=== PATIENT | female | born 1960 | race Caucasian/White ===

== ENCOUNTER → 2017-07-21 12:50 | Outpatient (CLI) | payer MEDICARE, BC, SELFPAY ==
[2017-07-21 13:30] VITALS: PULSE 60; PULSE 68
== END ==
PROVIDERS: Family Provider Internal Medicine; PCP Internal Medicine; Visit Provider Internal Medicine
DX: R06.02 Shortness of breath (principal)
CPT/HCPCS: 94060; 94640

== ENCOUNTER → 2017-10-27 13:53 | Outpatient (POV) | payer MEDICARE, BC, SELFPAY | PROVIDERS: Family Provider Internal Medicine; PCP Internal Medicine; Visit Provider Internal Medicine | DX: Z00.00 Encounter for general adult medical examination without abnormal findings (principal) ==

== ENCOUNTER → 2017-11-03 14:21 | Outpatient (CLI) | payer MEDICARE, BC, SELFPAY ==
--- NOTE | 2017-11-03 14:25 | CT_ITS ---
CT lung screening EXAM: CT LUNG LOW DOSE WO CONTRAST COMPARISON: None HISTORY: 57-year-old female asymptomatic with 32 pack-year smoking history ITS.REASON: CURRENT TOBACCO USE ORDERING PHYSICIAN: Sherman Green MD PATIENT AGE: 57 years TECHNIQUE: The exam was performed on a GE Light Speed [address] scanner using 2.90 mGy CTDI. A low dose helical CT CHEST was performed on a multi-detector scanner. All CT scans at the facility use one or more dose reduction, viz: automated exposure control; ma/kV adjustment per patient size (including targeted exams where dose is matched to indication; i.e. head); or iterative reconstruction technique. The LDCT was performed in a facility that meets the criteria for the screening program. Data regarding this exam was submitted to ACR which is an approved registry. The order for this exam indicates that it came as a result of a lung cancer screening counseling shard decision-making visit that included all the elements required of such a visit including smoking cessation. The radiologist interpreting this exam meets the CMS criteria for the LDCT lung cancer screening program. The exam is reported using the Lung-RADS classification scale and reported to the ACR registry. NOTE: This study was performed for the specific purposes of lung cancer screening and is not an alternative to diagnostic chest CT. RADIATION DOSE: CTDI vol(CT dose Index-volume) = 2.90mG DLP (Dose Length Product) = 105.39 mGcm FINDINGS: Paraseptal emphysematous change. Hyperinflation with attenuation of the peripheral pulmonary vessels and mild bronchial thickening consistent with COPD. Scattered areas of scarring in the lung bases. No suspicious pulmonary nodules evident. Scattered small nodes are present in the mediastinum and axilla.. There is minimal dilatation of the proximal descending thoracic aorta at 3.6 cm IMPRESSION: 1. Lung RADS Category: 1, negative 2. Other findings: COPD Mild dilatation proximal descending thoracic aorta RECOMMENDATIONS: 12 month LDCT screening exam
== END ==
PROVIDERS: Family Provider Internal Medicine; PCP Internal Medicine; Visit Provider Internal Medicine
DX: Z87.891 Personal history of nicotine dependence (principal); Z12.2 Encounter for screening for malignant neoplasm of respiratory organs; F17.200 Nicotine dependence, unspecified, uncomplicated

== ENCOUNTER → 2018-05-25 10:18 | Outpatient (CLI) | payer MEDICARE, BC, SELFPAY ==
[2018-05-25 10:28] LABS: Basophils # 0.2 K/mm3 (0-0.2); Basophils % 1.5 % (0.1-2.0); Eosinophils # 0.9 K/mm3 (0.0-0.4); Eosinophils % 8.4 % (0.1-12.0); Hematocrit 41.6 % (37.0-47.0); Hemoglobin 13.9 g/dL (12.2-16.2); Lymphocytes # 3.2 K/mm3 (0.7-4.5); Lymphocytes % 30.8 % (10-50); Mean Corpuscular HGB Conc 33.5 g/dL (31.8-35.4); Mean Corpuscular Hemoglobin 30.9 pg (27.0-31.2); Mean Corpuscular Volume 92.3 fl (81-99); Mean Platelet Volume 7.3 fl (7.4-10.4); Monocytes # 0.6 K/mm3 (0.1-1.0); Monocytes % 5.4 % (1.7-9.3); Neutrophils # 5.5 K/mm3 (1.8-7.8); Neutrophils % 53.8 % (37.0-80.0); Platelet Count 294 K/mm3 (142-424); Red Blood Count 4.51 M/mm3 (4.20-5.40); Red Cell Distribution Width 14.3 % (11.5-17.5); White Blood Count 10.2 K/mm3 (4.8-10.8)
[2018-05-25 11:03] LABS: Anion Gap 13.1 mEq/L (5-15); Blood Urea Nitrogen 9 mg/dL (7-18); Calcium 8.8 mg/dL (8.5-10.1); Carbon Dioxide 27 mmol/L (21.0-32.0); Chloride 104 mmol/L (98-107); Creatinine,Serum 1.11 mg/dL (0.55-1.02); Estimated Glomerular Filt Rate 50 ml/min (>60); GFR (African American) 61 ML/MIN (>60); Glucose 105 mg/dL (74-106); Potassium 4.1 mmoL/L (3.5-5.1); Sodium 140 mmol/L (136-145)
--- NOTE | 2018-05-25 13:52 | CT_ITS ---
CT abdomen pelvis wo con CLINICAL INDICATION: Right lower quadrant pain radiating into the flank ITS.REASON: RLQ PAIN ORDERING PHYSICIAN: Deondre Lui PATIENT AGE: 57 years COMPARISON: 05/14/2016 TECHNIQUE: Axial images obtained with sagittal and coronal reformats. All CT scans at the facility use one or more dose reduction, viz: automated exposure control, ma/kV adjustment per patient size (including targeted exams where dose is matched to indication, i.e. head), or iterative reconstruction technique. PROCEDURE: Oral Contrast: Gastroview IV Contrast: None . FINDINGS: Atelectatic or fibrotic changes are present in the lung bases. There is mild diffuse fatty liver the spleen, adrenal glands, pancreas have an unremarkable unenhanced appearance. A 2 mm stone is present in the mid polar region of the right kidney. No hydronephrosis. No ureteral calculi. No evidence of appendicitis, intestinal obstruction, or diverticulitis. There is a femorofemoral graft present. There are stents present in both common iliac arteries. There is minimal ectasia of the abdominal aorta to 0.1 cm. Prior hysterectomy. No pelvic mass abnormal fluid collection or focal inflammatory changes pelvis. No acute bony anomalies. IMPRESSION: 1. No acute abdominal or pelvic findings. 2. Nonobstructing 2 mm stone right kidney.
== END ==
PROVIDERS: PCP Internal Medicine; Visit Provider Internal Medicine
DX: R10.31 Right lower quadrant pain (principal); M54.5 Low back pain
CPT/HCPCS: 74176; 80048; 85025

== ENCOUNTER → 2018-12-27 13:33 | Outpatient (CLI) | payer MEDICARE, BC, SELFPAY ==
--- NOTE | 2018-12-27 13:36 | MM_ITS ---
MM Dig mamm BI DX w/CAD, US breast LT complete INDICATION: Left breast nodule as seen on recent CT scan ORDERING PHYSICIAN: Deondre Lui PATIENT AGE: 58 years COMPARISON: 07/14/2016, 01/21/2011, 12/16/2018 TECHNIQUE: Standard images performed along with spot views of the left breast and left breast ultrasound FINDINGS: Mammogram: There is average to dense fibroglandular tissue bilaterally. There is an area of asymmetry noted in the medial aspect of the right breast slightly more prominent but may be related to an area of asymmetric tissue. Benign-appearing nodules are present in the right axilla consistent with lymph nodes There is a new well-circumscribed 2 cm nodule within the 3:00 region of the left breast. There are bilateral benign-appearing calcifications. Left breast ultrasound: There is a 2 x 1.8 cm cyst at 3:00 which corresponds to the mammographic abnormality. This contains a small septation anteriorly with some questionable mural thickening anteriorly. This corresponds to the mammographic abnormality. No other significant anomalies are evident. IMPRESSION: No convincing evidence of malignancy. The nodule in the lateral aspect of the left breast represents a complicated cyst. There is some asymmetry in the medial aspect of the right breast probably related to fibroglandular tissue. Suggest bilateral 6 month mammographic and left sonographic follow-up BI-RADS Category: 3 Probably Benign Finding Short Term Follow-up RECOMMENDED FOLLOW-UP: 6M - 6 MONTH FOLLOW-UP (A letter has been sent to the patient regarding results of the study.)
== END ==
PROVIDERS: PCP Internal Medicine; Visit Provider Internal Medicine
DX: R93.7 Abnormal findings on diagnostic imaging of other parts of musculoskeletal system (principal); N63.22 Unspecified lump in the left breast, upper inner quadrant
CPT/HCPCS: 76641; 77066

== ENCOUNTER → 2019-07-05 09:48 | Outpatient (CLI) | payer MEDICARE, BC, SELFPAY ==
--- NOTE | 2019-07-05 10:03 | XR_ITS ---
PROCEDURE: XR ACUTE ABDOMEN SERIES CLINICAL INDICATION: LOWER ABD PAIN, COMPARISON: CT ABDOMEN PELVIS W CON from 03/01/2019 FINDINGS: There is no acute cardiopulmonary pathology. Increased density at the right cardiophrenic angle is consistent with cardiophrenic angle fat pad as seen on previous CT. Postsurgical changes are seen at the cervicothoracic junction and at the right humeral head. Bilateral common iliac artery stents are noted. Postsurgical clips are seen in the bilateral inguinal regions. There is no free air. There is a nonspecific gas pattern. No organomegaly or abnormal soft tissue densities are apparent. Pelvic calcifications likely phleboliths are noted. Vascular calcifications are noted. IMPRESSION: No acute findings. Dictated by: Chris Sandra 07/05/2019 10:33 Electronically signed by Chris Sandra in [place] 07/05/2019 10:33
[2019-07-05 10:10] LABS: Basophils # 0.1 K/mm3 (0-0.2); Eosinophils # 0.5 K/mm3 (0.0-0.4); Eosinophils % 4.2 % (0.1-12.0); Hematocrit 46.3 % (37.0-47.0); Hemoglobin 14.8 g/dL (12.2-16.2); Lymphocytes # 2.1 K/mm3 (0.7-4.5); Lymphocytes % 18.2 % (10-50); Mean Corpuscular HGB Conc 31.9 g/dL (31.8-35.4); Mean Corpuscular Hemoglobin 30.6 pg (27.0-31.2); Mean Platelet Volume 7.8 fl (7.4-10.4); Monocytes # 0.5 K/mm3 (0.1-1.0); Monocytes % 4.5 % (1.7-9.3); Neutrophils # 8.2 K/mm3 (1.8-7.8); Neutrophils % 72.1 % (37.0-80.0); Platelet Count 316 K/mm3 (142-424); Red Blood Count 4.82 M/mm3 (4.20-5.40); Red Cell Distribution Width 15.2 % (11.5-17.5); White Blood Count 11.4 K/mm3 (4.8-10.8)
[2019-07-05 10:17] LABS: Anion Gap 14.7 mEq/L (5-15); Blood Urea Nitrogen 17 mg/dL (7-18); Calcium 9.2 mg/dL (8.5-10.1); Carbon Dioxide 28 mmol/L (21.0-32.0); Chloride 104 mmol/L (98-107); Creatinine,Serum 1.16 mg/dL (0.55-1.02); Estimated Glomerular Filt Rate 48 ml/min (>60); GFR (African American) 58 ML/MIN (>60); Glucose 112 mg/dL (74-106); Potassium 3.7 mmoL/L (3.5-5.1); Sodium 143 mmol/L (136-145)
== END ==
PROVIDERS: Visit Provider Internal Medicine
DX: R10.30 Lower abdominal pain, unspecified (principal); R11.0 Nausea; R19.7 Diarrhea, unspecified
CPT/HCPCS: 36415; 74021; 80048; 85025

== ENCOUNTER → 2019-07-29 14:14 | Outpatient (CLI) | payer MEDICARE, BC, SELFPAY ==
--- NOTE | 2019-07-29 14:17 | US_ITS ---
PROCEDURE: MM DIG MAMM DX UNILAT LT CAD CLINICAL INDICATION: LT BREAST NODULE The the the in the COMPARISON: DMDBAV DIG MAMM-DX STANLEY W ADD VIEWS from 05/24/2015 DMSB DIG MAMM-SCREEN STANLEY W/CAD from 07/14/2016 DIG MAMM-DX UNI-LT from 12/27/2018 BREASTLT US breast LT complete from 12/27/2018 US BREAST LT COMPLETE from 07/29/2019 TECHNIQUE: Standard CC and MLO images and 3D Tomosynthesis was obtained. R2 CAD reviewed. Left breast FINDINGS: There is average fibroglandular tissue. There is a 2.7 x 2.3 cm well-circumscribed nodule within the lower outer aspect of the left breast. This has increased in size previously measuring 2.1 x 1.7 cm. No other significant anomalies are evident. Left breast ultrasound: There is a 2.4 by 2.2 x 1.3 cm cyst at 3 o'clock region of the left breast corresponding to the mammographic abnormality. This previously measured 1.8 x 1 point 2 cm. There is a small adjacent cyst anterior to this cyst versus a small septation within the cyst not significantly changed. No suspicious nodules are evident. IMPRESSION: Complicated left breast cyst which is slightly increased in size. This is probably benign. Fine-needle aspiration could be performed with sonographic guidance for patient comfort and peace of mind the if clinically warranted. On the prior exam, follow-up also is recommended of the right breast which was not performed. Would recommend performing that exam. BI-RAD Category: 3 Probably Benign Finding Short Term Follow-up FOLLOW-UP: IMM Immediate Follow-up Recommended. Follow-up of the right breast is also recommended which was not performed on the date of this exam (A letter has been sent to the patient regarding results of the study.) Dictated by: Enrique Steele MD 07/30/2019 11:52 Electronically signed by Enrique Steele MD in [place] 07/30/2019 11:52
== END ==
PROVIDERS: PCP Internal Medicine; Visit Provider Internal Medicine
DX: R92.8 Other abnormal and inconclusive findings on diagnostic imaging of breast (principal); N63.23 Unspecified lump in the left breast, lower outer quadrant
CPT/HCPCS: 76641; 77061; 77065; G0279

== ENCOUNTER → 2019-08-16 09:29 | Outpatient (CLI) | payer MEDICARE, BC, SELFPAY ==
--- NOTE | 2019-08-16 09:35 | MM_ITS ---
PROCEDURE: MM DIG SC MAMM UNILAT RT CAD Digital Breast Tomosynthesis Included CLINICAL INDICATION: RT BREAST SCREENING Follow-up suspected asymmetric glandular elements COMPARISON: DMSB DIG MAMM-SCREEN STANLEY W/CAD from 07/14/2016 DIG MAMM-DX UNI-LT from 12/27/2018 MM DIG MAMM DX UNILAT LT CAD from 07/29/2019 TECHNIQUE: Standard CC and MLO images and 3D Tomosynthesis was obtained. R2 CAD reviewed. FINDINGS: Moderate diffuse heterogenic fibroglandular densities are seen in the central portion. Cb images are most helpful revealing no suspicious lesion and no suspicious microcalcifications. Again noted are couple of benign-appearing microcalcifications. IMPRESSION: Stable dense and heterogenic parenchymal pattern BI-RAD Category: 2 Benign Finding(s) FOLLOW-UP: Six-month follow-up mammogram to return to normal yearly screening schedule (A letter has been sent to the patient regarding results of the study.) Dictated by: Dr. Damian Schwarz MD 08/19/2019 08:[address] Damian Schwarz MD in [place] 08/19/2019 08:15
--- NOTE | 2019-08-16 09:50 | US_ITS ---
PROCEDURE: US FNA BREAST CLINICAL INDICATION: LT BREAST NODULE Dominant left breast nodule, complicated cyst COMPARISON: US BREAST LT COMPLETE from 07/29/2019 FINDINGS: Technique: Following obtaining informed consent and time-out procedure under aseptic conditions and local anesthesia with 1 percent buffered lidocaine, a 21 gauge needle was inserted into the left breast nodule and 8 cc of dark fluid was aspirated. A 2nd small cyst was aspirated in this region as well. The patient tolerated the procedure well without evidence of immediate complications. Cytology: Negative for malignancy. IMPRESSION: Successful ultrasound-guided cyst aspiration without complication Dictated by: Enrique Steele MD 08/19/2019 11:23 Electronically signed by Enrique Steele MD in [place] 08/19/2019 11:23
--- NOTE | 2019-08-16 10:38 | MM_ITS ---
PROCEDURE: MM DIG MAMM DX UNILAT LT CAD Digital Breast Tomosynthesis Included CLINICAL INDICATION: F/U CYST ASPIRATION COMPARISON: DIG MAMM-DX UNI-LT from 12/27/2018 MM DIG MAMM DX UNILAT LT CAD from 07/29/2019 MM DIG SC MAMM UNILAT RT CAD from 08/16/2019 TECHNIQUE: Standard CC and MLO images and 3D Tomosynthesis was obtained. R2 CAD reviewed. FINDINGS: Diffuse heterogenic fibroglandular densities are again noted. The dominant cystic-appearing lesion which was drained previously is not seen. Cb images are most helpful revealing no suspicious lesion. Again noted are a few scattered benign-appearing microcalcifications. IMPRESSION: Stable heterogenic breast density with no suspicious lesions seen BI-RAD Category: 2 Benign Finding(s) FOLLOW-UP: 6M 6Month Follow-up to return to normal yearly screening schedule (A letter has been sent to the patient regarding results of the study.) Dictated by: Dr. Damian Schwarz MD 08/19/2019 08:[address] Damian Schwarz MD in [place] 08/19/2019 08:20
== END ==
PROVIDERS: PCP Internal Medicine; Visit Provider Internal Medicine
DX: Z12.31 Encounter for screening mammogram for malignant neoplasm of breast (principal); N63.20 Unspecified lump in the left breast, unspecified quadrant; R92.8 Other abnormal and inconclusive findings on diagnostic imaging of breast
CPT/HCPCS: 10005; 76942; 77061; 77063; 77065; 77067; 88173; G0279

== ENCOUNTER → 2019-08-23 11:05 | Outpatient (CLI) | payer MEDICARE, BC, SELFPAY ==
--- NOTE | 2019-08-23 11:09 | XR_ITS ---
PROCEDURE: XR SHOULDER LT MIN 2V CLINICAL INDICATION: LT SHOULDER PAIN COMPARISON: [id number] [id number] VIEWS from 05/09/2017 FINDINGS: No fracture, dislocation, lytic change, or blastic change evident. No significant degenerative change IMPRESSION: Negative left shoulder Dictated by: Enrique Steele MD 08/23/2019 11:31 Electronically signed by Enrique Steele MD in [place] 08/23/2019 11:31
== END ==
PROVIDERS: PCP Internal Medicine; Visit Provider Internal Medicine
DX: M25.512 Pain in left shoulder (principal)
CPT/HCPCS: 73030

== ENCOUNTER 2019-09-23 06:19 | Emergency (ER) | payer MEDICARE, BC, SELFPAY ==
[2019-09-23 06:20] VITALS: BP 171/80; PULSE 70; RESP 16; RESP 18; TEMP 36.7; O2SAT 95; BMI 32.4
--- NOTE | 2019-09-23 06:41 | CT_ITS ---
PROCEDURE: CT HEAD/BRAIN WO CON CLINICAL INDICATION: left sided weakness Left-sided weakness COMPARISON: [facility] CT HEAD W/O CONTRAST from 01/02/2017 TECHNIQUE: Axial images obtained. All CT scans at the facility use one or more dose reduction, viz: automated exposure control, ma/kV adjustment per patient size (including targeted exams where dose is matched to indication, i.e. head), or iterative reconstruction technique. FINDINGS: No midline shift, mass effect, intracranial hemorrhage, hydrocephalus, or extra-axial fluid collection is evident. The calvarium has an unremarkable appearance. No mastoid effusion. No sinus air-fluid level. IMPRESSION: No acute intracranial finding Dictated by: Enrique Steele MD 09/23/2019 08:13 Electronically signed by Enrique Steele MD in [place] 09/23/2019 08:13
--- NOTE | 2019-09-23 06:41 | XR_ITS ---
PROCEDURE: XR CHEST 2V CLINICAL HISTORY: weakness COMPARISON: CXR CHEST(2 VIEWS-NOT PORTABLE) from 05/19/2017 Chest from 12/16/[address] angio chest from 12/16/2018 XR RIBS RT MIN 3V W CXR1V from 03/01/2019 FINDINGS: The cardiomediastinal silhouette and pulmonary vascularity are within normal limits. The lungs are clear without infiltrates, suspicious nodules, or pleural effusions. Pericardial fat pad noted on the right. Bone plate is present along the lower cervical spine IMPRESSION: No acute findings. Dictated by: Enrique Steele MD 09/23/2019 09:10 Electronically signed by Enrique Steele MD in [place] 09/23/2019 09:10
--- NOTE | 2019-09-23 06:42 | ECG_ITS ---
APPROVED REPORT Exam: Resting ECG HR:58 bpm ECG Measurements Heart Rate 58 AXES WA 174 P 78 QRSd 84 QRS 61 QT 422 T 66 QTc 414 <Conclusion> Sinus bradycardia Otherwise normal ECG Electronically signed by : Duglas Talbert, 09/24/2019 06:47:56
--- NOTE | 2019-09-23 06:45 | PC.NURSE ---
pt placed in gown. bra left on due to being a sports bra with no metal.
[2019-09-23 06:50] LABS: Basophils # 0.1 K/mm3 (0-0.2); Basophils % 0.6 % (0.1-2.0); Eosinophils # 0.4 K/mm3 (0.0-0.4); Eosinophils % 2.6 % (0.1-12.0); Hematocrit 44.4 % (37.0-47.0); Hemoglobin 14.4 g/dL (12.2-16.2); Lymphocytes # 2.6 K/mm3 (0.7-4.5); Lymphocytes % 19.5 % (10-50); Mean Corpuscular HGB Conc 32.5 g/dL (31.8-35.4); Mean Corpuscular Hemoglobin 31.5 pg (27.0-31.2); Mean Corpuscular Volume 96.9 fl (81-99); Mean Platelet Volume 7.8 fl (7.4-10.4); Monocytes # 0.7 K/mm3 (0.1-1.0); Monocytes % 5.3 % (1.7-9.3); Neutrophils # 9.7 K/mm3 (1.8-7.8); Platelet Count 288 K/mm3 (142-424); Red Blood Count 4.58 M/mm3 (4.20-5.40); Red Cell Distribution Width 14.8 % (11.5-17.5); White Blood Count 13.5 K/mm3 (4.8-10.8)
[2019-09-23 06:52] LABS: Chloride 106 mmol/L (98-107); Sodium 139 mmol/L (136-145)
[2019-09-23 06:53] LABS: Potassium 4.1 mmoL/L (3.5-5.1)
[2019-09-23 06:55] LABS: Blood Urea Nitrogen 21 mg/dl (7-17); Creatinine Clearance Estimated 104 mL/min (50-200); Estimated Glomerular Filt Rate 73 ml/min (>60); GFR (African American) 89 ML/MIN (>60)
[2019-09-23 06:56] LABS: Anion Gap 11.1 mEq/L (5-15); Calcium 9.4 mg/dl (8.4-10.2); Carbon Dioxide 26 mmol/L (22.0-30.0); Glucose 121 mg/dl (74-100)
[2019-09-23 07:10] LABS: Troponin I < 0.01 ng/ml (0.00-0.034)
[2019-09-23 07:44] LABS: Microscopic, Urine URINE MICROSCOPIC (MICROSCOPIC)
[2019-09-23 07:51] LABS: Appearance,Urine CLEAR (Clear); Blood, Urine Negative (Negative); Color,Urine YELLOW (Yellow); Glucose,Urine (UA) Negative (Negative); Ketones,Urine Negative (Negative); Leukocyte Esterase,Urine Negative (Negative); Nitrate,Urine Negative (Negative); PH,Urine 5.5 (5.0-8.5); Protein,Urine Negative (Negative); Specific Gravity, Urine >= 1.030 (1.005-1.030); Urobilinogen,Urine 0.2 EU/dl (0.2)
[2019-09-23 07:57] LABS: Bilirubin,Urine Negative (Negative)
[2019-09-23 07:59] LABS: Bacteria,Urine 1+ /lpf; Mucus,Urine Trace /lpf
--- NOTE | 2019-09-23 08:04 | HMH.EDGENADL ---
ED Disposition Clinical Impression: Weakness Disposition: Home, Self-Care Condition on Discharge: Good Additional Instructions: After reviewing your labs and radiology we are discharging you home at this time. Given your symptoms there is concern that she may have had a subacute stroke, but there are other pathologies which could explain your symptoms. We recommend that you follow-up with your primary care physician Dr. Lui on Thursday or Thursday of next week for further evaluation. Recommend that she start taking 81 mg oral aspirin every day. If her symptoms acutely worsen please return to the emergency department for further evaluation. Referrals: Deondre Lui [Primary Care Provider] - - Critical Care Critical Care Time: No Attestation: On 09/23/19, the high probability of a clinically significant, sudden or life threatening deterioration of the following system(s) required my full and direct attention, intervention and personal management. The time I documented below is in addition to time spent performing reported procedures but includes the following listed in this critical care notation. Medical Decision Making - Darin Inquiry Pt receiving controlled substance: No Darin was queried for this patient: No Vital Signs: 09/23/19 06:20 09/23/19 10:18 Temperature 98.1 F 98.1 F Temperature Source Oral Tympanic Pulse Rate 69 Pulse Rate [Left Radial] 70 Respiratory Rate 18 14 Blood Pressure 154/74 H Blood Pressure [Right Arm] 171/80 H Blood Pressure Mean [Right Arm] 110 Blood Pressure Source [Right Arm] Automatic Cuff Blood Pressure Position [Right Arm] Supine 02 Sat by Pulse Oximetry 95 Oxygen Delivery Method Room Air Room Air - Lab Data Lab Results 09/23/19 06:30: WBC 13.5 H, RBC 4.58, Hgb 14.4, Hct 44.4, MCV 96.9, MCH 31.5 H, MCHC 32.5, RDW 14.8, Plt Count 288, MPV 7.8, Neut % (Auto) 72.0, Lymph % (Auto) 19.5, [place] % (Auto) 5.3, Eos % (Auto) 2.6, Baso % (Auto) 0.6, Neut # (Auto) 9.7 H, Lymph # (Auto) 2.6, [place] # (Auto) 0.7, Eos # (Auto) 0.4, Baso # (Auto) 0.1 09/23/19 06:30: Sodium 139, Potassium 4.1, Chloride 106, Carbon Dioxide 26, Anion Gap 11.1, BUN 21 H, Creatinine 0.80, Estimated Creat Clear 104, Estimated GFR 73, Est GFR ( Amer) 89, Glucose 121 H, Calcium 9.4, Troponin I < 0.01 09/23/19 07:33: Urine Color Yellow, Urine Appearance Clear, Urine pH 5.5, Ur Specific [place] >= 1.030, Urine Protein Negative, Urine Glucose (UA) Negative, Urine Ketones Negative, Urine Blood Negative, Urine Nitrate Negative, Urine Bilirubin Negative, Urine Urobilinogen 0.2, Ur Leukocyte Esterase Negative, Urine RBC 5-10, Urine WBC 5-10, Ur Squamous Epith Cells 3-5, Urine Bacteria 1+, Urine Mucus Trace 09/23/19 09:35: Troponin I < 0.01 Result diagrams: 09/23/19 06:30 09/23/19 06:30 Orders (Tests/Meds): ED MEDICATIONS Discontinued Medications Generic Name Dose Route Start Last Admin Trade Name Natalee PRN Reason Stop Dose Admin Amlodipine Besylate 10 mg 09/23/19 09:45 09/23/19 10:18 Norvasc 10mg Tablet PO 10/23/19 09:44 10 mg DAILY JEANCARLOS Administration Sodium Chloride 1,000 mls @ 999 mls/hr 09/23/19 06:45 09/23/19 07:10 Sod Chlor 0.9% 1000ml Bag IV 09/23/19 07:45 999 mls/hr .Q1H1M JEANCARLOS Administration Medical Decision Narrative: In summary patient is a well-appearing 58-year-old female presenting to the emergency department for evaluation of left-sided weakness. Symptoms started 1 week prior. Given patient's presentation differential diagnosis includes but is not limited to stroke, hemorrhagic stroke, ACS, diabetic neuropathy. This appropriate work-up initiated including CBC, CMP, troponin panel, and CT head as well as EKG. On physical exam patient has 4 out of 5 strength noted to her left upper and left lower extremities with 5 out of 5 strength to right upper and right lower extremity. Patient is able to ambulate under her own power. Patient CT returned shows no acute int
--- NOTE | 2019-09-23 09:41 | PC.NURSE ---
2nd troponin drawn and to lab for resulting.
[2019-09-23 10:13] LABS: Troponin I < 0.01 ng/ml (0.00-0.034)
[2019-09-23 10:18] VITALS: BP 154/74; PULSE 69; RESP 14; TEMP 36.7; O2SAT 98
--- NOTE | 2019-09-23 10:22 | PC.NURSE ---
upon discharge, patient angry and storms out of the room, jerking flores stating that you all dont care there is something wrong with me. pt storms out of the ed before staff able to attempt to console or discuss concerns with patient. pt states that my doctor told me not to leave until you all find out what is wrong with me. pt ran out of ed.
[2019-10-27 10:31] LABS: POC Glucose,Bedside 113 (70-110)
== END 2019-09-23 10:24 | disposition home or self-care (01) ==
PROVIDERS: Emergency Provider Emergency Medicine; PCP Internal Medicine
DX: R53.1 Weakness (principal); R20.2 Paresthesia of skin; I10 Essential (primary) hypertension; E78.5 Hyperlipidemia, unspecified; F17.210 Nicotine dependence, cigarettes, uncomplicated
CPT/HCPCS: 70450; 71046; 80048; 81001; 82962; 84484; 85025; 93005; 99284

== ENCOUNTER → 2020-07-09 08:20 | Outpatient (CLI) | payer MEDICARE, BC, SELFPAY ==
--- NOTE | 2020-07-09 08:24 | MM_ITS ---
PROCEDURE: MM DIG SCREENING MAMM BI W/CAD Digital Breast Tomosynthesis Included CLINICAL INDICATION: SCREENING There is a history of breast cancer patient's mother diagnosed after menopause. There has been a previous biopsy left breast for benign disease. COMPARISON: MG DIG MAMM-DX UNI-LT from 12/27/2018 MG MM DIG MAMM DX UNILAT LT CAD from 07/29/2019 MG MM DIG MAMM DX UNILAT LT CAD from 08/16/2019 MG MM DIG SC MAMM UNILAT RT CAD from 08/16/2019 TECHNIQUE: Standard CC and MLO images and 3D Tomosynthesis was obtained. R2 CAD reviewed. FINDINGS: Prominent somewhat heterogenic fibroglandular densities are seen in in the central portions of both breast. There is a biopsy clip left breast. There are scattered benign-appearing microcalcifications in each breast. There is no suspicious lesion and no suspicious microcalcifications. There are several small nodes in both axilla. IMPRESSION: Stable exam with no suspicious lesions seen BI-RAD Category: 2 Benign Finding(s) FOLLOW-UP: 1YR 1 Year Follow-up (A letter has been sent to the patient regarding results of the study.) Dictated by: Dr. Damian Schwarz MD 07/11/2020 10:11 Dr. Damian Schwarz MD in [place] 07/11/2020 10:11
== END ==
PROVIDERS: PCP Internal Medicine; Visit Provider Internal Medicine
DX: Z12.31 Encounter for screening mammogram for malignant neoplasm of breast (principal)
CPT/HCPCS: 77063; 77067

== ENCOUNTER → 2021-04-03 11:15 | Outpatient (CLI) | payer MEDICARE, BC, SELFPAY ==
--- NOTE | 2021-04-03 11:29 | XR_ITS ---
PROCEDURE: XR PELVIS MIN 3V CLINICAL INDICATION: LT HIP PAIN COMPARISON: No exams were available for comparison TECHNIQUE: XR Pelvis AP View FINDINGS: Minimal osteoarthritic changes of the hips. Surgical clips are present in the inguinal regions on both sides. There are bilateral iliac artery stents diffuse vascular calcification. Calcification noted over the right ileum and may be due to a injection granuloma or bone island of the ileum.. Small calcification superior to ilium also possibly due to injection granuloma. No acute fracture or dislocation. No lytic changes. IMPRESSION: Mild osteoarthritis of the hips Dictated by: Enrique Steele MD 04/16/2021 19:39 Enrique Steele MD in [place] 04/16/2021 19:39
--- NOTE | 2021-04-03 11:29 | XR_ITS ---
PROCEDURE: XR HIP LT 2-3V W/PELVIS CLINICAL INDICATION: LT HIP PAIN COMPARISON: CT CT ABDOMEN PELVIS W CON from 03/01/2019 CR XR PELVIS MIN 3V from 04/03/2021 FINDINGS: No fracture or dislocation. No lytic or blastic change. Surgical clips are present in the inguinal area. No significant degenerative change. IMPRESSION: No acute findings. Dictated by: Enrique Steele MD 04/03/2021 17:35 Enrique Steele MD in [place] 04/03/2021 17:35
[2021-04-03 18:49] LABS: Chloride 104 mmol/L (98-107); Potassium 4.3 mmoL/L (3.5-5.1); Sodium 141 mmol/L (136-145)
[2021-04-03 18:52] LABS: Anion Gap 16.3 mEq/L (5-15); Blood Urea Nitrogen 10 mg/dl (7-17); Calcium 9.6 mg/dl (8.4-10.2); Carbon Dioxide 25 mmol/L (22.0-30.0); Estimated Glomerular Filt Rate 73 ml/min (>60); GFR (African American) 88 ML/MIN (>60); Glucose 95 mg/dl (74-100)
== END ==
PROVIDERS: PCP Internal Medicine; Visit Provider Internal Medicine
DX: M25.552 Pain in left hip (principal)
CPT/HCPCS: 72190; 73502; 80048

== ENCOUNTER → 2021-07-08 12:42 | Outpatient (CLI) | payer MEDICARE, BC, SELFPAY ==
[2021-07-08 13:13] LABS: Basophils # 0.1 K/mm3 (0-0.2); Basophils % 1.1 % (0.1-2.0); Eosinophils # 0.2 K/mm3 (0.0-0.4); Eosinophils % 1.4 % (0.1-12.0); Hematocrit 44.2 % (37.0-47.0); Hemoglobin 14.3 g/dL (12.2-16.2); Lymphocytes # 2.1 K/mm3 (0.7-4.5); Lymphocytes % 16.8 % (10-50); Mean Corpuscular HGB Conc 32.5 g/dL (31.8-35.4); Mean Corpuscular Hemoglobin 32.3 pg (27.0-31.2); Mean Corpuscular Volume 99.4 fl (81-99); Mean Platelet Volume 9.1 fl (7.4-10.4); Monocytes # 0.6 K/mm3 (0.1-1.0); Monocytes % 5.1 % (1.7-9.3); Neutrophils # 9.4 K/mm3 (1.8-7.8); Neutrophils % 75.6 % (37.0-80.0); Platelet Count 285 K/mm3 (142-424); Red Blood Count 4.44 M/mm3 (4.20-5.40); Red Cell Distribution Width 15.3 % (11.5-17.5); White Blood Count 12.4 K/mm3 (4.8-10.8)
[2021-07-08 14:06] LABS: Alanine Aminotransferase 20 U/L (12-78); Albumin Level 4.2 g/dl (3.5-5.0); Albumin/Globulin Ratio 1.8 (1.1-1.8); Alkaline Phosphatase 85 U/L (38-126); Anion Gap 14.1 mEq/L (5-15); Aspartate Amino Transferase 22 U/L (14-36); Bilirubin,Total 0.6 mg/dl (0.2-1.3); Blood Urea Nitrogen 9 mg/dl (7-17); Calcium 9.7 mg/dl (8.4-10.2); Carbon Dioxide 27 mmol/L (22.0-30.0); Chloride 102 mmol/L (98-107); Chol/HDL Ratio 3.2 (1-3.5); Cholesterol 124 mg/dl (140-200); Estimated Glomerular Filt Rate 50 ml/min (>60); GFR (African American) 61 ML/MIN (>60); Globulin 2.3 g/dL (1.3-3.2); Glucose 139 mg/dl (74-100); HDL Cholesterol 39 mg/dl (40-60); Potassium 4.1 mmoL/L (3.5-5.1); Sodium 139 mmol/L (136-145); Total Protein,Serum 6.5 g/dl (6.3-8.2); Triglycerides 125 mg/dl (30-150); VLDL Cholesterol 25 mg/dL (0-40)
[2021-07-08 14:15] LABS: NT Pro Brain Natriuretic Pep. 47.5 pg/mL (0-125)
[2021-07-08 14:23] LABS: Direct LDL Cholesterol 79.13 mg/dL (100-129)
== END ==
PROVIDERS: Visit Provider Internal Medicine
DX: R06.09 Other forms of dyspnea (principal); I25.10 Atherosclerotic heart disease of native coronary artery without angina pectoris; I10 Essential (primary) hypertension; I73.9 Peripheral vascular disease, unspecified; E78.5 Hyperlipidemia, unspecified
CPT/HCPCS: 80053; 80061; 83880; 85025

== ENCOUNTER → 2021-07-11 12:46 | Outpatient (CLI) | payer MEDICARE, BC, SELFPAY ==
--- NOTE | 2021-07-11 12:50 | MM_ITS ---
PROCEDURE INFORMATION: Exam: MG Bilateral Screening 3D Mammography Exam date and time: 07/11/2021 12:50 PM Age: 60 years old Clinical indication: Encounter for screening mammogram for malignant neoplasm of breast TECHNIQUE: Imaging protocol: Bilateral Screening tomosynthesis and 2D mammography including computer-aided detection (CAD) when performed. COMPARISON: 1. MG MM DIG SCREENING MAMM BI W/CAD 07/09/2020 8:25 AM 2. MG MM DIG MAMM DX UNILAT LT CAD 08/16/2019 10:40 AM FINDINGS: MAMMOGRAPHY: Breast composition: The breast tissue is heterogeneously dense, which may obscure small masses. Mass: None. Architectural distortion: None. Calcifications: No suspicious calcifications. Asymmetric density: None. Skin thickening: None. Axillary adenopathy: None. IMPRESSION: No mammographic evidence of malignancy. Annual screening is recommended unless otherwise clinically indicated. ASSESSMENT: BI-RADS Category 1: Negative
== END ==
PROVIDERS: PCP Internal Medicine; Visit Provider Internal Medicine
DX: Z12.31 Encounter for screening mammogram for malignant neoplasm of breast (principal)
CPT/HCPCS: 77063; 77067

== ENCOUNTER → 2021-10-08 15:16 | Outpatient (CLI) | payer MEDICARE, BC, SELFPAY ==
[2021-10-08 16:28] LABS: Chloride 108 mmol/L (98-107); Potassium 4.9 mmoL/L (3.5-5.1); Sodium 141 mmol/L (136-145)
[2021-10-08 16:30] LABS: Alanine Aminotransferase 19 U/L (12-78); Aspartate Amino Transferase 25 U/L (14-36); Blood Urea Nitrogen 16 mg/dl (7-17); Estimated Glomerular Filt Rate 56 ml/min (>60); GFR (African American) 68 ML/MIN (>60)
[2021-10-08 16:31] LABS: Albumin Level 3.9 g/dl (3.5-5.0); Albumin/Globulin Ratio 1.6 (1.1-1.8); Alkaline Phosphatase 96 U/L (38-126); Anion Gap 11.9 mEq/L (5-15); Bilirubin,Total 0.8 mg/dl (0.2-1.3); Calcium 9.8 mg/dl (8.4-10.2); Carbon Dioxide 26 mmol/L (22.0-30.0); Cholesterol 110 mg/dl (140-200); Globulin 2.4 g/dL (1.3-3.2); Glucose 97 mg/dl (74-100); Total Protein,Serum 6.3 g/dl (6.3-8.2); Triglycerides 145 mg/dl (30-150); VLDL Cholesterol 29 mg/dL (0-40)
[2021-10-08 16:32] LABS: Chol/HDL Ratio 3.4 (1-3.5); HDL Cholesterol 32 mg/dl (40-60)
[2021-10-08 16:42] LABS: Direct LDL Cholesterol 61.56 mg/dL (100-129)
== END ==
PROVIDERS: Visit Provider Internal Medicine
DX: I25.10 Atherosclerotic heart disease of native coronary artery without angina pectoris (principal); I10 Essential (primary) hypertension; E78.5 Hyperlipidemia, unspecified; I73.9 Peripheral vascular disease, unspecified; Z86.73 Personal history of transient ischemic attack (TIA), and cerebral infarction without residual deficits
CPT/HCPCS: 80053; 80061

== ENCOUNTER → 2021-11-15 13:30 | Outpatient (CLI) | payer MEDICARE, BC, SELFPAY ==
--- NOTE | 2021-11-15 13:35 | CA_ITS ---
APPROVED REPORT EXAM: Comprehensive 2D, Doppler, and color-flow Echocardiogram Weigh Boss: Melanie Schneider RVT Ht: 5 ft 5 in Wt: 195lbs BSA: 1.96 BP: 135/67 mmHg Indications: SOA,HTN,HLD,SMOKER 2D Dimensions LVOT 2.00 cm (M/F) 1.5-2.5 LA Volume 21.50 mL LA Volume Index 11.02 mL/m2 (M/F) 16-34 M-Mode Dimensions RVDd 2.42 cm (0.9-2.6) LA Diam 3.43 cm (1.9-4.0) LVDd 4.54 cm (3.5-5.7) Ao Diam 2.85 cm (2.0-3.7) LVDs 2.38 cm (3.5-5.7) IVSd 1.49 cm (0.6-1.1) PWd 0.98 cm (0.6-1.1) EF (Teich) 79.10% FS 47.60% EDV (Teich) 94.40 mL TAPSE 2.67 (<1.7) ESV (Teich) 19.70 mL LV Diastology E Decel Time 233.00 (160-240 msec) E/A Ratio 1.4 MED E' 5.40 (< 7 cm/sec) E'/MED E' Ratio 21.67 (>14) LAT E' 7.90 (<10 cm/sec) E/LAT E' Ratio 14.81 (>14) Aortic Valve AO Peak GR. 14.00 mmHg Mitral Valve MV E Max Jayson. 117.00 (40-130 cm/s) MV A Velocity 85.00 (40-130 cm/s) E/A Ratio 1.38 MV Decel. Time 233.00 (160-240 ms) MV PHT 68.00 ms Pulmonary Valve PV Peak Velocity 88.00 (50-150 cm/s) Tricuspid Valve TR P. Velocity 325.00 cm/s RAP Estimate 10.00 mmHg RVSP 52.30 mmHg Left Ventricle Left atrium is mildly enlarged, left ventricle is normal size, mild concentric left ventricular hypertrophy, estimated ejection fraction 55%, septum is sigmoid configuration, there is no regional wall motion abnormality, grade 2 diastolic dysfunction seen with tissue Doppler evidence of raise left atrial pressure. Right Ventricle Right atrium and right ventricle are normal size and contractility. Aortic Valve Aortic valve is thickened and calcified without Doppler evidence of aortic stenosis or aortic insufficiency. Mitral Valve Mitral valve grossly normal, there is mild mitral regurgitation. Tricuspid Valve Tricuspid valve is grossly normal, there is mild tricuspid regurgitation, tricuspid regurgitation jet velocity is inadequate for calculation of the right ventricular systolic pressure. Pulmonic Valve Pulmonic valve is poorly visualized. Great Vessels Aortic root is normal size. Inferior vena cava is normal size with normal inspiratory collapse. Pericardium No significant pericardial effusion noted. Conclusion 1. Mildly enlarged left atrium, normal left ventricular size, mild concentric left ventricular hypertrophy, estimated ejection fraction 55% with no regional wall motion abnormality, grade 2 diastolic dysfunction seen without tissue Doppler evidence of raise left atrial pressure. 2. Mild mitral and tricuspid regurgitation. 3. No significant pericardial effusion. 4. Inferior vena cava normal size with normal inspiratory collapse. Electronically signed by : Alfa Méndez MD 11/17/2021 06:32:10
== END ==
PROVIDERS: PCP Internal Medicine; Visit Provider Internal Medicine
DX: R06.02 Shortness of breath (principal); R06.09 Other forms of dyspnea; J44.9 Chronic obstructive pulmonary disease, unspecified
CPT/HCPCS: 93306

== ENCOUNTER → 2022-01-07 11:33 | Outpatient (CLI) | payer MEDICARE, BC, SELFPAY ==
--- NOTE | 2022-01-07 11:38 | CT_ITS ---
FINAL REPORT TECHNIQUE: Thin section axial images were obtained from the lung bases to the pubic symphysis without IV contrast. This study was performed with techniques to keep radiation doses as low as reasonably achievable (ALARA). Individualized dose reduction techniques using automated exposure control or adjustment of mA and/or kV according to the patient's size were employed. CLINICAL HISTORY: RLQ, right sided abd pain. no hematuria COMPARISON: 03/02/2019 FINDINGS: There is a nonobstructing right renal stone. There are no obstructing renal or ureteral stones. There is no hydronephrosis or perinephric stranding. There is diffuse fatty infiltration of the liver without focal hepatic lesion. The gallbladder is present. The remaining unenhanced solid abdominal organs are unremarkable. There is mild wall thickening of proximal small bowel loops, may represent an enteritis. There is no evidence of small-bowel obstruction. The patient is status post hysterectomy. The appendix is normal. GI tract is without acute abnormality. There is no lymphadenopathy or ascites. There are bilateral common iliac artery stents. There is a femoral to femoral bypass graft. No acute osseous abnormality is identified. IMPRESSION: Wall thickening of proximal small bowel loops, may represent enteritis. Normal appendix. Nonobstructing right renal stone. Reviewed, Interpreted and Dictated by Livia Daniels MD Transcribed by Ana Do Authenticated and [facility]
== END ==
PROVIDERS: PCP Internal Medicine; Visit Provider Internal Medicine
DX: R10.31 Right lower quadrant pain (principal); R11.0 Nausea
CPT/HCPCS: 74176

== ENCOUNTER → 2022-04-08 12:28 | Outpatient (CLI) | payer MEDICARE, BC, SELFPAY ==
[2022-04-08 15:46] LABS: Alanine Aminotransferase 16 U/L (12-78); Albumin Level 3.8 g/dl (3.5-5.0); Albumin/Globulin Ratio 1.5 (1.1-1.8); Alkaline Phosphatase 124 U/L (38-126); Anion Gap 16.9 mEq/L (5-15); Aspartate Amino Transferase 22 U/L (14-36); Bilirubin,Total 0.3 mg/dl (0.2-1.3); Blood Urea Nitrogen 21 mg/dl (7-17); Calcium 8.8 mg/dl (8.4-10.2); Carbon Dioxide 24 mmol/L (22.0-30.0); Chloride 107 mmol/L (98-107); Chol/HDL Ratio 3.7 (1-3.5); Cholesterol 126 mg/dl (140-200); Estimated Glomerular Filt Rate 41 ml/min (>60); GFR (African American) 50 ML/MIN (>60); Globulin 2.6 g/dL (1.3-3.2); Glucose 83 mg/dl (74-100); HDL Cholesterol 34 mg/dl (40-60); Potassium 4.9 mmoL/L (3.5-5.1); Sodium 143 mmol/L (136-145); Total Protein,Serum 6.4 g/dl (6.3-8.2); Triglycerides 105 mg/dl (30-150); VLDL Cholesterol 21 mg/dL (0-40)
[2022-04-08 18:39] LABS: Direct LDL Cholesterol 71.69 mg/dL (100-129)
== END ==
PROVIDERS: PCP Internal Medicine; Visit Provider Internal Medicine
DX: I10 Essential (primary) hypertension (principal); Z79.899 Other long term (current) drug therapy
CPT/HCPCS: 80053; 80061

== ENCOUNTER → 2022-05-26 10:35 | Outpatient (CLI) | payer MEDICARE, BC, SELFPAY ==
--- NOTE | 2022-05-26 10:38 | CT_ITS ---
FINAL REPORT TECHNIQUE: Axial imaging of the chest was obtained without contrast. Reformatted images were also obtained and reviewed.This study was performed with techniques to keep radiation doses as low as reasonably achievable, (ALARA). Individualized dose reduction technique using automated exposure control or adjustment of mA and/or kV according to the patient's size were employed. CLINICAL HISTORY: LT LATERAL BREAST EDEMA,LT PROXIMAL AREA/UNDERARM EDEMA FINDINGS: There is no axillary adenopathy. There is no hilar or mediastinal mass or adenopathy. Heart size is normal. There is no pericardial or pleural effusion. Limited images of the upper abdomen are unremarkable. There is mild scarring and mild emphysematous change. No suspicious infiltrate or nodule is identified on lung window images. Soft tissues of the lateral left breast and axilla are unremarkable. IMPRESSION: No acute process. Reviewed, Interpreted and Dictated by Wong Schofield III, MD Transcribed by Stephanie Sung Authenticated and [facility]
== END ==
PROVIDERS: PCP Internal Medicine; Visit Provider Internal Medicine
DX: N64.59 Other signs and symptoms in breast (principal); R60.0 Localized edema
CPT/HCPCS: 71250

== ENCOUNTER → 2022-08-19 12:24 | Outpatient (CLI) | payer MEDICARE, BC, SELFPAY ==
--- NOTE | 2022-08-19 12:30 | XR_ITS ---
FINAL REPORT CLINICAL HISTORY: foot pain FINDINGS: RIGHT FOOT Three views of the right foot demonstrate no acute fracture or dislocation. There are mild degenerative changes in the midfoot. There are calcaneal spurs. The soft tissues are unremarkable. IMPRESSION: Mild degenerative changes as above with no acute bony abnormality. Reviewed, Interpreted and Dictated by Wong Schofield III, MD Transcribed by Janette Patrick Authenticated and [facility]
--- NOTE | 2022-08-19 12:30 | XR_ITS ---
FINAL REPORT CLINICAL HISTORY: foot pain COMPARISON: 02/17/2019 FINDINGS: LEFT FOOT Three views of the left foot demonstrate no acute fracture or dislocation. The joint spaces are preserved. There are calcaneal spurs. The soft tissues are unremarkable. IMPRESSION: No acute bony abnormality. Reviewed, Interpreted and Dictated by Wong Schofield III, MD Transcribed by Janette Patrick Authenticated and [facility]
== END ==
PROVIDERS: PCP Internal Medicine; Visit Provider Podiatrist
DX: M79.672 Pain in left foot (principal); M79.671 Pain in right foot
CPT/HCPCS: 73630

== ENCOUNTER → 2022-08-22 10:40 | Outpatient (CLI) | payer MEDICARE, BC, SELFPAY ==
--- NOTE | 2022-08-22 10:44 | MM_ITS ---
PROCEDURE INFORMATION: Exam: MG Bilateral Screening 3D Mammography Exam date and time: 08/22/2022 10:41 AM Age: 61 years old Clinical indication: Screening examination. Her mother had breast cancer at age 60. TECHNIQUE: Imaging protocol: Bilateral Screening tomosynthesis and 2D mammography including computer-aided detection (CAD) when performed. COMPARISON: 1. MG MM DIG SCREENING MAMM BI W/CAD 07/11/2021 12:58 PM 2. MG MM DIG SCREENING MAMM BI W/CAD 07/09/2020 8:25 AM 3. MG MM DIG MAMM DX UNILAT LT CAD 08/16/2019 10:40 AM 4. MG MM DIG SC MAMM UNILAT RT CAD 08/16/2019 9:50 AM MG DMDBAV DIG MAMM-DX STANLEY W ADD VIEWS 05/24/2015 9:49 AM FINDINGS: MAMMOGRAPHY: Breast composition: The breasts are heterogeneously dense, which may obscure small masses. Mass: None. Architectural distortion: None. Calcifications: No suspicious calcifications. Asymmetric density: None. Skin thickening: None. Axillary adenopathy: Stable borderline dense right axillary node since 05/24/2015. IMPRESSION: No mammographic evidence of malignancy. Annual screening is recommended unless otherwise clinically indicated. ASSESSMENT: BI-RADS Category 2: Benign
== END ==
PROVIDERS: PCP Internal Medicine; Visit Provider Internal Medicine
DX: Z12.31 Encounter for screening mammogram for malignant neoplasm of breast (principal)
CPT/HCPCS: 77063; 77067

== ENCOUNTER → 2022-09-26 12:45 | Outpatient (CLI) | payer MEDICARE, BC, SELFPAY ==
[2022-09-26 14:32] LABS: Basophils # 0.1 K/mm3 (0-0.2); Basophils % 0.8 % (0.1-2.0); Eosinophils # 0.3 K/mm3 (0.0-0.4); Eosinophils % 2.9 % (0.1-12.0); Hematocrit 39.8 % (37.0-47.0); Lymphocytes # 2.4 K/mm3 (0.7-4.5); Lymphocytes % 21.2 % (10-50); Mean Corpuscular HGB Conc 32.8 g/dL (31.8-35.4); Mean Corpuscular Hemoglobin 30.4 pg (27.0-31.2); Mean Corpuscular Volume 92.8 fl (81-99); Mean Platelet Volume 8.4 fl (7.4-10.4); Monocytes # 0.7 K/mm3 (0.1-1.0); Monocytes % 5.9 % (1.7-9.3); Neutrophils # 7.9 K/mm3 (1.8-7.8); Neutrophils % 69.1 % (37.0-80.0); Platelet Count 318 K/mm3 (142-424); Red Blood Count 4.29 M/mm3 (4.20-5.40); Red Cell Distribution Width 15.6 % (11.5-17.5); White Blood Count 11.4 K/mm3 (4.8-10.8)
[2022-09-26 14:56] LABS: Alanine Aminotransferase 20 U/L (12-78); Albumin Level 4.2 g/dl (3.5-5.0); Albumin/Globulin Ratio 1.6 (1.1-1.8); Alkaline Phosphatase 107 U/L (38-126); Aspartate Amino Transferase 23 U/L (14-36); Bilirubin,Total 0.5 mg/dl (0.2-1.3); Blood Urea Nitrogen 20 mg/dl (7-17); Calcium 9.5 mg/dl (8.4-10.2); Carbon Dioxide 26 mmol/L (22.0-30.0); Chloride 104 mmol/L (98-107); Chol/HDL Ratio 3.5 (1-3.5); Cholesterol 138 mg/dl (140-200); Estimated Glomerular Filt Rate 33 ml/min (>60); GFR (African American) 39 ML/MIN (>60); Globulin 2.7 g/dL (1.3-3.2); Glucose 86 mg/dl (74-100); HDL Cholesterol 39 mg/dl (40-60); Sodium 136 mmol/L (136-145); Total Protein,Serum 6.9 g/dl (6.3-8.2); Triglycerides 119 mg/dl (30-150); VLDL Cholesterol 24 mg/dL (0-40)
[2022-09-26 15:07] LABS: Direct LDL Cholesterol 77.24 mg/dL (100-129)
== END ==
PROVIDERS: PCP Internal Medicine; Visit Provider Internal Medicine
DX: I25.10 Atherosclerotic heart disease of native coronary artery without angina pectoris (principal); I10 Essential (primary) hypertension; E78.5 Hyperlipidemia, unspecified; I73.9 Peripheral vascular disease, unspecified; M70.72 Other bursitis of hip, left hip; Z86.73 Personal history of transient ischemic attack (TIA), and cerebral infarction without residual deficits
CPT/HCPCS: 80053; 80061; 85025

== ENCOUNTER → 2023-03-10 13:54 | Outpatient (CLI) | payer MEDICARE, BC, SELFPAY ==
--- NOTE | 2023-03-10 13:58 | MR_ITS ---
FINAL REPORT TECHNIQUE: Multiplanar and multisequence imaging of the lumbar spine was obtained without contrast. CLINICAL HISTORY: LOW BACK PAIN with left hip pain FINDINGS: There is normal alignment of the lumbar vertebral bodies. Vertebral body height is preserved. The spinal cord ends at the level of L1. There is normal signal intensity within the substance of the distal spinal cord. No acute bone marrow edema or pathologic marrow replacement. No acute paraspinal abnormality is identified. L1-2: There is no focal disc herniation, central canal stenosis or neuroforaminal narrowing. L2-3: There is an annular bulge with degenerative endplate change and facet osteoarthropathy. There is no central canal stenosis or right foraminal narrowing. There is moderate left neural foraminal narrowing. L3-4: There is an annular bulge with degenerative endplate change and facet osteoarthropathy. There is no central canal stenosis. There is mild left greater than right neural foraminal narrowing. L4-5: There is an annular bulge with degenerative endplate change and facet osteoarthropathy. This there is mild central canal stenosis. There is mild right and moderate to severe left neural foraminal narrowing. L5-S1: There is an annular bulge with degenerative endplate change and facet osteoarthropathy. There is no central canal stenosis or significant neural foraminal narrowing. IMPRESSION: Multilevel degenerative disc disease greatest at L4-L5. Reviewed, Interpreted and Dictated by Livia Daniels MD Transcribed by Fransico Solorzano Authenticated and [facility]
--- NOTE | 2023-03-10 14:01 | MR_ITS ---
FINAL REPORT CLINICAL HISTORY: LEFT HIP PAIN COMPARISON: None FINDINGS: Multiplanar and multisequence imaging of the left hip were obtained without contrast. Bone marrow signal intensity is preserved. There is no acute fracture, contusion or pathologic marrow replacement. There is mild degenerative change of the hips bilaterally. There is no evidence of AVN. The labrum is intact. No convincing labral tear is identified. Signal intensity within the muscular structure is within normal limits. There is mild edema adjacent to the greater trochanter. The gluteus medius tendon appears intact. A small left hip joint effusion is present. IMPRESSION: Mild edema adjacent to the greater trochanter, the gluteus medius tendon appears intact. Small left hip joint effusion. Reviewed, Interpreted and Dictated by Livia Daniels MD Transcribed by Lucila Nuñez Authenticated and [facility]
== END ==
PROVIDERS: PCP Internal Medicine; Visit Provider Internal Medicine
DX: M54.50 Low back pain, unspecified (principal); M25.552 Pain in left hip
CPT/HCPCS: 72148; 73721; 76376

== ENCOUNTER → 2023-03-30 13:23 | Outpatient (CLI) | payer MEDICARE, BC, SELFPAY ==
[2023-03-30 16:02] LABS: Alanine Aminotransferase 27 U/L (12-78); Albumin Level 4.1 g/dl (3.5-5.0); Albumin/Globulin Ratio 1.4 (1.1-1.8); Alkaline Phosphatase 89 U/L (38-126); Aspartate Amino Transferase 30 U/L (14-36); Bilirubin,Total 0.3 mg/dl (0.2-1.3); Blood Urea Nitrogen 19 mg/dl (7-17); Calcium 9.6 mg/dl (8.4-10.2); Carbon Dioxide 26 mmol/L (22.0-30.0); Chloride 107 mmol/L (98-107); Chol/HDL Ratio 5.2 (1-3.5); Cholesterol 157 mg/dl (140-200); Estimated Glomerular Filt Rate 38 ml/min (>60); GFR (African American) 46 ML/MIN (>60); Globulin 2.9 g/dL (1.3-3.2); Glucose 95 mg/dl (74-100); HDL Cholesterol 30 mg/dl (40-60); Sodium 142 mmol/L (136-145); Triglycerides 191 mg/dl (30-150); VLDL Cholesterol 38 mg/dL (0-40)
[2023-03-30 16:13] LABS: Direct LDL Cholesterol 93.45 mg/dL (100-129)
== END ==
PROVIDERS: PCP Internal Medicine; Visit Provider Internal Medicine
DX: I10 Essential (primary) hypertension (principal); E78.5 Hyperlipidemia, unspecified; Z86.73 Personal history of transient ischemic attack (TIA), and cerebral infarction without residual deficits; Z72.0 Tobacco use
CPT/HCPCS: 80053; 80061

== ENCOUNTER 2023-09-29 14:12 | Outpatient (CLI) | payer MEDICARE, BC, SELFPAY ==
[2023-09-29 15:03] LABS: Basophils # 0.2 K/mm3 (0-0.2); Basophils % 1.2 % (0.1-2.0); Eosinophils # 0.8 K/mm3 (0.0-0.4); Eosinophils % 6.3 % (0.1-12.0); Hemoglobin 11.8 g/dL (12.2-16.2); Lymphocytes # 2.2 K/mm3 (0.7-4.5); Lymphocytes % 18.2 % (10-50); Mean Corpuscular Hemoglobin 30.4 pg (27.0-31.2); Mean Platelet Volume 8.5 fl (7.4-10.4); Monocytes # 0.7 K/mm3 (0.1-1.0); Monocytes % 5.8 % (1.7-9.3); Neutrophils # 8.4 K/mm3 (1.8-7.8); Neutrophils % 68.4 % (37.0-80.0); Platelet Count 288 K/mm3 (142-424); Red Blood Count 3.88 M/mm3 (4.20-5.40); Red Cell Distribution Width 16.3 % (11.5-17.5); White Blood Count 12.3 K/mm3 (4.8-10.8)
[2023-09-29 15:22] LABS: Chloride 108 mmol/L (98-107); Potassium 4.6 mmoL/L (3.5-5.1); Sodium 141 mmol/L (136-145)
[2023-09-29 15:24] LABS: Blood Urea Nitrogen 27 mg/dl (7-17); Estimated Glomerular Filt Rate 28 ml/min (>60); GFR (African American) 34 ML/MIN (>60)
[2023-09-29 15:25] LABS: Alanine Aminotransferase 21 U/L (12-78); Albumin/Globulin Ratio 1.5 (1.1-1.8); Alkaline Phosphatase 109 U/L (38-126); Anion Gap 11.6 mEq/L (5-15); Aspartate Amino Transferase 25 U/L (14-36); Bilirubin,Total 0.6 mg/dl (0.2-1.3); Calcium 10.4 mg/dl (8.4-10.2); Carbon Dioxide 26 mmol/L (22.0-30.0); Cholesterol 184 mg/dl (140-200); Globulin 2.7 g/dL (1.3-3.2); Glucose 92 mg/dl (74-100); Total Protein,Serum 6.7 g/dl (6.3-8.2); Triglycerides 134 mg/dl (30-150); VLDL Cholesterol 27 mg/dL (0-40)
[2023-09-29 15:26] LABS: Chol/HDL Ratio 3.3 (1-3.5); HDL Cholesterol 56 mg/dl (40-60)
[2023-09-29 15:36] LABS: Direct LDL Cholesterol 96.28 mg/dL (100-129)
== END 2023-09-29 23:59 | disposition home or self-care (01) ==
LOC: LAB.DROPOF 14:13
PROVIDERS: PCP Internal Medicine; Visit Provider Internal Medicine
DX: I50.32 Chronic diastolic (congestive) heart failure (principal); I25.10 Atherosclerotic heart disease of native coronary artery without angina pectoris; I10 Essential (primary) hypertension; I73.9 Peripheral vascular disease, unspecified; E78.5 Hyperlipidemia, unspecified; F33.0 Major depressive disorder, recurrent, mild; I69.30 Unspecified sequelae of cerebral infarction; J44.9 Chronic obstructive pulmonary disease, unspecified
CPT/HCPCS: 80053; 80061; 85025

== ENCOUNTER 2023-10-07 10:16 | Outpatient (CLI) | payer MEDICARE, BC, SELFPAY ==
--- NOTE | 2023-10-07 10:21 | MM_ITS ---
PROCEDURE INFORMATION: Exam: MG Bilateral Screening 3D Mammography Exam date and time: 10/07/2023 10:17 AM Age: 62 years old Clinical indication: Screening examination TECHNIQUE: Imaging protocol: Bilateral Screening tomosynthesis and 2D mammography including computer-aided detection (CAD) when performed. COMPARISON: 1. MG MM DIG SCREENING MAMM BI W/CAD 08/22/2022 10:41 AM 2. MG MM DIG SCREENING MAMM BI W/CAD 07/11/2021 12:58 PM FINDINGS: MAMMOGRAPHY: Breast composition: The breasts are heterogeneously dense, which may obscure small masses. Mass: None. Architectural distortion: None. Calcifications: No suspicious calcifications. Asymmetric density: None. Skin thickening: None. Axillary adenopathy: None. IMPRESSION: No mammographic evidence of malignancy. Annual screening is recommended unless otherwise clinically indicated. ASSESSMENT: BI-RADS Category 1: Negative
== END 2023-10-07 23:59 | disposition home or self-care (01) ==
LOC: RAD 10:17
PROVIDERS: PCP Internal Medicine; Visit Provider Internal Medicine
DX: Z12.31 Encounter for screening mammogram for malignant neoplasm of breast (principal)
CPT/HCPCS: 77063; 77067

== ENCOUNTER 2023-11-05 09:52 | Outpatient (RCR) | payer MEDICARE, BC, SELFPAY | END 2024-01-22 14:00 | disposition home or self-care (01) | LOC: PT 09:52 | PROVIDERS: Visit Provider Internal Medicine | DX: I25.10 Atherosclerotic heart disease of native coronary artery without angina pectoris (principal); I50.32 Chronic diastolic (congestive) heart failure; I11.0 Hypertensive heart disease with heart failure; I69.30 Unspecified sequelae of cerebral infarction; J44.9 Chronic obstructive pulmonary disease, unspecified ==

== ENCOUNTER 2024-01-04 14:23 | Outpatient (CLI) | payer MEDICARE, BC, SELFPAY ==
[2024-01-04 12:38] LABS: Basophils # 0.1 K/mm3 (0-0.2); Basophils % 1.3 % (0.1-2.0); Eosinophils # 0.4 K/mm3 (0.0-0.4); Eosinophils % 4.7 % (0.1-12.0); Hematocrit 38.5 % (37.0-47.0); Hemoglobin 12.5 g/dL (12.2-16.2); Lymphocytes # 2.2 K/mm3 (0.7-4.5); Lymphocytes % 27.1 % (10-50); Mean Corpuscular HGB Conc 32.4 g/dL (31.8-35.4); Mean Corpuscular Hemoglobin 30.8 pg (27.0-31.2); Mean Corpuscular Volume 95.1 fl (81-99); Mean Platelet Volume 8.2 fl (7.4-10.4); Monocytes # 0.4 K/mm3 (0.1-1.0); Monocytes % 5.1 % (1.7-9.3); Neutrophils # 4.9 K/mm3 (1.8-7.8); Neutrophils % 61.7 % (37.0-80.0); Platelet Count 280 K/mm3 (142-424); Red Blood Count 4.05 M/mm3 (4.20-5.40); Red Cell Distribution Width 15.9 % (11.5-17.5); Reticulocyte % (Auto) 1.6 % (0.9-3.2); White Blood Count 7.9 K/mm3 (4.8-10.8)
[2024-01-04 13:10] LABS: Chloride 110 mmol/L (98-107); Potassium 4.2 mmoL/L (3.5-5.1); Sodium 141 mmol/L (136-145)
[2024-01-04 13:13] LABS: Anion Gap 9.2 mEq/L (5-15); Blood Urea Nitrogen 23 mg/dl (7-17); Calcium 10.1 mg/dl (8.4-10.2); Carbon Dioxide 26 mmol/L (22.0-30.0); Estimated Glomerular Filt Rate 30 ml/min (>60); GFR (African American) 36 ML/MIN (>60); Glucose 154 mg/dl (74-100); Iron 63 ug/dL (37-170)
[2024-01-04 13:23] LABS: Total Iron Binding Capacity 304 ug/dL (265-497)
== END 2024-01-04 23:59 | disposition home or self-care (01) ==
LOC: LAB.DROPOF 14:24
PROVIDERS: PCP Internal Medicine; Visit Provider Internal Medicine
DX: D64.9 Anemia, unspecified (principal); R79.89 Other specified abnormal findings of blood chemistry
CPT/HCPCS: 80048; 83540; 83550; 85025; 85044

== ENCOUNTER 2024-01-27 09:24 | Outpatient (CLI) | payer MEDICARE, BC, SELFPAY ==
--- NOTE | 2024-01-27 09:25 | US_ITS ---
FINAL REPORT CLINICAL HISTORY: abn labs COMPARISON: None FINDINGS: RENAL ULTRASOUND Ultrasound images of the kidneys were obtained. Note is made of fatty infiltration of the liver. The visualized spleen is unremarkable. The right kidney measures 10.2 cm in length. It is normal echogenicity. There is no hydronephrosis. The left kidney measures 9.9 cm in length. It is normal echogenicity. There is no hydronephrosis. IMPRESSION: Normal renal ultrasound. Incidental note of fatty liver. Reviewed, Interpreted and Dictated by Wong Schofield III, MD Transcribed by Yuridia Titus Authenticated and [facility]
--- NOTE | 2024-01-27 09:25 | US_ITS ---
FINAL REPORT CLINICAL HISTORY: abnormal lab result COMPARISON: None FINDINGS: ULTRASOUND BLADDER WITH POST VOID RESIDUAL Bladder volumes were estimated based on 3 dimensional measurements, pre- and postvoid. Prevoid bladder volume: 118 mls Postvoid bladder volume: No significant fluid Bilateral ureteral jets are identified. IMPRESSION: No significant postvoid residual.. Reviewed, Interpreted and Dictated by Wong Schofield III, MD Transcribed by Yuridia Titus Authenticated and [facility]
== END 2024-01-27 23:59 | disposition home or self-care (01) ==
LOC: RAD 09:25
PROVIDERS: PCP Internal Medicine; Visit Provider Internal Medicine
DX: R79.89 Other specified abnormal findings of blood chemistry (principal)
CPT/HCPCS: 76770; 76857

== ENCOUNTER 2024-04-04 13:49 | Outpatient (CLI) | payer MEDICARE, BC, SELFPAY ==
[2024-04-04 13:19] LABS: Basophils # 0.1 K/mm3 (0-0.2); Basophils % 1.1 % (0.1-2.0); Eosinophils # 0.4 K/mm3 (0.0-0.4); Eosinophils % 3.9 % (0.1-12.0); Hematocrit 38.5 % (37.0-47.0); Hemoglobin 12.5 g/dL (12.2-16.2); Lymphocytes % 20.1 % (10-50); Mean Corpuscular HGB Conc 32.5 g/dL (31.8-35.4); Mean Corpuscular Hemoglobin 31.3 pg (27.0-31.2); Mean Corpuscular Volume 96.5 fl (81-99); Mean Platelet Volume 8.3 fl (7.4-10.4); Monocytes # 0.6 K/mm3 (0.1-1.0); Monocytes % 6.1 % (1.7-9.3); Neutrophils # 6.7 K/mm3 (1.8-7.8); Neutrophils % 68.7 % (37.0-80.0); Platelet Count 270 K/mm3 (142-424); Red Blood Count 3.99 M/mm3 (4.20-5.40); Red Cell Distribution Width 16.6 % (11.5-17.5); White Blood Count 9.8 K/mm3 (4.8-10.8)
[2024-04-04 13:34] LABS: Alanine Aminotransferase 31 U/L (12-78); Albumin Level 4.1 g/dl (3.5-5.0); Albumin/Globulin Ratio 1.6 (1.1-1.8); Alkaline Phosphatase 105 U/L (38-126); Anion Gap 10.7 mEq/L (5-15); Aspartate Amino Transferase 32 U/L (14-36); Bilirubin,Total 0.6 mg/dl (0.2-1.3); Blood Urea Nitrogen 22 mg/dl (7-17); Calcium 9.2 mg/dl (8.4-10.2); Carbon Dioxide 27 mmol/L (22.0-30.0); Chloride 109 mmol/L (98-107); Chol/HDL Ratio 3.9 (1-3.5); Cholesterol 130 mg/dl (140-200); Estimated Glomerular Filt Rate 30 ml/min (>60); GFR (African American) 36 ML/MIN (>60); Globulin 2.5 g/dL (1.3-3.2); Glucose 148 mg/dl (74-100); HDL Cholesterol 33 mg/dl (40-60); Potassium 4.7 mmoL/L (3.5-5.1); Sodium 142 mmol/L (136-145); Total Protein,Serum 6.6 g/dl (6.3-8.2); Triglycerides 175 mg/dl (30-150); VLDL Cholesterol 35 mg/dL (0-40)
[2024-04-04 13:45] LABS: Direct LDL Cholesterol 65.34 mg/dL (100-129)
[2024-04-04 16:52] LABS: Hemoglobin A1C 6.5 % (4.0-6.0)
== END 2024-04-04 23:59 | disposition home or self-care (01) ==
LOC: LAB.DROPOF 13:49
PROVIDERS: PCP Internal Medicine; Visit Provider Internal Medicine
DX: E78.5 Hyperlipidemia, unspecified (principal); I10 Essential (primary) hypertension; D64.9 Anemia, unspecified; R73.9 Hyperglycemia, unspecified; F17.210 Nicotine dependence, cigarettes, uncomplicated
CPT/HCPCS: 80053; 80061; 83036; 85025

== ENCOUNTER 2024-07-07 09:50 | Outpatient (CLI) | payer MEDICARE, BC, SELFPAY ==
[2024-07-07 17:24] LABS: Chloride 104 mmol/L (98-107); Potassium 4.3 mmoL/L (3.5-5.1)
[2024-07-07 17:26] LABS: Blood Urea Nitrogen 29 mg/dl (7-17); Estimated Glomerular Filt Rate 28 ml/min (>60); GFR (African American) 34 ML/MIN (>60)
[2024-07-07 17:39] LABS: Sodium 141 mmol/L (136-145)
[2024-07-07 17:42] LABS: Anion Gap 17.3 mEq/L (5-15); Carbon Dioxide 24 mmol/L (22.0-30.0); Glucose 85 mg/dl (74-100)
[2024-07-07 18:02] LABS: Hemoglobin A1C 5.9 % (4.0-6.0)
== END 2024-07-07 23:59 | disposition home or self-care (01) ==
LOC: LAB.DROPOF 07-08 08:24
PROVIDERS: PCP Internal Medicine; Visit Provider Internal Medicine
DX: I10 Essential (primary) hypertension (principal); E11.59 Type 2 diabetes mellitus with other circulatory complications
CPT/HCPCS: 80048; 83036

== ENCOUNTER 2024-10-05 09:15 | Outpatient (CLI) | payer MEDICARE, BC, SELFPAY ==
[2024-10-05 13:39] LABS: Basophils # 0.1 K/mm3 (0-0.2); Basophils % 1.4 % (0.1-2.0); Eosinophils # 0.4 Kmm3 (0.0-0.4); Eosinophils % 3.9 % (0.1-12.0); Hematocrit 37.8 % (37.0-47.0); Hemoglobin 12.2 g/dL (12.2-16.2); Lymphocytes # 2.6 K/mm3 (0.7-4.5); Lymphocytes % 25.2 % (10-50); Mean Corpuscular HGB Conc 32.3 g/dL (31.8-35.4); Mean Corpuscular Hemoglobin 31.4 pg (27.0-31.2); Mean Corpuscular Volume 97.2 fl (81-99); Mean Platelet Volume 10.6 fl (7.4-10.4); Monocytes # 0.8 K/mm3 (0.1-1.0); Monocytes % 7.7 % (1.7-9.3); Neutrophils # 6.4 K/mm3 (1.8-7.8); Neutrophils % 61.4 % (37.0-80.0); Nucleated Red Blood Cells # 0 10^3/uL; Nucleated Red Blood Cells % 0 %; Platelet Count 265 K/mm3 (142-424); Red Blood Count 3.89 M/mm3 (4.20-5.40); Red Cell Distribution Width 15.9 % (11.5-17.5); Red Cell Distribution Width-SD 56.7 fL; White Blood Count 10.4 K/mm3 (4.8-10.8)
[2024-10-05 14:24] LABS: Hemoglobin A1C 6.5 % (4.0-6.0)
[2024-10-05 14:33] LABS: Alanine Aminotransferase 26 U/L (12-78); Albumin/Globulin Ratio 1.5 (1.1-1.8); Alkaline Phosphatase 98 U/L (38-126); Anion Gap 15.3 mEq/L (5-15); Aspartate Amino Transferase 27 U/L (14-36); Bilirubin,Total 0.5 mg/dl (0.2-1.3); Blood Urea Nitrogen 20 mg/dl (7-17); Calcium 9.6 mg/dl (8.4-10.2); Carbon Dioxide 25 mmol/L (22.0-30.0); Chloride 108 mmol/L (98-107); Chol/HDL Ratio 3.9 (1-3.5); Cholesterol 122 mg/dl (140-200); Estimated Glomerular Filt Rate 30 ml/min (>60); GFR (African American) 36 ML/MIN (>60); Globulin 2.7 g/dL (1.3-3.2); Glucose 117 mg/dl (74-100); HDL Cholesterol 31 mg/dl (40-60); Potassium 5.3 mmoL/L (3.5-5.1); Sodium 143 mmol/L (136-145); Total Protein,Serum 6.7 g/dl (6.3-8.2); Triglycerides 192 mg/dl (30-150); VLDL Cholesterol 38 mg/dL (0-40)
[2024-10-05 14:44] LABS: Direct LDL Cholesterol 56.96 mg/dL (100-129)
--- OUTSIDE RECORDS SUMMARY | 2024-10-06 11:15 | XMS_ITS | Data Portability ---
Author Organization [place] - [facility] - [facility] [place] ADMIN Address [address] [place] [id number] Assessment No assessment recorded. Plan of Treatment Reminders Order Date Submit Date Provider Last Modified By Organization Details Last Modified Time Details Appointments None record ed. Lab None record ed. Referral None record ed. Procedures None record ed. Surgeries None record ed. Imaging XR, foot, 3 or more view 024 10/12/19 [facility] ([facility]), [address] [place] [address] [place], [address], 16:13:59 Medication Orders None record ed. Patient TargetsNo targets recorded. Patient Instructions Encounter Date Encounter Id Patient Instructions Last Modified By Organization Details Last Modified Time 10/12/2023 [id number] I have reviewed the past medical, medications, family and social histories along with ROS and all orders in today's record and have noted any changes. [email or web address] Not available 10/13/2023 21:33:33 Reason for Referral None Reported. Results Created Date Observation Date Name Description Value Unit Range Abnormal Flag Note LastModifiedBy Organization Detail LastModifiedTime 10/12/19 24 10/12/2023 XR, foot, 3 or more view [facility] [address] [place] [address] [phone] (Phone ) KILO Chung REPORT Name: LIZ MULLINS : 1960 Accoun t #: [id number] Age: 62 Years Patien t Type: Outpat ient Sex: F Access ion#: [id number] Exam Descri ption: FOOT LEFT 3V - ROUTIN E Exam Reason : m79.67 2 pain in left foot Order Date/T jefferson: 2023 02:03: 00 PM Dictat ed By: Shayne myles MD Orderi ng Physic dane: LIZ SARKAR Attend ing Physic dane: LIZ SARKAR EXAM: FOOT LEFT 3V - ROUTIN E INDICA TION: m79.67 2 pain in left foot COMPAR TITUS: Left foot radiog raphs from November 11, 2020. FINDIN GS: 2 views of the left foot. There may be subtle hallux valgus . Osseou s struct ures are intact . There is a bilobe d chroni c calcif icatio n projec ting at the planta r aspect of the hindfo ot measur ing up to 3 mm, a findin g of doubtf ul clinic al signif icance . The findin g is only seen on the latera l radiog raph and could repres ent cash surrender calculator al artifa ct as well. Small inferi or calcan eal enthes ophyte . No defini te acute abnorm ality is apprec iated. IMPRES TAMIR: 1. No acute radiog raphic abnorm ality. 2. Chroni c findin gs, as above. Electr onical ly signed by: Shayne myles MD 2023 04:10 PM EDT Workst ation: [id number] Princi pal Interp reter PAGE 1 OF 2 Name: LIZ MULLINS : 1960 Accoun t #: [id number] Age: 62 Years Patien t Type: Outpat ient Sex: F Access ion#: [id number] Exam Descri ption: FOOT LEFT 3V - ROUTIN E Exam Reason : m79.67 2 pain in left foot Order Date/T jefferson: 2023 02:03: 00 PM Name: Shayne Lakhani t Provid er ID: [id number] PAGE 2 OF 2 CC'ed Logic: Orderi ng Provid er: CRISS REAL CC Provid er: KATHRIN PRADO Attend ing Provid er: CRISS REAL Referr ing Provid er: KAHN LIZ itt ing Provid er: CRISS murry [facility] ([facility]) [address] [place] [address] [place], [address], 10/12/2023 16:53:10 11/12/19 24 11/12/2023 US, retro perit oneum , limit ed [facility] [address] [facility] [place] [address] [phone] (Phone ) KILO Chung REPORT Name: LIZ MULLINS : 1960 Accoun t #: [id number] Age: 63 Years Patien t Type: Outpat ient Sex: F Access ion#: [id number] Exam Descri ption: US RENALS BILAT Exam Reason : hydron ephros is Order Date/T jefferson: 2023 09:33: 00 AM Dictat ed By: Francisco harris MD Orderi ng Physic dane: FRANK ALVARADO Attend ing Physic dane: DOMENICA L, FRANK E STUDY: RENAL ULTRAS OUND US RENALS BILAT 024 4:07 PM CDT REASON FOR EXAM: Female , 63 years old. hydron stephany is TECHNI QUE: Ultras ound evalua tion of the kidney s was perfor med with real-t jefferson and static keys-s shila imagin g. COMPAR TITUS: 9.19.1 9 FINDIN GS: RIGHT KIDNEY : Normal locati on of the right kidney , which is normal in size. The right kidney measur es 10 cm.. There is a normal cortex of the right kidney . There is no right renal mass or cyst. There are no right renal calcul i. There is no right hydron ephros is. DISTAL RIGHT URETER : There is non-vi sualiz ation of the distal right ureter . There is no demons trated right ureter ovesic al juncti on calcul us. There is no demons trated right ureter al jet. LEFT KIDNEY : Normal locati on of the left kidney , which is normal in size. The left kidney measur es 9.4 cm.. There is a normal cortex of the left kidney . There is no left renal mass or cyst. There are no left PAGE 1 OF 2 Name: LIZ MULLINS : 1960 Accoun t #: [id number] Age: 63 Years Patien t Type: Outpat ient Sex: F Access ion#: [id number] Exam Descri ption: US RENALS BILAT Exam Reason : hydroilan tranros is Order Date/T jefferson: 2023 09:33: 00 AM renal calcul i. There is no left hydron ephros is. DISTAL LEFT URETER : There is non-vi sualiz ation of the distal left ureter . There is no demons trated left ureter ovesic al juncti on calcul us. There is no demons trated left ureter al jet. AORTA: There is obscur ation of the abdomi nal aorta by overly ing bowel gas I.V.C. : It is not visual ized. There is too much overly ing bowel gas. BLADDE R: There is nonvis ualiza tion due to overly ing bowel gas. IMPRES TAMIR: No acute findin gs of the ultras ound of the kidney s Electr onical ly signed by: Francisco hraris MD 2023 05:07 PM EDT RP Workst ation: [id number] Princi pal Interp reter Name: Francisco harris Provid er ID: [id number] PAGE 2 OF 2 CC'ed Logic: Orderi ng Provid er: DOMENICA Juarez CC Provid er: KATHRIN PRADO Attend ing Provid er: DOMENICA Juarez Referr ing Provid er: DOMENICA Juarez Admitt ing Provid er: DOMENICA Juarez [email or web address] [facility] ([facility]) [address] [place] [address] [place], [address], 12/04/2023 07:59:14 Result Notes None recorded. Procedures Surgical History None recorded. Imaging Results Imaging Date Name Status LastModified by Organiz ation Details LastModified Time 10/12/2023 XR, foot, 3 or more view completed [email or web address] [facility] ([facility]) [address] [place] [address] [place], [address], 10/12/2023 16:53:10 11/12/2023 US, retroperiton eum, limited completed [email or web address] [facility] ([facility]) [address] [place] [address] [place], [address], 12/04/2023 07:59:14 Procedure Notes None recorded. Medical Equipment None Reported. Allergies Allergen ID Allergen Name Allergen Category Reaction Reaction Severity Criticality Documentation Date Start Date Code Code System Note Provider Name and Address Organization Details Recorded Time 257088 Buspar medicatio n Not available Not available Not available 10/12/2023 82263 0 RxNorm Leannastanislaw maxwell, [place] - [facility] - [place] & [place] 13:22:07 Medications Name Sig Start Date Stop Date Status Note LastModified by Organization Details LastModified Time atorvastati n 80 mg tablet TAKE 1 TABLET BY MOUTH ONCE DAILY AT BEDTIME active Not Available Not Available No t Available ipratropium 0.5 mg-albutero l 3 mg (2.5 mg base)/3 mL nebulizatio n soln USE 1 VIAL VIA NEBULIZER EVERY 6 HOURS active Not Available Not Available No t Available albuterol sulfate 2.5 mg/3 mL (0.083 %) solution for nebulizatio n USE 1 VIAL VIA NEBULIZER EVERY TWO HOURS NEEDED FOR SHORTNESS OF BREATH. 10/11 completed Not Available Not Available Not Available lisinopril 20 mg-hydrochl orothiazide 12.5 mg tablet TAKE 1 TABLET BY MOUTH ONCE DAILY active Not Available Not Available No t Available hydrocodone 5 mg-acetamin ophen 325 mg tablet TAKE ONE TABLET BY MOUTH EVERY 6 HOURS NEEDED 10/11 completed Not Available Not Available Not Available prednisone 20 mg tablet TAKE TWO TABLETS BY MOUTH ONCE DAILY WITH FOOD 10/11 completed Not Available Not Available Not Available clopidogrel 75 mg tablet TAKE 1 TABLET BY MOUTH ONCE DAILY active Not Available Not Available No t Available aspirin 81 mg tablet,jac yed release Take 1 tablet every day by oral route. 2023 active Not Available Not Available Not Avai lable ketorolac 10 mg tablet TAKE ONE TABLET BY MOUTH EVERY 8 HOURS WITH FOOD 10/11 completed Not Available Not Available Not Available lorazepam 0.5 mg tablet TAKE 1 TABLET BY MOUTH 3 TIMES PER DAY NEEDED FOR ANXIETY. active Not Available Not Available No t Available oseltamivir 75 mg capsule TAKE ONE CAPSULE BY MOUTH TWICE DAILY 10/11 completed Not Available Not Available Not Available nicotine 21 mg/24 hr daily transdermal patch APPLY 1 PATCH ONCE DAILY DIRECTED. REMOVE OLD PATCH BEFORE APPLYING NEW PATCH. ROTATE APPLICATI ON SITES. 10/11 completed Not Available Not Available Not Available azithromyci n 500 mg tablet TAKE ONE TABLET BY MOUTH ONCE DAILY 10/11 completed Not Available Not Available Not Available cyclobenzap rine 5 mg tablet TAKE 1 TABLET BY MOUTH 3 TIMES PER DAY NEEDED FOR SPASMS active Not Available Not Available No t Available lactulose 10 gram/15 mL oral solution TAKE 30ML BY MOUTH ONCE DAILY DIRECTED 10/11 completed Not Available Not Available Not Available Symbicort 160 mcg-4.5 mcg/actuati on HFA aerosol inhaler USE 2 PUFFS BY TWICE DAILY DIRECTED. RINSE MOUTH AFTER EACH USE. 10/11 completed Not Available Not Available Not Available prasugrel HCl 10 mg tablet Take 1 tablet every day by oral route. active Not Available Not Available No t Available Eliquis 2.5 mg tablet Take 1 tablet twice a day by oral route. active Not Available Not Available No t Available Incruse Ellipta 62.5 mcg/actuati on powder for inhalation USE ONE INHALATIO N BY MOUTH ONCE DAILY DIRECTED active Not Available Not Available No t Available Vitals Date Recorded Body weight Body temperature Oxygen saturation Oxygen saturation in Arterial blood by Pulse oximetry Heart rate Systolic blood pressure Diastolic blood pressure Provider Name and Address Organization Details Last Updated DateTime 4 90656.5 5 g 97 [degF] 99 % 99 % 98 /min 112 mm[Hg] 64 mm[Hg] Leannastanislaw Bruno [place] - [facility] & [place] 4 13:21:53 Social History None recorded. Functional Status None recorded. Mental Status None recorded. Family History Nothing Reported. Medical History No medical history recorded. Gynecological HistoryNo gynecological history recorded. Obstetrics History GPAL:G 0 P 0 0 0 0 Past Encounters Encounter ID Performer Location Encounter Start Date Encounter Closed Date Diagnosis/Indication Diagnosis SNOMED-CT Code Diagnosis ICD10 Code Diagnosis Note [id number] TAYLA JONES [facility] Immediate Care- Floor 1, [address] [place] [address],[address] [place] [address] 10/12/2023 13:06:26 10/12/2023 13:39:01 Pain in left foot 6042327766 24414 M79.672 Pain to affected area with a decrease in ROM to affected area. Recommend patient to ice, elevate and rest. we will contact you with results of your x-ray when they return. Health Concerns Section Related Observation LastModified by Organization Detai ls LastModified Time None Recorded Concern Status LastModified by Organization Details LastModified Time None Recorded Advance Directives Directive None Recorded Payers Encounter Date Sequence Insurance Name Policy Number Policy Nguyen Covered Member ID Nguyen Member ID Guarantor Name 10/12/2023 1 [place] Liz Mullins [id number] Liz Mullins 10/12/2023 2 [place] [employer] [id number] Liz Mullins [id number] Liz Mullisn Notes Date Note Type Note Provider Name and Address Organization Details Recorded Time 10/12/2023 text/html 62-year-old fema theresa presents with complaints of left foot pain since yesterday. States she stepped wrong, felt a pop followed by immediate pain in her foot. Patient states the pain is located underneath her big toe, in the midfoot. She has had intermittent mild tingling with walking. States she has no pain at rest, only with weight-bearing. Patient denies discoloration / bruising but has had some swelling. No other complaints today. TAYLA JONES [address] [place] [address] Drive, [address], [place], [address], [facility] - [place] & [place] 10/13/2023 21:34:05 OBGyn Episode No OBEpisode recorded.
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
== END 2024-10-05 23:59 | disposition home or self-care (01) ==
LOC: LAB.DROPOF 10-06 11:10
PROVIDERS: PCP Internal Medicine; Visit Provider Internal Medicine
DX: E78.5 Hyperlipidemia, unspecified (principal); E11.59 Type 2 diabetes mellitus with other circulatory complications; I10 Essential (primary) hypertension; F17.210 Nicotine dependence, cigarettes, uncomplicated; Z79.85 Long-term (current) use of injectable non-insulin antidiabetic drugs
CPT/HCPCS: 80053; 80061; 83036; 85025

== ENCOUNTER 2024-10-13 13:10 | Outpatient (CLI) | payer MEDICARE, BC, SELFPAY ==
--- OUTSIDE RECORDS SUMMARY | 2024-10-13 13:18 | XMS_ITS | Data Portability ---
Author Organization [place] - [facility] - [facility] KELSEA [place] ADMIN Address [address] [place] [id number] Assessment No assessment recorded. Plan of Treatment Reminders Order Date Submit Date Provider Last Modified By Organization Details Last Modified Time Details Appointments None record ed. Lab None record ed. Referral None record ed. Procedures None record ed. Surgeries None record ed. Imaging XR, foot, 3 or more view 024 10/12/19 [facility] ([facility]), [address] [place] [address] [place], [address], 16:13:59 Medication Orders None record ed. Patient TargetsNo targets recorded. Patient Instructions Encounter Date Encounter Id Patient Instructions Last Modified By Organization Details Last Modified Time 10/12/2023 [id number] I have reviewed the past medical, medications, family and social histories along with ROS and all orders in today's record and have noted any changes. [email or web address] Not available 10/13/2023 21:33:33 Reason for Referral None Reported. 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 Small inferi [...] LIZ MULLINS : 1960 Accoun t #: [id number] Age: 62 Years Patien t Type: Outpat ient Sex: F Access ion#: [id number] Exam Descri ption: FOOT LEFT 3V - [...] LIZ itt ing Provid er: CRISS murry [facility] (Central Scheduling) [address] [place] [address] [place], [address], 10/12/2023 16:53:10 11/12/19 24 11/12/2023 US, retro perit oneum , limit ed [facility] [address] [facility] [place] [address] [phone] (Phone ) KILO Chung REPORT Name: LIZ MULLINS : 1960 Accoun t #: [id number] Age: 63 Years Patien t Type: Outpat ient Sex: F Access ion#: [id number] Exam Descri ption: US RENALS BILAT Exam [...] LIZ MULLINS : 1960 Accoun t #: [id number] Age: 63 Years Patien t Type: Outpat ient Sex: F Access ion#: [id number] Exam Descri ption: US RENALS BILAT [...] s Electr onical ly signed by: Francisco harris MD 2023 05:07 PM EDT RP Workst ation: SEALWR [id number] Princi pal Interp reter Name: Francisco harris Provid er ID: [id number] PAGE 2 OF 2 CC'ed Logic: Orderi ng Provid er: DOMENICA Juarez CC Provid er: KATHRIN PRADO Attend ing Provid er: DOMENICA Juarez Referr ing Provid er: DOMENICA Juarez Admitt ing Provid er: DOMENICA Juarez [email or web address] [facility] (Central Scheduling) [address] [place] [address] [place], [address], 12/04/2023 07:59:14 Result Notes None recorded. Procedures Surgical History None recorded. Imaging Results Imaging Date Name Status LastModified by Organiz ation Details LastModified Time 10/12/2023 XR, foot, 3 or more view completed [email or web address] [facility] (Central Scheduling) [address] [place] [address] [place], [address], 10/12/2023 16:53:10 11/12/2023 US, retroperiton eum, limited completed [email or web address] [facility] (Central Scheduling) [address] [place] [address] [place], [address], 12/04/2023 07:59:14 Procedure Notes None recorded. Medical Equipment None Reported. Allergies Allergen ID Allergen Name Allergen Category Reaction Reaction Severity Criticality Documentation Date Start Date Code Code System Note Provider Name and Address Organization Details Recorded Time 914021 Buspar medicatio n Not available Not available Not available 10/12/2023 81049 0 RxNorm Leannastanislaw maxwell, ABAD - [facility] - [place] & [place] 13:22:07 Medications Name Sig Start Date Stop [...] Address Organization Details Last Updated DateTime 4 74146.5 5 g 97 [degF] 99 % 99 % 98 /min 112 mm[Hg] 64 mm[Hg] Leannastanislaw Bruno [place] - LPNT [facility] & [place] 4 13:21:53 Social History None recorded. Functional Status None recorded. Mental Status None recorded. Family History Nothing Reported. Medical History No medical history recorded. Gynecological HistoryNo gynecological history recorded. Obstetrics History GPAL:G 0 P 0 0 0 0 Past Encounters Encounter ID Performer Location Encounter Start Date Encounter Closed Date Diagnosis/Indication Diagnosis SNOMED-CT Code Diagnosis ICD10 Code Diagnosis Note [id number] TAYLA JONES [facility]- Floor 1, [address] [place] [address],[address] ABAD [place]ENO [phone] 10/12/2023 13:06:26 10/12/2023 13:39:01 Pain in left foot [id number] 79778 M79.672 Pain to affected area with a [...] Nguyen Member ID Guarantor Name 10/12/2023 1 [place] Liz Mullins [id number] Liz Mullins 10/12/2023 2 [place] [employer] [place] [employer] 104 Liz Mullins [id number] Liz Mullins Notes Date Note Type Note Provider [...] swelling. No other complaints today. TAYLA JONES [address] [place] [address] Drive, [address], [place], [address], [facility] - [place] & [place] 10/13/2023 21:34:05 OBGyn Episode No OBEpisode recorded.
--- NOTE | 2024-10-13 13:30 | MM_ITS ---
PROCEDURE INFORMATION: Exam: MG Bilateral Screening 3D Mammography Exam date and time: 10/13/2024 1:24 PM Age: 63 years old Clinical indication: Screening examination TECHNIQUE: Imaging protocol: Bilateral Screening tomosynthesis and 2D mammography including computer-aided detection (CAD) when performed. COMPARISON: 1. MG MM DIG SCREENING MAMM BI W/CAD 10/07/2023 10:17 AM 2. MG MM DIG SCREENING MAMM BI W/CAD 08/22/2022 10:41 AM FINDINGS: MAMMOGRAPHY: Breast composition: The breasts are heterogeneously dense, which may obscure small masses. Mass: None. Architectural distortion: None. Calcifications: No suspicious calcifications. Asymmetric density: None. Skin thickening: None. Axillary adenopathy: None. IMPRESSION: No mammographic evidence of malignancy. Annual screening is recommended unless otherwise clinically indicated. ASSESSMENT: BI-RADS Category 1: Negative.
== END 2024-10-13 23:59 | disposition home or self-care (01) ==
LOC: RAD 13:11
PROVIDERS: PCP Internal Medicine; Visit Provider Internal Medicine
DX: Z12.31 Encounter for screening mammogram for malignant neoplasm of breast (principal)
CPT/HCPCS: 77063; 77067

== ENCOUNTER 2025-01-04 10:25 | Outpatient (CLI) | payer MEDICARE, BC, SELFPAY ==
--- OUTSIDE RECORDS SUMMARY | 2024-11-21 07:50 | XMS_ITS | Encounter Summary ---
Author Organization Healthcare Address [address] [id number] Care Team Providers Care Perioperative Assistant Name Role Phone Deondre Lui MD Primary Care Provider [phone] Reason for Referral * Consultation (Routine) - Authorized Specialty Diagnoses / Procedures Referred By Contac t Referred To Contact Gastroenterology Diagnoses Lower abdominal pain Lower GI bleed Rae Adames MD [address] [place] [address] Phone: tel: fax: Referral ID Status Reason Start Date Expiration Date Visits Requested Visits Authorized [id number] Authorized Specialty Services Required 11/24/2024 05/26/2026 1 1 * Consultation (Routine) - Closed Specialty Diagnoses / Procedures Referred By Contact Referred To Contact Vascular Surgery / [facility] Diagnoses Claudication of both lower extremities PAD (peripheral artery disease) (CMS/HCC) Rae Adames MD [address] [place] [address] Phone: tel:[phone] fax:[phone] [facility] [address] [facility] 5th Floor [address] [place] [address] Phone: tel: fax: Referral ID Status Reason Start Date Expiration Date V isits Requested Visits Authorized [id number] Closed Specialty Services Required 11/24/2024 05/26/2026 1 1 * Consultation (Routine) - Authorized Specialty Diagnoses / Procedures Referred By Alvaro myles Referred To Contact Family Medicine Diagnoses Primary obstructive sleep apnea of Lower GI bleed Tobacco use disorder Rae Adames MD [address] [place] [address] Phone: tel: fax: Referral ID Status Reason Start Date Expiration Date V isits Requested Visits Authorized [id number] Authorized 11/24/2024 05/26/2026 1 1 Reason for Visit * Reason Comments GI Problem * Auth/Cert (Routine) Specialty Diagnoses / Procedures Referred By Alvaro myles Referred To Contact Diagnoses Lower GI bleed sepsis, acute mesenteric ischemia Rae Adames MD [address] [place] [address] Phone: tel: fax: [facility] A Emergency Department [address] [place] [address] Phone: tel: Referral ID Status Reason Start Date Expiration Date Visits Re quested Visits Authorized [id number] 1 1 Encounter Details Date Type Department Care Team (Latest Contact Info) Description 11/21/2024 7:50 AM EDT - 11/24/2024 1:31 PM EDT Hospital Encounter [facility] H Inpatient [address] [place] [phone] Derek Deshpande MD [address] [place] [address] Rae Adames MD [address] [place] [phone] Lower abdominal pain (Primary Dx); Primary obstructive sleep apnea of ; Lower GI bleed; Tobacco use disorder; Claudication of both lower extremities; PAD (peripheral artery disease) (CMS/HCC); Acute mesenteric ischemia ([facility]); Chronic kidney disease, unspecified CKD stage Discharge [...] and Family Not on file 11/25/2024 Attends [employer] Not on file 11/25 Active Member [...] any time in the past 12 m [facility], were you homeless or living in a [place] health care facility (including now)? No 11/25/2024 Utilities Answer Date Recorded In the past 12 months has th e [employer], gas, oil, or water company threatened to [...] name and Address: Deondre Lui MD [address] / [place] [address] Referring provider name and address: Alexy Christie MD [address] [place] [address] [place] [address] Chief Concern, Brief History of Present Illness, and Hospital Course Liz Mullins is a 64 y.o. 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 for bright red blood per [...] blood per rectum and was transferred to [facility]. - CTA of abdomen shows [...] These medications were sent to [facility] - [place], [place] - [address] [facility] [address] [facility] [address] atorvastatin 80 MG tablet lisinopril-hydroCHLOROthiazide 20-12.5 MG [...] Time Provider Department Center 03/29/2025 10:30 AM [facility] PAC LAB RECYCLING OPERATIONS MANAGER [facility] 04/05/2025 1:00 PM Jude Arora PA [facility] 08/09/2025 10:00 AM VASCULAR 1 [facility] 08/09/2025 11:45 AM Cristofer Yu MD [facility] 10/11/2025 9:15 AM James Tomas MD [facility] Heart I Test Results Pending At Discharge [...] discharge. 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 from OSH for bright red [...] in Hgb please contact the GI fellow inventory control specialist to reassess for rapid bowel preparation and [...] Note Liz Mullins 64 y.o. female CSN: [id number] Admission: 11/21/2024 7:50 AM Primary Problem: Lower GI bleed Black Studies Professor reviewed chart and spoke with patient to complete this Initial Case Management Assessment. PCP: Deondre Lui MD Emergency Contact: Extended Emergency Contact Information Primary Emergency Contact: Lorie Lyle Mobile Relation: Daughter Preferred language: Cymraes Water And Gas Helper needed? No Secondary Emergency Contact: zayda parker Address: [address] [place] [address] Mobile Relation: Sister Water And Gas Helper needed? No Insurance: Primary Visit Coverage Payer Plan Sponsor Code Group Number Group Name MEDICARE MEDICARE A & B Primary Visit Coverage Subscriber Subscriber ID Subscriber Name Subscriber SSN Subscriber Address [id number] LIZ MULLINS [id number] [place], [place] [address] [address] Secondary Visit Coverage Payer Plan Sponsor Code Group Number Group Name CARLI COFFE[employer] [employer] BCBS [id number] STANDARD SECONDARY Secondary Visit Coverage Subscriber Subscriber ID Subscriber Name Subscriber N Subscriber Address [id number] LIZ MULLINS [id number] [address] [place] [address] Patient information: Primary Caregiver: Self Accompanied by/Relationship: Pt's daughter Lorie and sister Zayda Support System: Immediate family Daily Living Activities: Functional Status: Independent Living Arrangements: Children (Pt's disabled son lives with her.) Type of Residence: Private residence [facility] [address] [id number] Current DME: Equipment Currently Used at Home: [...] DME Provider: N/A Living Will/Advance Directive/Power of Rn Geriatric /Guardian: Pt states she does not have a living will, advance directive, power of workers compensation defense attorney or guardian at this time. Additional Comments: Pt confirms that her PCP is Deondre Lui Md, and her pharmacy of choice is [facility] in [place]. 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 from OSH for bright red blood per rectum. Patient reporting approximately 5 days of constipation and lower abdominal discomfort. She had acute worsening of abdominal pain last night with development of loose stools which were initially brownbut later turned bloody. Presented to [facility] for evaluation where imaging demonstrated concern for BRIAN occlusion. Vascular surgery following without plans for intervention. Since arrival to 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 from OSH for bright red blood per rectum. #Hematochezia DDx: ischemic colitis vs diverticular bleed vs ischemic colitis vs AVM -Since arrival to [facility] she continues with loose bloody [...] in Hgb please contact the GI fellow inventory control specialist to reassess for rapid bowel preparation and colonoscopy. Would consider repeat abdominal imaging at this time as welll Staffed w/ attending: Dr. Suarez Thank you for allowing us to participate in this patient's care. Please do not hesitate to call or page with questions or concerns. Omar Luther MD PGY-4 Gastroenterology Fellow [facility] Pager: [phone] [1] Past Medical History: Diagnosis Date CHF (congestive heart failure) (CMS/HCC) August 2023 History of shoulder surgery Hypertension 10 years Myocardial infarction ([facility]) Pain in right shoulder Right shoulder pain Personal history of other diseases of the circulatory system History of hypertension Personal history of other diseases of the circulatory system History of peripheral vascular disease Personal history of other endocrine, nutritional and metabolic disease History of high cholesterol PVD (peripheral vascular disease) ([facility]) [2] Past Surgical History: Procedure Laterality Date ARTERIAL STENT PLACEMENT N/A Arterial stent placement from [facility] CAROTID ARTERY ANGIOPLASTY N/A Carotid artery angioplasty and stenting from [facility] CARPAL TUNNEL RELEASE N/A carpal tunnel surgery from [facility] CATARACT EXTRACTION CERVICAL FUSION CERVIX SURGERY N/A cervical surgery from [facility] COLONOSCOPY HYSTERECTOMY N/A Hysterectomy from [facility] SHOULDER ARTHROSCOPY Bilateral TUBAL LIGATION N/A tubal ligation from [facility] [3] Family History Problem Relation Name Age [...] 11/21/2024 1:02 PM EDTAssociated Order(s): Consult to [facility] Images from the original note were not included. Hospital Medicine History & Physical Consult to [facility] Consult performed by: Henrique Mercedes MD Consult ordered by: Derek Deshpande MD Subjective 11/21/2024 Chief Complaint: Chief Complaint Patient presents with GI Problem History Of Present Illness Liz Mullins is a 64 y.o. 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 from OSH for bright red blood per rectum. Ms. Mullins has been having abdominal pain for about 5 days. She initially thought this was due to constipation, but had watery bowel movement associated with worsening abdominal pain around 11pm last night. This prompted presentation to outside hospital, [facility]. Since arrival to [facility], marita had multiple episodes of bright red blood per rectum. She was transferred to [facility] for concern for mesenteric ischemia. [...] note and most recent Cardiology, Nephrology, Vascular senior marketing specialist note which supplemented above history, noting [...] y.o. 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 for lower GI bleed. #Lower [...] to Henrique Mercedes MD Internal Medicine PGY-1 [facility] [1] Past Medical History: Diagnosis Date CHF (congestive heart failure) ([facility]) August 2023 History of shoulder surgery Hypertension 10 years Myocardial infarction ([facility]) Pain in right shoulder Right shoulder pain Personal history of other diseases of the circulatory system History of hypertension Personal history of other diseases of the circulatory system History of peripheral vascular disease Personal history of other endocrine, nutritional and metabolic disease History of high cholesterol PVD (peripheral vascular disease) ([facility]) [2] Past Surgical History: Procedure Laterality Date ARTERIAL STENT PLACEMENT N/A Arterial stent placement from [facility] CAROTID ARTERY ANGIOPLASTY N/A Carotid artery angioplasty and stenting from [facility] CARPAL TUNNEL RELEASE N/A carpal tunnel surgery from [facility] CATARACT EXTRACTION CERVICAL FUSION CERVIX SURGERY N/A cervical surgery from [facility] COLONOSCOPY HYSTERECTOMY N/A Hysterectomy from [facility] SHOULDER ARTHROSCOPY Bilateral TUBAL LIGATION N/A tubal ligation from [facility] [3] Family History Problem Relation Name Age [...] y.o. 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 for bright red blood per [...] blood per rectum and was transferred to [facility]. - CTA of abdomen shows [...] from the original note were not included. [facility] Department of Surgery Division of Vascular [...] Effient and ASA who presented to the [facility] on 11/21/2024 with abdominal pain and hematochezia. [...] fem bypass, moderate stenosis of her right INTENSIVE CARE UNIT NURSE along with a bilateral change in ABIs. [...] file Social Connections: Unknown (03/23/2023) Received from [facility] Family and Community Support Help with Day-to-Day Activities: Not on file Lonely or Isolated: Not on file Intimate Partner Violence: Unknown (03/23/2023) Received from [facility] Abuse Screen Unsafe at Home or Work/School: Not on file Feels Threatened by Someone?: Not on file Does Anyone Keep You from Contacting Others or Doint Things Outside the Home?: Not on file Physical Sign of Abuse Present: Not on file Housing Stability: Unknown (03/23/2023) Received from [facility] Housing Stability Current Living Arrangements: Not on [...] on Effient and ASA who presented to [facility] with abdominal pain and reports [...] History: Diagnosis Date CHF (congestive heart failure) ([facility]) August 2023 History of shoulder surgery Hypertension 10 years Myocardial infarction ([facility]) Pain in right shoulder Right shoulder pain Personal history of other diseases of the circulatory system History of hypertension Personal history of other diseases of the circulatory system History of peripheral vascular disease Personal history of other endocrine, nutritional and metabolic disease History of high cholesterol PVD (peripheral vascular disease) ([facility]) [2] Allergies Allergen Reactions Buspirone Itching Methylprednisolone Itching [3] Past Surgical History: Procedure Laterality Date ARTERIAL STENT PLACEMENT N/A Arterial stent placement from [facility] CAROTID ARTERY ANGIOPLASTY N/A Carotid artery angioplasty and stenting from [facility] CARPAL TUNNEL RELEASE N/A carpal tunnel surgery from [facility] CATARACT EXTRACTION CERVICAL FUSION CERVIX SURGERY N/A cervical surgery from [facility] COLONOSCOPY HYSTERECTOMY N/A Hysterectomy from [facility] SHOULDER ARTHROSCOPY Bilateral TUBAL LIGATION N/A tubal ligation from [facility] [4] Family History Problem Relation Name Age [...] result CRIS RIVERA 11/21/24 1026 Consult to [facility] Once Specialty: Internal Medicine Provider: [...] History: Diagnosis Date CHF (congestive heart failure) ([facility]) August 2023 History of shoulder surgery Hypertension 10 years Myocardial infarction ([facility]) Pain in right shoulder Right shoulder pain Personal history of other diseases of the circulatory system History of hypertension Personal history of other diseases of the circulatory system History of peripheral vascular disease Personal history of other endocrine, nutritional and metabolic disease History of high cholesterol PVD (peripheral vascular disease) ([facility]) [2] Past Surgical History: Procedure Laterality Date ARTERIAL STENT PLACEMENT N/A Arterial stent placement from [facility] CAROTID ARTERY ANGIOPLASTY N/A Carotid artery angioplasty and stenting from [facility] CARPAL TUNNEL RELEASE N/A carpal tunnel surgery from [facility] CATARACT EXTRACTION CERVICAL FUSION CERVIX SURGERY N/A cervical surgery from [facility] COLONOSCOPY HYSTERECTOMY N/A Hysterectomy from [facility] SHOULDER ARTHROSCOPY Bilateral TUBAL LIGATION N/A tubal ligation from [facility] [3] Family History Problem Relation Name Age [...] Description 02/20/2025 10:45 AM EDT Office Visit [facility] [address]nd [place] [address] Elle Landaverde APRN, DNP [address] [place] [address] 03/29/2025 10:30 AM EDT Clinical Support Professional [facility] [address] [facility] 1st [place] [address] 04/05/2025 1:00 PM EDT Office Visit [facility] Nephrology, Bone & Mineral Metabolism [address], [address] [place] [phone] Jude Arora PA [address] [place] [address] 08/09/2025 10:00 AM EST Appointment [facility] Vascular Lab [address] [facility] [address] [place] [address] 08/09/2025 11:45 AM EST Office Visit [facility] [address] [place] [address] Cristofer Yu MD [address] [place] [address] 10/11/2025 9:15 AM EDT Office Visit [facility] [place] [address] [place] [address] James Tomas MD [address] [place] [address] Scheduled Referrals Name Type Priority Associated Diagnoses [...] CBC W/O Differential (11/24/2024 4:01 AM EDT) [facility] WBC Count 9.98 3.70 - 10.30 10*3/uL LAB HEMATOLOGY METHOD 11/24/2024 4:43 AM EDT [facility] RBC Count 3.59(L) 3.90 - 5.20 10*6/uL LAB HEMATOLOGY METHOD 11/24/2024 4:43 AM EDT [facility] HGB 11.3 11.2 - 15.7 g/dL LAB HEMATOLOGY METHOD 11/24/2024 4:43 AM EDT [facility] HCT 34.5 34.0 - 45.0 % LAB HEMATOLOGY METHOD 11/24/2024 4:43 AM EDT [facility] Platelet Count 186 155 - 369 10*3/uL LAB HEMATOLOGY METHOD 11/24/2024 4:43 AM EDT [facility] MCV 96 79 - 98 fL LAB HEMATOLOGY METHOD 11/24/2024 4:43 AM EDT [facility] MCH 31.5 26.0 - 32.0 pg LAB HEMATOLOGY METHOD 11/24/2024 4:43 AM EDT [facility] MCHC 32.8 30.7 - 35.5 g/dL LAB HEMATOLOGY METHOD 11/24/2024 4:43 AM EDT [facility] RDW 15.2(H) 11.5 - 14.5 % LAB HEMATOLOGY METHOD 11/24/2024 4:43 AM EDT [facility] MPV 10.3 8.8 - 12.5 fL LAB HEMATOLOGY METHOD 11/24/2024 4:43 AM EDT [facility] nRBC 0.0 <=0.0 per 100 WBCs LAB HEMATOLOGY METHOD 11/24/2024 4:43 AM EDT [facility] Blood Venous blood specimen / Unknown Venipuncture / Unknown 11/24/2024 4:01 AM EDT 11/24/2024 4:26 AM EDT Rae Adames MD LAB BLOOD ORDERABLES Final Resu lt [facility] [address] [place] [address] * Clostridiodes (Clostridium) difficile PCR (11/23/2024 12:40 PM EDT) C difficile PCR toxin B gene DNA Result Not Detected Not Detected 11/23/2024 4:28 PM EDT [facility] Stool Rectum structure / Unknown Non-blood Collection / Unknown 11/23/2024 12:40 PM EDT 11/23/2024 1:38 PM EDT Narrative [facility] - 11/23/2024 4:28 PM EDT This [...] MICROBIOLOGY - GENERAL ORDE RABLES Final Result [facility] [address] [place] [address] * Comprehensive GI Panel by PCR (11/23/2024 12:40 PM EDT) Campylobacter PCR Result Not Detected Not Detected 11/23/2024 5:29 PM EDT [facility] Plesiomonas shigelloides PCR Result Not Detected Not Detected 11/23/2024 5:29 PM EDT [facility] Salmonella PCR Result Not Detected Not Detected 11/23/2024 5:29 PM EDT [facility] Vibrio species PCR Result Not Detected Not Detected 11/23/2024 5:29 PM EDT [facility] Vibrio cholerae PCR Result Not Detected Not Detected 11/23/2024 5:29 PM EDT [facility] Yersinia enterocolitica PCR Result Not Detected Not Detected 11/23/2024 5:29 PM EDT [facility] Enteroaggregative E. coli (EAEC) PCR Result Not Detected Not Detected 11/23/2024 5:29 PM EDT [facility] Enteropathogenic E. coli (EPEC) PCR Result Not Detected Not Detected 11/23/2024 5:29 PM EDT [facility] Enterotoxigenic E. coli (ETEC) lt/st PCR Result Not Detected Not Detected 11/23/2024 5:29 PM EDT [facility] Shiga-like Toxin-Producing E.coli (STEC) stx1/stx2 PCR Resu Not Detected Not Detected 11/23/2024 5:29 PM EDT [facility] E coli 0157 PCR Result Not Detected Not Detected 11/23/2024 5:29 PM EDT [facility] Shigella/Enteroinvas cecilia E. coli (EIEC) PCR Result Not Detected Not Detected 11/23/2024 5:29 PM EDT [facility] Cryptosporidium PCR Result Not Detected Not Detected 11/23/2024 5:29 PM EDT [facility] Cyclospora cayetanensis PCR Result Not Detected Not Detected 11/23/2024 5:29 PM EDT [facility] Entamoeba histolytica PCR Result Not Detected Not Detected 11/23/2024 5:29 PM EDT [facility] Giardia duodenalis (aka Giardia lamblia) PCR Result Not Detected Not Detected 11/23/2024 5:29 PM EDT [facility] Adenovirus F 40/41 PCR Result Not Detected Not Detected 11/23/2024 5:29 PM EDT [facility] Astrovirus PCR Result Not Detected Not Detected 11/23/2024 5:29 PM EDT [facility] Norovirus GI/GII PCR Result Not Detected Not Detected 11/23/2024 5:29 PM EDT [facility] Rotavirus A PCR Result Not Detected Not Detected 11/23/2024 5:29 PM EDT [facility] Sapovirus PCR Result Not Detected Not Detected 11/23/2024 5:29 PM EDT [facility] Stool Rectum structure / Unknown Non-blood Collection / Unknown 11/23/2024 12:40 PM EDT 11/23/2024 1:38 PM EDT Narrative [facility] - 11/23/2024 5:29 PM EDT This [...] MICROBIOLOGY - GENERAL DYLAN BENITEZ Final Result [facility] [address] [place] [address] * Lavender Top (11/23/2024 5:12 AM EDT) Extra Hold for add-ons 11/23/2024 8:02 AM EDT [facility] Comment:Auto resulted. Blood Venous blood specimen / Unknown 11/23/2024 5:12 AM EDT 11/23/2024 5:25 AM EDT us Rae Adames MD LAB BLOOD ORDERABLES Final Resu lt [facility] [address] [place] [address] * (ABNORMAL) Basic Metabolic Panel, Plasma (11/23/2024 5:12 AM EDT) Glucose, Plasma 93 74 - 99 mg/dL 11/23/2024 6:01 AM EDT [facility] BUN, Plasma 16 8 - 23 mg/dL 11/23/2024 6:01 AM EDT [facility] Creatinine, Plasma 1.91(H) 0.60 - 1.10 mg/dL 11/23/2024 6:01 AM EDT [facility] BUN/Creatinine Ratio 8 11/23/2024 6:01 AM EDT [facility] Sodium, Plasma 141 136 - 145 mmol/L 11/23/2024 6:01 AM EDT [facility] Potassium, Plasma 3.7 3.6 - 4.9 mmol/L 11/23/2024 6:01 AM EDT [facility] Chloride, Plasma 108(H) 97 - 107 mmol/L 11/23/2024 6:01 AM EDT [facility] CO2, Plasma 23 22 - 29 mmol/L 11/23/2024 6:01 AM EDT [facility] Anion Gap 10 6 - 16 mmol/L 11/23/2024 6:01 AM EDT [facility] Total Calcium, Plasma 8.8(L) 8.9 - 10.2 mg/dL 11/23/2024 6:01 AM EDT [facility] eGFRcr 28.6 mL/min/1.7 3m*2 11/23/2024 6:01 AM EDT [facility] Comment:Reported eGFRcr in m L/min/1.73m2 is based the CKD-EPI 2020 equation that does not use a race coefficient. Blood Venous blood specimen / Unknown Venipuncture / Unknown 11/23/2024 5:12 AM EDT 11/23/2024 5:34 AM EDT us Rae Adames MD LAB BLOOD ORDERABLES Final Resu lt Performing Organization Address [facility] Co de Phone Number [facility] [address] [place] [address] * Hemoglobin and Hematocrit, Blood (11/22/2024 9:01 PM EDT) HGB 11.5 11.2 - 15.7 g/dL LAB HEMATOLOGY METHOD 11/22/2024 9:11 PM EDT [facility] HCT 34.5 34.0 - 45.0 % LAB HEMATOLOGY METHOD 11/22/2024 9:11 PM EDT [facility] Blood Venous blood specimen / Unknown Venipuncture / Unknown 11/22/2024 9:01 PM EDT 11/22/2024 9:09 PM EDT us Rae Adames MD LAB BLOOD ORDERABLES Final Resu lt Performing Organization Address [facility] Phone Number [facility] [address] [place] [address] * (ABNORMAL) Basic Metabolic Panel, Plasma (11/22/2024 9:21 AM EDT) Glucose, Plasma 88 74 - 99 mg/dL 11/22/2024 9:49 AM EDT [facility] BUN, Plasma 14 8 - 23 mg/dL 11/22/2024 9:49 AM EDT [facility] Creatinine, Plasma 1.88(H) 0.60 - 1.10 mg/dL 11/22/2024 9:49 AM EDT [facility] BUN/Creatinine Ratio 7 11/22/2024 9:49 AM EDT [facility] Sodium, Plasma 141 136 - 145 mmol/L 11/22/2024 9:49 AM EDT [facility] Potassium, Plasma 4.1 3.6 - 4.9 mmol/L 11/22/2024 9:49 AM EDT [facility] Chloride, Plasma 108(H) 97 - 107 mmol/L 11/22/2024 9:49 AM EDT [facility] CO2, Plasma 22 22 - 29 mmol/L 11/22/2024 9:49 AM EDT [facility] Anion Gap 11 6 - 16 mmol/L 11/22/2024 9:49 AM EDT [facility] Total Calcium, Plasma 8.6(L) 8.9 - 10.2 mg/dL 11/22/2024 9:49 AM EDT [facility] eGFRcr 29.2 mL/min/1.7 3m*2 11/22/2024 9:49 AM EDT [facility] Comment:Reported eGFRcr in m L/min/1.73m2 is based the CKD-EPI 2020 equation that does not use a race coefficient. Blood Venous blood specimen / Unknown Venipuncture / Unknown 11/22/2024 9:21 AM EDT 11/22/2024 9:30 AM EDT Rae Adames MD LAB BLOOD ORDERABLES Final Resu lt [facility] [address] [place] [address] * Hemoglobin and Hematocrit, Blood (11/22/2024 9:21 AM EDT) HGB 11.2 11.2 - 15.7 g/dL LAB HEMATOLOGY METHOD 11/22/2024 9:32 AM EDT [facility] HCT 34.0 34.0 - 45.0 % LAB HEMATOLOGY METHOD 11/22/2024 9:32 AM EDT [facility] Blood Venous blood specimen / Unknown Venipuncture / Unknown 11/22/2024 9:21 AM EDT 11/22/2024 9:30 AM EDT Rae Adames MD LAB BLOOD ORDERABLES Final Resu lt [facility] [address] [place] [address] * ECG Adult (11/22/2024 4:15 AM EDT) EKG DIAGNOSIS CLASS Borderline Abnormal MUSE ECG Ventricular Rate 46 BPM MUSE ECG Atrial Rate 46 BPM MUSE ECG VA Interval 192 ms MUSE ECG QRSD Interval 76 ms MUSE ECG QT Interval 484 ms MUSE ECG QTC Interval 423 ms MUSE ECG P [place] 90 degrees MUSE ECG R [place] -11 degrees MUSE ECG T Wave [place] 39 degrees MUSE ECG Diagnosis Sinus bradycardia MUSE ECG Diagnosis Low voltage QRS MUSE ECG Diagnosis Borderline ECG MUSE ECG Diagnosis MUSE ECG Diagnosis Confirmed by Cristofer Hawkins ([id number]) on 11/22/2024 10:41:39 AM MUSE ECG 11/22/2024 4:15 AM EDT 11/22/2024 10:41 AM EDT Rae Adames MD ECG ORDERABLES Final Result MUSE ECG * (ABNORMAL) Hemoglobin and Hematocrit, Blood (11/22/2024 12:01 AM EDT) [facility] HGB 11.1(L) 11.2 - 15.7 g/dL LAB HEMATOLOGY METHOD 11/22/2024 12:20 AM EDT [facility] HCT 33.5(L) 34.0 - 45.0 % LAB HEMATOLOGY METHOD 11/22/2024 12:20 AM EDT [facility] Blood Venous blood specimen / Unknown Venipuncture / Unknown 11/22/2024 12:01 AM EDT 11/22/2024 12:16 AM EDT Rae Adames MD LAB BLOOD ORDERABLES Final Resu lt [facility] [address] [place] [address] * (ABNORMAL) C-reactive protein (11/21/2024 3:27 PM EDT) Pathologist [facility] CRP, Plasma 38.4(H) <=8.0 mg/L 11/21/2024 4:26 PM EDT [facility] Blood Venous blood specimen / Unknown Venipuncture / Unknown 11/21/2024 3:27 PM EDT 11/21/2024 3:34 PM EDT Narrative [facility] - 11/21/2024 4:26 PM EDT This CRP test is appropriate for assessment of infection, systemic inflammation and/or tissue injury. To assess cardiovascular disease risk order high sensitivity CRP (CRPH). us Rae Adames MD LAB BLOOD ORDERABLES Final Resu lt Performing Organization Address [facility]/ZIP Co de Phone Number [facility] [address] [place] [address] * Sedimentation Rate, Automated (11/21/2024 3:27 PM EDT) Sedimentation Rate 21 <30 mm/hr 2024 3:57 PM EDT [facility] Blood Venous blood specimen / Unknown Venipuncture / Unknown 11/21/2024 3:27 PM EDT 11/21/2024 3:34 PM EDT Rae Adames MD LAB BLOOD ORDERABLES Final Resu lt Performing Organization Address [facility] Co de Phone Number [facility] [address] [place] [address] * (ABNORMAL) CBC W/O Differential (11/21/2024 3:27 PM EDT) WBC Count 13.41(H) 3.70 - 10.30 10*3/uL LAB HEMATOLOGY METHOD 11/21/2024 3:36 PM EDT [facility] RBC Count 3.55(L) 3.90 - 5.20 10*6/uL LAB HEMATOLOGY METHOD 11/21/2024 3:36 PM EDT [facility] HGB 11.1(L) 11.2 - 15.7 g/dL LAB HEMATOLOGY METHOD 11/21/2024 3:36 PM EDT [facility] HCT 33.7(L) 34.0 - 45.0 % LAB HEMATOLOGY METHOD 11/21/2024 3:36 PM EDT [facility] Platelet Count 174 155 - 369 10*3/uL LAB HEMATOLOGY METHOD 11/21/2024 3:36 PM EDT [facility] MCV 95 79 - 98 fL LAB HEMATOLOGY METHOD 11/21/2024 3:36 PM EDT [facility] MCH 31.3 26.0 - 32.0 pg LAB HEMATOLOGY METHOD 11/21/2024 3:36 PM EDT [facility] MCHC 32.9 30.7 - 35.5 g/dL LAB HEMATOLOGY METHOD 11/21/2024 3:36 PM EDT [facility] RDW 15.2(H) 11.5 - 14.5 % LAB HEMATOLOGY METHOD 11/21/2024 3:36 PM EDT [facility] MPV 9.9 8.8 - 12.5 fL LAB HEMATOLOGY METHOD 11/21/2024 3:36 PM EDT [facility] nRBC 0.0 <=0.0 per 100 WBCs LAB HEMATOLOGY METHOD 11/21/2024 3:36 PM EDT [facility] Blood Venous blood specimen / Unknown Venipuncture / Unknown 11/21/2024 3:27 PM EDT 11/21/2024 3:34 PM EDT Derek Deshpande MD LAB BLOOD ORDERABLES Final Result Performing Organization Address [facility] Co de Phone Number [facility] [address] [place] [address] * Urinalysis Microscopic Examination (11/21/2024 10:12 AM EDT) Urine Urine specimen obtained by clean catch procedure / Unknown Non-blood Collection / Unknown 11/21/2024 10:12 AM EDT 11/21/2024 10:19 AM EDT Derek Deshpande MD LAB URINE ORDERABLES Final Result Performing Organization Address [facility]/ZIP Co de Phone Number [facility] [address] [place] [address] * Urine Gee Panel (11/21/2024 10:12 AM EDT) Extra Reflex urine culture not indicated 11/21/2024 12:01 PM EDT [facility] Urine Urine specimen obtained by clean catch procedure / Unknown Non-blood Collection / Unknown 11/21/2024 10:12 AM EDT 11/21/2024 10:30 AM EDT us Derek Deshpande MD LAB URINE ORDERABLES Final Result [facility] [address] [place] [address] * (ABNORMAL) Urinalysis with reflex microscopic (Culture NOT Included) (11/21/2024 10:12 AM EDT) Color, Urine Yellow LAB URINALYSIS - AUTOMATED METHOD 11/21/2024 10:49 AM EDT [facility] Clarity, Urine Clear LAB URINALYSIS - AUTOMATED METHOD 11/21/2024 10:49 AM EDT [facility] Spec [place], Urine >1.030(H) 1.005 - 1.030 LAB URINALYSIS - AUTOMATED METHOD 11/21/2024 10:49 AM EDT [facility] pH, Urine 5.5 5.0 - 8.0 LAB URINALYSIS - AUTOMATED METHOD 11/21/2024 10:49 AM EDT [facility] Protein, Urine 30(A) Negative mg/dL LAB URINALYSIS - AUTOMATED METHOD 11/21/2024 10:49 AM EDT [facility] Glucose, Urine Negative Negative mg/dL LAB URINALYSIS - AUTOMATED METHOD 11/21/2024 10:49 AM EDT [facility] Ketones, Urine Negative Negative mg/dL LAB URINALYSIS - AUTOMATED METHOD 11/21/2024 10:49 AM EDT [facility] Blood, Urine Large(A) Negative LAB URINALYSIS - AUTOMATED METHOD 11/21/2024 10:49 AM EDT [facility] Bilirubin, Urine Negative Negative LAB URINALYSIS - AUTOMATED METHOD 11/21/2024 10:49 AM EDT [facility] Urobilinogen, Urine 1.0 0.2 to 1.0 mg/dL LAB URINALYSIS - AUTOMATED METHOD 11/21/2024 10:49 AM EDT [facility] Leukocytes, Urine Negative Negative LAB URINALYSIS - AUTOMATED METHOD 11/21/2024 10:49 AM EDT [facility] Nitrite, Urine Negative Negative LAB URINALYSIS - AUTOMATED METHOD 11/21/2024 10:49 AM EDT [facility] RBC, Urine >50(A) 0 to 3 /HPF LAB URINALYSIS - AUTOMATED METHOD 11/21/2024 10:49 AM EDT [facility] Comment:This result was prev iously suppressed from the chart. WBC, Urine 0 - 5 0 to 5 /HPF LAB URINALYSIS - AUTOMATED METHOD 11/21/2024 10:49 AM EDT [facility] Comment:This result was prev iously suppressed from the chart. Squamous Epithelial Cells 0 - 2 0 to 5 /HPF LAB URINALYSIS - AUTOMATED METHOD 11/21/2024 10:49 AM EDT [facility] Comment:This result was prev iously suppressed from the chart. Hyaline Casts 0 - 2 0 to 5 /LPF LAB URINALYSIS - AUTOMATED METHOD 11/21/2024 10:49 AM EDT [facility] Comment:This result was prev iously suppressed from the chart. Bacteria, Urine Negative Negative LAB URINALYSIS - AUTOMATED METHOD 11/21/2024 10:49 AM EDT [facility] Comment:This result was prev iously suppressed from the chart. Urine Urine specimen obtained by clean catch procedure / Unknown Non-blood Collection / Unknown 11/21/2024 10:12 AM EDT 11/21/2024 10:19 AM EDT us Derek Deshpande MD LAB URINE ORDERABLES Final Result [facility] [address] [place] [address] * ED HIV 1/2 Antibody/Antigen Screen w/Reflex to HIV 1/2 Differentiation (11/21/2024 8:32 AM EDT) HIV 1 & 2 Antibody/Antigen Screen Non Reactive Non Reactive 11/21/2024 9:34 AM EDT [facility] Comment:Screening for HIV 1 & 2 antibodies, and P24 antigen is NONREACTIVE. No confirmatory testing is required. Blood Venous blood specimen / Unknown Venipuncture / Unknown 11/21/2024 8:32 AM EDT 11/21/2024 8:49 AM EDT Derek Deshpande MD LAB BLOOD ORDERABLES Final Result Performing Organization Address [facility]/ZIP Co de Phone Number [facility] [address] [place] [address] * Hepatitis C Antibody - ED (11/21/2024 8:32 AM EDT) Hepatitis C Antibody Negative Negative 11/21/2024 9:30 AM EDT [facility] Blood Venous blood specimen / Unknown Venipuncture / Unknown 11/21/2024 8:32 AM EDT 11/21/2024 8:50 AM EDT Derek Deshpande MD LAB BLOOD ORDERABLES Final Result Performing Organization Address [facility] Co de Phone Number [facility] [address] [place] [address] * Type and screen (11/21/2024 8:32 AM [...] ORDERA BLES Final Result Performing Organization Address [facility] Co de Phone Number BLOOD BANK [address] [place] [address], * Lactic acid, venous (11/21/2024 8:32 AM EDT) Lactate, Venous, Whole Blood 1.4 0.5 - 2.2 mmol/L LAB HEMATOLOGY METHOD 11/21/2024 8:52 AM EDT [facility] Blood Venous blood specimen / Unknown Venipuncture / Unknown 11/21/2024 8:32 AM EDT 11/21/2024 8:48 AM EDT us Derek Deshpande MD LAB BLOOD ORDERABLES Final Result [facility] [address] [place] [address] * (ABNORMAL) CMP (11/21/2024 8:32 AM EDT) Glucose, Plasma 122(H) 74 - 99 mg/dL 11/21/2024 9:18 AM EDT [facility] BUN, Plasma 17 8 - 23 mg/dL 11/21/2024 9:18 AM EDT [facility] Creatinine, Plasma 1.79(H) 0.60 - 1.10 mg/dL 11/21/2024 9:18 AM EDT [facility] BUN/Creatinine Ratio 9 11/21/2024 9:18 AM EDT [facility] Sodium, Plasma 140 136 - 145 mmol/L 11/21/2024 9:18 AM EDT [facility] Potassium, Plasma 4.3 3.6 - 4.9 mmol/L 11/21/2024 9:18 AM EDT [facility] Chloride, Plasma 110(H) 97 - 107 mmol/L 11/21/2024 9:18 AM EDT [facility] CO2, Plasma 22 22 - 29 mmol/L 11/21/2024 9:18 AM EDT [facility] Anion Gap 8 6 - 16 mmol/L 11/21/2024 9:18 AM EDT [facility] Total Calcium, Plasma 8.4(L) 8.9 - 10.2 mg/dL 11/21/2024 9:18 AM EDT [facility] Total Protein 6.0(L) 6.3 - 7.9 g/dL 11/21/2024 9:18 AM EDT [facility] Albumin, Plasma 3.5 3.5 - 5.2 g/dL 11/21/2024 9:18 AM EDT [facility] AST, Plasma 21 10 - 35 U/L 11/21/2024 9:18 AM EDT [facility] ALT, Plasma 19 10 - 35 U/L 11/21/2024 9:18 AM EDT [facility] Alkaline Phosphatase, Plasma 94 46 - 142 U/L 11/21/2024 9:18 AM EDT [facility] Total Bilirubin, Plasma 0.4 0.2 - 1.1 mg/dL 11/21/2024 9:18 AM EDT [facility] eGFRcr 31.0 mL/min/1.7 3m*2 11/21/2024 9:18 AM EDT [facility] Comment:Reported eGFRcr in m L/min/1.73m2 is based the CKD-EPI 2020 equation that does not use a race coefficient. Blood Venous blood specimen / Unknown Venipuncture / Unknown 11/21/2024 8:32 AM EDT 11/21/2024 8:49 AM EDT us Derek Deshpande MD LAB BLOOD ORDERABLES Final Result [facility] [address] [place] [address] * (ABNORMAL) PT-INR (11/21/2024 8:32 AM EDT) Prothrombin Time 15.3(H) 12.0 - 14.3 sec 11/21/2024 8:58 AM EDT [facility] INR 1.2(H) 0.9 - 1.1 11/21/2024 8:58 AM EDT [facility] Blood Venous blood specimen / Unknown Venipuncture / Unknown 11/21/2024 8:32 AM EDT 11/21/2024 8:44 AM EDT Narrative [facility] - 11/21/2024 8:58 AM EDT OPTIMAL INR RANGES FOR PATIENT ON ORAL ANTICOAGULANT THERAPY Prevention of venous thromboembolism INR 2.0 to 3.0 In patients with heart disease: Atrial fibrillation INR 2.0 to 3.0 Valvular heart disease INR 2.0 to 3.0 Tissue heart valves INR 2.0 to 3.0 Mechanical prosthetic valves INR 2.5 to 3.5 Prevention of recurrent CO INR 2.5 to 3.5 us Derek Deshpande MD LAB BLOOD ORDERABLES Final Result [facility] [address] [place] [address] * (ABNORMAL) CBC w/diff (11/21/2024 8:32 AM EDT) WBC Count 15.92(H) 3.70 - 10.30 10*3/uL LAB HEMATOLOGY METHOD 11/21/2024 8:46 AM EDT [facility] RBC Count 3.71(L) 3.90 - 5.20 10*6/uL LAB HEMATOLOGY METHOD 11/21/2024 8:46 AM EDT [facility] HGB 11.6 11.2 - 15.7 g/dL LAB HEMATOLOGY METHOD 11/21/2024 8:46 AM EDT [facility] HCT 34.9 34.0 - 45.0 % LAB HEMATOLOGY METHOD 11/21/2024 8:46 AM EDT [facility] Platelet Count 187 155 - 369 10*3/uL LAB HEMATOLOGY METHOD 11/21/2024 8:46 AM EDT [facility] MCV 94 79 - 98 fL LAB HEMATOLOGY METHOD 11/21/2024 8:46 AM EDT [facility] MCH 31.3 26.0 - 32.0 pg LAB HEMATOLOGY METHOD 11/21/2024 8:46 AM EDT [facility] MCHC 33.2 30.7 - 35.5 g/dL LAB HEMATOLOGY METHOD 11/21/2024 8:46 AM EDT [facility] RDW 15.2(H) 11.5 - 14.5 % LAB HEMATOLOGY METHOD 11/21/2024 8:46 AM EDT [facility] MPV 9.9 8.8 - 12.5 fL LAB HEMATOLOGY METHOD 11/21/2024 8:46 AM EDT [facility] nRBC 0.0 <=0.0 per 100 WBCs LAB HEMATOLOGY METHOD 11/21/2024 8:46 AM EDT [facility] Differential Type Automated LAB HEMATOLOGY METHOD 11/21/2024 8:46 AM EDT [facility] Neutrophils % 88 % LAB HEMATOLOGY METHOD 11/21/2024 8:46 AM EDT [facility] Lymphocytes % 7 % LAB HEMATOLOGY METHOD 11/21/2024 8:46 AM EDT [facility] Monocytes % 5 % LAB HEMATOLOGY METHOD 11/21/2024 8:46 AM EDT [facility] Eosinophils % 0 % LAB HEMATOLOGY METHOD 11/21/2024 8:46 AM EDT [facility] Basophils % 0 % LAB HEMATOLOGY METHOD 11/21/2024 8:46 AM EDT [facility] Immature Granulocytes % 0 % LAB HEMATOLOGY METHOD 11/21/2024 8:46 AM EDT [facility] Neutrophils Absolute 13.90(H) 1.60 - 6.10 10*3/uL LAB HEMATOLOGY METHOD 11/21/2024 8:46 AM EDT [facility] Lymphocytes Absolute 1.15(L) 1.20 - 3.90 10*3/uL LAB HEMATOLOGY METHOD 11/21/2024 8:46 AM EDT [facility] Monocytes Absolute 0.74 0.30 - 0.90 10*3/uL LAB HEMATOLOGY METHOD 11/21/2024 8:46 AM EDT [facility] Eosinophils Absolute 0.01 0.00 - 0.50 10*3/uL LAB HEMATOLOGY METHOD 11/21/2024 8:46 AM EDT [facility] Basophils Absolute 0.05 0.00 - 0.10 10*3/uL LAB HEMATOLOGY METHOD 11/21/2024 8:46 AM EDT [facility] Immature Granulocytes Absolute 0.07(H) 0.00 - 0.06 10*3/uL LAB HEMATOLOGY METHOD 11/21/2024 8:46 AM EDT [facility] Blood Venous blood specimen / Unknown Venipuncture / Unknown 11/21/2024 8:32 AM EDT 11/21/2024 8:44 AM EDT [facility] - 11/21/2024 8:46 AM EDT Therapeutic decision making should be based on absolute values, rather than percentages. us Derek Deshpande MD LAB BLOOD ORDERABLES Final Result [facility] [address] [place] [address] documented in this encounter Visit Diagnoses Diagnosis [...] Camejo RN) [phone] (Given - Provider: Scarlett aCo, JR) [phone] (Given - Provider: Gabi Galindo) [...] documented as of this encounter Care Teams Perioperative Assistant Relationship Specialty Start Date End Date Deondre Lui MD [facility] [address] [facility]AD Jones [facility] PCP - General 10/26/20 documented as of this encounter
--- OUTSIDE RECORDS SUMMARY | 2024-12-09 12:30 | XMS_ITS | Encounter Summary ---
Author Organization Healthcare Address [address] [place] [address] Care Team Providers Care Alternative Energy Engineer Name Role Phone Deondre Lui MD Primary Care Provider [phone] Christal Murray LPN Unavailable Unavailable Reason for Referral * Imaging (Routine) - Closed Specialty Diagnoses / Procedures Referred By Alvaro myles Referred To Contact Cardiology Diagnoses PAD (peripheral artery disease) (CMS/HCC) Procedures VAS US Arterial Duplex Lower Extremity Bilateral Bypass Graft Donovan Kern MD [address] [address] Phone: tel: fax: Referral ID Status Reason Start Date Expiration Date V isits Requested Visits Authorized [id number] Closed Perform Procedure 10/11/2024 04/12/2026 1 1 Reason for Visit * Imaging (Routine) - Closed Specialty Diagnoses / Procedures Referred By Alvaro myles Referred To Contact Cardiology Diagnoses PAD (peripheral artery disease) ([facility]/HCC) Procedures VAS US Arterial Duplex Lower Extremity Bilateral Bypass Graft Donovan Kern MD [address] [address] Phone: tel: fax: Referral ID Status Reason Start Date Expiration Date V isits Requested Visits Authorized [id number] Closed Perform Procedure 10/11/2024 04/12/2026 1 1 Encounter Details Date Type Department Care Team (Latest Contact Info) Description 12/09/2024 12:30 PM EDT Hospital [facility] [address] 5th Floor [address] [place] [address] PAD (peripheral artery disease) ([facility]) Discharge Disposition: Home or Self Care Social [...] and Family Not on file 11/25/2024 Attends Temple Services Not on file 11/25 Active Member of Clubs or Organizations Not on f ile 11/25/2024 Attends Club or Organization Meetings Not on komal e 11/25/2024 Are you , , di vorced, , never , or living with a partner? 11/25/2024 AUDIT-C Answer Date Recorded Frequency of Alcohol Consumption Not on file 12/09/2024 Q2: How many drinks containi ng alcohol do you have on a typical day when you are drinking? Patient does not drink 06/27/202 5 Frequency of Binge Drinking Not on file 11/14 Hunger Vital Sign Answer Date Recorded Within [...] any time in the past 12 m [facility], were you homeless or living in a long-term (including now)? No 11/25/2024 Utilities Answer Date Recorded In the past 12 months has th e electric, gas, oil, or water company threatened to shut off services in your home? No 11/23/2024 PHQ-2A Answer Date Recorded Patient Health Questionnaire-2 Score 0 11/17/2022 Comments No Sex and Gender Information Value Date Recorded Sex Assigned at Not on file Legal Sex Female 6:34 PM EDT Gender Identity Not on file Sexual Orientation Not on file documented as of this encounter Functional Status documented as of this encounter Medications at [...] or vomiting. documented as of this encounter Plan of Treatment Upcoming Encounters Date Type Department Care Team (Late st Contact Info) Description 02/20/2025 10:45 AM EDT Office Visit [facility] Medicine Specialties [address] [place] [address] Elle Landaverde APRN, ANNE [address] [facility] [address] [place] [address] 03/29/2025 10:30 AM EDT Clinical Support [facility] Laboratory Services [address] [facility] 1st [place] [address] 04/05/2025 1:00 PM EDT Office Visit [facility] Nephrology, Bone & Mineral Metabolism [address] [facility], [address] [place] [address] Jude Arora, TAYLA [address] [facility] [address] [phone] 08/09/2025 10:00 AM EST Appointment [facility] [address] [place] [address] 08/09/2025 11:45 AM EST Office [facility] [address] 1st [place] [address] Cristofer Yu MD [address] [facility] [address] [place] [address] 10/11/2025 9:15 AM EDT Office Visit [facility] [place] [address] [place] [address] James Tomas MD [address] [place] [address] documented as of this encounter Procedures Procedure Name Priority Date/Time Associated Diagnosis Comments VAS US ARTERIAL DUPLEX LOWER EXTREMITY BILATERAL Routine 12/09/2024 1:58 PM EDT PAD (peripheral artery disease) ([facility]) documented in this encounter Results * VAS US Arterial Duplex Lower Extremity Bilateral Bypass Graft (12/09/2024 1:58 PM EDT) Anatomical Region Laterality Modality Lower Extremities Ultrasound Impressions 12/09/2024 9:52 PM EDT The right to left fem-fem bypass graft is patent with no areas of stenosis identified. Right: Lower extremity arteries are patent with no areas of stenosis identified. Left: Lower extremity arteries are patent with no areas of stenosis identified. Monophasic and turbulent waveforms are detected at the bilateral TRAUMA DOCTOR suggestive of inflow disease. Preliminary report signed by Zuleima Guerrero on 12/09/2024 3:46 PM By electronically signing this report, I, the attending physician, attest that I have personally reviewed the images/data for the above examination(s) and I agree with the final edited report. Drafted by Zuleima Guerrero on 12/09/2024 3:09 PM Final report signed by Cristofer Cohen MD on 12/09/2024 9:52 PM Narrative 12/09/2024 9:52 PM EDT CLINICAL INDICATION: Surveillance of Bypass Graft; History of right to left fem-fem bypass graft. TECHNIQUE: Non-invasive, real time duplex exam of the lower extremity arterial circulation with Doppler ultrasonic waveform and spectral analysis was performed. COMPARISON: Previous BLE arterial duplex performed on 10/04/2024 RAMSEY performed same day Rt: 0.64 Lt: 0.71 FINDINGS: RIGHT: Arterial duplex demonstrates monophasic waveforms in the common femoral, superficial femoral, popliteal, posterior tibial and dorsalis pedis arteries. The following flow velocities are recorded: Common femoral artery prox to BYP cm/s Common femoral artery distal to BYP cm/s Profunda femoral artery: 52 cm/s Superficial femoral artery at bifurcation: 99 cm/s Proximal superficial femoral artery: 72 cm/s Mid superficial femoral artery: 54 cm/s Distal superficial femoral artery: 46 cm/s Popliteal artery: 25 cm/s Tibioperoneal trunk: 33 cm/s Posterior tibial artery: 26 cm/s Dorsalis pedis artery:36 cm/s Right to left fem-fem bypass graft: Right TRAUMA DOCTOR anastomosis: 231 cm/s Right of midline: 77 cm/s Midline: 72 cm/s Left of midline: 82 cm/s Left TRAUMA DOCTOR anastomosis: 95 cm/s LEFT: Arterial duplex demonstrates monophasic waveforms in the common femoral, superficial femoral, popliteal, posterior tibial and dorsalis pedis arteries. The following flow velocities are recorded: Common femoral artery: 148 cm/s Profunda femoral artery: 71 cm/s Superficial femoral artery at bifurcation: 117 cm/s Proximal superficial femoral artery: 64 cm/s Mid superficial femoral artery: 54 cm/s Distal superficial femoral artery: 55 cm/s Popliteal artery: 32 cm/s Tibioperoneal trunk: 34 cm/s Posterior tibial artery: 34 cm/s Dorsalis pedis artery:22 cm/s Procedure Note Cristofer Cohen MD - 12/09/2024 CLINICAL INDICATION: Surveillance of Bypass Graft; History of right to left fem-fem bypassgraft. TECHNIQUE: Non-invasive, real time duplex exam of the lower extremity arterialcirculation with Doppler ultrasonic waveform and spectral analysis wasperformed. COMPARISON: Previous BLE arterial duplex performed on 10/04/2024 RAMSEY performed same day Rt: 0.64 Lt: 0.71 FINDINGS: RIGHT: Arterial duplex demonstrates monophasic waveforms in the common femoral,superficial femoral, popliteal, posterior tibial and dorsalis pedisarteries. The following flow velocities are recorded: Common femoral artery prox to BYP cm/s Common femoral artery distal to BYP cm/s Profunda femoral artery: 52 cm/s Superficial femoral artery at bifurcation: 99 cm/s Proximal superficial femoral artery: 72 cm/s Mid superficial femoral artery: 54 cm/s Distal superficial femoral artery: 46 cm/s Popliteal artery: 25 cm/s Tibioperoneal trunk: 33 cm/s Posterior tibial artery: 26 cm/s Dorsalis pedis artery:36 cm/s Right to left fem-fem bypass graft: Right TRAUMA DOCTOR anastomosis: 231 cm/s Right of midline: 77 cm/s Midline: 72 cm/s Left of midline: 82 cm/s Left TRAUMA DOCTOR anastomosis: 95 cm/s LEFT: Arterial duplex demonstrates monophasic waveforms in the common femoral,superficial femoral, popliteal, posterior tibial and dorsalis pedisarteries. The following flow velocities are recorded: Common femoral artery: 148 cm/s Profunda femoral artery: 71 cm/s Superficial femoral artery at bifurcation: 117 cm/s Proximal superficial femoral artery: 64 cm/s Mid superficial femoral artery: 54 cm/s Distal superficial femoral artery: 55 cm/s Popliteal artery: 32 cm/s Tibioperoneal trunk: 34 cm/s Posterior tibial artery: 34 cm/s Dorsalis pedis artery:22 cm/s IMPRESSION: The right to left fem-fem bypass graft is patent with no areas of stenosisidentified. Right: Lower extremity arteries are patent with no areas of stenosisidentified. Left: Lower extremity arteries are patent with no areas of stenosisidentified. Monophasic and turbulent waveforms are detected at the bilateral CFAsuggestive of inflow disease. Preliminary report signed by Zuleima Guerrero on 12/09/2024 3:46 PM By electronically signing this report, I, the attending physician, attestthat I have personally reviewed the images/data for the aboveexamination(s) and I agree with the final edited report. Drafted by Zuleima Guerrero on 12/09/2024 3:09 PM Final report signed by Cristofer Cohen MD on 12/09/2024 9:52 PM Donovan Kern MD CV VASCULAR PROCEDURES Final Res ult documented in this encounter Visit Diagnoses Diagnosis PAD (peripheral artery disease) ([facility]) Unspecified peripheral vascular disease documented in this encounter Additional Health Concerns Assessment Noted Time PHQ-9 Depression Total Score: 0 10/13/19 25 8:52 AM EDT A fall risk assessment has been complete d for the patient 12/09/2024 1:41 PM EDT A Body Mass Index follow-up plan has been documented for the patient 12/09/2024 2:47 PM EDT documented as of this encounter Care Teams Alternative Energy Engineer Relationship Specialty Start Date End Date Deondre Lui MD [address] [facility] [address] [place] [address] PCP - General 10/26/20 Christal Murray LPN VALUE-BASED [place] [address] TCM Nurse 11/25/24 12/25/24 documented as of this encounter
--- OUTSIDE RECORDS SUMMARY | 2024-12-09 12:31 | XMS_ITS | Encounter Summary ---
Author Organization Healthcare Address [address] [place] [address] Care Team Providers Care Supervisor Lathing Name Role Phone Deondre Lui MD Primary Care Provider [phone] Christal Murray LPN Unavailable Unavailable Reason for Referral * Imaging (Routine) - Closed Specialty Diagnoses / Procedures Referred By Jonathanac t Referred To Contact Cardiology Diagnoses PAD (peripheral artery disease) (CMS/HCC) Procedures VAS Ankle Brachial Index - Segmental Donovan Kern MD [address] [address] Phone: tel: fax: Referral ID Status Reason Start Date Expiration Date V isits Requested Visits Authorized [id number] Closed Perform Procedure 10/11/2024 04/12/2026 1 1 Reason for Visit * Imaging (Routine) - Closed Specialty Diagnoses / Procedures Referred By Alvaro myles Referred To Contact Cardiology Diagnoses PAD (peripheral artery disease) ([facility]/HCC) Procedures VAS Ankle Brachial Index - Segmental Donovan Kern MD [address] [facility] [address] [place] [address] Phone: tel: fax: Referral ID Status Reason Start Date Expiration Date V isits Requested Visits Authorized [id number] Closed Perform Procedure 10/11/2024 04/12/2026 1 1 Encounter Details Date Type Department Care Team (Latest Contact Info) Description 12/09/2024 12:31 PM EDT - 12/09/2024 11:59 PM EDT Hospital Encounter [facility] Vascular Lab [address] 5[address] [place] [address] PAD (peripheral artery disease) ([facility]) Discharge Disposition: Home or Self Care [...] and Family Not on file 11/25/2024 Attends [employer] Not on file 11/25 Active Member [...] you are drinking? Patient does not drink Frequency of Binge Drinking Not on file [...] any time in the past 12 m [facility], were you homeless or living in a jail (including now)? No 11/25/2024 Utilities Answer Date [...] Description 02/20/2025 10:45 AM EDT Office Visit [facility] Medicine Specialties [address] 2nd [place] [address] Elle [facility]andaverde APRN, [facility] [address] [facility] [address] [place] [address] 03/29/2025 10:30 AM EDT Clinical Support [facility] Laboratory Services [address] [facility], 1st [place] [address] 04/05/2025 1:00 PM EDT Office Visit [facility] Nephrology, Bone & Mineral Metabolism [address] [facility], [address] [place] [phone] Jude Arora PA [address] [facility] [address] [place] [address] 08/09/2025 10:00 AM EST Appointment [facility] [address] [facility] [address] [place] [address] 08/09/2025 11:45 AM EST Office Visit [facility] [address] 1st [place] [address] Cristofer Yu MD [address] [facility] [address] [place] [address] 10/11/2025 9:15 AM EDT Office Visit [facility] [place] [address] [place] [address] James Tomas MD [address] [place] [address] documented as of this encounter Procedures Procedure Name Priority Date/Time Associated Diagnosis Comments VAS ANKLE BRACHIAL INDEX - SEGMENTAL Routine 12/09/2024 1:20 PM EDT PAD (peripheral artery disease) ([facility]) documented in this encounter Results * VAS Ankle Brachial Index - Segmental (12/09/2024 1:20 PM EDT) Anatomical Region Laterality Modality Vascular Ultrasound Impressions 12/09/2024 9:52 PM EDT Right: Abnormal study consistent with hemodynamically significant arterial inflow disease resulting in a moderate insufficiency at rest. No change as compared to the previous exam. Left: Abnormal study consistent with hemodynamically significant arterial inflow disease resulting in a moderate insufficiency at rest. This is a significant change as compared to the previous exam. COMMUNICATION: Per this written report. Preliminary report signed by Salma Andrade RVT on 12/09/2024 5:45 PM By electronically signing this report, I, the attending physician, attest that I have personally reviewed the images/data for the above examination(s) and I agree with the final edited report. Drafted by Salma Andrade RVT on 12/09/2024 5:36 PM Final report signed by Cristofre Cohen MD on 12/09/2024 9:52 PM Narrative 12/09/2024 9:52 PM EDT CLINICAL INDICATION: Diminished pulse. TECHNIQUE: Non-invasive, continuous wave doppler exam with segmental pressures and spectral analysis of the lower extremity was performed. COMPARISON: Ankle brachial indices obtained on 10/04/2024. Right: 0.64 Left: 0.71 Same day arterial duplex. FINDINGS: Right: Monophasic waveforms are demonstrated at the levels of the INSPECTOR SOLDERING (Obtained on same day arterial duplex), DPA and CHEMICAL LABORATORY SCIENTIST. Segmental pressures are below normal limits with a CHEMICAL LABORATORY SCIENTIST RAMSEY of 0.67 (80 mmHg) DPA RAMSEY of 0.56 (67 mmHg). Digit pressures are 20 mmHg. Left: Monophasic waveforms are demonstrated at the levels of the INSPECTOR SOLDERING (Obtained on same day arterial duplex), DPA and CHEMICAL LABORATORY SCIENTIST. Segmental pressures are below normal limits with a CHEMICAL LABORATORY SCIENTIST RAMSEY of 0.59 (70 mmHg) DPA RAMSEY of 0.55 (65 mmHg). Digit pressures are 17 mmHg. Procedure Note Cristofer Cohen MD - 12/09/2024 CLINICAL INDICATION: Diminished pulse. TECHNIQUE: Non-invasive, continuous wave doppler exam with segmental pressures andspectral analysis of the lower extremity was performed. COMPARISON: Ankle brachial indices obtained on 10/04/2024. Right: 0.64 Left: 0.71 Same day arterial duplex. FINDINGS: Right: Monophasic waveforms are demonstrated at the levels of the INSPECTOR SOLDERING(Obtained on same day arterial duplex), DPA and CHEMICAL LABORATORY SCIENTIST. Segmental pressuresare below normal limits with a CHEMICAL LABORATORY SCIENTIST RAMSEY of 0.67 (80 mmHg) DPA RAMSEY of 0.56(67 mmHg). Digit pressures are 20 mmHg. Left: Monophasic waveforms are demonstrated at the levels of the INSPECTOR SOLDERING(Obtained on same day arterial duplex), DPA and CHEMICAL LABORATORY SCIENTIST. Segmental pressuresare below normal limits with a CHEMICAL LABORATORY SCIENTIST RAMSEY of 0.59 (70 mmHg) DPA RAMSEY of 0.55(65 mmHg). Digit pressures are 17 mmHg. IMPRESSION: Right: Abnormal study consistent with hemodynamically significant arterialinflow disease resulting in a moderate insufficiency at rest. No change ascompared to the previous exam. Left: Abnormal study consistent with hemodynamically significant arterialinflow disease resulting in a moderate insufficiency at rest. This is asignificant change as compared to the previous exam. COMMUNICATION: Per this written report. Preliminary report signed by Salma Andrade RVT on 12/09/2024 5:45 PM By electronically signing this report, I, the attending physician, attestthat I have personally reviewed the images/data for the aboveexamination(s) and I agree with the final edited report. Drafted by Salma Andrade RVT on 12/09/2024 5:36 PM Final report signed by Cristofer Cohen MD on 12/09/2024 9:52 PM us Donovan Kern MD CV VASCULAR PROCEDURES Final Res ult documented in this encounter Visit Diagnoses Diagnosis PAD (peripheral artery disease) (CMS/HCC) Unspecified peripheral vascular disease documented in this encounter Additional Health Concerns Assessment Noted Time PHQ-9 Depression Total Score: 0 10/13/19 8:52 AM EDT A fall risk assessment has been complete d for the patient 12/09/2024 1:41 PM EDT A Body Mass Index follow-up plan has been documented for the patient 12/09/2024 2:47 PM EDT documented as of this encounter Care Teams Supervisor Lathing Relationship Specialty Start Date End Date Denodre Lui MD [address] [place] [address] [address] [place] [address] PCP - General 10/26/20 Christal Murray LPN VALUE-[place] [address] TCM Nurse 11/25/24 12/25/24 documented as of this encounter
--- OUTSIDE RECORDS SUMMARY | 2024-12-09 15:20 | XMS_ITS | Encounter Summary ---
Author Organization Healthcare Address [address] [place] [address] Care Team Providers Care Poultry Barn Manager Name Role Phone Deondre Lui MD Primary Care Provider [phone] Christal Murray LPN Unavailable Unavailable Reason for Referral * Imaging (Routine) - Pending Review Specialty Diagnoses / Procedures Referred By Alvaro myles Referred To Contact Cardiology Diagnoses Claudication of both lower extremities Procedures VAS Ankle Brachial Index - RAMSEY Only Tyron Mosquera MD [address] [address] Phone: tel: fax: Referral ID Status Reason Start Date Expiration Date Visits Requested Visits Authorized [id number] Pending Review Perform Procedure 12/09/2024 06/10/2026 1 1 * Imaging (Routine) - Pending Review Specialty Diagnoses / Procedures Referred By Alvaro myles Referred To Contact Cardiology Diagnoses Claudication of both lower extremities Aortoiliac stenosis (CMS/HCC) Procedures VAS US Aorta IVC Iliac Vessels Duplex RAMSEY/ABF Graft Tyron Mosquera MD [address] [address] Phone: tel: fax: Referral ID Status Reason Start Date Expiration Date Visits Requested Visits Authorized [id number] Pending Review Perform Procedure 12/09/2024 06/10/2026 1 1 Reason for Visit * Reason Comments peripheral artery disease * Consultation (Routine) - Closed Specialty Diagnoses / Procedures Referred By Contact Referred To Contact Vascular Surgery / Comprehensive Vascular Clinic Diagnoses Claudication of both lower extremities PAD (peripheral artery disease) ([facility]/HCC) Rae Adames MD [address] [place] [address] Phone: tel:[phone] fax:[phone] [facility] Comprehensive Vascular Clinic [address], [address] [place] [address] Phone: tel: fax: Referral ID Status Reason Start Date Expiration Date V isits Requested Visits Authorized [id number] Closed Specialty Services Required 11/24/2024 05/26/2026 1 1 Encounter Details Date Type Department Care Team (Latest Contact Info) Description 12/09/2024 3:20 PM EDT Office Visit [facility] Comprehensive [facility]ascular Clinic [address], [address] [place] [address] Tyron Mosquera MD [address] [facility] [address] [place] [address] Claudication of both lower extremities (Primary Dx); Aortoiliac stenosis ([facility]) Social History Tobacco Use Types Packs/Day Years [...] and Family Not on file 11/25/2024 Attends Nondenominational Services Not on file 11/25 Active Member [...] any time in the past 12 m [facility], were you homeless or living in a retirement (including now)? No 11/25/2024 Utilities Answer Date Recorded In the past 12 months has e [employer], gas, oil, or water company threatened to [...] Sign Reading Time Taken Comments Blood Pressure 123/77 12/09/2024 1:40 PM EDT Pulse 66 12/09/2024 1:40 PM EDT Temperature 36.1 C (97 F) 12/09/2024 1:37 PM EDT Respiratory Rate - - Oxygen Saturation - - Inhaled Oxygen Concentration - - Weight 97 kg (213 lb 13.5 oz) 12/09/2024 1:37 PM EDT Height - - Body Mass Index 35.59 11/21/2024 8:00 AM EDT documented in this encounter Functional Status documented as of this encounter Miscellaneous Notes * Progress Notes - Tyron Mosquera MD - 12/09/2024 3:20 PM EDT Dear Deondre Lui MD, HPI Patient is a 64 year old woman with history of hypertension, and peripheral artery disease status post right to left femoral-femoral bypass and right iliac stents, who presents for follow up after recent hospitalization. She was hospitalized for a GI bleeding and ultimately her Effient was stopped.She reports that she has been ambulating with minimal claudication and that her joint pain has limited her mobility more than claudication symptoms. She does not believe that this pain is getting worse. She does not have wounds or rest pain. I personally and independently reviewed the Vascular Lab Images from today's visit which showed: moderate bilateral ischemia with mildly decreased left RAMSEY, and evidence of an iliac stenosis proximally Her chronic comorbid conditions that impact our treatment planning include: Hypertension (HTN) - well controlled, with a last BP of: BP Readings from Last 3 Encounters: 12/09/24 123/77 11/24/24 128/59 10/12/24 119/75 Dyslipidemia - control uncertain, with most recent Lipid Profile of: CHOL: No results found for requested labs within last 365 days.mg/dL, HDL: No results found for requested labs within last 365 days.mg/dL, LDL: No results found for requested labs within last 365 days.mg/dL, TG: No results found for requested labs within last 365 days.mg/dL The following portions of the chart were reviewed this encounter and updated as appropriate: Tobacco Allergies Meds Problems Med Hx Surg Hx Fam Hx Subjective Review of Systems All other systems reviewed and are negative. Objective Physical Exam Constitutional: Appearance: Normal appearance. HENT: Head: Normocephalic and atraumatic. Eyes: General: No scleral icterus. Extraocular Movements: Extraocular movements intact. Pupils: Pupils are equal, round, and reactive to light. Cardiovascular: Rate and Rhythm: Normal rate. Pulmonary: Effort: Pulmonary effort is normal. No respiratory distress. Abdominal: General: Abdomen is flat. There is no distension. Musculoskeletal: General: Normal range of motion. Cervical back: Normal range of motion. Skin: General: Skin is warm and dry. Neurological: General: No focal deficit present. Mental Status: She is alert and oriented to person, place, and time. Psychiatric: Mood and Affect: Mood normal. Behavior: Behavior normal. Thought Content: Thought content normal. Judgment: Judgment normal. Assessment/Plan Patient is a 64 year old woman with history of hypertension, and peripheral artery disease status post right to left femoral-femoral bypass and right iliac stents, who presents for follow up after recent hospitalization. I am concerned about her worsening ABIs and will have a low threshold to offer her angiogram with possible angioplasty of her iliac stents in the event that she develops worsening claudication, leg pain, or further worsening ABIs. I discussed with her the symptoms of worsening arterial insufficiency. I will reach out to her Dip Tube Assembler Machine from her hospitalization to see if her Effient can be restarted. We will continue every 6 months surveillance of her stents and femoral-femoral bypass. Problem List Items Addressed This Visit Nervous Claudication of both lower extremities - Primary Relevant Orders VAS US Aorta IVC Iliac Vessels Duplex RAMSEY/ABF Graft VAS Ankle Brachial Index - RAMSEY Only Other Visit Diagnoses Aortoiliac stenosis (CMS/HCC) Relevant Orders VAS US Aorta IVC Iliac Vessels Duplex RAMSEY/ABF Graft We will see her back for: Follow up in about 6 months (around 06/10/2025). documented in this encounter Plan of Treatment Upcoming Encounters Date Type Department Care Team (Late st Contact Info) Description 02/20/2025 10:45 AM EDT Office Visit [facility] Medicine Specialties [address], [address]nd [place] [address] Elle Landaverde, INSURANCE MANAGER, DNP [address] [facility] [address] [place] [address] 03/29/2025 10:30 AM EDT Clinical Support [facility] Laboratory Services [address] [facility], 1st [place] [address] 04/05/2025 1:00 PM EDT Office Visit [facility] Nephrology, Bone & Mineral Metabolism [address] [facility], [address] [place] [address] Jude Arora PA [address] [facility] [address] [place] [address] 08/09/2025 10:00 AM EST Appointment [facility] V[facility] Lab [address] [facility] [address] [place] [address] 08/09/2025 11:45 AM EST Office Visit [facility] [address], 1st [place] [address] Cristofer Yu MD [address] [facility] [address] [place] [address] 10/11/2025 9:15 AM EDT Office Visit [facility] [place] [address] [facility]. [address] [place] [address] James Tomas MD [address] [place] [address] Scheduled Orders Name Type Priority Associated Diagnoses Orde r Schedule VAS US Aorta IVC Iliac Vessels Duplex RAMSEY/ABF Graft Vascular Ultrasound Routine Claudication of both lower extremities Aortoiliac stenosis (CMS/HCC) Expected: 06/10/2025 (Approximate), Expires: 06/12/2026 VAS Ankle Brachial Index - RAMSEY Only Vascular Ultrasound Routine Claudication of both lower extremities Expected: 06/10/2025 (Approximate), Expires: 06/12/2026 documented as of this encounter Visit Diagnoses Diagnosis Claudication of both lower extremities- Primary Aortoiliac stenosis (CMS/HCC) Atherosclerosis of aorta documented in this encounter Additional Health Concerns Assessment Noted Time PHQ-9 Depression Total Score: 0 10/13/19 25 8:52 AM EDT A fall risk assessment has been complete d for the patient 12/09/2024 1:41 PM EDT A Body Mass Index follow-up plan has been documented for the patient 12/09/2024 2:47 PM EDT documented as of this encounter Care Teams Poultry Barn Manager Relationship Specialty Start Date End Date Deondre Lui MD [address] [place], [place] [address] [address] [place] [address] PCP - General 10/26/20 Christal Murray LPN VALUE-BASED [place] [address] TCM Nurse 11/25/24 12/25/24 documented as of this encounter
[2025-01-04 14:09] LABS: Hematocrit 40.5 % (37.0-47.0); Hemoglobin 12.9 g/dL (12.2-16.2); Immature Granulocytes % 0.7 %; Mean Corpuscular HGB Conc 31.9 g/dL (31.8-35.4); Mean Corpuscular Hemoglobin 31.0 pg (27.0-31.2); Mean Corpuscular Volume 97.4 fl (81-99); Nucleated Red Blood Cells % 0 %; Platelet Count 297 K/mm3 (142-424); Red Blood Count 4.16 M/mm3 (4.20-5.40); Red Cell Distribution Width-SD 55.4 fL; White Blood Count 11.6 K/mm3 (4.8-10.8)
[2025-01-04 14:30] LABS: Albumin Level 4.1 g/dl (3.5-5.0); Chloride 103 mmol/L (98-107); Sodium 135 mmol/L (136-145)
[2025-01-04 14:31] LABS: Potassium 4.9 mmoL/L (3.5-5.1)
[2025-01-04 14:33] LABS: Alanine Aminotransferase 20 U/L (12-78); Anion Gap 9.9 mEq/L (5-15); Aspartate Amino Transferase 24 U/L (14-36); Blood Urea Nitrogen 13 mg/dl (7-17); Carbon Dioxide 27 mmol/L (22.0-30.0); Creatinine,Serum 1.60 mg/dl (0.52-1.04); Estimated Glomerular Filt Rate 32 ml/min (>60); GFR (African American) 39 ML/MIN (>60)
[2025-01-04 14:34] LABS: Albumin/Globulin Ratio 1.5 (1.1-1.8); Alkaline Phosphatase 113 U/L (38-126); Amylase 62 U/L (30-110); Bilirubin,Total 0.9 mg/dl (0.2-1.3); Calcium 10.7 mg/dl (8.4-10.2); Cholesterol 124 mg/dl (140-200); Globulin 2.8 g/dL (1.3-3.2); Glucose 94 mg/dl (74-100); HDL Cholesterol 33 mg/dl (40-60); Total Protein,Serum 6.9 g/dl (6.3-8.2); Triglycerides 168 mg/dl (30-150)
[2025-01-04 19:56] LABS: Hemoglobin A1C 5.6 % (4.0-6.0)
--- OUTSIDE RECORDS SUMMARY | 2025-01-05 15:18 | XMS_ITS | Encounter Summary ---
Author Organization Healthcare Address [address] [place] [address] Care Team Providers Care Last Sorter Name Role Phone Deondre Lui MD Primary Care Provider [phone] Christal Murray LPN Unavailable Unavailable Encounter Details Date Type Department Care Team (Late st Contact Info) Description 12/08/2024 Telephone ID Clinic [facility] [address] [facility] 5th Floor [address] [place] [phone] Ngoc Flores, RN PROGRESSIVE-ACUTE UNIT 9-T1 AND [...] any time in the past 12 m [facility], were you homeless or living in a correction (including now)? No 11/25/2024 Utilities Answer Date [...] Description 02/20/2025 10:45 AM EDT Office Visit [facility] Medicine Specialties [address], [address]nd [place] [address] Elle Landaverde APRN, [facility] [address] [facility] [address] [place] [address] 03/29/2025 10:30 AM EDT Clinical Support [facility] Laboratory Services [address] [facility], 1st [place] [address] 04/05/2025 1:00 PM EDT Office Visit [facility] Nephrology, Bone & Mineral Metabolism [address], [address] [place] [address] Jude Arora PA [address] [facility] [address] [place] [address] 08/09/2025 10:00 AM EST Appointment [facility] [address] [place] [address] 08/09/2025 11:45 AM EST Office Visit [facility] [address], [address] [place] [address] Cristofer Yu MD [address] [place] [address] 10/11/2025 9:15 AM EDT Office Visit [facility] [place] [address] [place] [address] James Tomas MD [address] [place] [address] documented as of this encounter [...] documented as of this encounter Care Teams Last Sorter Relationship Specialty Start Date End Date Deondre Lui MD [address] [facility] [address] [place] [address] PCP - General 10/26/20 Christal Murray LPN VALUE-BASED [place] [address] TCM Nurse 11/25/24 12/25/24 documented as of this encounter
--- OUTSIDE RECORDS SUMMARY | 2025-01-05 15:18 | XMS_ITS | Data Portability ---
Author Organization ABAD - [facility] - [facility] AD[facility] Address [address] [place] [id number] Assessment No assessment recorded. Plan of Treatment Reminders Order Date Submit Date Provider Last Modified By Organization Details Last Modified Time Details Appointments None record ed. Lab None record ed. Referral None record ed. Procedures None record ed. Surgeries None record ed. Imaging XR, foot, 3 or more view 024 10/12/19 [facility] (Central Scheduling), [address] [place] [address] [place], [address], 16:13:59 Medication Orders None record ed. Patient TargetsNo targets recorded. Patient Instructions Encounter Date Encounter Id Patient Instructions Last Modified By Organization Details Last Modified Time 10/12/2023 [id number] I have reviewed the past medical, medications, family and social histories along with ROS and all orders in today's record and have noted any changes. [email or web address] Not available 10/13/2023 21:33:33 Reason for Referral None Reported. 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 Small inferi [...] LIZ MULLINS : 1960 Accoun t #: [id number] Age: 62 Years Patien t Type: Outpat ient Sex: F Access ion#: [id number] Exam Descri ption: FOOT LEFT 3V - ROUTIN E Exam Reason : m79.67 2 pain in left foot Order Date/T jefferson: 2023 02:03: 00 PM Name: Shayne myles Provid er ID: [id number] PAGE 2 OF 2 CC'ed Logic: Orderi ng Provid er: CRISS REAL CC Provid er: KATHRIN PRADO Attend ing Provid er: CRISS REAL Referr ing Provid er: CRISS Milleritt ing Provid er: CRISS murry [facility] (Central Scheduling) [address] [place] [address] [place], [address], 10/12/2023 16:53:10 11/12/19 24 11/12/2023 US, retro perit oneum , limit ed ROBERTS CHAPELA [address] [address] (Phone ) KILO Chung REPORT Name: LIZ MULLINS : 1960 Accoun t #: [id number] Age: 63 Years Patien t Type: Outpat ient Sex: F Access ion#: [id number] Exam Descri ption: US RENALS BILAT Exam Reason : hydron ephros is Order Date/T jefferson: 2023 09:33: 00 AM Dictat ed By: Francisco harris MD Orderi ng Physic dane: FRANK ALVARADO Attend ing Physic dane: FRANK ALVARADO E STUDY: RENAL ULTRAS OUND US RENALS BILAT 024 4:07 PM CDT REASON FOR EXAM: Female , 63 years old. hydron ephros is TECHNI QUE: Ultras ound evalua tion [...] LIZ MULLINS : 1960 Accoun t #: [id number] Age: 63 Years Patien t Type: Outpat ient Sex: F Access ion#: [id number] Exam Descri ption: US RENALS BILAT [...] Admitt ing Provid er: DOMENICA Juarez [email or web address] [facility] (Central Scheduling) [address] [place] [address] [place], [address], 12/04/2023 07:59:14 Result Notes Documentation Provider Name and Address Organization Details Recorded Time Xr, Foot, 3 Or More View : [address] [address] (Phone) IMAGING REPORT ___ Name: LIZ MULLINS : 1960 Age: 62 Years Patient Type: Outpatient Sex: F Exam Description: FOOT LEFT 3V - ROUTINE Exam Reason: m79.672 pain in left foot Order Date/Time: 10/12/2023 02:03:00 PM Dictated By: Shayne Huertas MD Ordering Physician: LIZ LOFTON Attending Physician: LIZ LOFTON ___ EXAM: FOOT LEFT 3V - ROUTINE INDICATION: m79.672 pain in left foot COMPARISON: Left foot radiographs from November 11, 2020. FINDINGS: 2 views of the left foot. There may be subtle hallux valgus. Osseous structures are intact. There is a bilobed chronic calcification projecting at the plantar aspect of the hindfoot measuring up to 3 mm, a finding of doubtful clinical significance. The finding is only seen on the lateral radiograph and could represent external artifact as well. Small inferior calcaneal enthesophyte. No definite acute abnormality is appreciated. IMPRESSION: 1. No acute radiographic abnormality. 2. Chronic findings, as above. Electronically signed by: Shayne Huertas MD 10/12/2023 04:10 PM EDT Principal Water Safety Teacher PAGE 1 OF 2 Name: LIZ MULLINS : 1960 Age: 62 Years Patient Type: Outpatient Sex: F Exam Description: FOOT LEFT 3V - ROUTINE Exam Reason: m79.672 pain in left foot Order Date/Time: 10/12/2023 02:03:00 PM ___ Name: Shayne Huertas Provider ID: [id number] PAGE 2 OF 2 CC'ed Logic: Ordering Provider: CRISS REAL CC Provider: KATHRIN PRADO Attending Provider: CRISS REAL Referring Provider: CRISS REAL Admitting Provider: CRISS maxwell, ABAD - [facility] [place] 10/12/2023 16:53:11 Medical Equipment None Reported. Allergies Allergen ID Allergen Name Allergen Category Reaction Reaction Severity Criticality Documentation Date Start Date Code Code System Note Provider Name and Address Organization Details Recorded Time 116585 Buspar medicatio n Not available Not available Not available 10/12/2023 58153 0 RxNorm LeannaABAD Muñoz - [facility]NT [facility] [place] 13:22:07 Medications Name Sig Start Date Stop [...] Address Organization Details Last Updated DateTime 4 35091.5 5 g 97 [degF] 99 % 99 % 98 /min 112/64 mm[Hg] Leanna Ingrame [facility] [place] 4 13:21:53 Social History None recorded. Functional Status None recorded. Mental Status None recorded. Family History Nothing Reported. Medical History No medical history recorded. Gynecological HistoryNo gynecological history recorded. Obstetrics History GPAL:G 0 P 0 0 0 0 Past Encounters Encounter ID Performer Location Encounter Start Date Encounter Closed Date Diagnosis/Indication Diagnosis SNOMED-CT Code Diagnosis ICD10 Code Diagnosis Note [id number] TAYLA JONES [facility] Immediate Care- Floor 1, [address] [place] [address] 10/12/2023 13:06:26 10/12/2023 13:39:01 Pain in left foot [id number] 18883 M79.672 Pain to affected area with a decrease in ROM to affected area. Recommend patient to ice, elevate and rest. we will contact you with results of your x-ray when they return. Health Concerns Section Related Observation LastModified by Organization Detai ls LastModified Time None Recorded Concern Status LastModified by Organization Details LastModified Time None Recorded Advance Directives Directive None Recorded Payers Insurance Date Sequence Insurance Name Policy Number Policy Nguyen Covered Member ID Nguyen Member ID Guarantor Name 01/02/2024 [place] - [facility] (MEDICARE) Liz Mullins [id number] Liz Mullins 01/02/2024 1 [place] Liz Mullins [id number] Liz Mullins 01/02/2024 2 [place] [employer] [employer] [id number] Liz Mullins [id number] Liz Mullins Notes Date Note Type Note Provider Name and Address Organization Details Recorded Time 10/12/2023 text/html 62-year-old female presents with complaints of left foot pain [...] swelling. No other complaints today. TAYLA JONES [address] [place] [address] Drive, [address], [place], [address], [facility] [place] 10/13/2023 21:34:05 OBGyn Episode No OBEpisode recorded.
--- OUTSIDE RECORDS SUMMARY | 2025-01-05 15:18 | XMS_ITS | Encounter Summary ---
Author Organization Healthcare Address [address] [place] [address] Care Team Providers Care Physical Education Professor Name Role Phone Deondre Lui MD Primary Care Provider [phone] Christal Murray LPN Unavailable Unavailable Encounter Details [...] any time in the past 12 m [facility], were you homeless or living [...] Description 02/20/2025 10:45 AM EDT Office Visit [facility] Medicine Specialties [address], [address] [place] [address] Elle Landaverde, CATERER HELPER, DNP [address] [facility] [address] [place] [address] 03/29/2025 10:30 AM EDT Clinical Support [facility] Laboratory Services [address] [facility], 1st [place] [address] 04/05/2025 1:00 PM EDT Office Visit [facility] Nephrology, Bone & Mineral Metabolism [address] [facility], [address] [place] [address] Jude Arora PA [address] [facility] [address] [place] [address] 08/09/2025 10:00 AM EST Appointment [facility] [address] [facility] [address] [place] [address] 08/09/2025 11:45 AM EST Office Visit [facility] [address], 1st [place] [address] Cristofer Yu MD [address] [facility] [address] [place] [address] 10/11/2025 9:15 AM EDT Office Visit [facility] [place] [address] [facility] [place] [address] James Tomas MD [address] [place] [address] documented as of this encounter Visit Diagnoses [...] documented as of this encounter Care Teams Physical Education Professor Relationship Specialty Start Date End Date Deondre Lui MD [address] [place] [address] [address] [place] [address] PCP - General 10/26/20 Christal Murray LPN [employer] [place] [address] TCM Nurse 11/25/24 12/25/24 documented as of this encounter
--- OUTSIDE RECORDS SUMMARY | 2025-01-05 15:18 | XMS_ITS | Encounter Summary ---
Author Organization Healthcare Address [address] [place] [address] Care Team Providers Care Sales Department Clerk Name Role Phone Deondre Lui MD Primary Care Provider [phone] Christal Murray LPN Unavailable Unavailable Encounter Details Date Type Department Care Team (Late st Contact Info) Description 11/21/2024 Orders Only External Location [address] [place] [id number] Provider, External Social History Tobacco Use Types [...] and Family Not on file 11/25/2024 Attends [employer] Not on file 11/25 Active Member [...] time in the past 12 m [facility], were you homeless or living in a [...] Description 02/20/2025 10:45 AM EDT Office Visit [facility] Medicine Specialties [address] [place] [address] Elle Landaverde APRN, DNP [address] [facility] [address] [place] [address] 03/29/2025 10:30 AM EDT Clinical Support [facility] Laboratory Services [address] [facility], 1st [place] [address] 04/05/2025 1:00 PM EDT Office Visit [facility] Nephrology, Bone & Mineral Metabolism [address] [place] [address] Jude Arora, TAYLA [address] [facility] [address] [place] [address] 08/09/2025 10:00 AM EST Appointment [facility] [address] [place] [address] 08/09/2025 11:45 AM EST Office Visit [facility] [address], 1[address] [place] [address] Cristofer Yu MD [address] [place] [address] 10/11/2025 9:15 AM EDT Office Visit [facility] [place] [address] [place] [address] James Tomas MD [address] [place] [address] documented as of this encounter Procedures Procedure [...] documented as of this encounter Care Teams Sales Department Clerk Relationship Specialty Start Date End Date Deondre Lui MD [address] [facility] [address] [place] [address] PCP - General 10/26/20 Christal Murray LPN VALUE-[employer]ED [place] [address] TCM Nurse 11/25/24 12/25/24 documented as of this encounter
--- OUTSIDE RECORDS SUMMARY | 2025-01-05 15:18 | XMS_ITS | Encounter Summary ---
Author Organization Healthcare Address [address] [place] [address] Care Team Providers Care Vulcan Crewmember Name Role Phone Deondre Lui MD Primary Care Provider [phone] Christal Murray LPN Unavailable Unavailable Encounter Details Date Type Department Care Team (Late Contact Info) Description 08/18/2023 Orders Only External Location [address] [place] [address] Provider, External Social History Tobacco Use Types [...] Description 02/20/2025 10:45 AM EDT Office Visit [facility] Medicine Specialties [address], [address] [place] [address] Elle Landaverde APRN, DNP [address] [place] [address] 03/29/2025 10:30 AM EDT Clinical Support [facility] Laboratory Services [address] [facility], 1st [place] [address] 04/05/2025 1:00 PM EDT Office Visit [facility] Nephrology, Bone & Mineral Metabolism [address], [address] [place] [address] Jude Arora PA [address] [place] [address] 08/09/2025 10:00 AM EST Appointment [facility] [address] [place] [address] 08/09/2025 11:45 AM EST Office Visit [place] [facility] [address], [address] [place] [address] Cristofer Yu MD [address] [place] [address] 10/11/2025 9:15 AM EDT Office Visit [facility] [place] [address] [place] [address] James Tomas MD [address] [place] [address] documented as of this encounter Procedures Procedure [...] documented as of this encounter Care Teams Vulcan Crewmember Relationship Specialty Start Date End Date Deondre Lui MD [address] [place] [address] [address] [place] [address] PCP - General 10/26/20 Christal Murray LPN [employer] [place] [address] TCM Nurse 11/25/24 12/25/24 documented as of this encounter
--- OUTSIDE RECORDS SUMMARY | 2025-01-05 15:18 | XMS_ITS | Encounter Summary ---
Author Organization Healthcare Address [address] [place] [address] Care Team Providers Care Engineering Design Supervisor Name Role Phone Deondre Lui MD [...] and Family Not on file 11/25/2024 Attends [employer] Services Not on file 11/25 Active Member [...] any time in the past 12 m [facility], were you homeless or living in a chcf (including now)? No 11/25/2024 Utilities Answer Date Recorded In the past 12 months has th e [employer], gas, oil, or water company threatened to [...] Description 02/20/2025 10:45 AM EDT Office Visit [facility] Medicine Specialties [address], [address] [place] [address] Elle Landaverde, GALLERY INTERN, DNP [address] [place] [address] 03/29/2025 10:30 AM EDT Clinical Support [facility] Laboratory Services [address] [facility], 1st Floor [place] [phone] 04/05/2025 1:00 PM EDT Office Visit [facility] Nephrology, Bone & Mineral Metabolism [address] [facility], [address] [place] [address] Jude Arora PA [address] [facility] [address] [place] [address] 08/09/2025 10:00 AM EST Appointment [facility] [address] [facility] [address] [place] [address] 08/09/2025 11:45 AM EST Office Visit [place] [facility] [address], [address]st [place] [address] Cristofer Yu MD [address] [facility] [address] [place] [address] 10/11/2025 9:15 AM EDT Office Visit [facility] [place] [address] [place] [address] James Tomas MD [address] [place] [address] documented as of this encounter Visit Diagnoses [...] documented as of this encounter Care Teams Engineering Design Supervisor Relationship Specialty Start Date End Date Deondre Lui MD [facility] [place] [address] [place] [id number] PCP - General 10/26/20 Christal Murray LPN VALUE[employer] [place] [address] TCM Nurse 11/25/24 12/25/24 documented as of this encounter
--- OUTSIDE RECORDS SUMMARY | 2025-01-05 15:20 | XMS_ITS | Encounter Summary ---
Author Organization [employer] ([place], [place], [place], [place]) Address [address] [place] [address] Care Team Providers Care Advisor Advocate Angel [employer] Founder Name Role Phone Unavailable Primary Care Provider Unavailabl e Encounter Details Date Type Department Care Team (Late st Contact Info) Description 05/31/2019 Transcribed Document [facility] [place] [facility] [address] [place] [address] ProviderNelson MD [address] [place] [id number] Social History Tobacco Use Types Packs/Day Years Used Date Smoking Tobacco: Never Assessed Comments Unknown Sex and Gender Information Value Date Recorded Sex Assigned at Not on file Legal Sex Female 1:09 PM CDT Gender Identity Not on file Sexual Orientation Not on file documented as of this encounter Miscellaneous Notes * Cerner Conversion Note - Historical ProviderMD - 05/31/2019 12:59 PM IMPLEMENTATION PROJECT MANAGER [facility] Main OR Preop Summary Primary Physician: DEREK CHEN MD Finalized Date/Time: 05/31/19 14:54:12 Pt. Name: FARHAN MULLINS FERNANDO /Sex: 1960 Female Med Rec #: [id number] Physician: DEREK CHEN MD Financial #: [id number] Pt. Type: O Room/Bed: HIS/2 Admit/Disch: 05/31/19 09:12:00 - Institution: [facility] PreOp Case Times Entry 1 In Preop 05/31/19 09:20:00 Ready for Holding n/a Room Patient Ready for 05/31/19 10:29:00 Surgery Patient Out of Preop 05/31/19 12:34:00 Patient Out of n/a Holding Room Last Modified By: Tamara Camarillo RN 05/31/19 14:54:11 [facility] PreOp Case Times Audit 05/31/19 14:54:11 Trace Clerk: TINAVP Modifier: WRIGHTVP <+> 1 Patient Out of Preop 05/31/19 10:35:50 Trace Clerk: TINAVP Modifier: WRIGHTVP <+> 1 Patient Ready for Surgery Finalized By: Tamara Camarillo RN Document Signatures Signed By: Tamara Camarillo RN 05/31/19 14:54 Electronically signed by Julio [facility] Conversion Group Program Manager Cerner at 09/30/2022 3:09 PM CDT documented in this encounter Plan of Treatment Not on file documented as of this encounter Visit Diagnoses Not on filedocumented in this encounter
--- OUTSIDE RECORDS SUMMARY | 2025-01-05 15:20 | XMS_ITS | Clinical Summary ---
Author Organization [facility] Address [address] [place] [address] Care Team Providers Care Training And Quality Manager Name Role Phone Deondre Lui MD Primary Care Provider [phone] Allergies Active Allergy Reactions Criticality Noted Date [...] Department Care Team Description 12/20/2024 Patient Outreach [facility] [address] [facility] [address], [address] [place] [id number] Christal Murray LPN TCM Call 12/09/2024 3:20 PM EDT Office Visit [facility] [address] [place] [address] Tyron Mosquera MD Claudication of both lower extremities (Primary Dx); Aortoiliac stenosis (CMS/HCC) 12/09/2024 12:31 PM EDT - 12/09/2024 11:59 PM EDT Hospital Encounter [facility] [address] [place] [address] PAD (peripheral artery disease) (CMS/HCC) Discharge Disposition: Home or Self Care 12/09/2024 12:30 PM EDT Hospital Encounter [facility] [address] [place] [address] PAD (peripheral artery disease) (CMS/HCC) Discharge Disposition: Home or Self Care 12/09/2024 Travel 12/08/2024 Travel 12/08/2024 Telephone [facility] [address] [place] [address] Ngoc Flores RN 12/07/2024 Travel 11/25/2024 Telephone [facility] [address] 5th Floor [address] [place] [address] Tyron Mosquera MD 11/25/2024 Patient Outreach [facility] [address], [address] [place] [address] Christal Murray, LACY TCM Call 11/21/2024 7:50 AM EDT - 11/24/2024 1:31 PM EDT Hospital Encounter [facility] Inpatient [address] [place] [id number] Derek Deshpande MD Wolak, Megan M, MD Lower abdominal pain (Primary Dx); Primary obstructive sleep apnea of ; Lower GI bleed; Tobacco use disorder; Claudication of both lower extremities; PAD (peripheral artery disease) (CMS/HCC); Acute mesenteric ischemia (CMS/HCC); Chronic kidney disease, unspecified CKD stage Discharge Disposition: Home or Self Care 11/21/2024 Travel 11/21/2024 Orders Only External Location [address] [place] [address] Provider, External 11/21/2024 Orders Only External Location [address] [place] [address] Provider, External 11/21/2024 Orders Only External Location [address] [place] [address] Provider, External 11/21/2024 Orders Only External Location [address] [place] [address] Provider, External 10/12/2024 9:15 AM EDT Office Visit [facility] [place] [address] 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); Chronic [...] and Family Not on file 11/25/2024 Attends [employer] [facility] Not on file 11/25 Active Member [...] time in the past 12 m [facility], were you homeless or living in a [...] Description 02/20/2025 10:45 AM EDT Office Visit [facility] Special[facility] [address], [address] [place] [address] Elle Landaverde APRN, [facility] [address] [facility] [address] [place] [address] 03/29/2025 10:30 AM EDT Clinical Support [facility] Laboratory Services [address] [facility] 1st [place] [address] 04/05/2025 1:00 PM EDT Office Visit [facility] Nephrology, Bone & Mineral Metabolism [address] [facility], [address] [place] [address] Jude Arora PA [address] [facility] [address] [place] [address] 08/09/2025 10:00 AM EST Appointment [facility] [address] [place] [address] 08/09/2025 11:45 AM EST Office Visit [facility] [address], 1st [place] [address] Cristofer Yu MD [address] [place] [address] 10/11/2025 9:15 AM EDT Office Visit [facility] [address] [place] [address] James Tomas MD [address] [place] [address] Health Maintenance Due Date Last [...] - Risk 60-74 years 1-dose series) 2018 [id number] Vaccine (1 - 2023- season) 2024 UKY-Influenza [...] this topic Medical Devices Implanted Type Area Package Clerk Device Identifier Shelf Expiration Date Model / Serial / Lot Leg Stents Stent Leg Abdomen Stent Stent Abdomen Rx Acculink Carotid Stent Implanted:Qty : 1 on 10/13/2019 by Duglas Winn MD Stent Carotid Stent Vascular Drug-Eluting Vesna [id number] - [id number] Implanted:Qty : 1 on 03/19/2022 by Chad Rogers MD at [facility] Right: Arterial [id number] 04/26/2023 [id number] / / [id number] Vip Vascular Closure Device 6 Fr - [id number] Implanted:Qty : 1 on 03/19/2022 by Chad Rogers MD at [facility] [id number] 01/12/2023 [id number] / / [id number] Procedures Procedure Name Priority Date/Time Associated Diagnosis [...] turbulent waveforms are detected at the bilateral PRESALES ENGINEER suggestive of inflow disease. Preliminary report signed [...] Right to left fem-fem bypass graft: Right PRESALES ENGINEER anastomosis: 231 cm/s Right of midline: 77 cm/s Midline: 72 cm/s Left of midline: 82 cm/s Left PRESALES ENGINEER anastomosis: 95 cm/s LEFT: Arterial duplex demonstrates [...] Right to left fem-fem bypass graft: Right PRESALES ENGINEER anastomosis: 231 cm/s Right of midline: 77 cm/s Midline: 72 cm/s Left of midline: 82 cm/s Left PRESALES ENGINEER anastomosis: 95 cm/s LEFT: Arterial duplex demonstrates [...] are demonstrated at the levels of the PRESALES ENGINEER (Obtained on same day arterial duplex), DPA and BUSINESS SOLUTIONS ANALYST. Segmental pressures are below normal limits with a BUSINESS SOLUTIONS ANALYST RAMSEY of 0.67 (80 mmHg) DPA RAMSEY of 0.56 (67 mmHg). Digit pressures are 20 mmHg. Left: Monophasic waveforms are demonstrated at the levels of the PRESALES ENGINEER (Obtained on same day arterial duplex), DPA and BUSINESS SOLUTIONS ANALYST. Segmental pressures are below normal limits with a BUSINESS SOLUTIONS ANALYST RAMSEY of 0.59 (70 mmHg) DPA RAMSEY [...] are demonstrated at the levels of the PRESALES ENGINEER(Obtained on same day arterial duplex), DPA and BUSINESS SOLUTIONS ANALYST. Segmental pressuresare below normal limits with a BUSINESS SOLUTIONS ANALYST RAMSEY of 0.67 (80 mmHg) DPA RAMSEY of 0.56(67 mmHg). Digit pressures are 20 mmHg. Left: Monophasic waveforms are demonstrated at the levels of the PRESALES ENGINEER(Obtained on same day arterial duplex), DPA and BUSINESS SOLUTIONS ANALYST. Segmental pressuresare below normal limits with a BUSINESS SOLUTIONS ANALYST RAMSEY of 0.59 (70 mmHg) DPA RAMSEY [...] LAB HEMATOLOGY METHOD 11/24/2024 4:43 AM EDT [facility] RBC Count 3.59(L) 3.90 - 5.20 10*6/uL LAB HEMATOLOGY METHOD 11/24/2024 4:43 AM EDT [facility] HGB 11.3 11.2 - 15.7 g/dL LAB HEMATOLOGY METHOD 11/24/2024 4:43 AM EDT [facility] HCT 34.5 34.0 - 45.0 % LAB HEMATOLOGY METHOD 11/24/2024 4:43 AM EDT [facility] Platelet Count 186 155 - 369 10*3/uL LAB HEMATOLOGY METHOD 11/24/2024 4:43 AM EDT [facility] MCV 96 79 - 98 fL LAB HEMATOLOGY METHOD 11/24/2024 4:43 AM EDT [facility] MCH 31.5 26.0 - 32.0 pg LAB HEMATOLOGY METHOD 11/24/2024 4:43 AM EDT [facility] MCHC 32.8 30.7 - 35.5 g/dL LAB HEMATOLOGY METHOD 11/24/2024 4:43 AM EDT [facility] RDW 15.2(H) 11.5 - 14.5 % LAB HEMATOLOGY METHOD 11/24/2024 4:43 AM EDT [facility] MPV 10.3 8.8 - 12.5 fL LAB HEMATOLOGY METHOD 11/24/2024 4:43 AM EDT [facility] nRBC 0.0 <=0.0 per 100 WBCs LAB HEMATOLOGY METHOD 11/24/2024 4:43 AM EDT [facility] Blood Venous blood specimen / Unknown Venipuncture / Unknown 11/24/2024 4:01 AM EDT 11/24/2024 4:26 AM EDT us Rae Adames MD LAB BLOOD ORDERABLES Final Resu lt [facility] [address] [place] [address] * Comprehensive GI Panel by PCR (11/23/2024 12:40 PM EDT) Campylobacter PCR Result Not Detected Not Detected 11/23/2024 5:29 PM EDT [facility] Plesiomonas shigelloides PCR Result Not Detected Not Detected 11/23/2024 5:29 PM EDT [facility] Salmonella PCR Result Not Detected Not Detected 11/23/2024 5:29 PM EDT [facility] Vibrio species PCR Result Not Detected Not Detected 11/23/2024 5:29 PM EDT [facility] Vibrio cholerae PCR Result Not Detected Not Detected 11/23/2024 5:29 PM EDT [facility] Yersinia enterocolitica PCR Result Not Detected Not Detected 11/23/2024 5:29 PM EDT [facility] Enteroaggregative E. coli (EAEC) PCR Result Not Detected Not Detected 11/23/2024 5:29 PM EDT [facility] Enteropathogenic E. coli (EPEC) PCR Result Not Detected Not Detected 11/23/2024 5:29 PM EDT [facility] Enterotoxigenic E. coli (ETEC) lt/st PCR Result Not Detected Not Detected 11/23/2024 5:29 PM EDT [facility] Shiga-like Toxin-Producing E.coli (STEC) stx1/stx2 PCR Resu Not Detected Not Detected 11/23/2024 5:29 PM EDT [facility] E coli 0157 PCR Result Not Detected Not Detected 11/23/2024 5:29 PM EDT [facility] Shigella/Enteroinvas cecilia E. coli (EIEC) PCR Result Not Detected Not Detected 11/23/2024 5:29 PM EDT [facility] Cryptosporidium PCR Result Not Detected Not Detected 11/23/2024 5:29 PM EDT [facility] Cyclospora cayetanensis PCR Result Not Detected Not Detected 11/23/2024 5:29 PM EDT [facility] Entamoeba histolytica PCR Result Not Detected Not Detected 11/23/2024 5:29 PM EDT [facility] Giardia duodenalis (aka Giardia lamblia) PCR Result Not Detected Not Detected 11/23/2024 5:29 PM EDT [facility] Adenovirus F 40/41 PCR Result Not Detected Not Detected 11/23/2024 5:29 PM EDT [facility] Astrovirus PCR Result Not Detected Not Detected 11/23/2024 5:29 PM EDT [facility] Norovirus GI/GII PCR Result Not Detected Not Detected 11/23/2024 5:29 PM EDT [facility] Rotavirus A PCR Result Not Detected Not Detected 11/23/2024 5:29 PM EDT [facility] Sapovirus PCR Result Not Detected Not Detected 11/23/2024 5:29 PM EDT [facility] Stool Rectum structure / Unknown Non-blood Collection / Unknown 11/23/2024 12:40 PM EDT 11/23/2024 1:38 PM EDT Narrative [facility] - 11/23/2024 5:29 PM [...] indicated. Rae Adames MD LAB MICROBIOLOGY - [facility] Final Result [facility] [address] [place] [address] * Clostridiodes (Clostridium) difficile PCR (11/23/2024 12:40 PM EDT) C difficile PCR toxin B gene DNA Result Not Detected Not Detected 11/23/2024 4:28 PM EDT [facility] Stool Rectum structure / Unknown Non-blood Collection / Unknown 11/23/2024 12:40 PM EDT 11/23/2024 1:38 PM EDT Narrative [facility] - 11/23/2024 4:28 PM [...] MICROBIOLOGY - GENERAL ORDE RABLES Final Result [facility] [address] [place] [address] * Lavender Top (11/23/2024 5:12 AM EDT) Extra Hold for add-ons 11/23/2024 8:02 AM EDT [facility] Comment:Auto resulted. Blood Venous blood specimen / Unknown 11/23/2024 5:12 AM EDT 11/23/2024 5:25 AM EDT us Rae Adames MD LAB BLOOD ORDERABLES Final Resu lt Performing Organization Address [facility] Co de Phone Number [facility] [address] [place] [address] * (ABNORMAL) Basic Metabolic Panel, Plasma (11/23/2024 5:12 AM EDT) Only the most recent of2 resultswithin the time period is included. Glucose, Plasma 93 74 - 99 mg/dL 11/23/2024 6:01 AM EDT [facility] BUN, Plasma 16 8 - 23 mg/dL 11/23/2024 6:01 AM EDT [facility] Creatinine, Plasma 1.91(H) 0.60 - 1.10 mg/dL 11/23/2024 6:01 AM EDT [facility] BUN/Creatinine Ratio 8 11/23/2024 6:01 AM EDT [facility] Sodium, Plasma 141 136 - 145 mmol/L 11/23/2024 6:01 AM EDT [facility] Potassium, Plasma 3.7 3.6 - 4.9 mmol/L 11/23/2024 6:01 AM EDT [facility] Chloride, Plasma 108(H) 97 - 107 mmol/L 11/23/2024 6:01 AM EDT [facility] CO2, Plasma 23 22 - 29 mmol/L 11/23/2024 6:01 AM EDT [facility] Anion Gap 10 6 - 16 mmol/L 11/23/2024 6:01 AM EDT [facility] Total Calcium, Plasma 8.8(L) 8.9 - 10.2 mg/dL 11/23/2024 6:01 AM EDT [facility] eGFRcr 28.6 mL/min/1.7 3m*2 11/23/2024 6:01 AM EDT [facility] Comment:Reported eGFRcr in m L/min/1.73m2 is based the CKD-EPI 2020 equation that does not use a race coefficient. Blood Venous blood specimen / Unknown Venipuncture / Unknown 11/23/2024 5:12 AM EDT 11/23/2024 5:34 AM EDT Rae Adames MD LAB BLOOD ORDERABLES Final Resu lt Performing Organization Address City/[facility] Co de Phone Number [facility] [address] [place] [address] * Hemoglobin and Hematocrit, Blood (11/22/2024 9:01 PM EDT) Only the most recent of3 resultswithin the time period is included. HGB 11.5 11.2 - 15.7 g/dL LAB HEMATOLOGY METHOD 11/22/2024 9:11 PM EDT [facility] HCT 34.5 34.0 - 45.0 % LAB HEMATOLOGY METHOD 11/22/2024 9:11 PM EDT [facility] Blood Venous blood specimen / Unknown Venipuncture / Unknown 11/22/2024 9:01 PM EDT 11/22/2024 9:09 PM EDT Rae Adames MD LAB BLOOD ORDERABLES Final Resu lt Performing Organization Address City/[facility]/ZIP Co de Phone Number [facility] [address] [place] [address] * ECG Adult (11/22/2024 4:15 AM EDT) EKG DIAGNOSIS CLASS Borderline Abnormal MUSE ECG Ventricular Rate 46 BPM MUSE ECG Atrial Rate 46 BPM MUSE ECG WY Interval 192 ms MUSE ECG QRSD Interval 76 ms MUSE ECG QT Interval 484 ms MUSE ECG QTC Interval 423 ms MUSE ECG P [place] 90 degrees MUSE ECG R [place] -11 degrees MUSE ECG T Wave [place] 39 degrees MUSE ECG Diagnosis Sinus bradycardia MUSE ECG Diagnosis Low voltage QRS MUSE ECG Diagnosis Borderline ECG MUSE ECG Diagnosis MUSE ECG Diagnosis Confirmed by Cristofer Hawkins ([id number]) on 11/22/2024 10:41:39 AM MUSE ECG 11/22/2024 4:15 AM EDT 11/22/2024 10:41 AM EDT us Rae Adames MD ECG ORDERABLES Final Result MUSE ECG * Sedimentation Rate, Automated (11/21/2024 3:27 PM EDT) Sedimentation Rate 21 <30 mm/hr 2024 3:57 PM EDT [facility] Blood Venous blood specimen / Unknown Venipuncture / Unknown 11/21/2024 3:27 PM EDT 11/21/2024 3:34 PM EDT us Rae Adames MD LAB BLOOD ORDERABLES Final Resu lt [facility] [address] [place] [address] * (ABNORMAL) C-reactive protein (11/21/2024 3:27 PM EDT) CRP, Plasma 38.4(H) <=8.0 mg/L 11/21/2024 4:26 PM EDT [facility] Blood Venous blood specimen / Unknown Venipuncture / Unknown 11/21/2024 3:27 PM EDT 11/21/2024 3:34 PM EDT Narrative [facility] - 11/21/2024 4:26 PM EDT This CRP test is appropriate for assessment of infection, systemic inflammation and/or tissue injury. To assess cardiovascular disease risk order high sensitivity CRP (CRPH). us Rae Adames MD LAB BLOOD ORDERABLES Final Resu lt Performing Organization Address [facility]/ZIP Co de Phone Number [facility] [address] [place] [address] * Urine Gee Panel (11/21/2024 10:12 AM EDT) Extra Reflex urine culture not indicated 11/21/2024 12:01 PM EDT [facility] Urine Urine specimen obtained by clean catch procedure / Unknown Non-blood Collection / Unknown 11/21/2024 10:12 AM EDT 11/21/2024 10:30 AM EDT Derek Deshpande MD LAB URINE ORDERABLES Final Result Performing Organization Address [facility] Co de Phone Number [facility] [address] [place] [address] * Urinalysis Microscopic Examination (11/21/2024 10:12 AM EDT) Urine Urine specimen obtained by clean catch procedure / Unknown Non-blood Collection / Unknown 11/21/2024 10:12 AM EDT 11/21/2024 10:19 AM EDT Derek Deshpande MD LAB URINE ORDERABLES Final Result Performing Organization Address [facility] de Phone Number [facility] [address] [place] [address] * (ABNORMAL) Urinalysis with reflex microscopic (Culture NOT Included) (11/21/2024 10:12 AM EDT) Color, Urine Yellow LAB URINALYSIS - AUTOMATED METHOD 11/21/2024 10:49 AM EDT [facility] Clarity, Urine Clear LAB URINALYSIS - AUTOMATED METHOD 11/21/2024 10:49 AM EDT [facility] Spec [place], Urine >1.030(H) 1.005 - 1.030 LAB URINALYSIS - AUTOMATED METHOD 11/21/2024 10:49 AM EDT [facility] pH, Urine 5.5 5.0 - 8.0 LAB URINALYSIS - AUTOMATED METHOD 11/21/2024 10:49 AM EDT [facility] Protein, Urine 30(A) Negative mg/dL LAB URINALYSIS - AUTOMATED METHOD 11/21/2024 10:49 AM EDT [facility] Glucose, Urine Negative Negative mg/dL LAB URINALYSIS - AUTOMATED METHOD 11/21/2024 10:49 AM EDT [facility] Ketones, Urine Negative Negative mg/dL LAB URINALYSIS - AUTOMATED METHOD 11/21/2024 10:49 AM EDT [facility] Blood, Urine Large(A) Negative LAB URINALYSIS - AUTOMATED METHOD 11/21/2024 10:49 AM EDT [facility] Bilirubin, Urine Negative Negative LAB URINALYSIS - AUTOMATED METHOD 11/21/2024 10:49 AM EDT [facility] Urobilinogen, Urine 1.0 0.2 to 1.0 mg/dL LAB URINALYSIS - AUTOMATED METHOD 11/21/2024 10:49 AM EDT [facility] Leukocytes, Urine Negative Negative LAB URINALYSIS - AUTOMATED METHOD 11/21/2024 10:49 AM T [facility] Nitrite, Urine Negative Negative LAB URINALYSIS - AUTOMATED METHOD 11/21/2024 10:49 AM EDT [facility] RBC, Urine >50(A) 0 to 3 /HPF LAB URINALYSIS - AUTOMATED METHOD 11/21/2024 10:49 AM T [facility] Comment:This result was prev iously suppressed from the chart. WBC, Urine 0 - 5 0 to 5 /HPF LAB URINALYSIS - AUTOMATED METHOD 11/21/2024 10:49 AM T [facility] Comment:This result was prev iously suppressed from the chart. Squamous Epithelial Cells 0 - 2 0 to 5 /HPF LAB URINALYSIS - AUTOMATED METHOD 11/21/2024 10:49 AM EDT [facility] Comment:This result was prev iously suppressed from the chart. Hyaline Casts 0 - 2 0 to 5 /LPF LAB URINALYSIS - AUTOMATED METHOD 11/21/2024 10:49 AM T [facility] Comment:This result was prev iously suppressed from the chart. Bacteria, Urine Negative Negative LAB URINALYSIS - AUTOMATED METHOD 11/21/2024 10:49 AM EDT [facility] Comment:This result was prev iously suppressed from the chart. Urine Urine specimen obtained by clean catch procedure / Unknown Non-blood Collection / Unknown 11/21/2024 10:12 AM EDT 11/21/2024 10:19 AM EDT Derek Deshpande MD LAB URINE ORDERABLES Final Result Performing Organization Address [facility]/ZIP Co de Phone Number [facility] [address] [place] [address] * ED HIV 1/2 Antibody/Antigen Screen w/Reflex to HIV 1/2 Differentiation (11/21/2024 8:32 AM EDT) [facility] HIV 1 & 2 Antibody/Antigen Screen Non Reactive Non Reactive 11/21/2024 9:34 AM EDT [facility] Comment:Screening for HIV 1 & 2 antibodies, and P24 antigen is NONREACTIVE. No confirmatory testing is required. Blood Venous blood specimen / Unknown Venipuncture / Unknown 11/21/2024 8:32 AM EDT 11/21/2024 8:49 AM EDT Derek Deshpande MD LAB BLOOD ORDERABLES Final Result Performing Organization Address [facility]/ZIP Co de Phone Number [facility] [address] [place] [address] * Lactic acid, venous (11/21/2024 8:32 AM EDT) [facility] [address] [facility] Lactate, Venous, Whole Blood 1.4 0.5 - 2.2 mmol/L LAB HEMATOLOGY METHOD 11/21/2024 8:52 AM EDT [facility] Blood Venous blood specimen / Unknown Venipuncture / Unknown 11/21/2024 8:32 AM EDT 11/21/2024 8:48 AM EDT Derek Deshpande MD LAB BLOOD ORDERABLES Final Result Performing Organization Address [facility]/ZIP Co de Phone Number [facility] [address] [place] [address] * Hepatitis C Antibody - ED (11/21/2024 8:32 AM EDT) [facility] [address] [facility] Hepatitis C Antibody Negative Negative 11/21/2024 9:30 AM EDT [facility] Blood Venous blood specimen / Unknown Venipuncture / Unknown 11/21/2024 8:32 AM EDT 11/21/2024 8:50 AM EDT Derek Deshpande MD LAB BLOOD ORDERABLES Final Result Performing Organization Address [facility]/ZIP Co de Phone Number [facility] [address] [place] [address] * (ABNORMAL) PT-INR (11/21/2024 8:32 AM EDT) [facility] [address] Prothrombin Time 15.3(H) 12.0 - 14.3 sec 11/21/2024 8:58 AM EDT [facility] INR 1.2(H) 0.9 - 1.1 11/21/2024 8:58 AM EDT [facility] Blood Venous blood specimen / Unknown Venipuncture / Unknown 11/21/2024 8:32 AM EDT 11/21/2024 8:44 AM EDT Narrative [facility] - 11/21/2024 8:58 AM EDT OPTIMAL INR RANGES FOR PATIENT ON ORAL ANTICOAGULANT THERAPY Prevention of venous thromboembolism INR 2.0 to 3.0 In patients with heart disease: Atrial fibrillation INR 2.0 to 3.0 Valvular heart disease INR 2.0 to 3.0 Tissue heart valves INR 2.0 to 3.0 Mechanical prosthetic valves INR 2.5 to 3.5 Prevention of recurrent NM INR 2.5 to 3.5 Derek Deshpande MD LAB BLOOD ORDERABLES Final Result [facility] [address] [place] [address] * (ABNORMAL) CBC w/diff (11/21/2024 8:32 AM EDT) Pathologist [facility] WBC Count 15.92(H) 3.70 - 10.30 10*3/uL LAB HEMATOLOGY METHOD 11/21/2024 8:46 AM EDT [facility] RBC Count 3.71(L) 3.90 - 5.20 10*6/uL LAB HEMATOLOGY METHOD 11/21/2024 8:46 AM EDT [facility] HGB 11.6 11.2 - 15.7 g/dL LAB HEMATOLOGY METHOD 11/21/2024 8:46 AM EDT [facility] HCT 34.9 34.0 - 45.0 % LAB HEMATOLOGY METHOD 11/21/2024 8:46 AM EDT [facility] Platelet Count 187 155 - 369 10*3/uL LAB HEMATOLOGY METHOD 11/21/2024 8:46 AM EDT [facility] MCV 94 79 - 98 fL LAB HEMATOLOGY METHOD 11/21/2024 8:46 AM EDT [facility] MCH 31.3 26.0 - 32.0 pg LAB HEMATOLOGY METHOD 11/21/2024 8:46 AM EDT [facility] MCHC 33.2 30.7 - 35.5 g/dL LAB HEMATOLOGY METHOD 11/21/2024 8:46 AM EDT [facility] RDW 15.2(H) 11.5 - 14.5 % LAB HEMATOLOGY METHOD 11/21/2024 8:46 AM EDT [facility] MPV 9.9 8.8 - 12.5 fL LAB HEMATOLOGY METHOD 11/21/2024 8:46 AM EDT [facility] nRBC 0.0 <=0.0 per 100 WBCs LAB HEMATOLOGY METHOD 11/21/2024 8:46 AM EDT [facility] Differential Type Automated LAB HEMATOLOGY METHOD 11/21/2024 8:46 AM EDT [facility] Neutrophils % 88 % LAB HEMATOLOGY METHOD 11/21/2024 8:46 AM EDT [facility] Lymphocytes % 7 % LAB HEMATOLOGY METHOD 11/21/2024 8:46 AM EDT [facility] Monocytes % 5 % LAB HEMATOLOGY METHOD 11/21/2024 8:46 AM EDT [facility] Eosinophils % 0 % LAB HEMATOLOGY METHOD 11/21/2024 8:46 AM EDT [facility] Basophils % 0 % LAB HEMATOLOGY METHOD 11/21/2024 8:46 AM EDT [facility] Immature Granulocytes % 0 % LAB HEMATOLOGY METHOD 11/21/2024 8:46 AM EDT [facility] Neutrophils Absolute 13.90(H) 1.60 - 6.10 10*3/uL LAB HEMATOLOGY METHOD 11/21/2024 8:46 AM EDT [facility] Lymphocytes Absolute 1.15(L) 1.20 - 3.90 10*3/uL LAB HEMATOLOGY METHOD 11/21/2024 8:46 AM EDT [facility] Monocytes Absolute 0.74 0.30 - 0.90 10*3/uL LAB HEMATOLOGY METHOD 11/21/2024 8:46 AM EDT [facility] Eosinophils Absolute 0.01 0.00 - 0.50 10*3/uL LAB HEMATOLOGY METHOD 11/21/2024 8:46 AM EDT [facility] Basophils Absolute 0.05 0.00 - 0.10 10*3/uL LAB HEMATOLOGY METHOD 11/21/2024 8:46 AM EDT [facility] Immature Granulocytes Absolute 0.07(H) 0.00 - 0.06 10*3/uL LAB HEMATOLOGY METHOD 11/21/2024 8:46 AM EDT [facility] Blood Venous blood specimen / Unknown Venipuncture / Unknown 11/21/2024 8:32 AM EDT 11/21/2024 8:44 AM EDT Narrative [facility] - 11/21/2024 8:46 AM EDT Therapeutic decision making should be based on absolute values, rather than percentages. us Derek Deshpande MD LAB BLOOD ORDERABLES Final Result [facility] [address] [place] [address] * Type and screen (11/21/2024 8:32 AM [...] ORDERA BLES Final Result BLOOD BANK [address] [place] [address], * (ABNORMAL) CMP (11/21/2024 8:32 AM EDT) Glucose, Plasma 122(H) 74 - 99 mg/dL 11/21/2024 9:18 AM EDT [facility] BUN, Plasma 17 8 - 23 mg/dL 11/21/2024 9:18 AM EDT [facility] Creatinine, Plasma 1.79(H) 0.60 - 1.10 mg/dL 11/21/2024 9:18 AM EDT [facility] BUN/Creatinine Ratio 9 11/21/2024 9:18 AM EDT [facility] Sodium, Plasma 140 136 - 145 mmol/L 11/21/2024 9:18 AM EDT [facility] Potassium, Plasma 4.3 3.6 - 4.9 mmol/L 11/21/2024 9:18 AM EDT [facility] Chloride, Plasma 110(H) 97 - 107 mmol/L 11/21/2024 9:18 AM EDT [facility] CO2, Plasma 22 22 - 29 mmol/L 11/21/2024 9:18 AM EDT [facility] Anion Gap 8 6 - 16 mmol/L 11/21/2024 9:18 AM EDT [facility] Total Calcium, Plasma 8.4(L) 8.9 - 10.2 mg/dL 11/21/2024 9:18 AM EDT [facility] Total Protein 6.0(L) 6.3 - 7.9 g/dL 11/21/2024 9:18 AM EDT [facility] Albumin, Plasma 3.5 3.5 - 5.2 g/dL 11/21/2024 9:18 AM EDT [facility] AST, Plasma 21 10 - 35 U/L 11/21/2024 9:18 AM EDT [facility] ALT, Plasma 19 10 - 35 U/L 11/21/2024 9:18 AM EDT [facility] Alkaline Phosphatase, Plasma 94 46 - 142 U/L 11/21/2024 9:18 AM EDT [facility] Total Bilirubin, Plasma 0.4 0.2 - 1.1 mg/dL 11/21/2024 9:18 AM EDT [facility] eGFRcr 31.0 mL/min/1.7 3m*2 11/21/2024 9:18 AM EDT [facility] Comment:Reported eGFRcr in m L/min/1.73m2 is based the CKD-EPI 2020 equation that does not use a race coefficient. Blood Venous blood specimen / Unknown Venipuncture / Unknown 11/21/2024 8:32 AM EDT 11/21/2024 8:49 AM EDT us Derek Deshpande MD LAB BLOOD ORDERABLES Final Result [facility] [address] [place] [address] * CT ABDOMEN OUTSIDE IMAGES (11/21/2024 4:35 [...] Result from Last 3 [place] [address] ANTHEM Advance Directives * Full Code (Latest [...] Patient has decision-making capacity? Yes Care Teams Training And Quality Manager Relationship Specialty Start Date End Date Denodre Lui MD [address] [facility] [address] [place] [id number] PCP - General 10/26/20
--- OUTSIDE RECORDS SUMMARY | 2025-01-05 15:20 | XMS_ITS | Encounter Summary ---
Author Organization [employer] ([place], [place], [place], [place]) Address [address] [place] [address] Care Team Providers Care Family Reunification Specialist Name Role Phone Unavailable Primary Care Provider Unavailabl e Encounter Details Date Type Department Care Team (Late st Contact Info) Description 05/31/2019 Transcribed Document [facility] Family Medicine [address] [place] [address] ProviderNelson MD [address] [place] [place], [place] [id number] Social History Tobacco Use Types Packs/Day Years Used Date Smoking Tobacco: Never Assessed Comments Unknown Sex and Gender Information Value Date Recorded Sex Assigned at Not on file Legal Sex Female 1:09 PM CDT Gender Identity Not on file Sexual Orientation Not on file documented as of this encounter Miscellaneous Notes * [employer]ner Conversion Note - Historical ProviderMD - 05/31/2019 3:45 PM ARM MAKER Stroke/Warfarin Instructions Entered On: 05/31/2019 15:46 EST [...]
--- OUTSIDE RECORDS SUMMARY | 2025-01-05 15:20 | XMS_ITS | Encounter Summary ---
Author Organization [employer] ([place], [place], [place], [place]) Address [address] [place] [address] Care Team Providers Care Environmental Health And Safety Leader Name Role Phone Unavailable Primary Care Provider Unavailabl e Encounter Details Date Type Department Care Team (Late st Contact Info) Description 05/30/[address] [facility] Family Medicine [address] [place] [address] ProviderNelson MD [address] [place] [id number] Social History Tobacco Use Types Packs/Day Years Used Date Smoking Tobacco: Never Assessed Comments Unknown Sex and Gender Information Value Date Recorded Sex Assigned at Not on file Legal Sex Female 1:09 PM CDT Gender Identity Not on file Sexual Orientation Not on file documented as of this encounter Miscellaneous Notes * Cerner Conversion Note - Historical ProviderMD - 05/30/2019 7:37 PM MEDICAL REPRESENTATIVE PAT Adult Entered On: 05/30/2019 19:42 EST [...] Body Mass Index : 31.8 kg/m2 (HI) [place] Body Weight : 57 kg Tamara Camar[place] [...] TAY CHAVIRA RN - 05/30/2019 19:37 EST [place] Suicide Severity Rating Scale (C-SSRS) CSSRS Past [...] Name : don sotomayor, Primary Language : [place] Communication Barrier : None TAY CHAVIRA RN [...] - 05/30/2019 19:37 EST Electronically signed by [facility] Conversion [employer] at 09/30/2022 3:09 PM CDT documented in this encounter Plan of Treatment Not on file documented as of this encounter Visit Diagnoses Not on filedocumented in this encounter
--- OUTSIDE RECORDS SUMMARY | 2025-01-05 15:20 | XMS_ITS | Encounter Summary ---
Author Organization [employer] ([place], [place], [place], [place]) Address [address] [place] [address] Care Team Providers Care Rose Grading Supervisor Name Role Phone Unavailable Primary Care Provider Unavailabl e Encounter Details Date Type Department Care Team (Late st Contact Info) Description 05/31/[address] [facility] Family Medicine [facility] [place] [address] ProviderNelson MD [address] [place] [id number] Social History Tobacco Use Types Packs/Day Years Used Date Smoking Tobacco: Never Assessed Comments Unknown Sex and Gender Information Value Date Recorded Sex Assigned at Not on file Legal Sex Female 1:09 PM CDT Gender Identity Not on file Sexual Orientation Not on file documented as of this encounter Miscellaneous Notes * Cerner Conversion Note - Historical ProviderMD - 05/31/2019 10:48 AM MACHINE CLOTH MEASURER Patient: FARHAN MULLINS Age: 58 years Sex: [...] All Problems Wears glasses / SNOMED CT 662275555 / Confirmed Numbness and tingling///left hand / SNOMED CT 7443434764 / Confirmed Neck pain///left shoulder / SNOMED CT 458187052 / Confirmed Hyperlipidemia / SNOMED CT 79566759 / Confirmed History of difficult intubation / IMO 9930658 / Confirmed High blood pressure / SNOMED CT 66400913 / Confirmed Depression / SNOMED CT 65253623 / Confirmed Back pain / SNOMED CT 720136437 / Confirmed Anxiety / SNOMED CT 68071158 / Confirmed Anginal pain///anxiety related/2013 / SNOMED CT 979118399 / Confirmed, Active Problems (10) Anginal pain///anxiety [...] EST Height Source Stated Height Entry Format [place] Height/Length, [place] (ft) 0 ft Height/Length B[place]NA[place] 65 Inch CLINICALHEIGHT 165.1 cm Bland Body Weight 57 kg Weight Source Standing scale Weight Entry Format [place] Weight Estonian lb 190.8 lb CLINICALWEIGHT 86.73 kg Body [...] motion, lulú LE weakness. Integumentary: Warm, Dry, [place]. Neurologic: Alert, Oriented. Psychiatric: Cooperative, Appropriate mood [...]
--- OUTSIDE RECORDS SUMMARY | 2025-01-05 15:20 | XMS_ITS | Encounter Summary ---
Author Organization Healthcare Address [address] [place] [address] Care Team Providers Care Table Top Tile Setter Name Role Phone Deondre Lui MD Primary Care Provider [phone] Christal Murray LPN Unavailable Unavailable Encounter Details Date Type Department Care Team (Late st Contact Info) Description 11/25/2024 Telephone [facility] [address] [facility] 5th Floor [address] [place] [address] Tyron Mosquera MD [address] [facility] [address] [place] [address] Social History Tobacco Use Types [...] and Family Not on file 11/25/2024 Attends [employer] Not on file 11/25 Active Member [...] any time in the past 12 m [facility], were you homeless or living [...] Description 02/20/2025 10:45 AM EDT Office Visit [facility] Medicine Specialties [address], [address]nd [place] [address] Elle Landaverde APRN, DNP [address] [facility] [address] [place] [phone] 03/29/2025 10:30 AM EDT Clinical Support [facility] Laboratory Services [address] [facility] 1st [place] [address] 04/05/2025 1:00 PM EDT Office Visit [facility] Nephrology, Bone & Mineral Metabolism [address] [facility], [address] [place] [address] Jude Arora, TAYLA [address] [facility] [address] [place] [address] 08/09/2025 10:00 AM EST Appointment [facility] [address] [place] [address] 08/09/2025 11:45 AM EST Office Visit [facility] [address], [address] [place] [phone] Cristofer Yu MD [address] [facility] [address] [place] [address] 10/11/2025 9:15 AM EDT Office Visit [facility] [place] Raymundo [address] [place] [address] James Tomas MD [address] [place] [address] documented as of this encounter Visit Diagnoses [...] documented as of this encounter Care Teams Table Top Tile Setter Relationship Specialty Start Date End Date Deondre Lui MD [address] [facility] [address] [place] [address] PCP - General 10/26/20 Christal Murray LPN VALUE-[place]ED [place] [address] TCM Nurse 11/25/24 12/25/24 documented as of this encounter
--- OUTSIDE RECORDS SUMMARY | 2025-01-05 15:20 | XMS_ITS | Encounter Summary ---
Author Organization Healthcare Address [address] [place] [address] Care Team Providers Care Child Adolescent Psychiatrist Name Role Phone Deondre Lui MD Primary Care Provider [phone] Christal Murray LPN Unavailable Unavailable Reason for Visit * Reason Comments TCM Call Encounter Details Date Type Department Care Team (Late st Contact Info) Description 11/25/2024 Patient Outreach [facility] [address] [place] [phone] Christal Murray LPN VALUE-BASED [place] [address] TCM Call Social History Tobacco Use Types [...] and Family Not on file 11/25/2024 Attends Denominational Services Not on file 11/25 Active Member [...] any time in the past 12 m [facility], were you homeless or [...] transportation. She is able to drive herself. SDAZ assessment is negative for any needs. Patient [...] Description 02/20/2025 10:45 AM EDT Office Visit [facility] Medicine Specialties [address], [address] [place] [address] Elle Landaverde, REBEKAH, DNP [address] [place] [address] 03/29/2025 10:30 AM EDT Clinical Support [facility] Laboratory Services [address] [facility], 1st [place] [address] 04/05/2025 1:00 PM EDT Office Visit [facility] Nephrology, Bone & Mineral Metabolism [address] [facility], [address] [place] [address] Jude Arora PA [address] [facility] [address] [place] [address] 08/09/2025 10:00 AM EST Appointment [facility] [address] [place] [address] 08/09/2025 11:45 AM EST Office Visit [facility] [address] [place] [address] Cristofer Yu MD [address] [place] [address] 10/11/2025 9:15 AM EDT Office Visit [facility] [place] [address] [place] [address] James Tomas MD [address] [place] [address] documented as of this encounter [...] documented as of this encounter Care Teams Child Adolescent Psychiatrist Relationship Specialty Start Date End Date Deondre Lui MD [address] [facility] [address] [place] [address] PCP - General 10/26/20 Christal Murray LPN VALUE-BASED [place] [address] TCM Nurse 11/25/24 12/25/24 documented as of this encounter
--- OUTSIDE RECORDS SUMMARY | 2025-01-05 15:20 | XMS_ITS | Encounter Summary ---
Author Organization [employer] ([place], [place], [place], [place]) Address [address] [place] [address] Care Team Providers Care Clay Artist Name Role Phone Unavailable Primary Care Provider Unavailabl e Encounter Details Date Type Department Care Team (Late st Contact Info) Description 05/31/2019 Transcribed Document [facility] Family Medicine [facility] [place] [address] ProviderNelson MD [address] [place] [phone] Social History Tobacco Use Types Packs/Day Years Used Date Smoking Tobacco: Never Assessed Comments Unknown Sex and Gender Information Value Date Recorded Sex Assigned at Not on file Legal Sex Female 1:09 PM CDT Gender Identity Not on file Sexual Orientation Not on file documented as of this encounter Miscellaneous Notes * Cerner Conversion Note - Historical ProviderMD - 05/31/2019 1:31 PM EXCEPTIONAL CHILDREN TEACHER ASSISTANT Patient: FARHAN MULLINS Age: 58 Years Sex: Female : 1960 *Operation 1. R DIE CAST ENGINEER access 2. Ao, R GRACE angioplasty 3. [...] 12:59:00 (05/31/19 13:05:22) Electronically signed by Julio [facility] [employer] Conversion Clinical Education Manager [employer] at 09/30/2022 3:06 PM CDT documented in this encounter Plan of Treatment Not on file documented as of this encounter Visit Diagnoses Not on filedocumented in this encounter
--- OUTSIDE RECORDS SUMMARY | 2025-01-05 15:20 | XMS_ITS | Encounter Summary ---
Author Organization Healthcare Address [address] [place] [address] Care Team Providers Care Linotype Machinist Name Role Phone Deondre Lui MD Primary Care Provider [phone] Encounter Details Date Type Department Care Team [...] [facility] Medicine Specialties [address], [address] [place] [address] Elle Landaverde, STERILE PRODUCTS PROCESSOR, DNP [address] [facility] [address] [place] [address] 03/29/2025 10:30 AM EDT Clinical Support [facility] Laboratory Services [address] [facility], 1st Floor [place] [address] 04/05/2025 1:00 PM EDT Office Visit [facility] Nephrology, Bone & Mineral Metabolism [address] [facility] [place] [address] Jude Arora PA [address] [facility] [address] [place] [address] 08/09/2025 10:00 AM EST Appointment [facility] [address] [facility] [address] [place] [address] 08/09/2025 11:45 AM EST Office Visit [facility] [address], [address] [place] [address] Cristofer Yu MD [address] [facility] [address] [place] [address] 10/11/2025 9:15 AM EDT Office Visit [facility] [place] [address] [facility] [place] [address] James Tomas MD [address] [place] [address] documented as of this encounter Visit Diagnoses [...] documented as of this encounter Care Teams Linotype Machinist Relationship Specialty Start Date End Date Deondre Lui MD [address] [place] [address] [address] [place] [address] PCP - General 10/26/20 documented as of this encounter
--- OUTSIDE RECORDS SUMMARY | 2025-01-05 15:20 | XMS_ITS | Encounter Summary ---
Author Organization [employer] ([place], [place], [place], [place]) Address [address] [place] [address] Care Team Providers Care Medical Device Sales Consultant Name Role Phone Unavailable Primary Care Provider Unavailabl e Encounter Details Date Type Department Care Team (Late st Contact Info) Description 05/31/2019 Transcribed Document [facility] [address] [place] [address] ProviderNelson MD [address] [place] [id number] Social History Tobacco Use Types Packs/Day Years Used Date Smoking Tobacco: Never Assessed Comments Unknown Sex and Gender Information Value Date Recorded Sex Assigned at Not on file Legal Sex Female 1:09 PM CDT Gender Identity Not on file Sexual Orientation Not on file documented as of this encounter Miscellaneous Notes * [employer]ner Conversion Note - Historical ProviderMD - 05/31/2019 4:48 PM CLUTCH REBUILDER Event Note Entered On: 05/31/2019 17:09 EST [...]
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
--- OUTSIDE RECORDS SUMMARY | 2025-01-05 15:21 | XMS_ITS | Encounter Summary ---
Author Organization [employer] ([place], [place], [place], [place]) Address [address] [place] [address] Care Team Providers Care Quality Management Nurse Name Role Phone Unavailable Primary Care Provider Unavailabl e Encounter Details Date Type Department Care Team (Late st Contact Info) Description 06/03/2019 Transcribed Document [facility] [place] Medicine [facility] [place] [address] Nelson Escoto MD [address] [place] [id number] Social History Tobacco Use Types Packs/Day Years Used Date Smoking Tobacco: Never Assessed Comments Unknown Sex and Gender Information Value Date Recorded Sex Assigned at Not on file Legal Sex Female 1:09 PM CDT Gender Identity Not on file Sexual Orientation Not on file documented as of this encounter Miscellaneous Notes * Cerner Conversion Note - Nelson Escoto MD - 06/03/2019 8:26 AM TRIM MACHINE OPERATOR DATE OF PROCEDURE: 05/31/2019 SURGEON: Conrado Cotto [...] the femoral-femoral bypass graft anastomosis. Ultimately, a 5-Luxembourgish sheath was placed into the vessel. [place] Advantage wire was advanced into the infrarenal [...] anastomosis of the femoral-femoral bypass graft. A 5-Luxembourgish sheath was placed into the vessel. Heparin was administered. [place] Advantage wire was advanced into the infrarenal [...] hematoma. The patient was awakened, transferred to [facility], and taken to Recovery in stable condition. All counts were correct. /[id number] Conrado Cotto MD IV/AQ / IV / MODL /[id number] Electronically signed by Julio [facility] Conversion [address] Roller Operator Cerner at 09/30/2022 3:16 PM CDT documented in this encounter Plan of Treatment Not on file documented as of this encounter Visit Diagnoses Not on filedocumented in this encounter
--- OUTSIDE RECORDS SUMMARY | 2025-01-05 15:21 | XMS_ITS | Clinical Summary ---
Author Organization [employer] ([place], [place], [place], [place]) Address [address] [place] [address] Care Team Providers Care Concrete Worker Name Role Phone Unavailable Primary Care [...]
--- OUTSIDE RECORDS SUMMARY | 2025-01-05 15:21 | XMS_ITS | Referral Summary ---
Author Organization [employer] ([place], [place], [place], [place]) Address [address] [place] [address] Care Team Providers Care Nutrition Intern Name Role Phone Unavailable Primary Care Provider [...]
--- OUTSIDE RECORDS SUMMARY | 2025-01-05 15:21 | XMS_ITS | Encounter Summary ---
Author Organization Healthcare Address [address] [place] [address] Care Team Providers Care Canal Driver Name Role Phone Deondre Lui MD Primary Care Provider [phone] Christal Murray LPN Unavailable Unavailable Encounter Details Date Type Department Care Team (Late st Contact Info) Description 11/21/2024 Orders Only External Location [address] [place] [id number] Provider, External Social History Tobacco Use Types [...] and Family Not on file 11/25/2024 Attends Taoism Services Not on file 11/25 Active Member [...] time in the past [address] [facility], were you homeless or living in a mcc (including now)? No 11/25/2024 Utilities Answer Date [...] Description 02/20/2025 10:45 AM EDT Office Visit [facility] Medicine Specialties [address], [address]nd [place] [address] Elle Landaverde APRN, DNP [address] [facility] [address] [place] [address] 03/29/2025 10:30 AM EDT Clinical Support [facility] Services [address] [facility], 1st [place] [address] 04/05/2025 1:00 PM EDT Office Visit [facility] Nephrology, Bone & Mineral Metabolism [address] [place] [address] Jude Arora, TAYLA [address] [facility] [address] [place] [address] 08/09/2025 10:00 AM EST Appointment [facility] [address] [place] [address] 08/09/2025 11:45 AM EST Office Visit [facility] [address], 1st [place] [address] Cristofer Yu MD [address] [place] [address] 10/11/2025 9:15 AM EDT Office Visit [facility] Lorane Raymundo [address] [place] [address] James Tomas MD [address] [place] [address] documented as of this encounter Procedures Procedure [...] documented as of this encounter Care Teams Canal Driver Relationship Specialty Start Date End Date Deondre Lui MD [address] [facility] [address] [place] [address] PCP - General 10/26/20 Christal Murray LPN VALUE[employer]ED [place] [address] TCM Nurse 11/25/24 12/25/24 documented as of this encounter
--- OUTSIDE RECORDS SUMMARY | 2025-01-05 15:21 | XMS_ITS | Encounter Summary ---
Author Organization Healthcare Address [address] [place] [address] Care Team Providers Care Director Of Academic Support Name Role Phone Deondre Lui MD Primary Care Provider [phone] Christal Murray LPN Unavailable Unavailable Encounter Details [...] and Family Not on file 11/25/2024 Attends Shinto Services Not on file 11/25 Active Member [...] any time in the past 12 m [facility], were you homeless or living in a [...] [facility] [address], [address] [place] [address] Elle Landaverde, REBEKAH, ANNE [address] [facility] [address] [place] [address] 03/29/2025 10:30 AM EDT Clinical Support [facility] [place] Laboratory Services [address] [facility], 1st [place] [address] 04/05/2025 1:00 PM EDT Office Visit [facility] [place] Nephrology, Bone & Mineral Metabolism [address] [facility], [address] [place] [address] Jude Arora PA [address] [facility] [address] [place] [address] 08/09/2025 10:00 AM EST Appointment [facility] [address] [facility] [address] [place] [address] 08/09/2025 11:45 AM EST Office Visit [facility] [address], [address] [place] [address] Cristofer Yu MD [address] [facility] [address] [place] [address] 10/11/2025 9:15 AM EDT Office Visit [facility] [place]bon [place] [address] [facility] [place] [address] James Tomas MD [address] [place] [address] documented as of this encounter Visit Diagnoses [...] documented as of this encounter Care Teams Director Of Academic Support Relationship Specialty Start Date End Date Deondre Lui MD [address] [place] [address] [address] [place] [address] PCP - General 10/26/20 Christal Murray LPN VALUE-BASED [place] [address] TCM Nurse 11/25/24 12/25/24 documented as of this encounter
--- OUTSIDE RECORDS SUMMARY | 2025-01-05 15:21 | XMS_ITS | Encounter Summary ---
Author Organization Healthcare Address [address] [place] [address] Care Team Providers Care Digital Artist Name Role Phone Deondre Lui MD Primary Care Provider [phone] Christal Murray LPN Unavailable Unavailable Encounter Details Date Type Department Care Team (Late st Contact Info) Description 11/21/2024 Orders Only External Location [address] [place] [id number] Provider, External Social History Tobacco Use Types [...] and Family Not on file 11/25/2024 Attends Protestant Services Not on file 11/25 Active Member [...] any time in the past 12 m [facility], were you homeless or living in a long term (including now)? No 11/25/2024 Utilities Answer Date [...] Description 02/20/2025 10:45 AM EDT Office Visit [facility] Medicine Specialties [address], [address]nd [place] [address] Elle Landaverde APRN, DNP [address] [facility] [address] [place] [address] 03/29/2025 10:30 AM EDT Clinical Support [facility] Laboratory Services [address] [facility], 1st [place] [address] 04/05/2025 1:00 PM EDT Office Visit [facility] Nephrology, Bone & Mineral Metabolism [address] [place] [address] Jude Arora, TAYLA [address] [facility] [address] [place] [address] 08/09/2025 10:00 AM EST Appointment [facility] [address] [place] [address] 08/09/2025 11:45 AM EST Office Visit [facility] [address], 1st [place] [address] Cristofer Yu MD [address] [place] [address] 10/11/2025 9:15 AM EDT Office Visit [facility] [place] Raymundo [address] [place] [address] James Tomas MD [address] [place] [address] documented as of this encounter Procedures Procedure [...] documented as of this encounter Care Teams Digital Artist Relationship Specialty Start Date End Date Deondre Lui MD [facility] [address] [place] [address] PCP - General 10/26/20 Christal Murray LPN VALUE-[employer]ED [place] [address] TCM Nurse 11/25/24 12/25/24 documented as of this encounter
--- OUTSIDE RECORDS SUMMARY | 2025-01-05 15:21 | XMS_ITS | Encounter Summary ---
Author Organization [employer] ([place], [place], [place], [place]) Address [address] [place] [address] Care Team Providers Care C.O.D. Clerk Name Role Phone Unavailable Primary Care Provider Unavailabl e Encounter Details Date Type Department Care Team (Late st Contact Info) Description 05/31/2019 Transcribed Document [facility] Family Medicine [address] [place] [address] ProviderNelson MD [address] [place], [place] [id number] Social History Tobacco Use Types Packs/Day Years Used Date Smoking Tobacco: Never Assessed Comments Unknown Sex and Gender Information Value Date Recorded Sex Assigned at Not on file Legal Sex Female 1:09 PM CDT Gender Identity Not on file Sexual Orientation Not on file documented as of this encounter Miscellaneous Notes * Cerner Conversion Note - Historical ProviderMD - 05/31/2019 12:59 PM LUMBER STICKER [facility] Main OR IntraOp Summary Primary Physician: DEREK CHEN MD Finalized Date/Time: 06/01/19 12:06:30 Pt. Name: LIZ MULLINS FERNANDO /Sex: 1960 Female Med Rec #: [id number] Physician: DEREK CHEN MD Financial #: [id number] Pt. Type: O Room/Bed: HIS/2 Admit/Disch: 05/31/19 09:12:00 - 05/31/19 16:48:00 Institution: [facility] IntraOp Case Attendance Entry 1 Entry 2 Entry 3 Case Attendee VOSKRESENSKY, DEREK, MD Liseth, Shawanda A, RN Blanton, Jackie, [employer] Role Performed Surgeon/Proceduralist, Condemnation Engineer, First Ripshear Operator First Time In 05/31/19 12:37:00 05/31/19 12:37:00 [...] SIMPSON, KRISTEN, REBEKAH, AMARI DAILEY, -ANS Cardiovascular CONVEYOR BELT OPERATOR Ripshear Operator Role Performed Ripshear Operator CONVEYOR BELT OPERATOR/Nurse Housekeeping Director Anesthesiologist of Record Time In 05/31/19 12:37:00 [...] Case Attendee Cinthia Carranza RN Role Performed Condemnation Engineer, Second Time In 05/31/19 12:37:00 Time Out 05/31/19 13:35:00 Procedure Aortogram Abdominal with Runoff(Right), Angioplasty Percutaneous Transluminal(Right) Other Attendee Superficial Wound Closed By: Last Modified By: Shawanda Childers RN 05/31/19 13:35:31 [facility] IntraOp Case Attendance Audit 05/31/19 13:35:31 Fit Model: SONIA Modifier: EANAPIER 1 <*> Procedure Aortogram [...] Stent Endovascular, Angioplasty Percutaneous Transluminal(Right) 05/31/19 13:34:31 Fit Model: ALTAFNAPIEULOGIO Modifier: EANAPIER 1 <+> Time Out [...] Stent Endovascular, Angioplasty Percutaneous Transluminal(Right) 05/31/19 13:05:26 Fit Model: LENINPIEULOGIO Modifier: EANAPIER 1 <*> Procedure Aortogram [...] with Runoff(Right), Arterial Stent Endovascular 05/31/19 13:03:30 Fit Model: EANAPIER Modifier: EANAPIER 1 <*> Procedure Aortogram [...] Role Performed <+> 7 Procedure 05/31/19 13:02:19 Fit Model: EANAPIER Modifier: EANAPIER <+> 6 Case Attendee <+> 6 Role Performed <+> 6 Procedure 05/31/19 12:47:39 Fit Model: EANAPIER Modifier: EANAPIER 1 <*> Procedure Aortogram [...] with Runoff(Right), Arterial Stent Endovascular 05/31/19 12:47:19 Fit Model: EANAPIER Modifier: EANAPIER <+> 3 Case Attendee <+> 3 Role Performed <+> 3 Procedure <+> 4 Case Attendee <+> 4 Role Performed <+> 4 Procedure <+> 5 Case Attendee <+> 5 Role Performed <+> 5 Procedure 05/31/19 12:43:53 Fit Model: EANAPIER Modifier: EANAPIER <+> 1 Procedure <+> 2 Procedure 05/31/19 12:43:43 Fit Model: EANAPIER Modifier: EANAPIER <+> 1 Time In <+> 2 Time In [facility] IntraOp Case Times Entry 1 Patient In Room Time 05/31/19 12:37:00 Out Room Time 05/31/19 13:35:00 Anesthesia Start Time 05/31/19 12:37:00 Stop Time 05/31/19 13:35:00 Surgery / Procedure Times Start Time 05/31/19 12:59:00 Stop Time 05/31/19 13:29:00 Last Modified By: Shawanda Childers RN 05/31/19 13:34:09 [facility] Intra[facility] Case Times Audit 05/31/19 13:34:09 Fit Model: EANAPIER Modifier: EANAPIER <+> 1 Out Room Time <+> 1 Stop Time 05/31/19 13:28:54 Fit Model: EANAPIER Modifier: EANAPIER <+> 1 Stop Time 05/31/19 12:58:07 Fit Model: EANAPIER Modifier: EANAPIER <+> 1 Start Time [facility] IntraOp Communication Entry 1 Entry 2 Communication To Family/Significant other Family/Significant other Comment START CLOSING Communication By Shawanda Childers, Shawanda Ortiz RN Date and Time 05/31/19 12:59:00 05/31/19 13:21:00 Last Modified By: Shawanda Childers RN Napier, Elizabeth A, RN 05/31/19 12:59:12 05/31/19 13:20:31 [facility] Intra[facility] Communication Audit 05/31/19 13:20:31 Fit Model: EANAPIER Modifier: EANAPIER <+> 2 Communication By <+> 2 Date and Time <+> 2 Communication To <+> 2 Comment 05/31/19 12:59:12 Fit Model: EANAPIER Modifier: EANAPIER <+> 1 Date and Time [facility] IntraOp Departure from OR Entry 1 Integumentary Assessment Integumentary WDL Assessment WDL Transfer/Handoff Transfer to Other Handoff Method Phone call Post-op Transport Stretcher/Gurney Via Patient Transport SHEFALI KAYE APRN, Accompanied by Liseth MUIR Elizabeth A, RN Transfer/Handoff PT TRANSPORTED TO RODRIGO Butcher Last Modified By: Shawanda Childers RN 05/31/19 12:48:02 [facility] IntraOp Dressing and Packing Entry 1 Type Dressing Location OPSITE Wound Dressing Item 4x4's Applied By DEREK CHEN MD Other Comments TEGADERM Last Modified By: Shawanda Childers RN 05/31/19 12:43:48 [facility] IntraOp Fire Risk Assessment Entry 1 Fire [...] Modified By: Shawanda Childers RN 05/31/19 12:44:02 [facility] Intra[facility] General Case Drum Printer 1 Case Information OR OR 20 [facility] Case Level 1 Room Verified Yes Wound Class I - Clean Specialty SN Endovascular Anesthesia Type MAC ASA Class 3 Diagnosis Preop Diagnosis PVD Postop Same As Preop No Postop Diagnosis SEE MD NOTE Last Modified By: Shawanda Childers RN 05/31/19 13:20:04 [facility] Intra[facility] General Case Data Audit 05/31/19 13:20:04 Fit Model: SONIA Modifier: EANAPIER <+> 1 Preop Diagnosis [facility] IntraOp Implant Log Entry 1 Type Implant (Synthetic) Implant Log Implant DEVICE MYNX NARROW GAUGE BRAKEMAN 6F/ 7F Identification [id number] Description Implant Quantity 1 Implant Site RIGHT Implant Access Closure Identification Pool Installer Name: Implant [id number] Identification Catalog Number Implant Size 5F Implant Has an Yes Expiration Date Implant Expiration 10/12/20 Date Tissue Implant Last Modified By: Shawanda Childers RN 05/31/19 13:19:33 [facility] IntraOp Intraoperative Assessment Entry 1 Handoff Method [...] Modified By: Shawanda Childers RN 05/31/19 12:44:44 [facility] IntraOp Intraoperative Equipment Entry 1 Type Monitoring Equipment Intraop Monitoring Electrocardiogram Three lead placement (ECG) Electrode Placement Blood Pressure Non-Invasive BP Device Source Blood Pressure Arm, right upper Location Pulse Oximeter Hand, left Probe Site Antiembolic Devices Scopes Photo/Video Documentation Last Modified By: Shawanda Childers RN 05/31/19 12:45:01 [facility] Intra[facility] Medication Admin Entry 1 Entry 2 Entry 3 Medication/Irrigant PAULA VISIPAQUE 320MG 150 lidocaine 1% 50ml vial PAULA NACL 0.9PCT HPRN 200ML --[id number] - [id number] 1000U .5L --[id number] Combo Med List 1 - Combo Med [...] Modified By: Shawanda Childers RN 05/31/19 13:20:52 [facility] Intra[facility] Medication Admin Audit 05/31/19 13:20:52 Fit Model: SONIA Modifier: EANAPIER <+> 4 Medication/Irrigant <+> 4 Route of Administration <+> 4 Administered By <+> 4 Dose <+> 4 Unit of Measure [facility] IntraOp Patient Positioning Entry 1 Procedure Aortogram [...] Modified By: Shawanda Childers RN 05/31/19 13:35:31 [facility] Intra[facility] Patient Positioning Audit 05/31/19 13:35:31 Fit Model: EANAPIER Modifier: EANAPIER 1 <*> Procedure Aortogram Abdominal with Runoff(Right), Angioplasty Percutaneous Transluminal(Right) 05/31/19 13:05:28 Fit Model: EANAPIER Modifier: EANAPIER 1 <*> Procedure Aortogram Abdominal with Runoff(Right) [facility] Intra[facility] Sign In Entry 1 Patient, Site, [...] Modified By: Shawanda Childers RN 05/31/19 12:47:38 [facility] Intra[facility] Sign Out Entry 1 RN Confirmation [...] Modified By: Shawanda Childers RN 05/31/19 13:34:18 [facility] Intra[facility] Sign Out Audit 05/31/19 13:34:18 Fit Model: SONIA Modifier: EANAPIER <+> 1 RN Sign Out Signature Date/Time [facility] Intra[facility] Skin Prep Entry 1 Procedure Aortogram Abdominal with Runoff(Right), Angioplasty Percutaneous Transluminal(Right) Prescribed N/A Pre-Surgical Prep Completed Prep Area BILATERAL GROINS Intraop Prep Integumentary WDL Assessment WDL Prep Agents Chloraprep Prep by Shawanda Childers RN Hair Removal Methods No hair removal performed Last Modified By: Shawanda Childers RN 05/31/19 13:35:32 [facility] Intra[facility] Skin Prep Audit 05/31/19 13:35:32 Fit Model: ALTAFNAPIER Modifier: EANAPIER 1 <*> Procedure Aortogram Abdominal with Runoff(Right), Angioplasty Percutaneous Transluminal(Right) 05/31/19 13:05:28 Fit Model: ALTAFNAPIER Modifier: EANAPIER 1 <*> Procedure Aortogram Abdominal with Runoff(Right) [facility] Intra Surgical Procedures Entry 1 Entry 2 [...] Elizabeth A, RN 05/31/19 13:35:45 05/31/19 13:35:45 [facility] IntraOp Surgical Procedures Audit 05/31/19 13:35:45 Fit Model: EANAPIER Modifier: EANAPIER 1 <*> Procedure Aortogram [...] <-> 2 Anesthesia Type MAC 05/31/19 13:35:10 Fit Model: EANAPIER Modifier: EANAPIER 3 <*> Procedure Angioplasty Percutaneous Transluminal 05/31/19 13:34:03 Fit Model: EANAPIER Modifier: EANAPIER <+> 1 Stop <+> 2 Stop <+> 3 Stop 05/31/19 13:21:44 Fit Model: EANAPIER Modifier: EANAPIER 1 <*> Procedure Aortogram Abdominal with Runoff 05/31/19 13:17:03 Fit Model: EANAPIER Modifier: EANAPIER 1 <*> Procedure Aortogram Abdominal with Runoff 1 <*> Additional Procedure Description (AORTOGRAM WITH IVUS, RT ILIAC ARTERY/POSS AORTIC STENT POSS RT COMMON ILIAC STENT) 05/31/19 13:05:22 Fit Model: EANAPIER Modifier: EANAPIER <+> 3 Procedure <+> 3 Primary Procedure <+> 3 Modifiers <+> 3 Primary Surgeon <+> 3 Specialty <+> 3 Start <+> 3 Wound Class <+> 3 Anesthesia Type 05/31/19 13:02:32 Fit Model: EANAPIER Modifier: EANAPIER <+> 1 Start <+> 2 Start 05/31/19 12:48:22 Fit Model: EANAPIER Modifier: EANAPIER 1 <*> Procedure Aortogram Abdominal with Runoff 1 <+> Specialty [facility] IntraOP Time Out Entry 1 Procedure to [...] Modified By: Shawanda Childers RN 05/31/19 13:35:32 [facility] Intra[facility] Time Out Audit 05/31/19 13:35:32 Fit Model: SONIA Modifier: EANAPIER 1 <*> Procedure to be Performed Aortogram Abdominal with Runoff(Right), Arterial Stent Endovascular, Angioplasty Percutaneous Transluminal(Right) 05/31/19 13:05:29 Fit Model: LENINPIER Modifier: EANAPIER 1 <*> Procedure to be Performed Aortogram Abdominal with Runoff(Right), Arterial Stent Endovascular [facility] Intra[facility] X-Ray and Images Entry 1 X-Ray/Imaging Type Fluoroscopy Fluoroscopy Type Fixed Shoemaking Finisher Name Jackie Blanton [employer] Protective Devices Yes Used Exposure Time 3.6 MINUTES Last Modified By: Shawanda Childers RN 05/31/19 13:19:56 Case Comments <None> Finalized By: CALEB AN Document Signatures Signed By: Shawanda Childers RN 05/31/19 13:35 CALEB AN 06/01/19 12:06 Unfinalized History Date/Time Username Reason for Unfinalizing Freetext Reason for Unfinalizing 06/01/19 12:04 WATLAYDR Correct Billing Electronically signed by Julio [facility] Conversion Automatic Folder Seamer Cerner at 09/30/2022 3:28 PM CDT documented in this encounter Plan of Treatment Not on file documented as of this encounter Visit Diagnoses Not on filedocumented in this encounter
--- OUTSIDE RECORDS SUMMARY | 2025-01-05 15:21 | XMS_ITS | Encounter Summary ---
Author Organization Healthcare Address [address] [place] [address] Care Team Providers Care Rocket Scientist Name Role Phone Deondre Lui MD Primary Care Provider [phone] Christal Murray LPN Unavailable Unavailable Encounter Details Date Type Department Care Team (Late st Contact Info) Description 11/21/2024 Orders Only External Location [address] [place] [id number] Provider, External Social History Tobacco Use Types [...] any time in the past 12 m [facility], were you homeless or living [...] [facility] [address], [address] [place] [address] Elle Landaverde APRN, DNP [address] [place] [address] 03/29/2025 10:30 AM EDT Clinical Support [facility] Laboratory Services [address] [place] [address] 04/05/2025 1:00 PM EDT Office Visit [facility] Nephrology, Bone & Mineral Metabolism [address] [place] [address] Jude Arora, TAYLA [address] [place] [address] 08/09/2025 10:00 AM EST Appointment [facility] [address] [place] [address] 08/09/2025 11:45 AM EST Office Visit [facility] [address] [place] [address] Cristofer Yu MD [address] [place] [address] 10/11/2025 9:15 AM EDT Office Visit [facility] [place] [address] [place] [address] James Tomas MD [address] [place] [address] documented as of this encounter Procedures Procedure [...] documented as of this encounter Care Teams Rocket Scientist Relationship Specialty Start Date End Date Deondre Lui MD [address] [facility] [address] [place] [address] PCP - General 10/26/20 Christal Murray LPN VALUE-BASED [place] [address] TCM Nurse 11/25/24 12/25/24 documented as of this encounter
--- OUTSIDE RECORDS SUMMARY | 2025-01-05 15:21 | XMS_ITS | Encounter Summary ---
Author Organization [employer] ([place], [place], [place], [place]) Address [address] [place] [address] Care Team Providers Care Dermatologist Managing Partner Name Role Phone Unavailable Primary Care Provider Unavailabl e Encounter Details Date Type Department Care Team (Late st Contact Info) Description 05/31/2019 Transcribed Document [facility] [place] [address] [place] [address] ProviderNelson MD [address] [place], [place] [id number] Social History Tobacco Use Types Packs/Day Years Used Date Smoking Tobacco: Never Assessed Comments Unknown Sex and Gender Information Value Date Recorded Sex Assigned at Not on file Legal Sex Female 1:09 PM CDT Gender Identity Not on file Sexual Orientation Not on file documented as of this encounter Miscellaneous Notes * Cerner Conversion Note - Historical ProviderMD - 05/31/2019 3:56 PM SCABBLER Event Note Entered On: 05/31/2019 15:57 EST Performed On: 05/31/2019 15:56 EST by Bonny Ayala RN Event Note Description of Event : Reported hypertension to physician, rec'd order for hydralazine 10 mg IVP with repeat of second dose if needed. Bonny Ayala RN - 05/31/2019 15:56 EST Electronically signed by Julio [facility] Conversion Electrical Systems Designer Cerner at 09/30/2022 3:23 PM CDT documented in this encounter Plan of Treatment Not on file documented as of this encounter Visit Diagnoses Not on filedocumented in this encounter
--- OUTSIDE RECORDS SUMMARY | 2025-01-05 15:21 | XMS_ITS | Encounter Summary ---
Author Organization [employer] ([place], [place], [place], [place]) Address [address] [place] [address] Care Team Providers Care Traveling Buyer Name Role Phone Unavailable Primary Care Provider Unavailabl e Encounter Details Date Type Department Care Team (Late st Contact Info) Description 05/31/2019 Transcribed Document [facility] Family Medicine [address] [place] [address] ProviderNelson MD [address] [place] [address] Social History Tobacco Use Types [...] - Nelson ProviderMD - 05/31/2019 4:19 PM TRACTOR TRAILER TRUCK DRIVER [facility] [place] [address] FARHAN MULLINS :1960 Visit [...] also Where: [address] [place] [address]- Medications What How Much When Instructions Next [...] cannot use soap and water, use hand cheese specialist. ? Change your bandage as told by [...] (urine) clear or pale yellow. ??? Take cmzl-esk-flwwgjq and prescription medicines only as told by [...] 08/28/2009 Document Revised: 05/26/2017 Document Reviewed: 05/26/2017 [employer] Interactive Patient Education ?? 2019 [employer] Endovascular Therapy for Peripheral Arterial Disease, [...] and water are not available, use hand cheese specialist. ? Change your dressing as told by [...] or a bad smell. Medicines ??? Take fejt-bpi-yfwwlqx and prescription medicines only as told by [...] 09/23/2017 Document Revised: 09/23/2017 Document Reviewed: 09/23/2017 [employer] Interactive Patient Education ?? 2019 [employer] Groin Site Care Refer to this [...] Reviewed: 07/04/2011 ExitCare?? Patient Information ??2013 ExitCare, [employer]. Moderate Conscious Sedation, Adult, Care After These [...] you are awake and alert. ??? Take taem-bcb-qrnhlzt and prescription medicines only as told by [...] 03/22/2014 Document Revised: 11/03/2016 Document Reviewed: 09/20/2016 [employer] Interactive Patient Education ?? 2019 [employer] Emergency Awareness and Preventative Care STROKE [...] Assistance with quitting is available by contacting 7-067-VPEPNOW. This is a free resource providing counseling, [...] was given the opportunity to ask questions. Patient/Wood Boatbuilder Name: Patient/Wood Boatbuilder Signature: Relationship to Patient: Clinician/Hospital Wood Boatbuilder Signature: Date: documented in this encounter Plan of Treatment Not on file documented as of this encounter Visit Diagnoses Not on filedocumented in this encounter
--- OUTSIDE RECORDS SUMMARY | 2025-01-05 15:21 | XMS_ITS | Clinical Summary ---
Author Organization [facility] Address [address] [place] [address] Care Team Providers Care Willower Name Role Phone Deondre Lui MD Primary Care Provider [phone] Social History Tobacco Use Types Packs/Day Years [...] Payer (Ef fective 2015-Present) Name:Liz Mullins Member ID:[id number] Relation to Subscriber:Self Name:Liz Mullins Subscriber ID:[id number] Payer ID:[id number] Group ID:Not on file Type:Not on file Address: [facility] [id number] Care Teams Willower Relationship Specialty Start Date End Date Deondre Lui MD [address] [facility] [address] [place] [address] PCP - General Internal Medicine 02/18/23
--- OUTSIDE RECORDS SUMMARY | 2025-01-05 15:21 | XMS_ITS | Encounter Summary ---
Author Organization Healthcare Address [address] [place] [address] Care Team Providers Care Educational Technology Specialist Name Role Phone Deondre Lui MD Primary Care Provider [phone] Christal Murray LPN Unavailable Unavailable Reason for Visit * Reason Comments TCM Call Encounter Details Date Type Department Care Team (Late st Contact Info) Description 12/20/2024 Patient Outreach [facility] [address], [address] [place] [id number] Christal Murray LPN VALUE-BASED [place] [address] TCM Call Social History Tobacco Use Types [...] and Family Not on file 11/25/2024 Attends [employer] Not on file 11/25 Active Member [...] any time in the past 12 m [facility], were you homeless or living in a prison (including now)? No 11/25/2024 Utilities Answer Date [...] Visit [facility] Specialties [address], [address] [place] [address] Elle Landaverde, REBEKAH, [facility] [address] [facility] [address] [place] [address] 03/29/2025 10:30 AM EDT Clinical Support [facility] Laboratory Services [address] [facility] [place] [address] 04/05/2025 1:00 PM EDT Office Visit [facility] Nephrology, Bone & Mineral Metabolism [address], [address] [place] [address] Jude Arora PA [address] [place] [address] 08/09/2025 10:00 AM EST Appointment [facility] [address] [place] [address] 08/09/2025 11:45 AM EST Office Visit [place] [facility] [address] [place] [address] Cristofer Yu MD [address] [place] [address] 10/11/2025 9:15 AM EDT Office Visit [facility] [place] [address] [place] [address] James Tomas MD [address] [place] [address] documented as of this encounter [...] documented as of this encounter Care Teams Educational Technology Specialist Relationship Specialty Start Date End Date Deondre Lui MD [address] [facility] [address] [place] [address] PCP - General 10/26/20 Christal Murray LPN VALUE-BASED [place] [address] TCM Nurse 11/25/24 12/25/24 documented as of this encounter
--- OUTSIDE RECORDS SUMMARY | 2025-01-05 15:21 | XMS_ITS | Encounter Summary ---
Author Organization [employer] ([place], [place], [place], [place]) Address [address] [place] [address] Care Team Providers Care Library Attendant Name Role Phone Unavailable Primary Care Provider Unavailabl e Encounter Details Date Type Department Care Team (Late st Contact Info) Description 05/31/2019 Transcribed Document [facility] Family Medicine [facility] [place] [address] ProviderNelson MD [address] [place], [place] [phone] Social History Tobacco Use Types Packs/Day Years Used Date Smoking Tobacco: Never Assessed Comments Unknown Sex and Gender Information Value Date Recorded Sex Assigned at Not on file Legal Sex Female 1:09 PM CDT Gender Identity Not on file Sexual Orientation Not on file documented as of this encounter Miscellaneous Notes * Cerner Conversion Note - Nelson Escoto MD - 05/31/2019 3:43 PM CONGRESSIONAL REPRESENTATIVE Patient Education Materials Follows: Angiogram, Care After [...] cannot use soap and water, use hand assistant merchandiser. ? Change your bandage as told by [...] (urine) clear or pale yellow. ??? Take rmol-gbe-ndxptst and prescription medicines only as told by [...] 08/28/2009 Document Revised: 05/26/2017 Document Reviewed: 05/26/2017 [employer] Interactive Patient Education ? 2019 [employer]. Endovascular Therapy for Peripheral Arterial Disease, [...] and water are not available, use hand assistant merchandiser. ? Change your dressing as told by [...] or a bad smell. Medicines ??? Take bjiu-imk-pjcceqx and prescription medicines only as told by [...] 09/23/2017 Document Revised: 09/23/2017 Document Reviewed: 09/23/2017 [employer] Interactive Patient Education ? 2019 [employer]. Groin Site Care Refer to this [...] Document Reviewed: 07/04/2011 ExitCare? Patient Information ?2013 [employer]. Moderate Conscious Sedation, Adult, Care After [...] you are awake and alert. ??? Take ywzz-rty-yjsmrqt and prescription medicines only as told by [...] 03/22/2014 Document Revised: 11/03/2016 Document Reviewed: 09/20/2016 [employer] Interactive Patient Education ? 2019 [employer] documented in this encounter Plan of Treatment Not on file documented as of this encounter Visit Diagnoses Not on filedocumented in this encounter
--- OUTSIDE RECORDS SUMMARY | 2025-01-05 15:21 | XMS_ITS ---
Author Organization [facility] Address [address] [place] [address] Care Team Providers Care Qm Nurse Name Role Phone Deondre Lui MD Primary Care Provider [phone] Transitional Care Management Status:Closed (Closed) Start date:11/25/2024 Enrollment date:11/25/2024 Enrollment reason:Identified using hospital discharge data End date:12/25/2024 Close reason:Patient graduated Overview This episode type is for outpatient care managers enrolling patients in the [facility] Transitional Care Management program. Continued Care and Services Coordination
--- OUTSIDE RECORDS SUMMARY | 2025-01-05 15:21 | XMS_ITS | Encounter Summary ---
Author Organization [employer] ([place], [place], [place], [place]) Address [address] [place] [address] Care Team Providers Care Digital Content Marketing Manager Name Role Phone Unavailable Primary Care Provider Unavailabl e Encounter Details Date Type Department Care Team (Late st Contact Info) Description 05/31/2019 Transcribed Document [facility] Family Medicine [address] [place] [address] ProviderNelson MD [address] [place], [place] [id number] Social History Tobacco Use Types Packs/Day Years Used Date Smoking Tobacco: Never Assessed Comments Unknown Sex and Gender Information Value Date Recorded Sex Assigned at Not on file Legal Sex Female 1:09 PM CDT Gender Identity Not on file Sexual Orientation Not on file documented as of this encounter Miscellaneous Notes * Cerner Conversion Note - Historical ProviderMD - 05/31/2019 5:06 PM SEPTIC TANK SERVICE TECHNICIAN Nursing Discharge Summary Entered On: 05/31/2019 17:07 EST Performed On: 05/31/2019 17:06 EST by Bonny Ayala web producer Documentation Discharge Date/Time : 05/31/2019 16:48 EST Patient Disposition, General : Discharge Discharge To : Home with ambulatory/outpatient follow-up Mode Of Departure, General Discharge : Private vehicle Accompanied By, Discharge : Son IV Discontinued : Yes Personal Belongings With Patient : Yes Bonny Ayala RN - 05/31/2019 17:06 EST Electronically signed by [facility] Conversion Facility Maintenance Mechanic Cerner at 09/30/2022 3:17 PM CDT documented in this encounter Plan of Treatment Not on file documented as of this encounter Visit Diagnoses Not on filedocumented in this encounter
== END 2025-01-04 23:59 | disposition home or self-care (01) ==
LOC: LAB.DROPOF 01-05 15:15
PROVIDERS: PCP Internal Medicine; Visit Provider Internal Medicine
DX: E11.59 Type 2 diabetes mellitus with other circulatory complications (principal); Z86.73 Personal history of transient ischemic attack (TIA), and cerebral infarction without residual deficits; N18.30 Chronic kidney disease, stage 3 unspecified; I25.10 Atherosclerotic heart disease of native coronary artery without angina pectoris; E78.5 Hyperlipidemia, unspecified; I12.9 Hypertensive chronic kidney disease with stage 1 through stage 4 chronic kidney disease, or unspecified chronic kidney disease
CPT/HCPCS: 80053; 80061; 82150; 83036; 85025

== ENCOUNTER 2025-01-05 08:47 | Outpatient (CLI) | payer MEDICARE, BC, SELFPAY ==
--- OUTSIDE RECORDS SUMMARY | 2024-11-21 07:50 | XMS_ITS | Encounter Summary ---
Author Organization Healthcare Address [address] [id number] Care Team Providers Care Master Police Detective Name Role Phone Deondre Lui MD Primary Care Provider [phone] Reason for Referral * Consultation (Routine) - Authorized Specialty Diagnoses / Procedures Referred By Contac t Referred To Contact Gastroenterology Diagnoses Lower abdominal pain Lower GI bleed Rae Adames MD [address] [place] [phone] Phone: tel: fax: Referral ID Status Reason Start Date Expiration Date Visits Requested Visits Authorized [id number] Authorized Specialty Services Required 11/24/2024 05/26/2026 1 1 * Consultation (Routine) - Closed Specialty Diagnoses / Procedures Referred By Contact Referred To Contact Vascular Surgery / [facility] Diagnoses Claudication of both lower extremities PAD (peripheral artery disease) (CMS/HCC) Rae Adames MD [address] [place] [address] Phone: tel: fax:[phone] [facility] [address] [facility] 5th Floor [address] [place] [address] Phone: tel: fax: Referral ID Status Reason Start Date Expiration Date V isits Requested Visits Authorized [id number] Closed Specialty Services Required 11/24/2024 05/26/2026 1 1 * Consultation (Routine) - Authorized Specialty Diagnoses / Procedures Referred By Alvaro myles Referred To Contact Family Medicine Diagnoses Primary obstructive sleep apnea of Lower GI bleed Tobacco use disorder Rae Adames MD [address] [place] [address] Phone: tel: fax: Referral ID Status Reason Start Date Expiration Date V isits Requested Visits Authorized [id number] Authorized 11/24/2024 05/26/2026 1 1 Reason for Visit * Reason Comments GI Problem * Auth/Cert (Routine) Specialty Diagnoses / Procedures Referred By Alvaro myles Referred To Contact Diagnoses Lower GI bleed sepsis, acute mesenteric ischemia Rae Adames MD [address] [place] [address] Phone: tel: fax: [facility] Emergency Department [address] [place] [phone] Phone: tel: Referral ID Status Reason Start Date Expiration Date Visits Re quested Visits Authorized [id number] 1 1 Encounter Details Date Type Department Care Team (Latest Contact Info) Description 11/21/2024 7:50 AM EDT - 11/24/2024 1:31 PM EDT Hospital Encounter [facility] Inpatient [address] [place] [id number] Derek Deshpande MD [address] [place] [address] Rae Adames MD [address] [place] [phone] Lower abdominal pain (Primary Dx); Primary obstructive sleep apnea of ; Lower GI bleed; Tobacco use disorder; Claudication of both lower extremities; PAD (peripheral artery disease) (CMS/HCC); Acute mesenteric ischemia ([facility]); Chronic kidney disease, unspecified CKD stage Discharge Disposition: Home or Self Care Social History Tobacco Use Types Packs/Day Years Used Date Smoking Tobacco: Former Cigarettes 1 40 0 08/14/1983 - 08/2023 Passive Smoke Exposure: Past Smokeless Tobacco: Never Alcohol Use Standard Drinks/Week Comments Not Currently 0 (1 standard drink = 0.6 oz pur e alcohol) PHQ-2 Answer Date Recorded Patient Health Questionnaire-2 Score 0 10/12/2024 PHQ-9 Answer Date Recorded Patient Health Questionnaire-9 Score 0 10/12/2024 Humiliation, Afraid, Rape, and Kick questionnair e Answer Date Recorded Within the last year, have y ou been afraid of your partner or ex-partner? No 11/25/2024 Within the last year, have y ou been humiliated or emotionally abused in other ways by your partner or ex-partner? No Within the last year, have y ou been kicked, hit, slapped, or otherwise physically hurt by your partner or ex-partner? No 11/25/2024 Within the last year, have y ou been raped or forced to have any kind of sexual activity by your partner or ex-partner? No 11/25/2024 Social Connection and Isolation Panel Answer Date Recorded Frequency of Communication with Friends and Fami ly Not on file 11/25/2024 Frequency of Social Gatherings with Friends and Family Not on file 11/25/2024 Attends Hindu Services Not on file 11/25 Active Member of Clubs or Organizations Not on f ile 11/25/2024 Attends Club or Organization Meetings Not on komal e 11/25/2024 Are you , , di vorced, , never , or living with a partner? 11/25/2024 Hunger Vital Sign Answer Date Recorded Within the past 12 months, y ou worried that your food would run out before you got the money to buy more. Never true 11/26/19 25 Within the past 12 months, t he food you bought just didn't last and you didn't have money to get more. Never true 11/25/2024 PRAPARE - Transportation Answer Date Re corded In the past 12 months, has l ack of transportation kept you from medical appointments or from getting medications? No 11/13 In the past 12 months, has l ack of transportation kept you from meetings, work, or from getting things needed for daily living? No 11/25/2024 Housing Stability Vital Sign Answer Coy e Recorded In the last 12 months, was t here a time when you were not able to pay the mortgage or rent on time? No 11/25/2024 In the past 12 months, how m any times have you moved where you were living? 0 11/25/2024 At any time in the past 12 m [facility], were you homeless or living in a [facility] (including now)? No 11/25/2024 Utilities Answer Date Recorded In the past 12 months has th e [employer], gas, oil, or water company threatened to shut off services in your home? No 11/23/2024 PHQ-2A Answer Date Recorded Patient Health Questionnaire-2 Score 0 11/17/2022 Comments No Sex and Gender Information Value Date Recorded Sex Assigned at Not on file Legal Sex Female 6:34 PM EDT Gender Identity Not on file Sexual Orientation Not on file documented as of this encounter Last Filed Vital Signs Vital Sign Reading Time Taken Comments Blood Pressure 128/59 11/24/2024 11:51 AM EDT Pulse 51 11/24/2024 11:51 AM EDT Temperature 36.9 C (98.4 F) 11/24/2024 11:51 AM EDT Respiratory Rate 16 11/24/2024 7:28 AM EDT Oxygen Saturation 93% 11/24/2024 11:51 AM EDT Inhaled Oxygen Concentration - - Weight 101 kg (222 lb 7.1 oz) 11/21/2024 8:00 AM EDT Height 165.1 cm (5' 5 ) 11/21/2024 8:00 AM EDT Body Mass Index 37.02 11/21/2024 8:00 AM EDT documented in this encounter Functional Status * Calculated C-SSRS Risk Score (Lifetime/Recent) Answer Date of Assessment Author No Risk Indicated 11/24/2024 8:00 AM EDT Gabi Galindo * Question Answer Date of Assessment Author 1. Wish to be (Past 1 Month) No 025 8:00 AM EDT Gabi Galindo P 2. Non-Specific Active Suici belgica Thoughts (Past 1 Month) No 11/24/2024 8:00 AM EDT Cassidy Galindo P 6. Suicidal Behavior (Lifetime) No 8:00 AM EDT Gabi Galindo P documented as of this encounter Medications at Time of Discharge aspirin 81 MG EC tablet Take 1 tablet by mouth every morning. atorvastatin (Lipitor) 80 MG tablet Take 1 tablet by mouth every morning. 90 tablet 3 11/24/2024 baclofen (Lioresal) 10 MG tablet Take 1 tablet by mouth nightly. 01/05/2024 bisacodyl (Dulcolax) 5 MG EC tablet Take 1 tablet by mouth daily as needed for constipation. Do not crush, chew, or split. gabapentin (Neurontin) 400 MG capsule Take 1 capsule by mouth 3 times a day. 01/05/2024 lisinopril-hydroCHLO ROthiazide 20-12.5 MG tablet Take 1 tablet by mouth every morning. 90 tablet 3 11/24/2024 multivitamin (Theragran-M) tablet Take 1 tablet by mouth every morning. ondansetron ODT (Zofran-ODT) 4 MG disintegrating tablet Dissolve 1 tablet on the tongue every 8 hours as needed for nausea or vomiting. documented as of this encounter Miscellaneous Notes * Discharge Summary - Henrique Mercedes MD - 11/24/2024 12:49 PM EDT Hospitalization Admit Date/Time: 11/21/2024 7:50 AM Admitting Attending: Rae Adames Discharge Date: 11/24/2024 Discharge Attending Physician: Rae Adames MD PCP name and Address: Deondre Lui MD [address] / [place] [address] Referring provider name and address: Alexy Christie MD [address] [place] [address] [place] [address] Chief Concern, Brief History of Present Illness, and Hospital Course Liz Mullins is a 64 y.o. female with PMHx PVD w/ carotid DRAPERY HEAD FORMER and bilateral iliac stents, NSTEMI s/p CASSIE to mLAD on DAPT, CVA, CKD3b, COPD, HTN, HLD who presented to [facility] for bright red blood per rectum. She remained hemodynamically stable with resolution of bleeding without significant anemia requiring transfusion. Working ddx included ischemic colitis, diverticular bleed or other vascular malformation. Evaluated by vascular surgery and GI without inpatient intervention. Will complete colonoscopy outpatient. #Hematochezia with Associated Abdominal Pain - Presented to OSH with sudden onset abdominal pain followed by diarrhea. She later developed bright red blood per rectum and was transferred to [facility]. - CTA of abdomen shows chronic narrowing of BRIAN, per vascular surgery, without necessity for surgical intervention - Gastroenterology was also consulted, and feel inpatient endoscopy is not warranted, but have plans for outpatient colonoscopy and follow-up. On Discharge - Stop Ozempic; some concern for GLP-1 related abd pain - Follow-up with Gastroenterology and Vascular Surgery outpatient - Return precautions discussed thoroughly with patient including fever, persistent bleeding, inability to tolerate PO #Peripheral Vascular Disease with Hx R-L Femoral Bypass #CAD with Hx CASSIE to mLAD #Hx of CVA and prior R carotid stenting - Presented without acute concern for chest pain, distal limb pain, or neurologic deficits - Prior to admission, patient taking DAPT, she was transitioned to single anti- PLT with ASA on admission in the setting of above bleed - Vascular feels ASA monotherapy to be adequate on d/c, and cardiology note 10/12 states acceptableto change DAPT to single antiplatelet therapy . Further, no clear indication for DAPT from our team's perspective. On Discharge - STOP Prasugrel - Continue ASA 81mg daily - Continue atorvastatin 80mg daily #Obstructive Sleep Apnea, concern for - Regular desaturation (87-90% SpO2) overnight during admission On Discharge - Encouraged Discussion with PCP - Recommend consideration of ambulatory sleep study #Sinus Bradycardia - Noted while patient on telemetry, with HR as low as - EKG showed HR 46, intervals wnl; patient remained HDS and asymptomatic at all times - Bradycardia also noted on prior EKG and 2020 TTE - Keep outpatient cardiology follow-up No medication changes for other chronic conditions unless detailed above. Surgeries and Procedures Medication List .. aspirin 81 MG EC tablet Take 1 tablet by mouth every morning. atorvastatin 80 MG tablet Commonly known as: Lipitor Take 1 tablet by mouth every morning. baclofen 10 MG tablet Commonly known as: Lioresal Take 1 tablet by mouth nightly. bisacodyl 5 MG EC tablet Commonly known as: Dulcolax Take 1 tablet by mouth daily as needed for constipation. Do not crush, chew, or split. gabapentin 400 MG capsule Commonly known as: Neurontin Take 1 capsule by mouth 3 times a day. lisinopril-hydroCHLOROthiazide 20-12.5 MG tablet Take 1 tablet by mouth every morning. multivitamin tablet Take 1 tablet by mouth every morning. ondansetron ODT 4 MG disintegrating tablet Commonly known as: Zofran-ODT Dissolve 1 tablet on the tongue every 8 hours as needed for nausea or vomiting. Where to Get Your Medications These medications were sent to [facility] - [place], [place] - [address] [facility] [address] [facility] [address] atorvastatin 80 MG tablet lisinopril-hydroCHLOROthiazide 20-12.5 MG tablet Discharge Diagnosis Medical Problems Active and Resolved Hospital Problems Hospital * (Principal) RESOLVED: Lower GI bleed Post Discharge Instructions - Stop Ozempic; some concern for GLP-1 related abd pain - Stop daily Prasugrel; no clear indication - Continue ASA 81mg daily - Follow-up with Gastroenterology and Vascular Surgery outpatient - Return precautions discussed thoroughly with patient including fever, persistent bleeding, inability to tolerate PO Outpatient Follow-Up Future Appointments Date Time Provider Department Center 03/29/2025 10:30 AM [facility] PRODUCTION CONTROL SPECIALIST [facility] 04/05/2025 1:00 PM Jude Arora PA [facility] 08/09/2025 10:00 AM VASCULAR 1 [facility] 08/09/2025 11:45 AM Cristofer Yu MD [facility] 10/11/2025 9:15 AM James Tomas MD [facility] Test Results Pending At Discharge Pertinent Physical Exam At Time of Discharge Physical Exam Constitutional: General: She is not in acute distress. Cardiovascular: Rate and Rhythm: Normal rate and regular rhythm. Pulmonary: Effort: Pulmonary effort is normal. Abdominal: Palpations: Abdomen is soft. Tenderness: There is no abdominal tenderness. Skin: General: Skin is warm and dry. Neurological: General: No focal deficit present. Mental Status: She is oriented to person, place, and time. Mental status is at baseline. Psychiatric: Mood and Affect: Mood normal. Thought Content: Thought content normal. Discharge Disposition/Condition Disposition: Home Condition: Stable (s/sx potential problems absent or manageable) I spent >30 minutes of patient care and instruction time in preparation for this discharge. Henrique Mercedes MD Internal Medicine PGY-1 [facility] Cosigned by Rae Adames MD at 11/24/2024 5:43 PM EDT Associated attestation - Rae Adames MD - 11/24/2024 5:43 PM EDT I saw and evaluated the patient with the resident/fellow. I discussed the case with the resident/fellow and agree with the findings and plan as documented. and I spent >30 minutes of patient care and instruction time in preparation for this discharge. * Care Plan - Gabi Galindo - 11/24/2024 12:05 PM EDT Problem: Adult Inpatient Plan of Care Goal: Plan of Care Review Outcome: Ongoing, Progressing Goal: Patient-Specific Goal (Individualized) Outcome: Ongoing, Progressing Goal: Absence of Hospital-Acquired Illness or Injury Outcome: Ongoing, Progressing Goal: Optimal Comfort and Wellbeing Outcome: Ongoing, Progressing Goal: Readiness for Transition of Care Outcome: Ongoing, Progressing * Progress Notes - Omar Luther MD - 11/23/2024 6:00 PM EDT Gastroenterology, Hepatology and Nutrition Progress Note CC: Follow-up for abdominal pain, hematochezia Interval history: Patient reporting persistent crampy abdominal pain while inpatient. Several food items and snacks at bedside. She reports her bowel movements are now yellowish in color, she denies hematochezia on our interview. She notes GLP initiation was for ?inflammation? And her last dose was this past Thursday. She doesnot have more of this medication at home. She is with questions regarding timing of discharge. ROS: GEN: No fevers or chills GI: +abdominal pain PHYSICAL EXAM: Vitals: 11/24/24 0728 BP: 122/58 Pulse: (!) 46 Resp: Temp: 36.7 ??C (98.1 ??F) SpO2: 94% GEN: NAD, conversant EYE: anicteric sclera; EOMI HENT: atraumatic; hearing intact RESP: non-labored respirations, equal chest rise CV: warm and well perfused GI: non-tender, non-distended, no rebound/guarding, no scars or bruising SKIN: warm to touch; no lesion noted MSK: no gross deformities PSYCH: euthymic mood, appropriate affect Current Medications[1] Labs in last 18 hours CBC WBC 9.98 Hb 11.3 Plt 186 Hct 34.5 ANC ?? INR ??, PTT ??, Anti-Xa ?? BMP Na ?? Cl ?? BUN ?? Glu ?? K ?? Co2 ?? Cr ?? Ca ?? iCa ?? Mg ??, Phos ?? Lactate ?? LFT AST ?? AlkPhos ?? T Prot ?? ALK ?? Bili ?? Alb ?? D.Bili ?? @IMAGES@ @ENDOFNDNAR@ ASSESSMENT AND PLAN: Liz Mullins is a 64 y.o. female with a PMH of PVD w/ carotid DRAPERY HEAD FORMER and bilateral iliac stents, NSTEMI s/p CASSIE to mLAD on DAPT, CVA, CKD3b, COPD, HTN, HLD who presented to [facility] from OSH for bright red blood per rectum. #Hematochezia DDx: ischemic colitis vs diverticular bleed vs AVM -On arrival with loose bloody Bms that gave now resolved. She has diffuse abodminal tenderness to palpation although this is improved from prior, exacerbated by PO intake. She is HDS. Hgb stable in 11's. She has completed 3 days of IV CTX. RECOMMENDATIONS: -Will HOLD on inpatient plans for endoscopic intervention at this time, patient reporting her Bms are returning to normal/yellow and her Hgb remains stable. She should have an outpatient colonoscopy arranged. -Discussed discontinuation of medication Ozempic as this has been associated with the development of colonic ischemia (decreased food and water intake lead to transient hypotension, particularly in patients with known risk factors with CAD, PAD, etc.) - OP follow up with vascular surgery - Maintain 2 large-bore IVs - Monitor for signs of bleeding and trend H and H - transfuse to hgb goal > 7,Transfuse plt goal > 50 K - If signs of rapid bleed/ vital instability/ large drop in Hgb please contact the GI fellow tactical air defense controller to reassess for rapid bowel preparation and colonoscopy. Would consider repeat abdominal imaging at this time as welll Staffed w/ attending:Dr. Suarez Thank you for allowing us to participate in this patient's care. We will no longer follow but please do not hesitate to call or page with questions or concerns. Omar Luther MD Clinical fellow, PGY-4 Gastroenterology, Hepatology and Nutrition [1] Current Facility-Administered Medications: acetaminophen (Tylenol) tablet 650 mg, 650 mg, Oral, q6h JEANCARLOS, Henrique Mercedes MD, 650 mg at 11/24/24 0346 aspirin chewable tablet 81 mg, 81 mg, Oral, Daily, Henrique Mercedes MD, 81 mg at 11/23/24923 atorvastatin (Lipitor) tablet 80 mg, 80 mg, Oral, Daily, Henrique Mercedes MD, 80 mg at 11/23/24923 baclofen (Lioresal) tablet 10 mg, 10 mg, Oral, Daily PRN, Henrique Mercedes MD, 10 mg at 11/23/24923 gabapentin (Neurontin) capsule 300 mg, 300 mg, Oral, BID, Henrique Mercedes MD, 300 mg at 11/23/242028 hydroCHLOROthiazide (HYDRODiuril) tablet 12.5 mg, 12.5 mg, Oral, Daily, Henrique Mercedes MD, 12.5 mg at 11/23/24923 lisinopril tablet 20 mg, 20 mg, Oral, Daily, Henrique Mercedes MD, 20 mg at 11/23/24923 oxyCODONE (Roxicodone) immediate release tablet 5 mg, 5 mg, Oral, q12h PRN, Henrique Mercedes MD, 5 mg at 11/23/24 1617 Insert peripheral IV, , , Once AND Saline lock IV, , , Once AND sodium chloride 0.9 % flush10 mL, 10 mL, Intravenous, q12h, 10 mL at 11/24/24 0347 AND sodium chloride 0.9 % flush 10 mL, 10 mL, Intravenous, PRN, Henrique Mercedes MD Cosigned by Harris Suarez MD at 11/24/2024 7:50 AM EDT Associated attestation - Harris Suarez MD - 11/24/2024 7:50 AM EDT I saw and evaluated the patient with the resident/fellow. I discussed the case with the resident/fellow and agree with the findings and plan as documented. * Progress Notes - Rosa Maria Cosme - 11/23/2024 11:27 AM EDT Case Management Adult Initial Progress Note Liz Mullins 64 y.o. female CSN: [id number] Admission: 11/21/2024 7:50 AM Primary Problem: Lower GI bleed Senior Marketing Engineer reviewed chart and spoke with patient to complete this Initial Case Management Assessment. PCP: Deondre Lui MD Emergency Contact: Extended Emergency Contact Information Primary Emergency Contact: Lorie Lyle Mobile Relation: Daughter Preferred language: Kazakh Twine Reeling Machine Operator needed? No Secondary Emergency Contact: zayda parker Address: [address] [place] [address] Mobile Relation: Sister Twine Reeling Machine Operator needed? No Insurance: Primary Visit Coverage Payer Plan Sponsor Code Group Number Group Name MEDICARE MEDICARE A & B Primary Visit Coverage Subscriber Subscriber ID Subscriber Name Subscriber SSN Subscriber Address [id number] LIZ MULLINS [id number] [place], [place] [address] [address] Secondary Visit Coverage Payer Plan Sponsor Code Group Number Group Name [employer] BCBS [id number] STANDARD SECONDARY Secondary Visit Coverage Subscriber Subscriber ID Subscriber Name Subscriber N Subscriber Address [id number] LIZ MULLINS [id number] [address] [place] [address] Patient information: Primary Caregiver: Self Accompanied by/Relationship: Pt's daughter Lorie and sister Zayda Support System: Immediate family Daily Living Activities: Functional Status: Independent Living Arrangements: Children (Pt's disabled son lives with her.) Type of Residence: Private residence [facility] [address] [id number] Current DME: Equipment Currently Used at Home: none Current DME Provider: N/A Income Information: Income Source: Disabled Income/Expense Information: Income meets expenses Current Resources Utilized: None Housing Circumstances-Z Codes: Housing Circumstances (select all that apply): Low Income (101-300% Federal Poverty Guidlines) - Z596 Patient Referred to: Financial Resources: (N/A) Anticipated Discharge Date: Unknown Patient's Discharge Goal: Pt states to return to her home at discharge Assistance Available at Discharge: Pt's daughter Lorie and sister Zayda Discharge Transport: Pt's daughter or sister Follow Up Transport: Self/family Home Health / Home Infusion / Outpatient Dialysis Services: Current DME Provider: N/A Living Will/Advance Directive/Power of Field Technical Support Consultant /Guardian: Pt states she does not have a living will, advance directive, power of assistant city attorney or guardian at this time. Additional Comments: Pt confirms that her PCP is Deondre Lui Md, and her pharmacy of choice is [facility] in [place]. Rosa Maria Cosme * Progress Notes - Henrique Mercedes MD - 11/23/2024 11:21 AM EDT Images from the original note were not included. Hospital Medicine Progress Note Summary of Admission Liz Mullins is a 64-year-old female who presented with hematochezia following sudden onset of abdominal pain. She has Hx of peripheral vascular disease, CVA, and NSTEMI for which she takes DAPT. Mechanism of pain/bleed believed to be mesenteric ischemia at this time, though planning to rule-out other structural or infectious causes. Subjective Subjective Ms. Mullins briefly had relief yesterday evening with improvement of pain and ~12hr window of no bleeding. However, she reports severe cramping abdominal pain 10-15 minutes following large meals. She is agreeable to trial smaller portions in the meantime pending further workup. Objective Objective Last Recorded Vitals Blood pressure 133/67, pulse 52, temperature 36.8 ??C (98.3 ??F), temperature source Oral, resp. rate 15, height 1.651 m (5' 5 ), weight 101 kg (222 lb 7.1 oz), SpO2 94%. Physical Exam Constitutional: General: She is not in acute distress. Eyes: General: No scleral icterus. Cardiovascular: Rate and Rhythm: Normal rate and regular rhythm. Pulmonary: Effort: Pulmonary effort is normal. Abdominal: General: There is no distension. Palpations: Abdomen is soft. There is no mass. Tenderness: There is abdominal tenderness (diffuse, worst LLQ) There is no guarding. Skin: General: Skin is warm and dry. Coloration: Skin is not pale. Neurological: General: No focal deficit present. Mental Status: She is alert and oriented to person, place, and time. Psychiatric: Mood and Affect: Mood normal. Thought Content: Thought content normal. Data Labs personally reviewed: - HGB/Hct stable - sCr remains near baseline, though increasing - No BUN elevation Imaging Assessment/Plan Assessment & Plan Principal Problem: Lower GI bleed Liz Mullins is a 64 y.o. female with PMHx PVD, NSTEMI, and CVA on DAPT, admitted for suddenonset abdominal pain and hematochezia concerning for mesenteric ischemia. This condition poses an acute threat to life/bodily function. #Hematochezia - Presenting with BRBPR and lower abdominal pain - Ddx inflammatory, infectious, ischemic, internal hemorrhoid, diverticular bleed - Mesenteric ischemia as etiology seems increasingly likely given cramping abdominal pain in LLQ 15-20 minutes following meals consistent with mesenteric angina. PLAN - Regular diet as tolerated Recommend small meals - GI following Planning to re-evaluate Consideration of scope to r/o other causes of bleed - CBC daily - ASA monotherapy #Peripheral Vascular Disease with Hx R-L Femoral Bypass - Hx Fem-Fem bypass 03/2022 - No claudication symptoms - Vascular consulted in ED, no acute intervention PLAN - ASA monotherapy - Continue home statin #CAD with Hx CASSIE to mLAD - NSTEMI 08/18/2023 - Briefly triple therapy, switched to DAPT 10/14/2023 - No chest pain at this time PLAN - ASA monotherapy - Continue home statin #Obstructive Sleep Apnea, concern for - Has never had formal sleep study - Desaturation 88-90% overnight while sleeping PLAN - Consider opt sleep study per PCP #Sinus Bradycardia, asymptomatic - Seen on prior ECG, HR also 50s during prior TTE in 2019 - ECG w/o heart blood, intervals wnl - Continue tele for now Chronic Medical Conditions: CKD3b- sCr at baseline Chronic Pain- Home gabapentin, baclofen PRN HTN- Home lisinopril, hydrochlorothiazide Dyslipidemia- Continue home statin Obesity (BMI 37.02) Care today included: HIGHRISK: Discussion of management/test with another provider: VSCARLTON Chung MD Internal Medicine PGY-1 [facility] Cosigned by Rae Adames MD at 11/23/2024 4:37 PM EDT Associated attestation - Rae Adames MD - 11/23/2024 4:37 PM EDT I saw and evaluated the patient with the resident/fellow. I discussed the case with the resident/fellow and agree with the findings and plan as documented. Continues to experience crampy abdominal pain (now worse iso advanced diet) followed by urge to defecate 15-20 minutes after. Continues to have hematochezia. Have asked GI to re-evaluate for consideration for colonoscopy for endoscopic evaluation. DDX remains ischemic colitis vs diverticular bleed vs AVM?? * Progress Notes - Henrique Mercedes MD - 11/22/2024 2:34 PM EDT [facility] Medicine Progress Note Summary of Admission Liz Mullins is a 64-year-old female who presented with hematochezia following sudden onset of abdominal pain. She has Hx of peripheral vascular disease, CVA, and NSTEMI for which she takes DAPT. Bleedis currently thought to be self- limited episode of mesenteric ischemia vs bleeding diverticula. Advancing diet as tolerated. Subjective Subjective Ms. Lara abdominal pain is similar to yesterday, and she describes it as similar to labor pains. She has had stable amount of BRBPR. She is able to ambulate, converse, and wants to eat. Daughter mi speaker over the phone today for update. Objective Objective Last Recorded Vitals Blood pressure 109/61, pulse 62, temperature 36.8 ??C (98.2 ??F), resp. rate 15, height 1.651 m (5'5 ), weight 101 kg (222 lb 7.1 oz), SpO2 94%. Physical Exam Constitutional: General: She is not in acute distress. Eyes: General: No scleral icterus. Cardiovascular: Rate and Rhythm: Normal rate and regular rhythm. Pulmonary: Effort: Pulmonary effort is normal. Abdominal: General: There is no distension. Palpations: Abdomen is soft. There is no mass. Tenderness: There is abdominal tenderness (diffuse) There is no guarding. Skin: General: Skin is warm and dry. Coloration: Skin is not pale. Neurological: General: No focal deficit present. Mental Status: She is alert and oriented to person, place, and time. Psychiatric: Mood and Affect: Mood normal. Thought Content: Thought content normal. Data Labs personally reviewed: - HGB/Hct stable (11.2/34.0) - sCr remains near baseline - No BUN elevation Imaging ECG personally reviewed, showing: - Sinus bradycardia, No ST-T wave changes Assessment/Plan Assessment & Plan Principal Problem: Lower GI bleed Liz Mullins is a 64 y.o. female admitted for sudden onset abdominal pain and hematochezia in the setting of PMHx PVD, NSTEMI, CVA on DAPT. This condition poses an acute threat to life/bodily function. #Lower GI Bleed - Presenting with BRBPR and lower abdominal pain - Ddx inflammatory, infectious, ischemic, internal hemorrhoid, diverticular bleed - Some concern for AMI given history, though CTA without any clear acute changes PLAN - Clear liquid diet, advance as tolerated - GI following No plans for endoscopy at this time given c/f ischemic colitis Will monitor for worsening of bleed - H/H q12 - ASA monotherapy, hold prasurgrel #Peripheral Vascular Disease with Hx R-L Femoral Bypass - Hx Fem-Fem bypass 03/2022 - No claudication symptoms - Vascular consulted in ED, no acute intervention PLAN - ASA monotherapy iso acute lower gi bleed - Continue home statin #CAD with Hx CASSIE to mLAD - NSTEMI 08/18/2023 - Briefly triple therapy, switched to DAPT 10/14/2023 - No chest pain at this time PLAN - ASA monotherapy - Continue home statin #Sinus Bradycardia - Seen on prior ECG, HR also 50s during prior TTE in 2019 - Asymptomatic at this time, though does not exert - If develops symptoms vs hemodynamic instability, can reach out to cards for PPM consideration - ECG w/o heart blood, intervals wnl - Continue tele for now #Obstructive Sleep Apnea, concern for - Has never had formal sleep study - Desaturation 88-90% overnight while sleeping PLAN - Consider opt sleep study per PCP Chronic Medical Conditions: CKD3b- sCr at baseline Chronic Pain- Home gabapentin, baclofen PRN HTN- Resume home anti-hypertensives as appropriate Dyslipidemia- Continue home statin Obesity (BMI 37.02) Care today included: HIGHRISK: Discussion of management/test with another provider: VSG Henrique Mercedes MD Internal Medicine PGY-1 [facility] Cosigned by Rae Adames MD at 11/23/2024 4:35 PM EDT Associated attestation - Rae Adames MD - 11/23/2024 4:35 PM EDT I saw and evaluated the patient with the resident/fellow. I discussed the case with the resident/fellow and agree with the findings and plan as documented. * Consults - Omar Luther MD - 11/21/2024 5:57 PM EDTAssociated Order(s): Inpatient consult to Gastroenterology Inpatient consult to Gastroenterology Consult performed by: Omar Luther MD Consult ordered by: Rae Adames MD Gastroenterology Consult Note Reason for Consult: #Hematochezia HPI Liz Mullins is a 64 y.o. female with a PMH of PVD w/ carotid DRAPERY HEAD FORMER and bilateral iliac stents, NSTEMI s/p CASSIE to mLAD on DAPT, CVA, CKD3b, COPD, HTN, HLD who presented to [facility] from OSH for bright red blood per rectum. Patient reporting approximately 5 days of constipation and lower abdominal discomfort. She had acute worsening of abdominal pain last night with development of loose stools which were initially brownbut later turned bloody. Presented to [facility] for evaluation where imaging demonstrated concern for BRIAN occlusion. Vascular surgery following without plans for intervention. Since arrival to [facility] she continues with loose bloody bowel movements. She has diffuse abodminal tenderness to palpation although this is improved from evening prior. She is HDS. Hgb stable in 11's. ROS All systems reviewed and negative unless otherwise noted in HPI. Past Medical History[1] Surgical History[2] Family History[3] Social History[4] Objective Vitals: 11/21/24 1100 11/21/24 1217 11/21/24 1400 11/21/24 1601 BP: (!) 137/99 (!) 157/68 (!) 148/64 BP Location: Left arm Patient Position: Lying Pulse: 68 55 62 67 Resp: Temp: 36.8 ??C (98.2 ??F) 37 ??C (98.6 ??F) TempSrc: Oral Oral SpO2: 97% 97% 95% 93% Weight: Height: BMI: Body mass index is 37.02 kg/m??. Physical Exam: General Awake, NAD Eyes EOMI, sclera anicteric Head NC/AT ENT OP moist. Hearing grossly normal. CV Warm and well perfused RES Equal chest rise, normal effort on room air GI Soft. TTP in all quadrants to light palpation GONZALEZ AAOx4. No gross deficits. EXT No cyanosis. No edema Skin No visible skin lesions PSY Appropriate mood and affect I/O: No intake/output data recorded. I/O this shift: In: - Out: 500 [Urine:500] Labs: CBC: Results from last 7 days Lab Units 11/21/24 1527 11/21/24 0832 WBC 10*3/uL 13.41* 15.92* HEMOGLOBIN g/dL 11.1* 11.6 HEMATOCRIT % 33.7* 34.9 PLATELETS 10*3/uL 174 187 CMP: Results from last 7 days Lab Units 11/21/24 0832 SODIUM mmol/L 140 POTASSIUM mmol/L 4.3 CHLORIDE mmol/L 110* CO2 mmol/L 22 BUN mg/dL 17 CREATININE mg/dL 1.79* CALCIUM mg/dL 8.4* BILIRUBIN TOTAL mg/dL 0.4 ALKALINE PHOSPHATASE U/L 94 ALT U/L 19 AST U/L 21 GLUCOSE mg/dL 122* Microbiology/Abx: Results No results found for the last 48 hours. Medications (scheduled): Current Scheduled Medications[5] Medications (continous): Current Continuous Medications[6] Medications (PRN): Current PRN Medications[7] Assessment and Plan Liz Mullins is a 64 y.o. female with a PMH of PVD w/ carotid DRAPERY HEAD FORMER and bilateral iliac stents, NSTEMI s/p CASSIE to mLAD on DAPT, CVA, CKD3b, COPD, HTN, HLD who presented to [facility] from OSH for bright red blood per rectum. #Hematochezia DDx: ischemic colitis vs diverticular bleed vs ischemic colitis vs AVM -Since arrival to [facility] she continues with loose bloody bowel movements. She has diffuse abodminal tenderness to palpation although this is improved from evening prior. She is HDS. Hgb stable in 11's. RECOMMENDATIONS: -Ongoing H/H trend with PRN transfusion. Will HOLD on plans for endoscopic intervention at this time given high suspicion for ischemic colitis. Serial abdominal exams with careful evaluation for complication of ischemia including worsening peritonitis or bowel perforation -Consider IV CTX (or oral equivalent) x 72hrs - Maintain 2 large-bore IVs - Monitor for signs of bleeding and trend H and H - transfuse to hgb goal > 7,Transfuse plt goal > 50 K - If signs of rapid bleed/ vital instability/ large drop in Hgb please contact the GI fellow tactical air defense controller to reassess for rapid bowel preparation and colonoscopy. Would consider repeat abdominal imaging at this time as welll Staffed w/ attending: Dr. Suarez Thank you for allowing us to participate in this patient's care. Please do not hesitate to call or page with questions or concerns. Omar Luther MD PGY-4 Gastroenterology Fellow [facility] Pager: [phone] [1] Past Medical History: Diagnosis Date CHF (congestive heart failure) (CMS/HCC) August 2023 History of shoulder surgery Hypertension 10 years Myocardial infarction ([facility]) Pain in right shoulder Right shoulder pain Personal history of other diseases of the circulatory system History of hypertension Personal history of other diseases of the circulatory system History of peripheral vascular disease Personal history of other endocrine, nutritional and metabolic disease History of high cholesterol PVD (peripheral vascular disease) ([facility]) [2] Past Surgical History: Procedure Laterality Date ARTERIAL STENT PLACEMENT N/A Arterial stent placement from [facility] CAROTID ARTERY ANGIOPLASTY N/A Carotid artery angioplasty and stenting from [facility] CARPAL TUNNEL RELEASE N/A carpal tunnel surgery from [facility] CATARACT EXTRACTION CERVICAL FUSION CERVIX SURGERY N/A cervical surgery from [facility] COLONOSCOPY HYSTERECTOMY N/A Hysterectomy from [facility] SHOULDER ARTHROSCOPY Bilateral TUBAL LIGATION N/A tubal ligation from [facility] [3] Family History Problem Relation Name Age of Onset Conversions - Other Mother Fide Frausto Back problem Hypertension Mother Fide Frausto Other cancer Mother Fide Frausto Cancer Mother Fide Fruasto Diabetes Mother Fide Frausto Conversions - Other Father Kvng alvarengae Back problem Hypertension Father Kvng frausto Heart attack Father Kvng frausto Stroke Son Hypertension Brother Tomi frausto Hypertension Sister Zayda parker Anesthesia problems Neg Hx Malig Hyperthermia Neg Hx [4] Social History Tobacco Use Smoking status: Former Current packs/day: 0.00 Average packs/day: 1 pack/day for 40.0 years (40.0 ttl pk-yrs) Types: Cigarettes Start date: 08/14/1983 Quit date: 08/2023 Years since quittin.2 Passive exposure: Past Smokeless tobacco: Never Vaping Use Vaping status: Never Used Substance Use Topics Alcohol use: Not Currently Drug use: Never [5] aspirin, 81 mg, Oral, Daily atorvastatin, 80 mg, Oral, Daily gabapentin, 300 mg, Oral, BID sodium chloride, 10 mL, Intravenous, q12h [6] [7] PRN medications: baclofen, Insert peripheral IV AND Saline lock IV AND sodium chloride AND sodium chloride Cosigned by Harris Suarez MD at 11/21/2024 7:35 PM EDT Associated attestation - Harris Suarez MD - 11/21/2024 7:35 PM EDT I saw and evaluated the patient with the resident/fellow. I discussed the case with the resident/fellow and agree with the findings and plan as documented. * H&P - Henrique Mercedes MD - 11/21/2024 1:02 PM EDTAssociated Order(s): Consult to [facility] Images from the original note were not included. Hospital Medicine History & Physical Consult to [facility] Consult performed by: Henrique Mercedes MD Consult ordered by: Derek Deshpande MD Subjective 11/21/2024 Chief Complaint: Chief Complaint Patient presents with GI Problem History Of Present Illness Liz Mullins is a 64 y.o. female with PMHx PVD w/ carotid DRAPERY HEAD FORMER and bilateral iliac stents, NSTEMI s/p CASSIE to mLAD on DAPT, CVA, CKD3b, COPD, HTN, HLD who presented to [facility] from OSH for bright red blood per rectum. Ms. Mullins has been having abdominal pain for about 5 days. She initially thought this was due to constipation, but had watery bowel movement associated with worsening abdominal pain around 11pm last night. This prompted presentation to outside hospital, [facility]. Since arrival to [facility], marita had multiple episodes of bright red blood per rectum. She was transferred to [facility] for concern for mesenteric ischemia. Upon my evaluation, Ms. Nichols states she is still having abdominal pain, though not as severe as last night. She continues to have frequent blood-only bowel movements. She denies visual changes, light-headedness, palpitations, and weakness. She has no pain elsewhere. She denies fevers, has some chills which she associates with room temperature. She denies bleeding aside from per rectum. Ms. Nichols has extensive past medical history of vascular disease requiring stents to bilateral iliacs, ICA, and and mLAD. She takes DAPT, and was briefly on triple therapy in 2023. Patient says it has been over 10 years since last colonoscopy. Hospital Medicine consulted for admission for lower GI bleed. Contributed to History - I reviewed prior records including her most recent ED note and most recent Cardiology, Nephrology, Vascular pharmacy customer care specialist note which supplemented above history, noting Hx of NSTEMI on prasurgrel and ASA, CKD3b, recent weight loss (20lbs), Hx of right to left fem-fem bypass. Past Medical History Past Medical History[1] Surgical History Surgical History[2] Family History Family History[3] Social History Social History[4] Home Medications Current Outpatient Medications Medication Instructions aspirin 81 MG EC tablet aspirin 81 mg tablet,delayed release atorvastatin (LIPITOR) 80 mg, Daily baclofen (LIORESAL) 10 mg, As needed cyclobenzaprine (Flexeril) 5 MG tablet gabapentin (NEURONTIN) 300 mg, 2 times daily ketorolac (Toradol) 10 MG tablet TAKE ONE TABLET BY MOUTH EVERY 8 HOURS WITH FOOD lisinopril-hydroCHLOROthiazide 20-12.5 MG tablet 1 tablet, Daily Multiple Vitamins-Minerals (ONE-A-DAY WOMENS PO) Take by mouth. Ozempic (0.25 or 0.5 MG/DOSE) 0.25 mg, Weekly prasugrel (EFFIENT) 10 mg, Oral, Daily Objective Blood pressure (!) 157/68, pulse 55, temperature 36.8 ??C (98.2 ??F), temperature source Oral, resp. rate 23, height 1.651 m (5' 5 ), weight 101 kg (222 lb 7.1 oz), SpO2 97%. Physical Exam Constitutional: General: She is not in acute distress. Eyes: General: No scleral icterus. Cardiovascular: Rate and Rhythm: Normal rate and regular rhythm. Comments: PT 2+ R>L Pulmonary: Effort: Pulmonary effort is normal. Breath sounds: Wheezing (inspiratory, R lung walsh diffusely) present. Abdominal: General: There is no distension. Palpations: Abdomen is soft. There is no mass. Tenderness: There is abdominal tenderness (diffuse, worst in LLQ, RLQ). There is no guarding. Genitourinary: Comments: No external hemorrhoids Thick bright red blood surrounds rectum Skin: General: Skin is warm and dry. Coloration: Skin is not pale. Neurological: General: No focal deficit present. Mental Status: She is alert and oriented to person, place, and time. Psychiatric: Mood and Affect: Mood normal. Thought Content: Thought content normal. Data Labs personally reviewed, showing -Leukocytosis (WBC 15.9k) with left shift -HGB at/near baseline (11.6) -sCr stable to prior (1.79) -UA with hematuria Imaging CT personally reviewed, showing - Narrowing of BRIAN with post stenotic dilation - Patent fem-fem bypass - Intramural aortic thrombus Assessment/Plan Assessment/ Plan Active Problems: There are no active Hospital Problems. Liz Mullins is a 64 y.o. female with PMHx PVD w/ carotid DRAPERY HEAD FORMER and bilateral iliac stents, NSTEMI s/p CASSIE to mLAD on DAPT, CVA CKD3b, COPD, HTN, HLD who presented to [facility] for lower GI bleed. #Lower GI Bleed - Presenting with BRBPR and lower abdominal pain - Ddx inflammatory, infectious, ischemic, internal hemorrhoid, diverticular bleed - Low concern for current AMI given minimal pain on exam, CTA abdomen shows only chronic changes, though cannot r/o resolved episode of mesenteric ischemia causing initial painful episode. PLAN - Clear liquid diet NPO at midnight - GI consult - H/H q8h - ESR/CRP - ASA monotherapy #Peripheral Vascular Disease with Hx R-L Femoral Bypass - Hx Fem-Fem bypass 03/2022 - No claudication symptoms - Vascular consulted in ED, no acute intervention PLAN - ASA monotherapy iso acute lower gi bleed #CAD with Hx CASSIE to mLAD - NSTEMI 08/18/2023 - Briefly triple therapy, switched to DAPT 10/14/2023 - No chest pain at this time PLAN - ASA monotherapy Chronic Medical Conditions: CKD3b- sCr at baseline Chronic Pain- Home gabapentin, baclofen PRN HTN- Resume home anti-hypertensives as appropriate Dyslipidemia- Continue home statin Obesity (BMI 37.02) Care today included: HIGHRISK: Discussion of management/test with another provider: GI or Unique labs ordered: ESR, CRP This condition poses an acute threat to life/bodily function. Diet: Clears DVTP: Hold ISO bleed Code Status: FULL Dispo Planning: Admit to Henrique Mercedes MD Internal Medicine PGY-1 [facility] [1] Past Medical History: Diagnosis Date CHF (congestive heart failure) ([facility]) August 2023 History of shoulder surgery Hypertension 10 years Myocardial infarction ([facility]) Pain in right shoulder Right shoulder pain Personal history of other diseases of the circulatory system History of hypertension Personal history of other diseases of the circulatory system History of peripheral vascular disease Personal history of other endocrine, nutritional and metabolic disease History of high cholesterol PVD (peripheral vascular disease) ([facility]) [2] Past Surgical History: Procedure Laterality Date ARTERIAL STENT PLACEMENT N/A Arterial stent placement from [facility] CAROTID ARTERY ANGIOPLASTY N/A Carotid artery angioplasty and stenting from [facility] CARPAL TUNNEL RELEASE N/A carpal tunnel surgery from [facility] CATARACT EXTRACTION CERVICAL FUSION CERVIX SURGERY N/A cervical surgery from [facility] COLONOSCOPY HYSTERECTOMY N/A Hysterectomy from [facility] SHOULDER ARTHROSCOPY Bilateral TUBAL LIGATION N/A tubal ligation from [facility] [3] Family History Problem Relation Name Age of Onset Conversions - Other Mother Fide Frausto Back problem Hypertension Mother Fide Frausto Other cancer Mother Fide Frausto Cancer Mother Fide Frausto Diabetes Mother Fide Frausto Conversions - Other Father Kvng frausto Back problem Hypertension Father Kvng frausto Heart attack Father Kvng frausto Stroke Son Hypertension Brother Tomi frausto Hypertension Sister Zayda parker Anesthesia problems Neg Hx Malig Hyperthermia Neg Hx [4] Social History Tobacco Use Smoking status: Former Current packs/day: 0.00 Average packs/day: 1 pack/day for 40.0 years (40.0 ttl pk-yrs) Types: Cigarettes Start date: 08/14/1983 Quit date: 08/2023 Years since quittin.2 Passive exposure: Past Smokeless tobacco: Never Vaping Use Vaping status: Never Used Substance Use Topics Alcohol use: Not Currently Drug use: Never Cosigned by Rae Adames MD at 11/21/2024 4:24 PM EDT Associated attestation - Rae Adames MD - 11/21/2024 4:24 PM EDT I saw and evaluated the patient. I discussed the case with the resident/fellow and agree with the findings and plan as documented. 64 yo F with known vascular disease p/w acute onset abdominal pain and BRBPR. CTA at OSH reportedlywith narrowing of BRIAN with changes c/w ischemic colitis (descending/sigmoid colon). Images reviewedby vascular who note BRIAN disease to be stable compared to previous scans. Possible hypoperfusion ofknown disease (BP 100/70 in [facility] note), also consider diverticular bleed as possible etiology of hematochezia. Will consult GI for evaluation and consideration of colonoscopy. * Hospital Course - Rae Adames MD - 11/21/2024 1:02 PM EDT Liz Mullins is a 64 y.o. female with PMHx PVD w/ carotid DRAPERY HEAD FORMER and bilateral iliac stents, NSTEMI s/p CASSIE to mLAD on DAPT, CVA, CKD3b, COPD, HTN, HLD who presented to [facility] for bright red blood per rectum. She remained hemodynamically stable with resolution of bleeding without significant anemia requiring transfusion. Working ddx included ischemic colitis, diverticular bleed or other vascular malformation. Evaluated by vascular surgery and GI without inpatient intervention. Will complete colonoscopy outpatient. #Hematochezia with Associated Abdominal Pain - Presented to OSH with sudden onset abdominal pain followed by diarrhea. She later developed bright red blood per rectum and was transferred to [facility]. - CTA of abdomen shows chronic narrowing of BRIAN, per vascular surgery, without necessity for surgical intervention - Gastroenterology was also consulted, and feel inpatient endoscopy is not warranted, but have plans for outpatient colonoscopy and follow-up. On Discharge - Stop Ozempic; some concern for GLP-1 related abd pain - Follow-up with Gastroenterology and Vascular Surgery outpatient - Return precautions discussed thoroughly with patient including fever, persistent bleeding, inability to tolerate PO #Peripheral Vascular Disease with Hx R-L Femoral Bypass #CAD with Hx CASSIE to mLAD #Hx of CVA and prior R carotid stenting - Presented without acute concern for chest pain, distal limb pain, or neurologic deficits - Prior to admission, patient taking DAPT, she was transitioned to single anti- PLT with ASA on admission in the setting of above bleed - Vascular feels ASA monotherapy to be adequate on d/c, and cardiology note 10/12 states acceptableto change DAPT to single antiplatelet therapy . Further, no clear indication for DAPT from our team's perspective. On Discharge - STOP Prasugrel - Continue ASA 81mg daily - Continue atorvastatin 80mg daily #Obstructive Sleep Apnea, concern for - Regular desaturation (87-90% SpO2) overnight during admission On Discharge - Encouraged Discussion with PCP - Recommend consideration of ambulatory sleep study #Sinus Bradycardia - Noted while patient on telemetry, with HR as low as - EKG showed HR 46, intervals wnl; patient remained HDS and asymptomatic at all times - Bradycardia also noted on prior EKG and 2020 TTE - Keep outpatient cardiology follow-up No medication changes for other chronic conditions unless detailed above. * Consults - Mayuri Yoder MD - 11/21/2024 10:09 AM EDTAssociated Order(s): Consult to Vascular Surgery Images from the original note were not included. [facility] Department of Surgery Division of Vascular Surgery History & Physical Note Reason for Consult: BRIAN occlusion Requesting Service: Emergency Department Consult Date and Time: 11/21/2024 0930 Consult to Vascular Surgery Consult performed by: Mayuri Yoder MD Consult ordered by: Derek Deshpande MD Subjective History of Present Illness: Chief Complaint: Abdominal pain Liz Mullins is a 64 y.o. female with PMHx significant for HTN, PAD s/p R-L fem-fem bypass, R EIA stent, R carotid stent on Effient and ASA who presented to the [facility] on 11/21/2024 with abdominal pain and hematochezia. She was originally seen at an outside hospital after her family found her unconscious on the floor last night. She was transported to the emergency department by EMS, with initial concerns of altered mental status and workup concerning for mesenteric ischemia. The patient was transferred to for a higher level of care. On arrival, she was alert and oriented and hemodynamically stable. Labs were pertinent for a white count of 15.9, and COLEEN. Her imaging was reviewed with concern for an BRIAN occlusion and vascular surgery was consulted to evaluate. At the bedside, the patient reports she does not currently have any abdominal pain at rest, only with palpation. She did not know she was having hematochezia, but was told she had blood in her stool.She denies any urinary concerns, and does not currently have any back pain. She does not have any concern with increased pain with eating. 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 She was asymptomatic at that time and recommended six-month follow up. Review of Systems: Relevant review of systems was obtained as able and is negative unless stated above in HPI. History Obtained From: Patient Past Medical History: Past Medical History[1] Allergies And Reactions: Allergies[2] Past Surgical History: Surgical History[3] Family Medical History: Family History[4] Negative Social History: Social History Socioeconomic History Marital status: Spouse name: Not on file Number of children: Not on file Years of education: Not on file Highest education level: Not on file Occupational History Not on file Tobacco Use Smoking status: Former Current packs/day: 0.00 Average packs/day: 1 pack/day for 40.0 years (40.0 ttl pk-yrs) Types: Cigarettes Start date: 08/14/1983 Quit date: 08/2023 Years since quittin.2 Passive exposure: Past Smokeless tobacco: Never Vaping Use Vaping status: Never Used Substance and Sexual Activity Alcohol use: Not Currently Drug use: Never Sexual activity: Not Currently Partners: Male control/protection: Post-menopausal Other Topics Concern Not on file Social History Narrative Not on file Social Drivers of Health Financial Resource Strain: Not on file Food Insecurity: Not on file Transportation Needs: Not on file Physical Activity: Not on file Stress: Not on file Social Connections: Unknown (03/23/2023) Received from [facility] Family and Community Support Help with Day-to-Day Activities: Not on file Lonely or Isolated: Not on file Intimate Partner Violence: Unknown (03/23/2023) Received from [facility] Abuse Screen Unsafe at Home or Work/School: Not on file Feels Threatened by Someone?: Not on file Does Anyone Keep You from Contacting Others or Doint Things Outside the Home?: Not on file Physical Sign of Abuse Present: Not on file Housing Stability: Unknown (03/23/2023) Received from [facility] Housing Stability Current Living Arrangements: Not on file Potentially Unsafe Housing Conditions: Not on file Immunizations: Immunization History Administered Date(s) Administered Hep A, Adult 05/17/2018 Influenza, High-dose, Split Virus, Trivalent, Injectable, preservative free 04/04/2024 Influenza, Unspecified 02/28/2009, 03/18/2010 TD (adult), 2 Lf tetanus toxoid, preservative free, adsorbed 08/19/1996 I have updated and confirmed the past medical, surgical, family and social history. Home Medications: Prior to Admission medications Medication Sig Start Date End Date Taking? Authorizing Provider aspirin 81 MG EC tablet aspirin 81 mg tablet,delayed release Provider, MD Nelson atorvastatin (Lipitor) 80 MG tablet Take 1 tablet (80 mg) by mouth 1 (one) time each day. Provider,Historical, MD baclofen (Lioresal) 10 MG tablet Take 1 tablet (10 mg) by mouth if needed for muscle spasms. 01/05/24 Nelson Escoto MD cyclobenzaprine (Flexeril) 5 MG tablet 01/29/24 Nelson Escoto MD gabapentin (Neurontin) 300 MG capsule Take 1 capsule (300 mg) by mouth 2 (two) times a day. 01/05/24viNelson narayanan MD ketorolac (Toradol) 10 MG tablet TAKE ONE TABLET BY MOUTH EVERY 8 HOURS WITH FOOD Patient not taking: Reported on 10/12/2024 05/06/24 Nelson Escoto MD lisinopril-hydroCHLOROthiazide 20-12.5 MG tablet Take 1 tablet by mouth 1 (one) time each day. Nelson Escoto MD Multiple Vitamins-Minerals (ONE-A-DAY WOMENS PO) Take by mouth. Nelson Escoto MD prasugrel (Effient) 10 MG tablet Take 1 tablet (10 mg) by mouth 1 (one) time each day. 10/14/23 James Tomas MD semaglutide (Ozempic, 0.25 or 0.5 MG/DOSE,) 2 MG/1.5ML solution pen-injector inj. pen Inject 0.1875mL under the skin 1 (one) time per week. Nelson Escoto MD Anti-Thrombotic Medications: Is this patient taking warfarin, new oral anti-coagulant, or anti-platelet medication? Yes If Yes, What Medication: Prasugrel (Effient) & ASA81 Current Hospital Medications: Current Medications[5] Objective Objective: Visit Vitals BP (!) 174/83 Pulse 64 Temp 36.5 ??C (97.7 ??F) (Oral) Ht 1.651 m (5' 5 ) Wt 101 kg (222 lb 7.1 oz) SpO2 96% BMI 37.02 kg/m?? Physical Exam Vitals and nursing note reviewed. Constitutional: General: She is not in acute distress. Appearance: Normal appearance. She is not ill-appearing, toxic-appearing or diaphoretic. HENT: Mouth/Throat: Mouth: Mucous membranes are moist. Eyes: Extraocular Movements: Extraocular movements intact. Pupils: Pupils are equal, round, and reactive to light. Cardiovascular: Rate and Rhythm: Normal rate and regular rhythm. Pulses: Dorsalis pedis pulses are 2+ on the right side and 1+ on the left side. Posterior tibial pulses are 2+ on the right side and 1+ on the left side. Abdominal: General: Abdomen is flat. Palpations: Abdomen is soft. Tenderness: There is abdominal tenderness (Diffuse). There is no guarding or rebound. Musculoskeletal: Right lower leg: No edema. Left lower leg: No edema. Feet: Right foot: Skin integrity: Skin integrity normal. No skin breakdown. Left foot: Skin integrity: Skin integrity normal. No skin breakdown. Skin: General: Skin is warm. Capillary Refill: Capillary refill takes less than 2 seconds. Neurological: General: No focal deficit present. Mental Status: She is alert and oriented to person, place, and time. Psychiatric: Mood and Affect: Mood normal. Behavior: Behavior normal. Laboratory: CBC WBC 15.92 (H) Hb 11.6 Plt 187 Hct 34.9 ANC 13.90 (H) INR 1.2 (H), PTT ??, Anti-Xa ?? MCV 94 BMP Na 140 Cl 110 (H) BUN 17 Glu 122 (H) K 4.3 Co2 22 Cr 1.79 (H) Ca 8.4 (L) iCa ?? Mg ??, Phos ?? Lactate ?? LFT AST 21 AlkPhos 94 T Prot 6.0 (L) ALK 19 Bili 0.4 Alb ?? D.Bili ?? Imaging: CT OSH Radiographic Interpretation: I have reviewed the imaging above, there is evidence of proximal BRIAN disease with post-stenosis dilation and otherwise patent with reconstitution and collaterals. Patienthas infrarenal aortic narrowing with noncalcified plaque, without total occlusion. No signs of pneum operitoneum. Assessment/Plan Assessment & Plan: Liz Mullins is a 64 y.o. female with PMHx notable for HTN, PAD s/p R-L fem-fem bypass, R EIA stent, R carotid stent on Effient and ASA who presented to [facility] with abdominal pain and reports ofhematochezia. Labs were overall non concerning, and imaging was reviewed noting proximal BRIAN disease with post stenotic dilation, similar to previous scans. She does have ongoing infrarenal aortic narrowing with intramural plaque without total occlusion, but on exam has no distal leg concerns. At this time, concern for acute mesenteric ischemia is low, and would recommend further workup due to concerning signs for colitis on CT scan. We recommended the patient keep her follow up as scheduled, but discussed reasons to present to the emergency department should she have increasing abdominal pain, discoloration of her feet/toes, or pain in her leg with lack of movement. Dispo: Per the Emergency Department CODE STATUS: full code This Consult, Assessment, and Plan has been discussed with Dr. Mosquera, Attending Physician Mayuri Yoder MD [1] Past Medical History: Diagnosis Date CHF (congestive heart failure) ([facility]) August 2023 History of shoulder surgery Hypertension 10 years Myocardial infarction ([facility]) Pain in right shoulder Right shoulder pain Personal history of other diseases of the circulatory system History of hypertension Personal history of other diseases of the circulatory system History of peripheral vascular disease Personal history of other endocrine, nutritional and metabolic disease History of high cholesterol PVD (peripheral vascular disease) ([facility]) [2] Allergies Allergen Reactions Buspirone Itching Methylprednisolone Itching [3] Past Surgical History: Procedure Laterality Date ARTERIAL STENT PLACEMENT N/A Arterial stent placement from [facility] CAROTID ARTERY ANGIOPLASTY N/A Carotid artery angioplasty and stenting from [facility] CARPAL TUNNEL RELEASE N/A carpal tunnel surgery from [facility] CATARACT EXTRACTION CERVICAL FUSION CERVIX SURGERY N/A cervical surgery from [facility] COLONOSCOPY HYSTERECTOMY N/A Hysterectomy from [facility] SHOULDER ARTHROSCOPY Bilateral TUBAL LIGATION N/A tubal ligation from [facility] [4] Family History Problem Relation Name Age of Onset Conversions - Other Mother Fide Frausto Back problem Hypertension Mother Fide Frausto Other cancer Mother Fide Frausto Cancer Mother Fide Frausto Diabetes Mother Fide Frausto Conversions - Other Father Kvng frausto Back problem Hypertension Father Kvng frausto Heart attack Father Kvng frausto Stroke Son Hypertension Brother Tomi frausto Hypertension Sister Zayda parker Anesthesia problems Neg Hx Malig Hyperthermia Neg Hx [5] No current facility-administered medications for this encounter. Current Outpatient Medications Medication Sig Dispense Refill aspirin 81 MG EC tablet aspirin 81 mg tablet,delayed release atorvastatin (Lipitor) 80 MG tablet Take 1 tablet (80 mg) by mouth 1 (one) time each day. baclofen (Lioresal) 10 MG tablet Take 1 tablet (10 mg) by mouth if needed for muscle spasms. cyclobenzaprine (Flexeril) 5 MG tablet (Patient not taking: Reported on 10/12/2024) gabapentin (Neurontin) 300 MG capsule Take 1 capsule (300 mg) by mouth 2 (two) times a day. ketorolac (Toradol) 10 MG tablet TAKE ONE TABLET BY MOUTH EVERY 8 HOURS WITH FOOD (Patient not taking: Reported on 10/12/2024) lisinopril-hydroCHLOROthiazide 20-12.5 MG tablet Take 1 tablet by mouth 1 (one) time each day. Multiple Vitamins-Minerals (ONE-A-DAY WOMENS PO) Take by mouth. prasugrel (Effient) 10 MG tablet Take 1 tablet (10 mg) by mouth 1 (one) time each day. 30 tablet 11 semaglutide (Ozempic, 0.25 or 0.5 MG/DOSE,) 2 MG/1.5ML solution pen-injector inj. pen Inject 0.1875mL under the skin 1 (one) time per week. Cosigned by Tyron Mosquera MD at 11/22/2024 1:03 PM EDT Associated attestation - Tyron Mosquera MD - 11/22/2024 1:03 PM EDT I saw and evaluated the patient with the resident/fellow. I discussed the case with the resident/fellow and agree with the findings and plan as documented. This patient does not have symptoms or history consistent with mesenteric ischemia. * ED Provider Notes - Cris Rivera MD - 11/21/2024 7:50 AM EDT Images from the original note were not included. - HPI Chief Complaint Patient presents with GI Problem HPI Liz Mullins is a 64 y.o. with pertinent medical history of HTN, PAD s/p femoral stent bypass who is presenting from OSH with concerns of acute mesenteric ischemia. Patient presents via EMS. Patient or EMS reports patient was found on the floor unconscious by family members late last night. Patient presented to outside hospital with the initial complaint of altered mental status and workup subsequently revealed concerns for mesenteric ischemia. Patient endorses abdominal pain of the last 2 days, with loose, darker stools. She denies emesis, hematemesis, fever, dysuria hematuria. At OSH, laboratory evaluation and CT abdomen and pelvis with runoff were performed, which revealed concerns for acute mesenteric ischemia as well as left renal artery stenosis. They received cefepime, vancomycin 2 L normal saline and were transferred here for a higher level of care. Patient History Past Medical History[1] Surgical History[2] Family History[3] Social History[4] Allergies: Allergies[5] Physical Exam ED Triage Vitals [11/21/24 0800] Temp Heart Rate Resp BP 36.5 ??C (97.7 ??F) 64 15 (!) 188/55 SpO2 Temp Source Heart Rate Source Patient Position 96 % Oral Monitor Lying BP Location FiO2 (%) Left arm -- Physical Exam Vitals reviewed. Constitutional: General: She is not in acute distress. Appearance: She is not ill-appearing. HENT: Head: Normocephalic and atraumatic. Mouth/Throat: Mouth: Mucous membranes are moist. Pharynx: Oropharynx is clear. Eyes: Extraocular Movements: Extraocular movements intact. Pupils: Pupils are equal, round, and reactive to light. Cardiovascular: Rate and Rhythm: Normal rate and regular rhythm. Pulmonary: Effort: Pulmonary effort is normal. Breath sounds: Normal breath sounds. Abdominal: General: Abdomen is flat. Palpations: Abdomen is soft. Tenderness: There is abdominal tenderness in the right lower quadrant, suprapubic area and left lower quadrant. There is no guarding or rebound. Musculoskeletal: Cervical back: Normal range of motion. Right lower leg: No edema. Left lower leg: No edema. Skin: General: Skin is warm. Capillary Refill: Capillary refill takes less than 2 seconds. Neurological: General: No focal deficit present. Mental Status: She is alert and oriented to person, place, and time. Shanika Coma Scale Score: 15 ED Course & MDM - Assessment: 64 y.o. female presents to ED with complaint of abdominal pain. It should be noted that the chronicconditions includes PAD, HTN, which currently is not at goal therapy. This complicates the clinicalpicture because it Comorbidities: may be exacerbating symptoms, increases the amount and complexityof data to be reviewed, complicates the clinical workup, and increases the risk for morbidity Differential Diagnosis: Lower GI bleed, upper GI bleed, acute mesenteric ischemia, abdominal aorticaneurysm In order to fully explore the differential diagnosis the following treatments and tests were ordered: ED Medication Administration from 11/21/2024 0545 to 11/21/2024 1411 Date/Time Order Dose Route Action 11/21/2024 0837 EDT ondansetron (Zofran) injection 4 mg 4 mg Intravenous Given 11/21/2024 0839 EDT HYDROmorphone (Dilaudid) injection 0.25 mg 0.25 mg Intravenous Given 11/21/2024 1041 EDT hydroCHLOROthiazide (HYDRODiuril) tablet 12.5 mg 12.5 mg Oral Given 11/21/2024 1042 EDT lisinopril tablet 20 mg 20 mg Oral Given 11/21/2024 1404 EDT HYDROmorphone (Dilaudid) injection 0.5 mg 0.5 mg Intravenous Given All Other Orders Ordered Status Ordering Provider 11/21/24 1328 NM Gastrointestinal Bleeding Scan Once Acknowledged CRIS RIVERA 11/21/24 1021 Urinalysis Microscopic Examination Once Final result CRIS RIVERA 11/21/24 1026 Consult to [facility] Once Specialty: Internal Medicine Provider: (Not yet assigned) Acknowledged CRIS RIVERA 11/21/24 1026 ED to floor bed request Once Acknowledged CRIS RIVERA 11/21/24 1006 Urinalysis with reflex microscopic AND reflex culture (IF UTI SUSPECTED) STAT Final result CRIS RIVERA 11/21/24 1006 Urinalysis with reflex microscopic (Culture NOT Included) PROCEDURE ONCE Final result CRIS RIVERA 11/21/24 1006 Urine Gee Panel PROCEDURE ONCE Final result CRIS RIVERA 11/21/24 0936 Consult to Vascular Surgery Once Specialty: Vascular Surgery Provider: (Not yet assigned) Completed CRIS RIVERA 11/21/24 0824 CBC w/diff STAT Final result CRIS RIVERA 11/21/24 0824 PT-INR STAT Final result CRIS RIVERA 11/21/24 0824 CMP STAT Final result CRIS RIVERA 11/21/24823 Lactic acid, venous STAT Final result CRIS RIVERA 11/21/24823 Type and screen Start now Final result CRIS RIVERA 11/21/24823 Hepatitis C Antibody - ED Once Final result CRIS RIVERA 11/21/24823 ED Protocol - HIV 1/2 Antibody/Antigen Screen Once Final result CRIS RIVERA 11/21/24823 ED HIV 1/2 Antibody/Antigen Screen w/Reflex to HIV 1/2 Differentiation PROCEDURE ONCE Final result CRIS RIVERA ED Course as of 11/21/24 1411 Mon Nov 21, 2024 0814 On my initial evaluation of the patient she was alert and oriented and hemodynamically stable.She was endorsing diffuse abdominal pain that was significantly tender to palpation. CBC, CMP, lactic acid, PT INR and type and screen ordered. [SL] 0820 Patient's outside hospital records were reviewed and interpreted by me and remarkable for the following: -CT abd/pelvis w/ runoff: The celiac artery is patent with some mild calcification has origin. Estimate is widely patent with minimal calcification of the origin. The BRIAN origin is occluded there was reconstitution of the BRIAN via mesenteric collaterals distal BRIAN branches are well opacified. Rightrenal artery is widely patent. -CT abd -labs: White blood cell count 26, creatinine 2, lactic acid 7.7 -medications: Cefepime, vancomycin, 2L fluid bolus [SL] 0858 Lactate: 1.4 Improved from 7.7 at OSH [SL] 0925 Creatinine(!): 1.79 Improved from 2.0 at OSH, patient baseline 1.7 [SL] 0936 Vascular surgery was consulted after obtaining the reads for the CT abdomen and pelvis with runoff for concerns of a BRIAN occlusion. [SL] 1006 Vascular surgery did not recommend acute surgical intervention. [SL] 1006 Hemoglobin: 11.6 Hgb stable [SL] 1028 BP(!): 174/83 Patient has been consistently hypotensive while in the emergency department however is asymptomatic. She was not able to take her home blood pressure medications this morning, these will be ordered now. I consulted Hospital Medicine for evaluation and ultimate admission of the patient as she needs to be scoped by gastroenterology for continuous bright red blood per rectum. [SL] 1158 Urinalysis with reflex microscopic AND reflex culture (IF UTI SUSPECTED)(!) Negative for infection [SL] 1239 After interactive discussion with hospital medicine and life point, patient was ultimately admitted to hospital medicine for management of suspected GI bleed. [SL] ED Course User Index [SL] Cris Rivera MD Social Determinates of Health Risks (including Economic Stability, Education and level of understanding, Healthcare access and quality and concerning social factors): Poor health literacy and Lives far away Ultimately, this patient was Was admitted (Admission) There were no encounter diagnoses.. Patient believed to require admission for the listed diagnoses. The Internal Medicine service was consulted for admission and was agreeable to admit toAcute Floor (Med/Surg). ED Prescriptions None Disposition Admit - [1] Past Medical History: Diagnosis Date CHF (congestive heart failure) ([facility]) August 2023 History of shoulder surgery Hypertension 10 years Myocardial infarction ([facility]) Pain in right shoulder Right shoulder pain Personal history of other diseases of the circulatory system History of hypertension Personal history of other diseases of the circulatory system History of peripheral vascular disease Personal history of other endocrine, nutritional and metabolic disease History of high cholesterol PVD (peripheral vascular disease) ([facility]) [2] Past Surgical History: Procedure Laterality Date ARTERIAL STENT PLACEMENT N/A Arterial stent placement from [facility] CAROTID ARTERY ANGIOPLASTY N/A Carotid artery angioplasty and stenting from [facility] CARPAL TUNNEL RELEASE N/A carpal tunnel surgery from [facility] CATARACT EXTRACTION CERVICAL FUSION CERVIX SURGERY N/A cervical surgery from [facility] COLONOSCOPY HYSTERECTOMY N/A Hysterectomy from [facility] SHOULDER ARTHROSCOPY Bilateral TUBAL LIGATION N/A tubal ligation from [facility] [3] Family History Problem Relation Name Age of Onset Conversions - Other Mother Fide Frausto Back problem Hypertension Mother Fide Frausto Other cancer Mother Fide Frausto Cancer Mother Fide Frausto Diabetes Mother Fide Frausto Conversions - Other Father Kvng alvarengae Back problem Hypertension Father Kvng frausto Heart attack Father Kvng frausto Stroke Son Hypertension Brother Tomi frausto Hypertension Sister Zayda parker Anesthesia problems Neg Hx Malig Hyperthermia Neg Hx [4] Tobacco Use Smoking status: Former Current packs/day: 0.00 Average packs/day: 1 pack/day for 40.0 years (40.0 ttl pk-yrs) Types: Cigarettes Start date: 08/14/1983 Quit date: 08/2023 Years since quittin.2 Passive exposure: Past Smokeless tobacco: Never Vaping Use Vaping status: Never Used Substance Use Topics Alcohol use: Not Currently Drug use: Never [5] Allergies Allergen Reactions Buspirone Itching Methylprednisolone Itching Cris Rivera MD Resident 11/21/24 1411 Cosigned by Derek Deshpande MD at 11/29/2024 12:26 PM EDT Associated attestation - Derek Deshpande MD - 11/29/2024 12:26 PM EDT Final diagnoses: [R10.30] Lower abdominal pain [K92.2] Lower GI bleed [K55.059] Acute mesenteric ischemia (CMS/HCC) [N18.9] Chronic kidney disease, unspecified CKD stage I saw and evaluated the patient with the resident/fellow. I discussed the case with the resident/fellow and agree with the findings and plan as documented. * ED Triage Notes - Alexia Mills RN - 11/21/2024 7:50 AM EDT Pt arrived from OSH. Pt is being acute mesenteric ischemia, ischemic colitis with sepsis and GI bleed. VSS GCS 15 documented in this encounter Plan of Treatment Upcoming Encounters Date Type Department Care Team (Late st Contact Info) Description 02/20/2025 10:45 AM EDT Office Visit [facility] Medicine Specialties [address] [place] [address] Elle Landaverde APRN, DNP [address] [place] [address] 03/29/2025 10:30 AM EDT Clinical Support Professional [facility] Laboratory Services [address] [place] [address] 04/05/2025 1:00 PM EDT Office Visit [facility] Nephrology, Bone & Mineral Metabolism [address], [address] [place] [phone] Jude Arora PA [address] [place] [address] 08/09/2025 10:00 AM EST Appointment [facility] [address] [place] [address] 08/09/2025 11:45 AM EST Office Visit [place] [facility] [address] [place] [address] Cristofer Yu MD [address] [place] [address] 10/11/2025 9:15 AM EDT Office Visit [facility] [place] [address] [place] [phone] James Tomas MD [address] [place] [phone] Scheduled Referrals Name Type Priority Associated Diagnoses Order Schedule Ambulatory referral to External PCP Outpatient Referral Routine Primary obstructive sleep apnea of Lower GI bleed Tobacco use disorder 1 Occurrences starting 11/24/2024 until 05/28/2026 Discharge Ambulatory referral to Vascular Surgery Outpatient Referral Routine Claudication of both lower extremities PAD (peripheral artery disease) (CMS/HCC) 1 Occurrences starting 11/24/2024 until 05/28/2026 Discharge Ambulatory referral to Gastroenterology Outpatient Referral Routine Lower abdominal pain Lower GI bleed 1 Occurrences starting 11/24/2024 until 05/28/2026 documented as of this encounter Procedures Procedure Name Priority Date/Time Associated Diagnosis Comments CBC W/O DIFFERENTIAL Routine 11/24/2024 4:01 AM EDT COMPREHENSIVE GI PANEL BY PCR Routine 11/23/2024 12:40 PM EDT CLOSTRIDIODES (CLOSTRIDIUM) DIFFICILE,PCR Routine 11/23/2024 12:40 PM EDT EXTRA TUBE LAVENDER TOP Routine 11/24/19 5:12 AM EDT EXTRA TUBES Routine 11/23/2024 5:12 AM EDT BASIC METABOLIC PANEL, PLASMA Routine 11/23/2024 5:12 AM EDT HEMOGLOBIN AND HEMATOCRIT, BLOOD STAT 11/22/2024 9:01 PM EDT HEMOGLOBIN AND HEMATOCRIT, BLOOD Timed 11/22/2024 9:21 AM EDT BASIC METABOLIC PANEL, PLASMA Routine 11/22/2024 9:21 AM EDT ECG ADULT STAT 11/22/2024 4:15 AM EDT HEMOGLOBIN AND HEMATOCRIT, BLOOD Timed 11/22/2024 12:01 AM EDT SEDIMENTATION RATE, AUTOMATED Routine 11/21/2024 3:27 PM EDT CBC W/O DIFFERENTIAL Routine 11/21/2024 3:27 PM EDT C-REACTIVE PROTEIN, PLASMA Routine 11/21/2024 3:27 PM EDT URINALYSIS WITH REFLEX MICROSCOPIC AND CULTURE STAT 11/21/2024 10:12 AM EDT URINE GEE PANEL STAT 11/21/2024 10:1 2 AM EDT URINALYSIS MICROSCOPIC FOR UA REFLEX STAT 11/21/2024 10:12 AM EDT URINALYSIS WITH REFLEX MICROSCOPIC STAT 11/21/2024 10:12 AM EDT ED HIV 1/2 ANTIBODY/ANTIGEN SCREEN WITH REFLEX TO HIV I/II DIFFERENTIATION STAT 11/21/2024 8:32 AM EDT ED PROTOCOL HIV 1/2 ANTIBODY/ANTIGEN SCREEN W/REFLEX TO HIV 1/2 ANTIBODY DIFFERENTIATION STAT 11/21/2024 8:32 AM EDT LACTATE, VENOUS STAT 11/21/2024 8:32 AM EDT HEPATITIS C ANTIBODY - ED W/REFLEX TO HCV QUANT PCR STAT 11/21/2024 8:32 AM EDT PROTHROMBIN TIME(PT) / INR STAT 11/21/2024 8:32 AM EDT CBC WITH AUTO DIFFERENTIAL STAT 11/21/2024 8:32 AM EDT TYPE AND SCREEN STAT 11/21/2024 8:32 AM EDT COMPREHENSIVE METABOLIC PANEL, PLASMA STAT 11/21/2024 8:32 AM EDT documented in this encounter Results * (ABNORMAL) CBC W/O Differential (11/24/2024 4:01 AM EDT) [facility] WBC Count 9.98 3.70 - 10.30 10*3/uL LAB HEMATOLOGY METHOD 11/24/2024 4:43 AM EDT [facility] RBC Count 3.59(L) 3.90 - 5.20 10*6/uL LAB HEMATOLOGY METHOD 11/24/2024 4:43 AM EDT [facility] HGB 11.3 11.2 - 15.7 g/dL LAB HEMATOLOGY METHOD 11/24/2024 4:43 AM EDT [facility] HCT 34.5 34.0 - 45.0 % LAB HEMATOLOGY METHOD 11/24/2024 4:43 AM EDT [facility] Platelet Count 186 155 - 369 10*3/uL LAB HEMATOLOGY METHOD 11/24/2024 4:43 AM EDT [facility] MCV 96 79 - 98 fL LAB HEMATOLOGY METHOD 11/24/2024 4:43 AM EDT [facility] MCH 31.5 26.0 - 32.0 pg LAB HEMATOLOGY METHOD 11/24/2024 4:43 AM EDT [facility] MCHC 32.8 30.7 - 35.5 g/dL LAB HEMATOLOGY METHOD 11/24/2024 4:43 AM EDT [facility] RDW 15.2(H) 11.5 - 14.5 % LAB HEMATOLOGY METHOD 11/24/2024 4:43 AM EDT [facility] MPV 10.3 8.8 - 12.5 fL LAB HEMATOLOGY METHOD 11/24/2024 4:43 AM EDT [facility] nRBC 0.0 <=0.0 per 100 WBCs LAB HEMATOLOGY METHOD 11/24/2024 4:43 AM EDT [facility] Blood Venous blood specimen / Unknown Venipuncture / Unknown 11/24/2024 4:01 AM EDT 11/24/2024 4:26 AM EDT Rae Adames MD LAB BLOOD ORDERABLES Final Resu lt [facility] [address] [place] [address] * Clostridiodes (Clostridium) difficile PCR (11/23/2024 12:40 PM EDT) C difficile PCR toxin B gene DNA Result Not Detected Not Detected 11/23/2024 4:28 PM EDT [facility] Stool Rectum structure / Unknown Non-blood Collection / Unknown 11/23/2024 12:40 PM EDT 11/23/2024 1:38 PM EDT Narrative [facility] - 11/23/2024 4:28 PM EDT This test is FDA approved for use with liquid stool specimens. This test is used for clinical purposes. It should not be regarded as investigational or for research. This laboratory is certified under the Clinical Laboratory Improvement Amendments of 1988 (CLIA-88) as qualified to perform high complexity clinical laboratory testing. us Rae Adames MD LAB MICROBIOLOGY - GENERAL ORDE RABLES Final Result [facility] [address] [place] [address] * Comprehensive GI Panel by PCR (11/23/2024 12:40 PM EDT) Campylobacter PCR Result Not Detected Not Detected 11/23/2024 5:29 PM EDT [facility] Plesiomonas shigelloides PCR Result Not Detected Not Detected 11/23/2024 5:29 PM EDT [facility] Salmonella PCR Result Not Detected Not Detected 11/23/2024 5:29 PM EDT [facility] Vibrio species PCR Result Not Detected Not Detected 11/23/2024 5:29 PM EDT [facility] Vibrio cholerae PCR Result Not Detected Not Detected 11/23/2024 5:29 PM EDT [facility] Yersinia enterocolitica PCR Result Not Detected Not Detected 11/23/2024 5:29 PM EDT [facility] Enteroaggregative E. coli (EAEC) PCR Result Not Detected Not Detected 11/23/2024 5:29 PM EDT [facility] Enteropathogenic E. coli (EPEC) PCR Result Not Detected Not Detected 11/23/2024 5:29 PM EDT [facility] Enterotoxigenic E. coli (ETEC) lt/st PCR Result Not Detected Not Detected 11/23/2024 5:29 PM EDT [facility] Shiga-like Toxin-Producing E.coli (STEC) stx1/stx2 PCR Resu Not Detected Not Detected 11/23/2024 5:29 PM EDT [facility] E coli 0157 PCR Result Not Detected Not Detected 11/23/2024 5:29 PM EDT [facility] Shigella/Enteroinvas cecilia E. coli (EIEC) PCR Result Not Detected Not Detected 11/23/2024 5:29 PM EDT [facility] Cryptosporidium PCR Result Not Detected Not Detected 11/23/2024 5:29 PM EDT [facility] Cyclospora cayetanensis PCR Result Not Detected Not Detected 11/23/2024 5:29 PM EDT [facility] Entamoeba histolytica PCR Result Not Detected Not Detected 11/23/2024 5:29 PM EDT [facility] Giardia duodenalis (aka Giardia lamblia) PCR Result Not Detected Not Detected 11/23/2024 5:29 PM EDT [facility] Adenovirus F 40/41 PCR Result Not Detected Not Detected 11/23/2024 5:29 PM EDT [facility] Astrovirus PCR Result Not Detected Not Detected 11/23/2024 5:29 PM EDT [facility] Norovirus GI/GII PCR Result Not Detected Not Detected 11/23/2024 5:29 PM EDT [facility] Rotavirus A PCR Result Not Detected Not Detected 11/23/2024 5:29 PM EDT [facility] Sapovirus PCR Result Not Detected Not Detected 11/23/2024 5:29 PM EDT [facility] Stool Rectum structure / Unknown Non-blood Collection / Unknown 11/23/2024 12:40 PM EDT 11/23/2024 1:38 PM EDT Narrative [facility] - 11/23/2024 5:29 PM EDT This specimen was tested for the following analytes: Campylobacter species, Plesiomonas shigelloides, Salmonella species, Vibrio species, Vibrio cholerae, Yersinia enterolitica, Enteroaggregative E. coli (EAEC), Enteropathogenic E. Coli (EPEC), Enterotoxigenic E. coli (ETEC), Shiga-like toxin-producing E. coli (STEC), Shigella/Enteroinvasive E. coli (EIEC), Cryptosporidium, Cyclospora cayetanensis, Entamoeba histolytica, Giardia lamblia, Adenovirus f40/41, Astrovirus, Norovirus GI/GII, Rotavirus A, and Sapovirus. Note: Clostridium difficile toxin a/b will no longer be resulted using this platform. Please order the Clostridium difficile by PCR assay if clinically indicated. us Rae Adames MD LAB MICROBIOLOGY - GENERAL DYLAN BENITEZ Final Result [facility] [address] [place] [address] * Lavender Top (11/23/2024 5:12 AM EDT) Extra Hold for add-ons 11/23/2024 8:02 AM EDT [facility] Comment:Auto resulted. Blood Venous blood specimen / Unknown 11/23/2024 5:12 AM EDT 11/23/2024 5:25 AM EDT us Rae Adames MD LAB BLOOD ORDERABLES Final Resu lt [facility] [address] [place] [address] * (ABNORMAL) Basic Metabolic Panel, Plasma (11/23/2024 5:12 AM EDT) Glucose, Plasma 93 74 - 99 mg/dL 11/23/2024 6:01 AM EDT [facility] BUN, Plasma 16 8 - 23 mg/dL 11/23/2024 6:01 AM EDT [facility] Creatinine, Plasma 1.91(H) 0.60 - 1.10 mg/dL 11/23/2024 6:01 AM EDT [facility] BUN/Creatinine Ratio 8 11/23/2024 6:01 AM EDT [facility] Sodium, Plasma 141 136 - 145 mmol/L 11/23/2024 6:01 AM EDT [facility] Potassium, Plasma 3.7 3.6 - 4.9 mmol/L 11/23/2024 6:01 AM EDT [facility] Chloride, Plasma 108(H) 97 - 107 mmol/L 11/23/2024 6:01 AM EDT [facility] CO2, Plasma 23 22 - 29 mmol/L 11/23/2024 6:01 AM EDT [facility] Anion Gap 10 6 - 16 mmol/L 11/23/2024 6:01 AM EDT [facility] Total Calcium, Plasma 8.8(L) 8.9 - 10.2 mg/dL 11/23/2024 6:01 AM EDT [facility] eGFRcr 28.6 mL/min/1.7 3m*2 11/23/2024 6:01 AM EDT [facility] Comment:Reported eGFRcr in m L/min/1.73m2 is based the CKD-EPI 2020 equation that does not use a race coefficient. Blood Venous blood specimen / Unknown Venipuncture / Unknown 11/23/2024 5:12 AM EDT 11/23/2024 5:34 AM EDT us Rae Adames MD LAB BLOOD ORDERABLES Final Resu lt Performing Organization Address [facility] Co de Phone Number [facility] [address] [place] [address] * Hemoglobin and Hematocrit, Blood (11/22/2024 9:01 PM EDT) HGB 11.5 11.2 - 15.7 g/dL LAB HEMATOLOGY METHOD 11/22/2024 9:11 PM EDT [facility] HCT 34.5 34.0 - 45.0 % LAB HEMATOLOGY METHOD 11/22/2024 9:11 PM EDT [facility] Blood Venous blood specimen / Unknown Venipuncture / Unknown 11/22/2024 9:01 PM EDT 11/22/2024 9:09 PM EDT us Rae Adames MD LAB BLOOD ORDERABLES Final Resu lt Performing Organization Address [facility] Phone Number [facility] [address] [place] [address] * (ABNORMAL) Basic Metabolic Panel, Plasma (11/22/2024 9:21 AM EDT) Glucose, Plasma 88 74 - 99 mg/dL 11/22/2024 9:49 AM EDT [facility] BUN, Plasma 14 8 - 23 mg/dL 11/22/2024 9:49 AM EDT [facility] Creatinine, Plasma 1.88(H) 0.60 - 1.10 mg/dL 11/22/2024 9:49 AM EDT [facility] BUN/Creatinine Ratio 7 11/22/2024 9:49 AM EDT [facility] Sodium, Plasma 141 136 - 145 mmol/L 11/22/2024 9:49 AM EDT [facility] Potassium, Plasma 4.1 3.6 - 4.9 mmol/L 11/22/2024 9:49 AM EDT [facility] Chloride, Plasma 108(H) 97 - 107 mmol/L 11/22/2024 9:49 AM EDT [facility] CO2, Plasma 22 22 - 29 mmol/L 11/22/2024 9:49 AM EDT [facility] Anion Gap 11 6 - 16 mmol/L 11/22/2024 9:49 AM EDT [facility] Total Calcium, Plasma 8.6(L) 8.9 - 10.2 mg/dL 11/22/2024 9:49 AM EDT [facility] eGFRcr 29.2 mL/min/1.7 3m*2 11/22/2024 9:49 AM EDT [facility] Comment:Reported eGFRcr in m L/min/1.73m2 is based the CKD-EPI 2020 equation that does not use a race coefficient. Blood Venous blood specimen / Unknown Venipuncture / Unknown 11/22/2024 9:21 AM EDT 11/22/2024 9:30 AM EDT Rae Adames MD LAB BLOOD ORDERABLES Final Resu lt [facility] [address] [place] [address] * Hemoglobin and Hematocrit, Blood (11/22/2024 9:21 AM EDT) HGB 11.2 11.2 - 15.7 g/dL LAB HEMATOLOGY METHOD 11/22/2024 9:32 AM EDT [facility] HCT 34.0 34.0 - 45.0 % LAB HEMATOLOGY METHOD 11/22/2024 9:32 AM EDT [facility] Blood Venous blood specimen / Unknown Venipuncture / Unknown 11/22/2024 9:21 AM EDT 11/22/2024 9:30 AM EDT Rae Adames MD LAB BLOOD ORDERABLES Final Resu lt [facility] [address] [place] [address] * ECG Adult (11/22/2024 4:15 AM EDT) EKG DIAGNOSIS CLASS Borderline Abnormal MUSE ECG Ventricular Rate 46 BPM MUSE ECG Atrial Rate 46 BPM MUSE ECG MI Interval 192 ms MUSE ECG QRSD Interval 76 ms MUSE ECG QT Interval 484 ms MUSE ECG QTC Interval 423 ms MUSE ECG P [place] 90 degrees MUSE ECG R [place] -11 degrees MUSE ECG T Wave [place] 39 degrees MUSE ECG Diagnosis Sinus bradycardia MUSE ECG Diagnosis Low voltage QRS MUSE ECG Diagnosis Borderline ECG MUSE ECG Diagnosis MUSE ECG Diagnosis Confirmed by Cristofer Hawkins ([id number]) on 11/22/2024 10:41:39 AM MUSE ECG 11/22/2024 4:15 AM EDT 11/22/2024 10:41 AM EDT Rae Adames MD ECG ORDERABLES Final Result MUSE ECG * (ABNORMAL) Hemoglobin and Hematocrit, Blood (11/22/2024 12:01 AM EDT) [facility] HGB 11.1(L) 11.2 - 15.7 g/dL LAB HEMATOLOGY METHOD 11/22/2024 12:20 AM EDT [facility] HCT 33.5(L) 34.0 - 45.0 % LAB HEMATOLOGY METHOD 11/22/2024 12:20 AM EDT [facility] Blood Venous blood specimen / Unknown Venipuncture / Unknown 11/22/2024 12:01 AM EDT 11/22/2024 12:16 AM EDT aRe Adames MD LAB BLOOD ORDERABLES Final Resu lt [facility] [address] [place] [address] * (ABNORMAL) C-reactive protein (11/21/2024 3:27 PM EDT) Pathologist [facility] CRP, Plasma 38.4(H) <=8.0 mg/L 11/21/2024 4:26 PM EDT [facility] Blood Venous blood specimen / Unknown Venipuncture / Unknown 11/21/2024 3:27 PM EDT 11/21/2024 3:34 PM EDT Narrative [facility] - 11/21/2024 4:26 PM EDT This CRP test is appropriate for assessment of infection, systemic inflammation and/or tissue injury. To assess cardiovascular disease risk order high sensitivity CRP (CRPH). us Rae Adames MD LAB BLOOD ORDERABLES Final Resu lt Performing Organization Address [facility]/ZIP Co de Phone Number [facility] [address] [place] [address] * Sedimentation Rate, Automated (11/21/2024 3:27 PM EDT) Sedimentation Rate 21 <30 mm/hr 2024 3:57 PM EDT [facility] Blood Venous blood specimen / Unknown Venipuncture / Unknown 11/21/2024 3:27 PM EDT 11/21/2024 3:34 PM EDT Rae Adames MD LAB BLOOD ORDERABLES Final Resu lt Performing Organization Address [facility] Co de Phone Number [facility] [address] [place] [address] * (ABNORMAL) CBC W/O Differential (11/21/2024 3:27 PM EDT) WBC Count 13.41(H) 3.70 - 10.30 10*3/uL LAB HEMATOLOGY METHOD 11/21/2024 3:36 PM EDT [facility] RBC Count 3.55(L) 3.90 - 5.20 10*6/uL LAB HEMATOLOGY METHOD 11/21/2024 3:36 PM EDT [facility] HGB 11.1(L) 11.2 - 15.7 g/dL LAB HEMATOLOGY METHOD 11/21/2024 3:36 PM EDT [facility] HCT 33.7(L) 34.0 - 45.0 % LAB HEMATOLOGY METHOD 11/21/2024 3:36 PM EDT [facility] Platelet Count 174 155 - 369 10*3/uL LAB HEMATOLOGY METHOD 11/21/2024 3:36 PM EDT [facility] MCV 95 79 - 98 fL LAB HEMATOLOGY METHOD 11/21/2024 3:36 PM EDT [facility] MCH 31.3 26.0 - 32.0 pg LAB HEMATOLOGY METHOD 11/21/2024 3:36 PM EDT [facility] MCHC 32.9 30.7 - 35.5 g/dL LAB HEMATOLOGY METHOD 11/21/2024 3:36 PM EDT [facility] RDW 15.2(H) 11.5 - 14.5 % LAB HEMATOLOGY METHOD 11/21/2024 3:36 PM EDT [facility] MPV 9.9 8.8 - 12.5 fL LAB HEMATOLOGY METHOD 11/21/2024 3:36 PM EDT [facility] nRBC 0.0 <=0.0 per 100 WBCs LAB HEMATOLOGY METHOD 11/21/2024 3:36 PM EDT [facility] Blood Venous blood specimen / Unknown Venipuncture / Unknown 11/21/2024 3:27 PM EDT 11/21/2024 3:34 PM EDT Derek Deshpande MD LAB BLOOD ORDERABLES Final Result Performing Organization Address [facility] Co de Phone Number [facility] [address] [place] [address] * Urinalysis Microscopic Examination (11/21/2024 10:12 AM EDT) Urine Urine specimen obtained by clean catch procedure / Unknown Non-blood Collection / Unknown 11/21/2024 10:12 AM EDT 11/21/2024 10:19 AM EDT Derek Deshpande MD LAB URINE ORDERABLES Final Result Performing Organization Address City/[facility]/ZIP Co de Phone Number [facility] [address] [place] [address] * Urine Gee Panel (11/21/2024 10:12 AM EDT) Extra Reflex urine culture not indicated 11/21/2024 12:01 PM EDT [facility] Urine Urine specimen obtained by clean catch procedure / Unknown Non-blood Collection / Unknown 11/21/2024 10:12 AM EDT 11/21/2024 10:30 AM EDT us Derek Deshpande MD LAB URINE ORDERABLES Final Result [facility] [address] [place] [address] * (ABNORMAL) Urinalysis with reflex microscopic (Culture NOT Included) (11/21/2024 10:12 AM EDT) Color, Urine Yellow LAB URINALYSIS - AUTOMATED METHOD 11/21/2024 10:49 AM EDT [facility] Clarity, Urine Clear LAB URINALYSIS - AUTOMATED METHOD 11/21/2024 10:49 AM EDT [facility] Spec [place], Urine >1.030(H) 1.005 - 1.030 LAB URINALYSIS - AUTOMATED METHOD 11/21/2024 10:49 AM EDT [facility] pH, Urine 5.5 5.0 - 8.0 LAB URINALYSIS - AUTOMATED METHOD 11/21/2024 10:49 AM EDT [facility] Protein, Urine 30(A) Negative mg/dL LAB URINALYSIS - AUTOMATED METHOD 11/21/2024 10:49 AM EDT [facility] Glucose, Urine Negative Negative mg/dL LAB URINALYSIS - AUTOMATED METHOD 11/21/2024 10:49 AM EDT [facility] Ketones, Urine Negative Negative mg/dL LAB URINALYSIS - AUTOMATED METHOD 11/21/2024 10:49 AM EDT [facility] Blood, Urine Large(A) Negative LAB URINALYSIS - AUTOMATED METHOD 11/21/2024 10:49 AM EDT [facility] Bilirubin, Urine Negative Negative LAB URINALYSIS - AUTOMATED METHOD 11/21/2024 10:49 AM EDT [facility] Urobilinogen, Urine 1.0 0.2 to 1.0 mg/dL LAB URINALYSIS - AUTOMATED METHOD 11/21/2024 10:49 AM EDT [facility] Leukocytes, Urine Negative Negative LAB URINALYSIS - AUTOMATED METHOD 11/21/2024 10:49 AM EDT [facility] Nitrite, Urine Negative Negative LAB URINALYSIS - AUTOMATED METHOD 11/21/2024 10:49 AM EDT [facility] RBC, Urine >50(A) 0 to 3 /HPF LAB URINALYSIS - AUTOMATED METHOD 11/21/2024 10:49 AM EDT [facility] Comment:This result was prev iously suppressed from the chart. WBC, Urine 0 - 5 0 to 5 /HPF LAB URINALYSIS - AUTOMATED METHOD 11/21/2024 10:49 AM EDT [facility] Comment:This result was prev iously suppressed from the chart. Squamous Epithelial Cells 0 - 2 0 to 5 /HPF LAB URINALYSIS - AUTOMATED METHOD 11/21/2024 10:49 AM EDT [facility] Comment:This result was prev iously suppressed from the chart. Hyaline Casts 0 - 2 0 to 5 /LPF LAB URINALYSIS - AUTOMATED METHOD 11/21/2024 10:49 AM EDT [facility] Comment:This result was prev iously suppressed from the chart. Bacteria, Urine Negative Negative LAB URINALYSIS - AUTOMATED METHOD 11/21/2024 10:49 AM EDT [facility] Comment:This result was prev iously suppressed from the chart. Urine Urine specimen obtained by clean catch procedure / Unknown Non-blood Collection / Unknown 11/21/2024 10:12 AM EDT 11/21/2024 10:19 AM EDT us Derek Deshpande MD LAB URINE ORDERABLES Final Result [facility] [address] [place] [address] * ED HIV 1/2 Antibody/Antigen Screen w/Reflex to HIV 1/2 Differentiation (11/21/2024 8:32 AM EDT) HIV 1 & 2 Antibody/Antigen Screen Non Reactive Non Reactive 11/21/2024 9:34 AM EDT [facility] Comment:Screening for HIV 1 & 2 antibodies, and P24 antigen is NONREACTIVE. No confirmatory testing is required. Blood Venous blood specimen / Unknown Venipuncture / Unknown 11/21/2024 8:32 AM EDT 11/21/2024 8:49 AM EDT Derek Deshpande MD LAB BLOOD ORDERABLES Final Result Performing Organization Address City/[facility]/ZIP Co de Phone Number [facility] [address] [place] [address] * Hepatitis C Antibody - ED (11/21/2024 8:32 AM EDT) Hepatitis C Antibody Negative Negative 11/21/2024 9:30 AM EDT [facility] Blood Venous blood specimen / Unknown Venipuncture / Unknown 11/21/2024 8:32 AM EDT 11/21/2024 8:50 AM EDT Derek Deshpande MD LAB BLOOD ORDERABLES Final Result Performing Organization Address [facility] Co de Phone Number [facility] [address] [place] [address] * Type and screen (11/21/2024 8:32 AM EDT) ABO/Rh B Positive 11/21/2024 8:25 AM EDT BLOOD BANK Antibody Screen Negative 11/21/2024 8:25 AM EDT [facility]LO[facility] Specimen Expiration 11/24/2024 23:59 11/21/2024 8:25 AM EDT [facility]LO[facility] Blood Venous blood specimen / Unknown Venipuncture / Unknown 11/21/2024 8:32 AM EDT 11/21/2024 8:36 AM EDT Derek Deshpande MD LAB BLOOD BANK TEST ORDERA BLES Final Result Performing Organization Address City/[facility] Co de Phone Number BLOOD BANK [address] [place] [address], * Lactic acid, venous (11/21/2024 8:32 AM EDT) Lactate, Venous, Whole Blood 1.4 0.5 - 2.2 mmol/L LAB HEMATOLOGY METHOD 11/21/2024 8:52 AM EDT [facility] Blood Venous blood specimen / Unknown Venipuncture / Unknown 11/21/2024 8:32 AM EDT 11/21/2024 8:48 AM EDT us Derek Deshpande MD LAB BLOOD ORDERABLES Final Result [facility] [address] [place] [address] * (ABNORMAL) CMP (11/21/2024 8:32 AM EDT) Glucose, Plasma 122(H) 74 - 99 mg/dL 11/21/2024 9:18 AM EDT [facility] BUN, Plasma 17 8 - 23 mg/dL 11/21/2024 9:18 AM EDT [facility] Creatinine, Plasma 1.79(H) 0.60 - 1.10 mg/dL 11/21/2024 9:18 AM EDT [facility] BUN/Creatinine Ratio 9 11/21/2024 9:18 AM EDT [facility] Sodium, Plasma 140 136 - 145 mmol/L 11/21/2024 9:18 AM EDT [facility] Potassium, Plasma 4.3 3.6 - 4.9 mmol/L 11/21/2024 9:18 AM EDT [facility] Chloride, Plasma 110(H) 97 - 107 mmol/L 11/21/2024 9:18 AM EDT [facility] CO2, Plasma 22 22 - 29 mmol/L 11/21/2024 9:18 AM EDT [facility] Anion Gap 8 6 - 16 mmol/L 11/21/2024 9:18 AM EDT [facility] Total Calcium, Plasma 8.4(L) 8.9 - 10.2 mg/dL 11/21/2024 9:18 AM EDT [facility] Total Protein 6.0(L) 6.3 - 7.9 g/dL 11/21/2024 9:18 AM EDT [facility] Albumin, Plasma 3.5 3.5 - 5.2 g/dL 11/21/2024 9:18 AM EDT [facility] AST, Plasma 21 10 - 35 U/L 11/21/2024 9:18 AM EDT [facility] ALT, Plasma 19 10 - 35 U/L 11/21/2024 9:18 AM EDT [facility] Alkaline Phosphatase, Plasma 94 46 - 142 U/L 11/21/2024 9:18 AM EDT [facility] Total Bilirubin, Plasma 0.4 0.2 - 1.1 mg/dL 11/21/2024 9:18 AM EDT [facility] eGFRcr 31.0 mL/min/1.7 3m*2 11/21/2024 9:18 AM EDT [facility] Comment:Reported eGFRcr in m L/min/1.73m2 is based the CKD-EPI 2020 equation that does not use a race coefficient. Blood Venous blood specimen / Unknown Venipuncture / Unknown 11/21/2024 8:32 AM EDT 11/21/2024 8:49 AM EDT us Derek Deshpande MD LAB BLOOD ORDERABLES Final Result [facility] [address] [place] [address] * (ABNORMAL) PT-INR (11/21/2024 8:32 AM EDT) Prothrombin Time 15.3(H) 12.0 - 14.3 sec 11/21/2024 8:58 AM EDT [facility] INR 1.2(H) 0.9 - 1.1 11/21/2024 8:58 AM EDT [facility] Blood Venous blood specimen / Unknown Venipuncture / Unknown 11/21/2024 8:32 AM EDT 11/21/2024 8:44 AM EDT Narrative [facility] - 11/21/2024 8:58 AM EDT OPTIMAL INR RANGES FOR PATIENT ON ORAL ANTICOAGULANT THERAPY Prevention of venous thromboembolism INR 2.0 to 3.0 In patients with heart disease: Atrial fibrillation INR 2.0 to 3.0 Valvular heart disease INR 2.0 to 3.0 Tissue heart valves INR 2.0 to 3.0 Mechanical prosthetic valves INR 2.5 to 3.5 Prevention of recurrent SC INR 2.5 to 3.5 us Derek Deshpande MD LAB BLOOD ORDERABLES Final Result [facility] [address] [place] [address] * (ABNORMAL) CBC w/diff (11/21/2024 8:32 AM EDT) WBC Count 15.92(H) 3.70 - 10.30 10*3/uL LAB HEMATOLOGY METHOD 11/21/2024 8:46 AM EDT [facility] RBC Count 3.71(L) 3.90 - 5.20 10*6/uL LAB HEMATOLOGY METHOD 11/21/2024 8:46 AM EDT [facility] HGB 11.6 11.2 - 15.7 g/dL LAB HEMATOLOGY METHOD 11/21/2024 8:46 AM EDT [facility] HCT 34.9 34.0 - 45.0 % LAB HEMATOLOGY METHOD 11/21/2024 8:46 AM EDT [facility] Platelet Count 187 155 - 369 10*3/uL LAB HEMATOLOGY METHOD 11/21/2024 8:46 AM EDT [facility] MCV 94 79 - 98 fL LAB HEMATOLOGY METHOD 11/21/2024 8:46 AM EDT [facility] MCH 31.3 26.0 - 32.0 pg LAB HEMATOLOGY METHOD 11/21/2024 8:46 AM EDT [facility] MCHC 33.2 30.7 - 35.5 g/dL LAB HEMATOLOGY METHOD 11/21/2024 8:46 AM EDT [facility] RDW 15.2(H) 11.5 - 14.5 % LAB HEMATOLOGY METHOD 11/21/2024 8:46 AM EDT [facility] MPV 9.9 8.8 - 12.5 fL LAB HEMATOLOGY METHOD 11/21/2024 8:46 AM EDT [facility] nRBC 0.0 <=0.0 per 100 WBCs LAB HEMATOLOGY METHOD 11/21/2024 8:46 AM EDT [facility] Differential Type Automated LAB HEMATOLOGY METHOD 11/21/2024 8:46 AM EDT [facility] Neutrophils % 88 % LAB HEMATOLOGY METHOD 11/21/2024 8:46 AM EDT [facility] Lymphocytes % 7 % LAB HEMATOLOGY METHOD 11/21/2024 8:46 AM EDT [facility] Monocytes % 5 % LAB HEMATOLOGY METHOD 11/21/2024 8:46 AM EDT [facility] Eosinophils % 0 % LAB HEMATOLOGY METHOD 11/21/2024 8:46 AM EDT [facility] Basophils % 0 % LAB HEMATOLOGY METHOD 11/21/2024 8:46 AM EDT [facility] Immature Granulocytes % 0 % LAB HEMATOLOGY METHOD 11/21/2024 8:46 AM EDT [facility] Neutrophils Absolute 13.90(H) 1.60 - 6.10 10*3/uL LAB HEMATOLOGY METHOD 11/21/2024 8:46 AM EDT [facility] Lymphocytes Absolute 1.15(L) 1.20 - 3.90 10*3/uL LAB HEMATOLOGY METHOD 11/21/2024 8:46 AM EDT [facility] Monocytes Absolute 0.74 0.30 - 0.90 10*3/uL LAB HEMATOLOGY METHOD 11/21/2024 8:46 AM EDT [facility] Eosinophils Absolute 0.01 0.00 - 0.50 10*3/uL LAB HEMATOLOGY METHOD 11/21/2024 8:46 AM EDT [facility] Basophils Absolute 0.05 0.00 - 0.10 10*3/uL LAB HEMATOLOGY METHOD 11/21/2024 8:46 AM EDT [facility] Immature Granulocytes Absolute 0.07(H) 0.00 - 0.06 10*3/uL LAB HEMATOLOGY METHOD 11/21/2024 8:46 AM EDT [facility] Blood Venous blood specimen / Unknown Venipuncture / Unknown 11/21/2024 8:32 AM EDT 11/21/2024 8:44 AM EDT [facility] - 11/21/2024 8:46 AM EDT Therapeutic decision making should be based on absolute values, rather than percentages. us Derek Deshpande MD LAB BLOOD ORDERABLES Final Result [facility] [address] [place] [address] documented in this encounter Visit Diagnoses Diagnosis Lower GI bleed- Primary Unspecified, hemorrhage of gastrointestinal tract Lower abdominal pain Abdominal pain, other specified site Primary obstructive sleep apnea of Lower GI bleed Unspecified, hemorrhage of gastrointestinal tract Tobacco use disorder Claudication of both lower extremities PAD (peripheral artery disease) (CMS/HCC) Unspecified peripheral vascular disease Acute mesenteric ischemia (CMS/HCC) Acute vascular insufficiency of intestine Chronic kidney disease, unspecified CKD stage documented in this encounter Admitting Diagnoses Diagnosis Lower GI bleed Unspecified, hemorrhage of gastrointestinal tract documented in this encounter Administered Medications Inactive Administered Medications - up to 3 most recent administrations Medication Order MAR Action Action Date Dose Rate Site acetaminophen (Tylenol) tablet 1,000 mg 1,000 mg, Oral, Every 6 hours PRN, Starting on Thu11/21/24 at 1940, Until Thu11/22/24 at 1116, Routine, mild pain Given 11/22/2024 9:08 AM EDT 1,000 mg Given 11/21/2024 8:04 PM EDT 1,000 mg acetaminophen (Tylenol) tablet 650 mg 650 mg, Oral, Every 6 hours scheduled, First dose on Thu11/22/24 at 1155, Until Discontinued, Routine Given 11/24/2024 8:55 AM EDT 650 mg Given 11/24/2024 3:46 AM EDT 650 mg Given 11/23/2024 8:29 PM EDT 650 mg aspirin chewable tablet 81 mg 81 mg, Oral, Daily, First dose on Thu11/21/24 at 1610, Until Discontinued Given 11/24/2024 8:55 AM EDT 81 mg Given 11/23/2024 9:24 AM EDT 81 mg Given 11/22/2024 9:08 AM EDT 81 mg atorvastatin (Lipitor) tablet 80 mg 80 mg, Oral, Daily, First dose on Thu11/21/24 at 1500, Until Discontinued Given 11/24/2024 8:55 AM EDT 80 mg Given 11/23/2024 9:24 AM EDT 80 mg Given 11/22/2024 9:08 AM EDT 80 mg baclofen (Lioresal) tablet 10 mg 10 mg, Oral, Daily PRN, Starting on Thu11/21/24 at 1501, Until 11/24/25 at 1531, Routine, muscle spasms Given 11/23/2024 9:24 AM EDT 10 mg Given 11/22/2024 9:27 AM EDT 10 mg Given 11/21/2024 3:23 PM EDT 10 mg cefTRIAXone (Rocephin) 1 g in sodium chloride 0.9% 100 mL IVPB (vial adapter required) 1 g, Intravenous, Every 24 hours, First dose on Thu11/21/24 at 1820, Until Discontinued, Routine New Bag 11/21/2024 6:42 PM EDT 1 g 220 mL/hr cefTRIAXone (Rocephin) 1 g in sodium chloride 0.9% 100 mL IVPB (vial adapter required) 1 g, Intravenous, Every 24 hours, 2 doses, First dose (after last modification) on Thu11/22/24 at 1820, Last dose on Thu11/23/24 at 1820, Routine New Bag 11/22/2024 5:20 PM EDT 1 g 220 mL/hr cefTRIAXone (Rocephin) 1 g in sodium chloride 0.9% 100 mL IVPB (vial adapter required) 1 g, Intravenous, Every 24 hours, 1 dose, First dose (after last modification) on Thu11/23/24 at 1500, Routine New Bag 11/23/2024 4:00 PM EDT 1 g 220 mL/hr gabapentin (Neurontin) capsule 300 mg 300 mg, Oral, 2 times daily, First dose on Thu11/21/24 at 2100, Until Discontinued, Routine Given 11/24/2024 8:55 AM EDT 300 mg Given 11/23/2024 8:29 PM EDT 300 mg Given 11/23/2024 9:24 AM EDT 300 mg hydroCHLOROthiazide (HYDRODiuril) tablet 12.5 mg 12.5 mg, Oral, Once, 1 dose, On Thu11/21/24 at 1030, Routine Given 11/21/2024 10:41 AM EDT 12.5 mg hydroCHLOROthiazide (HYDRODiuril) tablet 12.5 mg 12.5 mg, Oral, Daily, First dose on Thu11/22/24 at 1125, Until Discontinued, Routine Given 11/24/2024 8:55 AM EDT 12.5 mg Given 11/23/2024 9:24 AM EDT 12.5 mg Given 11/22/2024 11:52 AM EDT 12.5 mg HYDROmorphone (Dilaudid) injection 0.25 mg 0.25 mg, Intravenous, Once, 1 dose, On Thu11/21/24 at 0825, STAT Given 11/21/2024 8:39 AM EDT 0.25 mg HYDROmorphone (Dilaudid) injection 0.5 mg 0.5 mg, Intravenous, Once, 1 dose, On Thu11/21/24 at 1335, STAT Given 11/21/2024 2:04 PM EDT 0.5 mg lisinopril tablet 20 mg 20 mg, Oral, Once, 1 dose, On Thu11/21/24 at 1030, STAT Given 11/21/2024 10:42 AM EDT 20 mg lisinopril tablet 20 mg 20 mg, Oral, Daily, First dose on Thu11/22/24 at 1125, Until Discontinued, Routine Given 11/24/2024 8:55 AM EDT 20 mg Given 11/23/2024 9:24 AM EDT 20 mg Given 11/22/2024 11:52 AM EDT 20 mg ondansetron (Zofran) injection 4 mg 4 mg, Intravenous, Once, 1 dose, On Thu11/21/24 at 0825, STAT Given 11/21/2024 8:37 AM EDT 4 mg oxyCODONE (Roxicodone) immediate release tablet 5 mg 5 mg, Oral, Once, 1 dose, On Thu11/21/24 at 2155, Routine Given 11/21/2024 10:04 PM EDT 5 mg oxyCODONE (Roxicodone) immediate release tablet 5 mg 5 mg, Oral, Every 6 hours PRN, Starting on Thu11/22/24 at 1115, Until Thu11/23/24 at 1139, Routine, moderate pain, severe pain Given 11/23/2024 9:24 AM EDT 5 mg Given 11/22/2024 11:10 PM EDT 5 mg Given 11/22/2024 11:52 AM EDT 5 mg oxyCODONE (Roxicodone) immediate release tablet 5 mg 5 mg, Oral, Every 12 hours PRN, Starting on Thu11/23/24 at 1138, Until Thu11/24/24 at 1531, Routine, moderate pain, severe pain Given 11/23/2024 4:17 PM EDT 5 mg sodium chloride 0.9 % flush 10 mL 10 mL, Intravenous, Every 12 hours, First dose on Thu11/21/24 at 1440, Until Discontinued, Routine Given 11/24/2024 3:47 AM EDT 10 mL Given 11/23/2024 1:46 PM EDT 10 mL Given 11/23/2024 3:05 AM EDT 10 mL sodium chloride 0.9 % flush 10 mL 10 mL, Intravenous, As needed, Starting on Thu11/21/24 at 1434, Until Daly 11/24/24 at 1531, Routine, line care documented in this encounter Active and Recently Administered Medications Times are shown in EDT. Scheduled Medication Order 11/22/2024 11/23/2024 11/24/2024 acetaminophen (Tylenol) tablet 650 mg 650 mg, Oral, Every 6 hours scheduled, First dose on Thu11/22/24 at 1155, Until Discontinued, Routine 1150 (Not Given - Provider: Jennifer Camejo RN - Reason: Order parameters not met)1720 (Given - Provider: Jennifer Camejo RN)2044 (Given - Provider: Ashley Florian RN) 0305 (Given - Provider: Ashley Florian RN)0924 (Given - Provider: Scarlett Cao, JR)1600 (Given - Provider: Chu Frankel RN)2029 (Given - Provider: Sam Castellano) 0346 (Given - Provider: Sam Castellano)0855 (Given - Provider: Gabi Galindo)1500 (Canceled Entry - Provider: Automatic Discharge Provider - Comment: Automatically canceled at discontinue of medication order) aspirin chewable tablet 81 mg 81 mg, Oral, Daily, First dose on Thu11/21/24 at 1610, Until Discontinued 0908 (Given - Provider: Jennifer Camejo RN) 0924 (Given - Provider: Scarlett Cao, JR) 0855 (Given - Provider: Gabi Galindo) atorvastatin (Lipitor) tablet 80 mg 80 mg, Oral, Daily, First dose on Thu11/21/24 at 1500, Until Discontinued 0908 (Given - Provider: Jennifer Camejo RN) 0924 (Given - Provider: Scarlett Cao, JR) 0855 (Given - Provider: Gabi Galindo) cefTRIAXone (Rocephin) 1 g in sodium chloride 0.9% 100 mL IVPB (vial adapter required) (CANCELED) 1 g, Intravenous, Every 24 hours, 2 doses, First dose (after last modification) on Thu11/22/24 at 1820, Last dose on Thu11/23/24 at 1820, Routine 1720 (New Bag - Provider: Jennifer Camejo RN)1752 (Stopped - Provider: Jennifer Camejo RN) cefTRIAXone (Rocephin) 1 g in sodium chloride 0.9% 100 mL IVPB (vial adapter required) (COMPLETED) 1 g, Intravenous, Every 24 hours, 1 dose, First dose (after last modification) on Thu11/23/24 at 1500, Routine 1600 (New Bag - Provider: Chu Frankel RN)1728 (Stopped - Provider: Chu Frankel RN) gabapentin (Neurontin) capsule 300 mg 300 mg, Oral, 2 times daily, First dose on Thu11/21/24 at 2100, Until Discontinued, Routine 0908 (Given - Provider: Jennifer Camejo RN)2043 (Given - Provider: Ashley Florian RN) 0924 (Given - Provider: Scarlett Cao, JR)2028 (Given - Provider: Sam Castellano) 0855 (Given - Provider: Gabi Galindo) hydroCHLOROthiazide (HYDRODiuril) tablet 12.5 mg 12.5 mg, Oral, Daily, First dose on Thu11/22/24 at 1125, Until Discontinued, Routine 1152 (Given - Provider: Jennifer Camejo RN) 0924 (Given - Provider: Scarlett Cao, JR) 0855 (Given - Provider: Gabi Galindo) lisinopril tablet 20 mg 20 mg, Oral, Daily, First dose on Thu11/22/24 at 1125, Until Discontinued, Routine 1152 (Given - Provider: Jennifer Camejo RN) 0924 (Given - Provider: Scarlett Cao, JR) 0855 (Given - Provider: Gabi Galindo) sodium chloride 0.9 % flush 10 mL(Linked Group 1) 10 mL, Intravenous, Every 12 hours, First dose on Thu11/21/24 at 1440, Until Discontinued, Routine 0341 (Given - Provider: Ana Jacques)1254 (Given - Provider: Jennifer Camejo RN) 0305 (Given - Provider: Ashley Florian RN)1346 (Given - Provider: Scarlett Cao, JR) 0347 (Given - Provider: Sam Castellano)1440 (Canceled Entry - Provider: Automatic Discharge Provider - Comment: Automatically canceled at discontinue of medication order) PRN Medication Order 11/22/2024 11/23/2024 11/24/2024 acetaminophen (Tylenol) tablet 1,000 mg (CANCELED) 1,000 mg, Oral, Every 6 hours PRN, Starting on Thu11/21/24 at 1940, Until Thu11/22/24 at 1116, Routine, mild pain 0908 (Given - Provider: Jennifer Camejo RN) baclofen (Lioresal) tablet 10 mg 10 mg, Oral, Daily PRN, Starting on Thu11/21/24 at 1501, Until Thu11/24/24 at 1531, Routine, muscle spasms 0927 (Given - Provider: Jennifer Camejo RN) 0924 (Given - Provider: Scarlett Cao RN) oxyCODONE (Roxicodone) immediate release tablet 5 mg (CANCELED) 5 mg, Oral, Every 6 hours PRN, Starting on Thu11/22/24 at 1115, Until Thu11/23/24 at 1139, Routine, moderate pain, severe pain 1152 (Given - Provider: Jennifer Camejo RN)2310 (Given - Provider: Ashley Florian RN) 0924 (Given - Provider: Scarlett Cao, JR) oxyCODONE (Roxicodone) immediate release tablet 5 mg 5 mg, Oral, Every 12 hours PRN, Starting on Thu11/23/24 at 1138, Until Thu11/24/24 at 1531, Routine, moderate pain, severe pain 1617 (Given - Provider: Chu Frankel RN) sodium chloride 0.9 % flush 10 mL(Linked Group 1) 10 mL, Intravenous, As needed, Starting on Thu11/21/24 at 1434, Until Daly 11/24/24 at 1531, Routine, line care Linked Groups Order Group 1: Insert peripheral IV (CANCELED) Once, On Thu11/21/24 at 1435, For 1 occurrence And Saline lock IV (CANCELED) Once, On Thu11/21/24 at 1435, For 1 occurrence And sodium chloride 0.9 % flush 10 mLJump to med 10 mL, Intravenous, Every 12 hours, First dose on Thu11/21/24 at 1440, Until Discontinued, Routine And sodium chloride 0.9 % flush 10 mLJump to med 10 mL, Intravenous, As needed, Starting on Thu11/21/24 at 1434, Until Daly 11/24/24 at 1531, Routine, line care documented in this encounter Additional Health Concerns Infection Onset Date Last Indicated Resolved Time Gastrointestinal Rule-Out 11/23/2024 11/23/2024 4:56 PM EDT C. difficile Rule-Out 11/23/2024 11/23/20242024 4:28 PM EDT Assessment Noted Time PHQ-9 Depression Total Score: 0 10/13/19 25 8:52 AM EDT A fall risk assessment has been complete d for the patient 10/12/2024 8:52 AM EDT A Body Mass Index follow-up plan has been documented for the patient 11/24/2024 1:06 PM EDT documented as of this encounter Care Teams Master Police Detective Relationship Specialty Start Date End Date Deondre Lui MD [facility] [address] [facility] PCP - General 10/26/20 documented as of this encounter
--- OUTSIDE RECORDS SUMMARY | 2024-12-09 12:30 | XMS_ITS | Encounter Summary ---
Author Organization Healthcare Address [address] [place] [address] Care Team Providers Care Ship Washer Name Role Phone Deondre Lui MD Primary Care Provider [phone] Christal Murray LPN Unavailable Unavailable Reason for Referral * Imaging (Routine) - Closed Specialty Diagnoses / Procedures Referred By Alvaro myles Referred To Contact Cardiology Diagnoses PAD (peripheral artery disease) (CMS/HCC) Procedures VAS US Arterial Duplex Lower Extremity Bilateral Bypass Graft Donovan Kern MD [address] [address] Phone: tel: fax: Referral ID Status Reason Start Date Expiration Date V isits Requested Visits Authorized [id number] Closed Perform Procedure 10/11/2024 04/12/2026 1 1 Reason for Visit * Imaging (Routine) - Closed Specialty Diagnoses / Procedures Referred By Alvaro myles Referred To Contact Cardiology Diagnoses PAD (peripheral artery disease) ([facility]/HCC) Procedures VAS US Arterial Duplex Lower Extremity Bilateral Bypass Graft Donovan Kern MD [address] [address] Phone: tel: fax: Referral ID Status Reason Start Date Expiration Date V isits Requested Visits Authorized [id number] Closed Perform Procedure 10/11/2024 04/12/2026 1 1 Encounter Details Date Type Department Care Team (Latest Contact Info) Description 12/09/2024 12:30 PM EDT Hospital Encounter [facility] [address] 5th Floor [address], [address] [place] [address] PAD (peripheral artery disease) ([facility]) Discharge Disposition: Home or Self Care Social [...] and Family Not on file 11/25/2024 Attends Sabianist Services Not on file 11/25 Active Member [...] any time in the past 12 m [facility], were you homeless or living in a group home (including now)? No 11/25/2024 Utilities Answer Date [...] Description 02/20/2025 10:45 AM EDT Office Visit [facility] Medicine Specialties [address] 2nd [place] [address] Elle Landaverde APRN, ANNE [address] [facility] [address] [place] [address] 03/29/2025 10:30 AM EDT Clinical Support [facility] Laboratory Services [address] [facility] 1st [place] [address] 04/05/2025 1:00 PM EDT Office Visit [facility] Nephrology, Bone & Mineral Metabolism [address] [facility], [address] [place] [address] Jude Arora, TAYLA [address] [facility] [address] [phone] 08/09/2025 10:00 AM EST Appointment [facility] [address] [place] [address] 08/09/2025 11:45 AM EST Office Visit [facility] [address] 1st [place] [address] Cristofer Yu MD [address] [facility] [address] [place] [address] 10/11/2025 9:15 AM EDT Office Visit [facility] [place] [address] [place] [address] James Tomas MD [address] [place] [address] documented as of this encounter Procedures Procedure Name Priority Date/Time Associated Diagnosis Comments VAS US ARTERIAL DUPLEX LOWER EXTREMITY BILATERAL Routine 12/09/2024 1:58 PM EDT PAD (peripheral artery disease) ([facility]) documented in this encounter Results * VAS [...] turbulent waveforms are detected at the bilateral STUDENT SUPPORT COUNSELOR suggestive of inflow disease. Preliminary report signed [...] Right to left fem-fem bypass graft: Right STUDENT SUPPORT COUNSELOR anastomosis: 231 cm/s Right of midline: 77 cm/s Midline: 72 cm/s Left of midline: 82 cm/s Left STUDENT SUPPORT COUNSELOR anastomosis: 95 cm/s LEFT: Arterial duplex demonstrates [...] Right to left fem-fem bypass graft: Right STUDENT SUPPORT COUNSELOR anastomosis: 231 cm/s Right of midline: 77 cm/s Midline: 72 cm/s Left of midline: 82 cm/s Left STUDENT SUPPORT COUNSELOR anastomosis: 95 cm/s LEFT: Arterial duplex demonstrates [...] Visit Diagnoses Diagnosis PAD (peripheral artery disease) ([facility]) Unspecified peripheral vascular disease documented in this encounter Additional Health Concerns Assessment Noted Time PHQ-9 Depression Total Score: 0 10/13/19 25 8:52 AM EDT A fall risk assessment has been complete d for the patient 12/09/2024 1:41 PM EDT A Body Mass Index follow-up plan has been documented for the patient 12/09/2024 2:47 PM EDT documented as of this encounter Care Teams Ship Washer Relationship Specialty Start Date End Date Deondre Lui MD [address] [facility] [address] [place] [address] PCP - General 10/26/20 Christal Murray LPN VALUE-[employer]ED [place] [address] TCM Nurse 11/25/24 12/25/24 documented as of this encounter
--- OUTSIDE RECORDS SUMMARY | 2024-12-09 12:31 | XMS_ITS | Encounter Summary ---
Author Organization Healthcare Address [address] [place] [address] Care Team Providers Care Computational Theory Scientist Name Role Phone Deondre Lui MD Primary Care Provider [phone] Christal Murray LPN Unavailable Unavailable Reason for Referral * Imaging (Routine) - Closed Specialty Diagnoses / Procedures Referred By Jonathanac t Referred To Contact Cardiology Diagnoses PAD (peripheral artery disease) (CMS/HCC) Procedures VAS Ankle Brachial Index - Segmental Donovan Kern MD [address] [address] Phone: tel: fax: Referral ID Status Reason Start Date Expiration Date V isits Requested Visits Authorized [id number] Closed Perform Procedure 10/11/2024 04/12/2026 1 1 Reason for Visit * Imaging (Routine) - Closed Specialty Diagnoses / Procedures Referred By Alvaro myles Referred To Contact Cardiology Diagnoses PAD (peripheral artery disease) ([facility]/HCC) Procedures VAS Ankle Brachial Index - Segmental Donovan Kern MD [address] [facility] [address] [place] [address] Phone: tel: fax: Referral ID Status Reason Start Date Expiration Date V isits Requested Visits Authorized [id number] Closed Perform Procedure 10/11/2024 04/12/2026 1 1 Encounter Details Date Type Department Care Team (Latest Contact Info) Description 12/09/2024 12:31 PM EDT - 12/09/2024 11:59 PM EDT Hospital Encounter [facility] Vascular Lab [address] 5th Floor Wing [address], [address] [place] [address] PAD (peripheral artery disease) ([facility]) Discharge Disposition: Home or Self Care Social [...] and Family Not on file 11/25/2024 Attends Tenriism Services Not on file 11/25 Active Member [...] Description 02/20/2025 10:45 AM EDT Office Visit [facility] Medicine Specialties [address] 2nd [place] [address] Elle Landaverde APRN, [facility] [address] [facility] [address] [place] [address] 03/29/2025 10:30 AM EDT Clinical Support [facility] Laboratory Services [address] [facility], 1st [place] [address] 04/05/2025 1:00 PM EDT Office Visit [facility] Nephrology, Bone & Mineral Metabolism [address] [facility], [address] [place] [phone] Jude Arora PA [address] [facility] [address] [place] [address] 08/09/2025 10:00 AM EST Appointment [facility] Vascular Lab [address] [facility] [address] [place] [address] 08/09/2025 11:45 AM EST Office Visit [facility] [address], 1st [place] [phone] Cristofer Yu MD [address] [facility] [address] [place] [address] 10/11/2025 9:15 AM EDT Office Visit [facility] [place] Ray[place]undo [address] [place] [address] James Tomas MD [address] [place] [address] documented as of this encounter Procedures Procedure Name Priority Date/Time Associated Diagnosis Comments VAS ANKLE BRACHIAL INDEX - SEGMENTAL Routine 12/09/2024 1:20 PM EDT PAD (peripheral artery disease) ([facility]) documented in this encounter Results * VAS [...] are demonstrated at the levels of the RELAY ASSOCIATE (Obtained on same day arterial duplex), DPA and PEANUT SHAKER. Segmental pressures are below normal limits with a PEANUT SHAKER RAMSEY of 0.67 (80 mmHg) DPA RAMSEY of 0.56 (67 mmHg). Digit pressures are 20 mmHg. Left: Monophasic waveforms are demonstrated at the levels of the RELAY ASSOCIATE (Obtained on same day arterial duplex), DPA and PEANUT SHAKER. Segmental pressures are below normal limits with a PEANUT SHAKER RAMSEY of 0.59 (70 mmHg) DPA RAMSEY [...] are demonstrated at the levels of the RELAY ASSOCIATE(Obtained on same day arterial duplex), DPA and PEANUT SHAKER. Segmental pressuresare below normal limits with a PEANUT SHAKER RAMSEY of 0.67 (80 mmHg) DPA RAMSEY of 0.56(67 mmHg). Digit pressures are 20 mmHg. Left: Monophasic waveforms are demonstrated at the levels of the RELAY ASSOCIATE(Obtained on same day arterial duplex), DPA and PEANUT SHAKER. Segmental pressuresare below normal limits with a PEANUT SHAKER RAMSEY of 0.59 (70 mmHg) DPA RAMSEY [...] documented as of this encounter Care Teams Computational Theory Scientist Relationship Specialty Start Date End Date Deondre Lui MD [address] [place] [address] [address] [place] [address] PCP - General 10/26/20 Christal Murray LPN VALUE-[employer]ED [place] [address] TCM Nurse 11/25/24 12/25/24 documented as of this encounter
--- OUTSIDE RECORDS SUMMARY | 2024-12-09 15:20 | XMS_ITS | Encounter Summary ---
Author Organization Healthcare Address [address] [place] [address] Care Team Providers Care Quality Tech Name Role Phone Deondre Lui MD Primary Care Provider Christal Murray LPN Unavailable Unavailable Reason for Referral * Imaging (Routine) - Pending Review Specialty Diagnoses / Procedures Referred By Alvaro myles Referred To Contact Cardiology Diagnoses Claudication of both lower extremities Procedures VAS Ankle Brachial Index - RAMSEY Only Tyron Mosquera MD [address] [address] Phone: tel: fax: Referral ID Status Reason Start Date Expiration Date Visits Requested Visits Authorized [id number] Pending Review Perform Procedure 12/09/2024 06/10/2026 1 1 * Imaging (Routine) - Pending Review Specialty Diagnoses / Procedures Referred By Alvaro myles Referred To Contact Cardiology Diagnoses Claudication of both lower extremities Aortoiliac stenosis (CMS/HCC) Procedures VAS US Aorta IVC Iliac Vessels Duplex RAMSEY/ABF Graft Tyron Mosquera MD [address] [address] Phone: tel: fax: Referral ID Status Reason Start Date Expiration Date Visits Requested Visits Authorized [id number] Pending Review Perform Procedure 12/09/2024 06/10/2026 1 1 Reason for Visit * Reason Comments peripheral artery disease * Consultation (Routine) - Closed Specialty Diagnoses / Procedures Referred By Contact Referred To Contact Vascular Surgery / Comprehensive V[facility] Clinic Diagnoses Claudication of both lower extremities PAD (peripheral artery disease) ([facility]) Rae Adames MD [address] [place] [address] Phone: tel:[phone] fax:[phone] [facility] Comprehensive Vascular Clinic [address], [address] [place] [address] Phone: tel: fax: Referral ID Status Reason Start Date Expiration Date V isits Requested Visits Authorized [id number] Closed Specialty Services Required 11/24/2024 05/26/2026 1 1 Encounter Details Date Type Department Care Team (Latest Contact Info) Description 12/09/2024 3:20 PM EDT Office Visit [facility] Comprehensive Vascular Clinic [address], [address] [place] [address] Tyron Mosquera MD [address] [facility] [address] [place] [address] Claudication of both lower extremities (Primary Dx); Aortoiliac stenosis ([facility]) Social History Tobacco Use Types Packs/Day Years [...] and Family Not on file 11/25/2024 Attends [employer] Not on file 11/25 Active Member [...] any time in the past 12 m [facility], were you homeless or living in a chcf (including now)? No 11/25/2024 Utilities Answer Date Recorded In the past 12 months has e [employer], gas, oil, or water company threatened to [...] insufficiency. I will reach out to her Clinical Research Assistant from her hospitalization to see if her [...] 02/20/2025 10:45 AM EDT Office Visit [facility] Medicine Specialties [address], 2nd [place] [address] Elle Landaverde, ENVIRONMENTAL ENGINEERING INTERN, DNP [address] [facility] [address] [place] [address] 03/29/2025 10:30 AM EDT Clinical Support [facility] Laboratory Services [address] [facility], 1st [place] [address] 04/05/2025 1:00 PM EDT Office Visit [facility] Nephrology, Bone & Mineral Metabolism [address] [facility], [address] [place] [address] Jude Arora PA [address] [facility] [address] [place] [address] 08/09/2025 10:00 AM EST Appointment [facility] [address] [facility] [address] [place] [address] 08/09/2025 11:45 AM EST Office Visit [facility] [address], 1st [place] [address] Cristofer Yu MD [address] [facility] [address] [place] [address] 10/11/2025 9:15 AM EDT Office Visit [facility] [place] [address] [facility]. [address] [place] [address] James Tomas MD [address] [place] [address] Scheduled Orders Name Type Priority Associated Diagnoses [...] documented as of this encounter Care Teams Quality Tech Relationship Specialty Start Date End Date Deondre Lui MD [address] [place], [place] [address] [address] [place] [address] PCP - General 10/26/20 Christal Murray LPN VALUE-BASED [place] [address] TCM Nurse 11/25/24 12/25/24 documented as of this encounter
--- NOTE | 2025-01-05 08:45 | CT_ITS ---
FINAL REPORT TECHNIQUE: Noncontrast CT exam of the abdomen and pelvis. This study was performed with techniques to keep radiation doses as low as reasonably achievable (ALARA). Individualized dose reduction techniques using automated exposure control or adjustment of mA and/or kV according to the patient''s size were employed. CLINICAL HISTORY: Nausea, vomiting, abdominal pain, diarrhea COMPARISON: 01/07/2022 FINDINGS: Abdomen: Lung bases are clear. There is a nonobstructing right renal stone, similar to the prior study. Fatty change of the liver is noted. The remaining abdominal solid organs are normal. The gallbladder is unremarkable. Pelvis: The appendix is normal. Bilateral iliac artery stents are present. Pelvic bowel loops are unremarkable. The patient is status post hysterectomy. The urinary bladder is unremarkable. Femoral bypass graft is noted. IMPRESSION: No acute findings. Reviewed, Interpreted and Dictated by Guadalupe Gaffney MD Transcribed by Yuridia Titus Authenticated and [facility]
--- OUTSIDE RECORDS SUMMARY | 2025-01-05 08:53 | XMS_ITS | Encounter Summary ---
Author Organization Healthcare Address [address] [place] [address] Care Team Providers Care Mold Carpenter Name Role Phone Deondre Lui MD Primary Care Provider [phone] Christal Murray LPN Unavailable Unavailable Encounter Details Date Type Department Care Team (Late st Contact Info) Description 12/08/[facility]24 [facility] [address] [facility] 5th Floor [address], [address] [place] [address] Ngoc Flores, RN PROGRESSIVE-ACUTE UNIT 9-T1 AND T2 Social History Tobacco Use Types Packs/Day Years [...] and Family Not on file 11/25/2024 Attends Worship Services Not on file 11/25 Active Member [...] any time in the past 12 m [facility], were you homeless or living in a residential (including now)? No 11/25/2024 Utilities Answer Date [...] on file documented as of this encounter Miscellaneous Notes * Telephone Encounter - Ngoc Flores RN - 12/08/2024 8:38 AM EDT Notified patient of new imaging appointment 12/09/24. Left time, date, location with clinic number for call back. documented in this encounter Plan of Treatment Upcoming Encounters Date Type Department Care Team (Late st Contact Info) Description 02/20/2025 10:45 AM EDT Office Visit [facility] Medicine Specialties [address], [address]nd [place] [address] Elle Landaverde APRN, [facility] [address] [facility] [address] [place] [address] 03/29/2025 10:30 AM EDT Clinical Support [facility] Laboratory Services [address] [facility], 1st [place] [address] 04/05/2025 1:00 PM EDT Office Visit [facility] Nephrology, Bone & Mineral Metabolism [address], [address] [place] [address] Jude Arora PA [address] [facility] [address] [place] [address] 08/09/2025 10:00 AM EST Appointment [facility] [address] [place] [address] 08/09/2025 11:45 AM EST Office Visit [facility] [address], 1st [place] [address] Cristofer Yu MD [address] [place] [address] 10/11/2025 9:15 AM EDT Office Visit [facility] [place] Ray[place]undo [address] [place] [address] James Tomas MD [address] [place] [address] documented as of this encounter Visit Diagnoses Not on filedocumented in this encounter Additional Health Concerns Assessment Noted Time PHQ-9 Depression Total Score: 0 10/13/19 8:52 AM EDT A fall risk assessment has been complete d for the patient 10/12/2024 8:52 AM EDT A Body Mass Index follow-up plan has been documented for the patient 11/24/2024 1:06 PM EDT documented as of this encounter Care Teams Mold Carpenter Relationship Specialty Start Date End Date Deondre Lui MD [address] [facility] [address] [place] [address] PCP - General 10/26/20 Christal Murray LPN VALUE-BASED [place] [address] TCM Nurse 11/25/24 12/25/24 documented as of this encounter
--- OUTSIDE RECORDS SUMMARY | 2025-01-05 08:53 | XMS_ITS | Encounter Summary ---
Author Organization Healthcare Address [address] [place] [address] Care Team Providers Care Brick Veneer Maker Name Role Phone Deondre Lui MD Primary Care Provider [phone] Christal Murray LPN Unavailable Unavailable Encounter Details Date Type Department Care Team (Latest Contact Info) Description 12/07/2024 Travel Social History Tobacco Use Types Packs/Day Years [...] and Family Not on file 11/25/2024 Attends Yarsanism Services Not on file 11/25 Active Member [...] any time in the past 12 m [facility], were you homeless or living in a halfway (including now)? No 11/25/2024 Utilities Answer Date Recorded In the past 12 months has th e [employer], gas, oil, or water company threatened to shut off services in your home? No 11/23/2024 PHQ-2A Answer Date Recorded Patient Health Questionnaire-2 Score 0 11/17/2022 Comments No Sex and Gender Information Value Date Recorded Sex Assigned at Not on file Legal Sex Female 6:34 PM EDT Gender Identity Not on file Sexual Orientation Not on file documented as of this encounter Plan of Treatment Upcoming Encounters Date Type Department Care Team (Late st Contact Info) Description 02/20/2025 10:45 AM EDT Office Visit [facility] Medicine Specialties [address], 2nd [place] [address] Elle Landaverde, OIL WELL SERVICE OPERATOR HELPER, DNP [address] [place] [address] 03/29/2025 10:30 AM EDT Clinical Support [facility] Laboratory Services [address] [facility], 1st Floor [place] [id number] 04/05/2025 1:00 PM EDT Office Visit [facility] Nephrology, Bone & Mineral Metabolism [address] [facility] [address], [address] [place] [address] Jude Arora PA [address] [facility] [address] [place] [address] 08/09/2025 10:00 AM EST Appointment [facility] [address] [facility] [address] [place] [address] 08/09/2025 11:45 AM EST Office Visit [place] [facility] [address], 1st [place] [address] Cristofer Yu MD [address] [facility] [address] [place] [address] 10/11/2025 9:15 AM EDT Office Visit [facility] [place] [address] [place] [address] James Tomas MD [address] [place] [address] documented as of this encounter Visit Diagnoses [...] documented as of this encounter Care Teams Brick Veneer Maker Relationship Specialty Start Date End Date Deondre Lui MD [facility] [place] [id number] [place] [id number] PCP - General 10/26/20 Christal Murray LPN VALUE-BASED [place] [address] TCM Nurse 11/25/24 12/25/24 documented as of this encounter
--- OUTSIDE RECORDS SUMMARY | 2025-01-05 08:53 | XMS_ITS | Encounter Summary ---
Author Organization Healthcare Address [address] [place] [address] Care Team Providers Care Equipment Hire Manager Name Role Phone Deondre Lui MD Primary Care Provider [phone] Christal Murray LPN Unavailable Unavailable Encounter Details Date Type Department Care Team (Late st Contact Info) Description 11/21/2024 Orders Only External Location [address] [place] [phone] Provider, External Social History Tobacco Use Types Packs/Day Years [...] and Family Not on file 11/25/2024 Attends Sikh Services Not on file 11/25 Active Member [...] any time in the past 12 m [facility], were you homeless or living [...] documented as of this encounter Functional Status * Calculated C-SSRS Risk Score (Lifetime/Recent) Answer Date of Assessment Author No Risk Indicated 11/24/2024 8:00 AM EDT Royalty , Gabi P * Question Answer Date of Assessment Author 1. Wish to be (Past 1 Month) No 025 8:00 AM EDT Royalty, Gabi P 2. Non-Specific Active Suici belgica Thoughts (Past 1 Month) No 11/24/2024 8:00 AM EDT Royalty, Made line P 6. Suicidal Behavior (Lifetime) No 8:00 AM EDT Royalty, Gabi P documented as of this encounter Plan of Treatment Upcoming Encounters Date Type Department Care Team (Late st Contact Info) Description 02/20/2025 10:45 AM EDT Office Visit [facility] Medicine Specialties [address], 2nd [place] [address] Elle Landaverde APRN, DNP [address] [facility] [address] [place] [address] 03/29/2025 10:30 AM EDT Clinical Support [facility] Laboratory Services [address] [facility], 1st [place] [address] 04/05/2025 1:00 PM EDT Office Visit [facility] Nephrology, Bone & Mineral Metabolism [address] [place] [address] Jude Arora, TAYLA [address] [facility] [address] [place] [address] 08/09/2025 10:00 AM EST Appointment [facility] [address] [place] [address] 08/09/2025 11:45 AM EST Office Visit [facility] [address], 1st [place] [address] Cristofer Yu MD [address] [place] [address] 10/11/2025 9:15 AM EDT Office Visit [facility] [place] [address] [place] [address] James Tomas MD [address] [place] [address] documented as of this encounter Procedures Procedure Name Priority Date/Time Associated Diagnosis Comments CT ABDOMEN OUTSIDE IMAGES 11/21/2024 4:35 AM EDT documented in this encounter Results * CT ABDOMEN OUTSIDE IMAGES (11/21/2024 4:35 AM EDT) Anatomical Region Laterality Modality Computed Tomogra phy 11/21/2024 4:35 AM EDT External Provider IMG CT PROCEDURES Final Result documented in this encounter Visit Diagnoses Not on filedocumented in this encounter Additional Health Concerns Infection [...] documented as of this encounter Care Teams Equipment Hire Manager Relationship Specialty Start Date End Date Deondre Lui MD [address] [facility] [address] [place] [address] PCP - General 10/26/20 Christal Murray LPN VALUE-[place]ED [place] [address] TCM Nurse 11/25/24 12/25/24 documented as of this encounter
--- OUTSIDE RECORDS SUMMARY | 2025-01-05 08:53 | XMS_ITS | Encounter Summary ---
Author Organization Healthcare Address [address] [place] [address] Care Team Providers Care Tissue Recovery Technician Name Role Phone Deondre Lui MD Primary Care Provider [phone] Christal Murray LPN Unavailable Unavailable Encounter Details Date Type Department Care Team (Late Contact Info) Description 08/18/2023 Orders Only External Location [address] [place] [phone] Provider, External Social History Tobacco Use Types Packs/Day Years Used Date Smoking Tobacco: Every Day Cigarettes 1 40 Smokeless Tobacco: Never Alcohol Use Standard Drinks/Week Comments Not Currently 0 (1 standard drink = 0.6 oz pur e alcohol) PHQ-2 Answer Date Recorded Patient Health Questionnaire-2 Score 0 11/17/2022 PHQ-2A Answer Date Recorded Patient Health Questionnaire-2 Score 0 11/17/2022 Comments No Sex and Gender Information Value Date Recorded Sex Assigned at Not on file Legal Sex Female 6:34 PM EDT Gender Identity Not on file Sexual Orientation Not on file documented as of this encounter Plan of Treatment Upcoming Encounters Date Type Department Care Team (Late Contact Info) Description 02/20/2025 10:45 AM EDT Office Visit [facility] Medicine Specialties [address], 2nd [place] [address] Elle Landaverde APRN, DNP [address] [place] [address] 03/29/2025 10:30 AM EDT Clinical Support [facility] Laboratory Services [address] [facility], 1st [place] [address] 04/05/2025 1:00 PM EDT Office Visit [facility] Nephrology, Bone & Mineral Metabolism [address] [place] [address] Jude Arora PA [address] [place] [address] 08/09/2025 10:00 AM EST Appointment [facility] [address] [place] [address] 08/09/2025 11:45 AM EST Office Visit [place] [facility] [address], 1st [place] [address] Cristofer Yu MD [address] [place] [address] 10/11/2025 9:15 AM EDT Office Visit [facility] [place] [address] [place] [address] James Tomas MD [address] [place] [address] documented as of this encounter Procedures Procedure Name Priority Date/Time Associated Diagnosis Comments US OUTSIDE IMAGES 08/18/2023 7:26 AM EST documented in this encounter Results * US OUTSIDE IMAGES (08/18/2023 7:26 AM EST) Anatomical Region Laterality Modality Ultrasound 08/18/2023 7:26 AM EST us External Provider IMG US PROCEDURES Final Result documented in this encounter Visit Diagnoses Not on filedocumented in this encounter Additional Health Concerns Infection Onset Date Last Indicated Resolved Time Gastrointestinal Rule-Out 11/23/2024 11/23/2024 4:56 PM EDT C. difficile Rule-Out 11/23/2024 11/23/20242024 4:28 PM EDT Assessment Noted Time A fall risk assessment has been complete d for the patient 01/28/2023 12:33 PM EDT A Body Mass Index follow-up plan has been documented for the patient 07/15/2023 4:34 AM EST documented as of this encounter Care Teams Tissue Recovery Technician Relationship Specialty Start Date End Date Deondre Lui MD [address] [place] [address] [address] [place] [address] PCP - General 10/26/20 Christal Murray LPN VALUE-BASED [place] [address] TCM Nurse 11/25/24 12/25/24 documented as of this encounter
--- OUTSIDE RECORDS SUMMARY | 2025-01-05 08:53 | XMS_ITS | Encounter Summary ---
Author Organization Healthcare Address [address] [place] [address] Care Team Providers Care Tax Associate Name Role Phone Deondre Lui MD Primary Care Provider [phone] Christal Murray LPN Unavailable Unavailable Encounter Details Date Type Department Care Team (Latest Contact Info) Description 12/08/2024 Travel Social History Tobacco Use Types Packs/Day [...] and Family Not on file 11/25/2024 Attends Quaker Services Not on file 11/25 Active Member [...] any time in the past 12 m [facility], were you homeless or living in [...] Description 02/20/2025 10:45 AM EDT Office Visit [facility] Medicine Specialties [address], 2nd [place] [address] Elle Landaverde, OFFSET LITHOGRAPHIC PRESS OPERATOR, DNP [address] [facility] [address] [place] [address] 03/29/2025 10:30 AM EDT Clinical Support [facility] Laboratory Services [address] [facility], 1st [place] [address] 04/05/2025 1:00 PM EDT Office Visit [facility] Nephrology, Bone & Mineral Metabolism [address] [facility], [address] [place] [address] Jude Arora PA [address] [facility] [address] [place] [address] 08/09/2025 10:00 AM EST Appointment [facility] [address] [facility] [address] [place] [address] 08/09/2025 11:45 AM EST Office Visit [facility] [address], 1st [place] [address] Cristofer Yu MD [address] [facility] [address] [place] [address] 10/11/2025 9:15 AM EDT Office Visit [facility] [place] [address] [facility] [place] [address] James Tomas MD [address] [place] [address] documented as of this encounter Visit Diagnoses [...] documented as of this encounter Care Teams Tax Associate Relationship Specialty Start Date End Date Deondre Lui MD [address] [place] [address] [address] [place] [address] PCP - General 10/26/20 Christal Murray LPN VALUE-[place]ED [place] [address] TCM Nurse 11/25/24 12/25/24 documented as of this encounter
--- OUTSIDE RECORDS SUMMARY | 2025-01-05 08:55 | XMS_ITS | Encounter Summary ---
Author Organization Healthcare Address [address] [place] [address] Care Team Providers Care Mop Machine Operator Name Role Phone Deondre Lui MD Primary Care Provider [phone] Christal Murray LPN Unavailable Unavailable Encounter Details Date Type Department Care Team (Late st Contact Info) Description 11/25/2024 Telephone [facility] [address] [facility] 5th Floor [address] [place] [address] Tyron Mosquera MD [address] [facility] [address] [place] [address] Social History Tobacco Use Types Packs/Day Years [...] and Family Not on file 11/25/2024 Attends Islam Services Not on file 11/25 Active Member [...] any time in the past 12 m [facility], were you homeless or living [...] encounter Miscellaneous Notes * Telephone Encounter - Sesar Cid - 11/25/2024 1:42 PM EDT LVM for pt to confirm discharge follow up scheduled for 12/09/[address] Mosquera. Informed about times/date/location. Gave clinic number to call back to confirm/cancel/reschedule. documented in this encounter Plan of Treatment Upcoming Encounters Date Type Department Care Team (Late st Contact Info) Description 02/20/2025 10:45 AM EDT Office Visit [facility] Medicine Specialties [address], 2nd [place] [address] Elle Landaverde APRN, DNP [address] [facility] [address] [place] [address] 03/29/2025 10:30 AM EDT Clinical Support [facility] Laboratory Services [address] [facility], 1st [place] [address] 04/05/2025 1:00 PM EDT Office Visit [facility] Nephrology, Bone & Mineral Metabolism [address] [facility], [address] [place] [address] Jude Arora, TAYLA [address] [facility] [address] [place] [address] 08/09/2025 10:00 AM EST Appointment [facility] [address] [place] [address] 08/09/2025 11:45 AM EST Office Visit [facility] [address], 1st [place] [address] Cristofer Yu MD [address] [facility] [address] [place] [address] 10/11/2025 9:15 AM EDT Office Visit [facility] [place] [address] [place] [address] James Tomas MD [address] [place] [address] documented as of this encounter Visit Diagnoses [...] documented as of this encounter Care Teams Mop Machine Operator Relationship Specialty Start Date End Date Deondre Lui MD [address] [facility] [address] [place] [address] PCP - General 10/26/20 Christal Murray LPN VALUE-BASED [place] [address] TCM Nurse 11/25/24 12/25/24 documented as of this encounter
--- OUTSIDE RECORDS SUMMARY | 2025-01-05 08:55 | XMS_ITS | Encounter Summary ---
Author Organization [facility] ([place], [place], [place], [place]) Address [address] [place] [address] Care Team Providers Care Aids Social Worker Name Role Phone Unavailable Primary Care Provider Unavailabl e Encounter Details Date Type Department Care Team (Late st Contact Info) Description 05/31/2019 Transcribed Document [facility] Family Medicine [address] [place] [address] ProviderNelson MD [address] [place], [place] [id number] Social History Tobacco Use Types Packs/Day Years Used Date Smoking Tobacco: Never Assessed Comments Unknown Sex and Gender Information Value Date Recorded Sex Assigned at Not on file Legal Sex Female 1:09 PM CDT Gender Identity Not on file Sexual Orientation Not on file documented as of this encounter Miscellaneous Notes * Cerner Conversion Note - Historical ProviderMD - 05/31/2019 4:48 PM INSURANCE LOSS ASSESSOR Event Note Entered On: 05/31/2019 17:09 EST Performed On: 05/31/2019 16:48 EST by Bonny Ayala RN Event Note Description of Event : Pt transported to waiting personal vehicle driven by her son, and stated I feel fine now. Discharged to home. Bonny Ayala RN - 05/31/2019 17:07 EST documented in this encounter Plan of Treatment Not on file documented as of this encounter Visit Diagnoses Not on filedocumented in this encounter
--- OUTSIDE RECORDS SUMMARY | 2025-01-05 08:55 | XMS_ITS | Encounter Summary ---
Author Organization [employer] ([place], [place], [place], [place]) Address [address] [place] [address] Care Team Providers Care Western Philosophy Professor Name Role Phone Unavailable Primary Care Provider Unavailabl e Encounter Details Date Type Department Care Team (Late st Contact Info) Description 05/30/2019 Transcribed Document [facility] Family Medicine [address] [place] [address] ProviderNelson MD [address] [place] [id number] Social History Tobacco Use Types Packs/Day Years Used Date Smoking Tobacco: Never Assessed Comments Unknown Sex and Gender Information Value Date Recorded Sex Assigned at Not on file Legal Sex Female 1:09 PM CDT Gender Identity Not on file Sexual Orientation Not on file documented as of this encounter Miscellaneous Notes * Cerner Conversion Note - Historical ProviderMD - 05/30/2019 7:37 PM INTERIOR DESIGN PROFESSOR PAT Adult Entered On: 05/30/2019 19:42 EST Performed On: 05/30/2019 19:37 EST by TAY CHAVIRA RN Height and Weight, Clinical Dosing Height, Feet : 0 ft(Converted to: 0 cm, 0 Inch) Height, Inches : 65 Inch(Converted to: 5 ft 5 Inch, 165.10 cm) Clinical Height : 165.1 cm Weight Source : Standing scale Weight Entry Format : Neto Clinical Dosing Weight : 86.73 kg Weight, Pounds : 190.8 lb Body Surface Area (BSA) : 1.94 m2 Body Mass Index : 31.8 kg/m2 (HI) [place] Body Weight : 57 kg Tamara Camarillo RN - 05/31/2019 10:17 EST Height Source : Stated Height Entry Format : TAY Richmond RN - 05/30/2019 19:37 EST Health Histories Smoking Status : 10 or more cigarettes (1/2 pack or more)/day in last 30 days Smokeless Tobacco Status : Never Desires Tobacco Cessation Medication : No Reason for No Tobacco Cessation Medication : Refuses FDA approved medications TAY CHAVIRA RN - 05/30/2019 19:37 EST Social History (As Of: 05/30/2019 19:42:57 EST) Tobacco: Smoking Status Current every day smoker. Five or more cigarettes per day Smoking Frequency Within Last 30 Days. Use in Last 12 Months: Cigarettes. Years of Use: 30. Packs/Tins Daily: 1. (Last Updated: 06/29/2017 10:44:41 EST by AUTUMN THOMPSON RN) Alcohol: Alcohol Use History No. (Last Updated: 06/29/2017 10:44:45 EST by AUTUMN THOMPSON RN) Substance Abuse: Drug Use Hx: No. Use in Last 12 Months: No. (Last Updated: 06/29/2017 10:44:51 EST by AUTUMN THOMPSON RN) Home/Environment: Lives with Children. (Last Updated: 06/29/2017 10:45:02 EST by AUTUMN THOMPSON RN) Employment/School: disability (Last Updated: 06/29/2017 10:45:16 EST by AUTUMN THOMPSON RN) Infectious Disease History Infectious Disease History : Chicken pox/Shingles, MRSA, Mumps Fever/Chills Last 48 Hours : No Travel To Regions with Travel Advisories : No Travel Outside [place] Within Last 30 Days : No Contact With Traveler to Advisory Region : No Tuberculosis Symptoms : None TAY CHAVIRA RN - 05/30/2019 19:37 EST Anesthesia/Transfusion History Family History of Anesthesia Reaction : No prior transfusion(s) Blood Transfusion Acceptable to Patient : Yes Transfusion History : Prior anesthesia without reaction Family History of Anesthesia Reaction : None TAY CHAVIRA RN - 05/30/2019 19:37 EST Advance Directive Patient has Advance Directive *Q : No, patient refuses Advance Directive information TAY CHAVIRA RN - 05/30/2019 19:37 EST [place] Suicide Severity Rating Scale (C-SSRS) CSSRS Past Month Wish to be : No CSSRS Past Month Suicidal Thoughts : No CSSRS Lifetime Suicide Behavior : No Suicide Severity Rating Score : 0 Suicide Severity Rating : No Additional Care Required at this time Thoughts of Harming/Killing Others : No TAY CHAVIRA RN - 05/30/2019 19:37 EST Psychosocial History Do You Have a History of the Following? : Anxiety, Depression Currently in Unsafe Situation : No TAY CHAVIRA RN - 05/30/2019 19:37 EST General Info Want Family/Rep/Phys Notified of Admit : No Emergency Contact #1 : see above Emergency Contact #1 Phone Number : . Emergency Contact #1 Relationship : .. Emergency Contact #2 : . Emergency Contact #2 Phone Number : . Emergency Contact #2 Relationship : . Tamara Camarillo RN - 05/31/2019 10:17 EST Preferred Name : sammie Support Person/Pt Rep Name : don sotomayor, Primary Language : Gibraltarian Communication Barrier : None TAY CHAVIRA RN - 05/30/2019 19:37 EST Enrique Scale Enrique Sensory Perception : Slightly limited Enrique Moisture : Rarely moist Enrique Activity : Walks occasionally Enrique Mobility : Slightly limited Enrique Nutrition : Excellent Enrique Friction and Shear : No apparent problem Enrique Score : 20 Tamara Camarillo RN - 05/31/2019 10:17 EST Sleep Apnea Risk Assmt Hx of Obstructive Sleep Apnea Diagnosis : No Snore Loudly : Yes Tired, Fatigued, or Sleepy During Day : Yes Observed Stopping Breathing During Sleep : No Have/Are Being Treated for Hypertension : Yes BMI Greater Than 35 kg/m2 : No Age over 50 Years Old : Yes Neck Circumference Greater Than 40 cm : No Gender Male : No STOP-BANG Sleep Apnea Risk Level Score : 4 TAY CHAVIRA RN - 05/30/2019 19:37 EST Electronically signed by [facility] Conversion Can Cutter Cerner at 09/30/2022 3:09 PM CDT documented in this encounter Plan of Treatment Not on file documented as of this encounter Visit Diagnoses Not on filedocumented in this encounter
--- OUTSIDE RECORDS SUMMARY | 2025-01-05 08:55 | XMS_ITS | Encounter Summary ---
Author Organization [employer] ([place], [place], [place], [place]) Address [address] [place] [address] Care Team Providers Care Chicken Hanger Name Role Phone Unavailable Primary Care Provider Unavailabl e Encounter Details Date Type Department Care Team (Late st Contact Info) Description 05/31/2019 Transcribed Document [facility] Family Medicine [facility] [place] [address] ProviderNelson MD [address] [place] [id number] Social History Tobacco Use Types Packs/Day Years Used Date Smoking Tobacco: Never Assessed Comments Unknown Sex and Gender Information Value Date Recorded Sex Assigned at Not on file Legal Sex Female 1:09 PM CDT Gender Identity Not on file Sexual Orientation Not on file documented as of this encounter Miscellaneous Notes * Cerner Conversion Note - Historical ProviderMD - 05/31/2019 1:31 PM V GROOVE CUTTER Patient: FARHAN MULLINS Age: 58 Years Sex: Female : 1960 *Operation 1. R RECORD PRESS TENDER access 2. Ao, R GRACE angioplasty 3. Pressure gradient measurement Indication for Surgery 1. RLE claudication *Preoperative Diagnosis 1. RLE claudication *Postoperative Diagnosis 1. RLE claudication *Surgeon(s) Primary Surgeon DEREK CHEN MD (Surgeon/Proceduralist, First) *Estimated Blood Loss min *Findings good flow post procedure *Specimen(s) none Complications none Date of Service Date/Time of Service SN - Proc - Start Time: 05/31/19 12:59:00 (05/31/19 13:05:22) Electronically signed by [facility] Conversion Art Professor Cerner at 09/30/2022 3:06 PM CDT documented in this encounter Plan of Treatment Not on file documented as of this encounter Visit Diagnoses Not on filedocumented in this encounter
--- OUTSIDE RECORDS SUMMARY | 2025-01-05 08:55 | XMS_ITS | Encounter Summary ---
Author Organization Healthcare Address [address] [place] [address] Care Team Providers Care Account Manager Trainee Name Role Phone Deondre Lui MD Primary Care Provider [phone] Christal Murray LPN Unavailable Unavailable Reason for Visit * Reason Comments TCM Call Encounter Details Date Type Department Care Team (Late st Contact Info) Description 11/25/2024 Patient Outreach [facility] [address], [address] [place] [id number] Christal Murray LPN [employer] [place] [address] TCM Call Social History Tobacco Use Types Packs/Day Years [...] and Family Not on file 11/25/2024 Attends [employer] Not on file 11/25 Active Member [...] [facility] were you [facility] or living in [...] encounter Miscellaneous Notes * Progress Notes - Christal Murray LPN - 11/25/2024 11:39 AM EDT Admit Date: 11/21/24 Discharge Date: 11/24/24 Hospital Service: Internal Medicine Discharge Diagnosis: Lower GI Bleed 11/25/2024 TCM call # 1 Patient Reached: Yes Outcome: Called and spoke with this patient for a MARY nurses call. Patient states that she is tiredbut getting better. Patient states that she had a small yellow colored BM since returning home. Shedenies having dark tarry stools, dizziness or confusion. Patient states that she has not checked her BP. States she needs a new one.Patient will be contacting her PCP to schedule an appointment. She is aware of her future Vascular appointment. She stated that she has pain and weakness to BLE. Patient does not use an assistive device to ambulate. Patient is compliant with her medications after reviewing them. Patient states she has no problems with transportation. She is able to drive herself. [facility] assessment is negative for any needs. Patient voiced no further concerns or questions. Action: N/A Medication changes: Stop Taking: Ozempic (0.25 or 0.5 mg/Dose) 2 mg/1.5 ml solution pen injector Inj pen Prasugrel 10 mg MARY appointment: N/A Future Appointment: 12/09/24 @ 3:[address] [facility] Items to address at [facility]ARY: N/A documented in this encounter Plan of Treatment Upcoming Encounters Date Type Department Care Team (Late st Contact Info) Description 02/20/2025 10:45 AM EDT Office Visit [facility] [address] [place] [address] Elle Landaverde, REBEKAH, DNP [address] [place] [address] 03/29/2025 10:30 AM EDT Clinical Support [facility] [address] [facility] [place] [address] 04/05/2025 1:00 PM EDT Office Visit [facility] [address] [facility], [address] [place] [address] Jude Arora PA [address] [facility] [address] [place] [address] 08/09/2025 10:00 AM EST Appointment [facility] [address] [place] [address] 08/09/2025 11:45 AM EST Office Visit [place] [facility] [address] [place] [address] Cristofer Yu MD [address] [place] [address] 10/11/2025 9:15 AM EDT Office Visit [facility] [address] [place] [address] James Tomas MD [address] [place] [address] documented as of this encounter [...] documented as of this encounter Care Teams Account Manager Trainee Relationship Specialty Start Date End Date Deondre Lui MD [address] [facility] [address] [place] [address] PCP - General 10/26/20 Christal Murray LPN [employer] [place] [address] TCM Nurse 11/25/24 12/25/24 documented as of this encounter
--- OUTSIDE RECORDS SUMMARY | 2025-01-05 08:55 | XMS_ITS | Encounter Summary ---
Author Organization [employer] ([place], [place], [place], [place]) Address [address] [place] [address] Care Team Providers Care Plugger Man Name Role Phone Unavailable Primary Care Provider Unavailabl e Encounter Details Date Type Department Care Team (Late st Contact Info) Description 05/31/2019 Transcribed Document [facility] [place] [facility] [address] [place] [address] ProviderNelson MD [address], [place] [id number] Social History Tobacco Use Types Packs/Day Years Used Date Smoking Tobacco: Never Assessed Comments Unknown Sex and Gender Information Value Date Recorded Sex Assigned at Not on file Legal Sex Female 1:09 PM CDT Gender Identity Not on file Sexual Orientation Not on file documented as of this encounter Miscellaneous Notes * [employer] Conversion Note - Historical ProviderMD - 05/31/2019 3:45 PM LOANS CONSULTANT Stroke/Warfarin Instructions Entered On: 05/31/2019 15:46 EST Performed On: 05/31/2019 15:45 EST by Bonny Ayala RN Stroke/Warfarin Instructions Stroke/TIA Discharge Ins : Open Warfarin Discharge Ins : N/A Bonny Ayala RN - 05/31/2019 15:45 EST Stroke/TIA Discharge Instructions Individualized Stroke Risk Factors *Q : Peripheral vascular disease Stroke Education Handouts Given *Q : Yes Bonny Ayala RN - 05/31/2019 15:45 EST Stroke Education Materials Given-Grid Activation of EMS *Q : Verbalizes understanding Follow-up Care After Discharge *Q : Verbalizes understanding Medications prescribed at DC *Q : Verbalizes understanding Risk Factors for Stroke *Q : Verbalizes understanding Warning S&S of Stroke *Q : Verbalizes understanding Bonny Ayala RN - 05/31/2019 15:45 EST Stroke/TIA Signs/Symptoms to Report Immediately : Sudden onset difficulty speaking, Sudden onset difficulty understanding speech, Sudden onset change in vision, Sudden onset weakness particulary on one side of the body, Sudden onset numbness/tingling, Sudden severe headache, Sudden dizziness or trouble with gait, Call 9-: EMS activation is crucial My LDL Level: : LDL Level No qualifying data available. Bonny Ayala RN - 05/31/2019 15:45 EST documented in this encounter Plan of Treatment Not on file documented as of this encounter Visit Diagnoses Not on filedocumented in this encounter
--- OUTSIDE RECORDS SUMMARY | 2025-01-05 08:55 | XMS_ITS | Encounter Summary ---
Author Organization [employer] ([place], [place], [place], [place]) Address [address] [place] [address] Care Team Providers Care Sap Gatherer Name Role Phone Unavailable Primary Care Provider Unavailabl e Encounter Details Date Type Department Care Team (Late st Contact Info) Description 05/31/2019 Transcribed Document [facility] [place] [address] [place] [address] ProviderNelson MD [address], [place] [id number] Social History Tobacco Use Types Packs/Day Years Used Date Smoking Tobacco: Never Assessed Comments Unknown Sex and Gender Information Value Date Recorded Sex Assigned at Not on file Legal Sex Female 1:09 PM CDT Gender Identity Not on file Sexual Orientation Not on file documented as of this encounter Miscellaneous Notes * Cerner Conversion Note - Historical ProviderMD - 05/31/2019 12:59 PM TREE CL[employer]BER [facility] Main OR Preop Summary Primary Physician: DEREK CHEN MD Finalized Date/Time: 05/31/19 14:54:12 Pt. Name: FARHAN MULLINS FERNANDO /Sex: 1960 Female Med Rec #: [id number] Physician: DEREK CHEN MD Financial #: [id number] Pt. Type: O Room/Bed: HIS/2 Admit/Disch: 05/31/19 09:12:00 - Institution: [facility] PreOp Case Times Entry 1 In Preop 05/31/19 09:20:00 Ready for Holding n/a Room Patient Ready for 05/31/19 10:29:00 Surgery Patient Out of Preop 05/31/19 12:34:00 Patient Out of n/a Holding Room Last Modified By: Tamara Camarillo RN 05/31/19 14:54:11 [facility] PreOp Case Times Audit 05/31/19 14:54:11 Charge Coordinator: TINAVP Modifier: [email or web address] <+> 1 Patient Out of Preop 05/31/19 10:35:50 Charge Coordinator: TINAVP Modifier: [email or web address] <+> 1 Patient Ready for Surgery Finalized By: Tamara Camarillo RN Document Signatures Signed By: Tamara Camarillo RN 05/31/19 14:54 Electronically signed by Julio [facility] Conversion Property Field Inspector Cerner at 09/30/2022 3:09 PM CDT documented in this encounter Plan of Treatment Not on file documented as of this encounter Visit Diagnoses Not on filedocumented in this encounter
--- OUTSIDE RECORDS SUMMARY | 2025-01-05 08:55 | XMS_ITS | Continuity of Care Document ---
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 OBGyn Episode No OBEpisode recorded.
--- OUTSIDE RECORDS SUMMARY | 2025-01-05 08:55 | XMS_ITS | Encounter Summary ---
Author Organization [employer] ([place], [place], [place], [place]) Address [address] [place] [address] Care Team Providers Care Speech Pathology Assistant Name Role Phone Unavailable Primary Care Provider Unavailabl e Encounter Details Date Type Department Care Team (Late st Contact Info) Description 05/31/2019 Transcribed Document [facility] [place] [address] ProviderNelson MD [address] [place] [id number] Social History Tobacco Use Types Packs/Day Years Used Date Smoking Tobacco: Never Assessed Comments Unknown Sex and Gender Information Value Date Recorded Sex Assigned at Not on file Legal Sex Female 1:09 PM CDT Gender Identity Not on file Sexual Orientation Not on file documented as of this encounter Miscellaneous Notes * [employer]ner Conversion Note - Historical ProviderMD - 05/31/2019 10:48 AM 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 Severity Not Documented BusPIRone- Itching and itching., Allergies (1) Active Reaction acetaminophen-oxyCODONE Itching Current medications: (Selected) Inpatient Medications Ordered Ancef: 2 Gram, 50 mL, 100 mL/Hr, IV Piggyback, PREOP Lactated Ringers Injection intravenous solution 1,000 mL: 50 mL/Hr, IntraVENous Normal Saline Flush: 10 mL, IV Push, 1-Time lidocaine 1% preservative-free injectable solution: 0.5 mL, IntraDermal, 1-Time Documented Medications Documented aspirin 81 mg oral delayed release tablet: 1 Tab, Oral, Daily, 30 Tab, 0 Refill(s) lisinopril: 10 mg, Oral, Daily, 0 Refill(s) rosuvastatin: 20 mg, Oral, At Bedtime, 0 Refill(s), Home Medications (3) Active aspirin 81 mg oral delayed release tablet 81 mg = 1 Tab, Oral, Daily lisinopril 10 mg, Oral, Daily rosuvastatin 20 mg, Oral, At Bedtime , Medications (4) Active Scheduled: (3) #NaCl 0.9% *FLUSH* inj 10 mL 10 mL, IV Push, 1-Time ceFAZolin/D5w 2 Gram 50 mL, IV Piggyback, PREOP lidocaine 1% *PF* inj 2 mL 0.5 mL, IntraDermal, 1-Time Continuous: (1) lactated ringers 1,000 mL 1,000 mL, IntraVENous, 50 mL/Hr PRN: (0) Problem list: All Problems Wears glasses / SNOMED CT 084254267 / Confirmed Numbness and tingling///left hand / SNOMED CT 0878826939 / Confirmed Neck pain///left shoulder / SNOMED CT 924759870 / Confirmed Hyperlipidemia / SNOMED CT 62978203 / Confirmed History of difficult intubation / IMO 0003448 / Confirmed High blood pressure / SNOMED CT 04771264 / Confirmed Depression / SNOMED CT 95983301 / Confirmed Back pain / SNOMED CT 680897777 / Confirmed Anxiety / SNOMED CT 83568116 / Confirmed Anginal pain///anxiety related/2013 / SNOMED CT 198621701 / Confirmed, Active Problems (10) Anginal pain///anxiety related/2013 Anxiety Back pain Depression High blood pressure History of difficult intubation Hyperlipidemia Neck pain///left shoulder Numbness and tingling///left hand Wears glasses PAD Histories Past Medical History: No active or resolved past medical history items have been selected or recorded. Family History: No family history items have been selected or recorded. Procedure history: fem/fem bypass in 2013 at 52 Years. hearth cath in 2011 at 51 Years. right shoulder////right carpal tunnel. hysterectomy. tubal. cataract IOL. cervical discectomy. wisdom teeth. Physical Examination VS/Measurements Vital Signs/Vital Measures 05/31/2019 10:00 EST Systolic Blood Pressure 204 mmHg HI Diastolic Blood Pressure 87 mmHg Temperature Source Temporal artery scanning Temperature Mode Fahrenheit Temperature, Fahrenheit 98.2 Deg F Clinical Temperature, C 36.8 Deg C Heart Rate Monitored 63 bpm Respiratory Rate 20 Breaths/Min Oxygen Saturation 94 % Oxygen Therapy Mode Room air , Vitals Signs (last 24 hrs) Last Charted Minimum Maximum Temp 98.2 (MAY 31 10:00) 98.2 (MAY 31 10:00) 98.2 (MAY 31 10:00) Mon HR 63 (MAY 31 10:00) 63 (MAY 31 10:00) 63 (MAY 31 10:00) Resp Rate 20 (MAY 31 10:00) 20 (MAY 31 10:00) 20 (MAY 31 10:00) SBP H 204 (MAY 31 10:00) H 204 (MAY 31 10:00) H 204 (MAY 31 10:00) DBP 87 (MAY 31 10:00) 87 (MAY 31 10:00) 87 (MAY 31 10:00) SpO2 94 (MAY 31 10:00) 94 (MAY 31 10:00) 94 (MAY 31 10:00) , Measurements from flowsheet : Measurements 05/30/2019 19:37 EST Height Source Stated Height Entry Format [place] Height/Length, [place] (ft) 0 ft Height/Length [place] 65 Inch CLINICALHEIGHT 165.1 cm [employer] Body Weight 57 kg Weight Source Standing scale Weight Entry Format [place] Weight Spanish lb 190.8 lb CLINICALWEIGHT 86.73 kg Body Surface Area (BSA) 1.94 m2 Body Mass Index 31.8 kg/m2 HI General: Alert and oriented, No acute distress. Eye: Pupils are equal, round and reactive to light. HENT: Normocephalic, Normal hearing. Neck: Supple, Non-tender. Respiratory: Respirations are non-labored, crackles R lower base, otherwise CTA. Cardiovascular: Normal rate, Regular rhythm, No murmur, No gallop, No edema, lulú LE pedal pulses + per doppler. Gastrointestinal: Soft, Non-tender. Genitourinary: No costovertebral angle tenderness. Lymphatics: No lymphadenopathy neck, axilla, groin. Musculoskeletal: Normal range of motion, lulú LE weakness. Integumentary: Warm, Dry, [place]. Neurologic: Alert, Oriented. Psychiatric: Cooperative, Appropriate mood & affect. Review / Management Results review: No qualifying data available, Lab results 05/31/2019 10:24 EST eGFR 77 mL/min/1.73m2 eGFR NonAfrican 64 mL/min/1.73m2 Potassium POC 4.1 mmol/L Creatinine POC 0.9 mg/dL Hematocrit POC 43.0 % Hemoglobin POC 14.6 Gram/dL . Impression and Plan Condition: Stable. documented in this encounter Plan of Treatment Not on file documented as of this encounter Visit Diagnoses Not on filedocumented in this encounter
--- OUTSIDE RECORDS SUMMARY | 2025-01-05 08:55 | XMS_ITS | Encounter Summary ---
Author Organization Healthcare Address [address] [place] [address] Care Team Providers Care Spacer Type Bar And Segment Name Role Phone Deondre Lui MD Primary Care Provider [phone] Encounter Details Date Type Department Care Team (Latest Contact Info) Description 11/21/2024 Travel Social History Tobacco Use Types Packs/Day [...] Recorded Patient Health Questionnaire-9 Score 0 10/12/2024 PHQ-2A Answer Date Recorded Patient Health Questionnaire-2 Score 0 11/17/2022 Comments No Sex and Gender Information Value Date Recorded Sex Assigned at Not on file Legal Sex Female 6:34 PM EDT Gender Identity Not on file Sexual Orientation Not on file documented as of this encounter Functional Status * Calculated C-SSRS Risk Score (Lifetime/Recent) Answer Date of Assessment Author No Risk Indicated 11/21/2024 8:03 AM EDT Alexia Mills RN * Question Answer Date of Assessment Author 1. Wish to be (Past 1 Month) No 11/21/2024 8:03 AM EDT Alexia Mills, RN 2. Non-Specific Active Suici belgica Thoughts (Past 1 Month) No 11/21/2024 8:03 AM EDT Kt Mills, RN 6. Suicidal Behavior (Lifetime) No 8:03 AM EDT Alexia Mills, RN documented as of this encounter Plan of Treatment Upcoming Encounters Date Type Department Care Team (Late st Contact Info) Description 02/20/2025 10:45 AM EDT Office Visit [facility] Medicine Specialties [address] [place] [address] Elle Landaverde, SALES REPRESENTATIVE CONSULTANT, DNP [address] [facility] [address] [place] [address] 03/29/2025 10:30 AM EDT Clinical Support [facility] Laboratory Services [address] [facility] [place] [phone] 04/05/2025 1:00 PM EDT Office Visit [facility] Nephrology, Bone & Mineral Metabolism [address], [address] [place] [address] Jude Arora PA [address] [facility] [address] [place] [address] 08/09/2025 10:00 AM EST Appointment [facility] [address] [facility] [address] [place] [phone] 08/09/2025 11:45 AM EST Office Visit [facility] [address] [place] [address] Cristofer Yu MD [address] [facility] [address] [place] [address] 10/11/2025 9:15 AM EDT Office Visit [facility] [place] [address] [facility] [place] [address] James Tomas MD [address] [place] [address] documented as of this encounter Visit Diagnoses [...] documented as of this encounter Care Teams Spacer Type Bar And Segment Relationship Specialty Start Date End Date Deondre Lui MD [address] [place] [address] [address] [place] [address] PCP - General 10/26/20 documented as of this encounter
--- OUTSIDE RECORDS SUMMARY | 2025-01-05 08:56 | XMS_ITS | Encounter Summary ---
Author Organization [employer] ([place], [place], [place], [place]) Address [address] [place] [address] Care Team Providers Care Tank Operator Name Role Phone Unavailable Primary Care Provider Unavailabl e Encounter Details Date Type Department Care Team (Late st Contact Info) Description 05/31/2019 Transcribed Document [facility] [place] Family Medicine [address] [place] [address] ProviderNelson MD [address] [place], [place] [id number] Social History Tobacco Use Types Packs/Day Years Used Date Smoking Tobacco: Never Assessed Comments Unknown Sex and Gender Information Value Date Recorded Sex Assigned at Not on file Legal Sex Female 1:09 PM CDT Gender Identity Not on file Sexual Orientation Not on file documented as of this encounter Miscellaneous Notes * Cerner Conversion Note - Historical ProviderMD - 05/31/2019 5:06 PM AS400 OPERATOR Nursing Discharge Summary Entered On: 05/31/2019 17:07 EST Performed On: 05/31/2019 17:06 EST by Bonny Ayala machine i cutter Documentation Discharge Date/Time : 05/31/2019 16:48 EST Patient Disposition, General : Discharge Discharge To : Home with ambulatory/outpatient follow-up Mode Of Departure, General Discharge : Private vehicle Accompanied By, Discharge : Son IV Discontinued : Yes Personal Belongings With Patient : Yes Bonny Ayala RN - 05/31/2019 17:06 EST Electronically signed by Julio [facility] Conversion Wireless Development Manager Cerner at 09/30/2022 3:17 PM CDT documented in this encounter Plan of Treatment Not on file documented as of this encounter Visit Diagnoses Not on filedocumented in this encounter
--- OUTSIDE RECORDS SUMMARY | 2025-01-05 08:56 | XMS_ITS | Clinical Summary ---
[facility] Address [address] [place] [address] Care Team Providers Care Tub Attendant Name Role Phone Deondre Lui MD Primary Care Provider [phone] Social History Tobacco Use Types Packs/Day Years Used Date Smoking Tobacco: Never Assessed Abuse Screen Answer Date Recorded Unsafe at Home or Work/School Not on file Feels Threatened by Someone? Not on file 02/2023 Does Anyone Keep You from Co ntacting Others or Doint Things Outside the Home? Not on file 03/23/2023 Physical Sign of Abuse Present Not on file 1 Housing Stability Answer Date Recorded Current Living Arrangements Not on file 02/2023 Potentially Unsafe Housing Conditions Not on komal e 03/23/2023 Family and Community Support Answer Coy e Recorded Help with Day-to-Day Activities Not on file 03/23/2023 Lonely or Isolated Not on file 03/23/2023 Employment Answer Date Recorded Do you want help finding or keeping work or a jovanna b? Not on file 03/23/2023 Disabilities Answer Date Recorded Concentrating, Remembering, or Making Decisions Difficulty Not on file 03/23/2023 Doing Errands Independently Difficulty Not on fi le 03/23/2023 Education Answer Date Recorded Help with school or training? Not on file Preferred Language Not on file 03/23/2023 Comments Unknown Sex and Gender Information Value Date Recorded Sex Assigned at Not on file Legal Sex Female 10:44 AM EDT Gender Identity Not on file Sexual Orientation Not on file Plan of Treatment Health Maintenance Due Date Last Done Comments DXA SCAN 1960 MAMMOGRAM 1998 COLOGUARD 11/01/2003 COLON CANCER SCREENING 5 YEAR SIGMOIDOSCOPY 11/01/2003 COLONOSCOPY 11/01/2003 COLORECTAL CANCER SCREENING 11/01/2003 CT COLONOGRAPHY 11/01/2003 FECAL OCCULT BLOOD TEST 11/01/2003 FIT Testing (1 year) 11/01/2003 TDAP/TD VACCINES (2 - Tdap) 08/19/2006 08/19/1996 Pneumococcal Vaccine 50+ (1 of 1 - PCV) 2008 ZOSTER VACCINE (1 of 2) 2008 ANNUAL PHYSICAL 02/18/2023 COVID-19 Vaccine ( - season) 2024 INFLUENZA VACCINE 03/15/2025 HEPATITIS C SCREENING Completed 11/21/2024 Insurance MEDICARE A & B Member Subscriber Plan / Payer (Ef fective 2015-Present) Name:Liz Mullins Member ID:[id number] Relation to Subscriber:Self Name:Liz Mullins Subscriber ID:[id number] Payer ID:[id number] Group ID:Not on file Type:Not on file Address: [facility] [id number] [address] Care Teams Tub Attendant Relationship Specialty Start Date End Date Deondre Lui MD [address] [facility] [address] [place] [address] PCP - General Internal Medicine 02/18/23
--- OUTSIDE RECORDS SUMMARY | 2025-01-05 08:56 | XMS_ITS | Clinical Summary ---
Author Organization [facility] Address [address] [place] [address] Care Team Providers Care Institutional Custodian Name Role Phone Deondre Lui MD Primary Care Provider [phone] Allergies Active Allergy Reactions Criticality Noted Date Comments Buspirone Itching Medium 05/25/2012 Methylprednisolone Itching Medium 10/14/2023 Medications aspirin 81 MG EC tablet Take 1 tablet by mouth every morning. Active baclofen (Lioresal) 10 MG tablet Take 1 tablet by mouth nightly. 4 Active gabapentin (Neurontin) 400 MG capsule Take 1 capsule by mouth 3 times a day. 4 Active multivitamin (Theragran-M) tablet Take 1 tablet by mouth every morning. Active ondansetron ODT (Zofran-ODT) 4 MG disintegrating tablet Dissolve 1 tablet on the tongue every 8 hours as needed for nausea or vomiting. Active bisacodyl (Dulcolax) 5 MG EC tablet Take 1 tablet by mouth daily as needed for constipation . Do not crush, chew, or split. Active atorvastatin (Lipitor) 80 MG tablet Take 1 tablet by mouth every morning. 90 tablet 3 5 Active lisinopril-hydroCHL OROthiazide 20-12.5 MG tablet Take 1 tablet by mouth every morning. 90 tablet 3 5 Active Active Problems Problem Noted Date Diagnosed Date PAD (peripheral artery disease) 03/19/2022 Stroke (cerebrum) 01/20/2022 S/P insertion of iliac artery stent 01/20/2022 Overview (01/20/2022): Bilateral Sciatic leg pain 01/20/2022 Chronic heart failure with preserved ejection fr action 12/04/2021 Essential hypertension 12/04/2021 Obesity (BMI 35.0-39.9 without comorbidity) 10/14 Bilateral carotid artery stenosis 2021 Claudication of both lower extremities Overview (01/20/2022): Lifestyle limiting Left leg weakness 2021 Tobacco use disorder 10/24/2019 Resolved Problems Problem Noted Date Diagnosed Date Resolved Date Lower GI bleed 11/21/2024 11/24/2024 Encounters Date Type Department Care Team Description 12/20/2024 Patient Outreach [facility][NOTE 3] [address], [address] [place] [id number] Christal Murray LPN TCM Call 12/09/2024 3:20 PM EDT Office Visit [facility] [address] [place] [address] Tyron Mosquera MD Claudication of both lower extremities (Primary Dx); Aortoiliac stenosis (CMS/HCC) 12/09/2024 12:31 PM EDT - 12/09/2024 11:59 PM EDT Hospital Encounter [facility] [address] [place] [address] PAD (peripheral artery disease) (CMS/HCC) Discharge Disposition: Home or Self Care 12/09/2024 12:30 PM EDT Hospital Encounter [facility] [address] [place] [address] PAD (peripheral artery disease) (CMS/HCC) Discharge Disposition: Home or Self Care 12/09/2024 Travel 12/08/2024 Travel 12/08/2024 Telephone [facility] [address] [place] [address] Ngoc Flores RN 12/07/2024 Travel 11/25/2024 Telephone [facility] [address] [place] [address] Tyron Mosquera MD 11/25/2024 Patient Outreach [facility] [address], [address] [place] [address] Christal Murray, LACY TCM Call 11/21/2024 7:50 AM EDT - 11/24/2024 1:31 PM EDT Hospital Encounter [facility] In[facility] [address] [place] [id number] Derek Deshpande MD Wolak, Megan M, MD Lower abdominal pain (Primary Dx); Primary obstructive sleep apnea of ; Lower GI bleed; Tobacco use disorder; Claudication of both lower extremities; PAD (peripheral artery disease) (CMS/HCC); Acute mesenteric ischemia (CMS/HCC); Chronic kidney disease, unspecified CKD stage Discharge Disposition: Home or Self Care 11/21/2024 Travel 11/21/2024 Orders Only External Location [address] [place] [address] Provider, External 11/21/2024 Orders Only External Location [address] [place] [address] Provider, External 11/21/2024 Orders Only External Location [address] [place] [address] Provider, External 11/21/2024 Orders Only External Location [address] [place] [address] Provider, External 10/12/2024 9:15 AM EDT Office Visit [facility] 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/HCC); Chronic heart failure with preserved ejection fraction (CMS/HCC); Essential hypertension; PAD (peripheral artery disease) (CMS/HCC); Tobacco use disorder 10/12/2024 Travel from Last 3 Months Immunizations Immunization Administration Dates Next Due Hep A, Adult 05/17/2018 Influenza, High-dose, Split Virus, Trivalent, Injectable, preservative free 04/04/2024 Influenza, Unspecified 03/18/2010,02/28/2009 TD (adult), 2 Lf tetanus tox oid, preservative free, adsorbed 08/19/1996 Family History Medical History Relation Name Comments Hypertension Brother Tomi frausto Conversions - Other Father Kvng frausto Back problem Heart attack Father Kvng frausto Hypertension Father Kvng frausto Cancer Mother Fide Frausto Conversions - Other Mother Fide Frausto Back pr oblem Diabetes Mother Fide Frausto Hypertension Mother Fide Frausto Other cancer Mother Fide Frausto Hypertension Sister Bridget parker Stroke Son Anesthesia problems Neg Hx Malig Hyperthermia Neg Hx Relation Name Status Comments Brother Tomi frausto Father Kvng frausto Mother Fide Frausto Sister Bridget parker Son Social History Tobacco Use Types Packs/Day Years Used Date Smoking Tobacco: Former Cigarettes 1 40 0 08/14/1983 - 08/2023 Passive Smoke Exposure: Past Smokeless Tobacco: Never Tobacco Cessation:Counseling Given: Not Answered Alcohol Use Standard Drinks/Week Comments Not Currently [...] any time in the past 12 m [facility], were you homeless or living in a nursing home (including now)? No 11/25/2024 Utilities Answer [...] on file Sexual Orientation Not on file Last Filed Vital Signs Vital Sign Reading Time Taken Comments Blood Pressure 123/77 12/09/2024 1:40 PM EDT Pulse 66 12/09/2024 1:40 PM EDT Temperature 36.1 C (97 F) 12/09/2024 1:37 PM EDT Respiratory Rate 16 11/24/2024 7:28 AM EDT Oxygen Saturation 93% 11/24/2024 11:51 AM EDT Inhaled Oxygen Concentration - - Weight 97 kg (213 lb 13.5 oz) 12/09/2024 1:37 PM EDT Height 165.1 cm (5' 5 ) 11/21/2024 8:00 AM EDT Body Mass Index 35.59 11/21/2024 8:00 AM EDT Plan of Treatment Upcoming Encounters Date Type Department Care Team (Late st Contact Info) Description 02/20/2025 10:45 AM EDT Office Visit [facility] Medicine Specialties [address] [place] [address] Elle Landaverde APRN, [facility] [address] [place] [address] 03/29/2025 10:30 AM EDT Clinical Support [facility] Laboratory Services [address] 1st [place] [address] 04/05/2025 1:00 PM EDT Office Visit [facility] Nephrology, Bone & Mineral Metabolism [address], [address] [place] [address] Jude Arora PA [address] [place] [address] 08/09/2025 10:00 AM EST Appointment [facility] [address] [place] [address] 08/09/2025 11:45 AM EST Office Visit [facility] [address] [place] [address] Cristofer Yu MD [address] [place] [address] 10/11/2025 9:15 AM EDT Office Visit [facility] [place] [facility] [address] [place] [address] James Tomas MD [address] [place] [address] Health Maintenance Due Date Last Done Comments [facility]-Bone Density Scan 1960 [facility]-Medicare Annual Wellness (AWV) 1960 [facility]-/Child/Adol SDOH Screenings 1960 [facility]-Pneumococcal Vaccine: 50+ Years (1 of 2 - PCV) 1977 [facility]-DTaP,Tdap,and Td Vaccines (1 - Tdap) 08/20/1996 08/19/1996 CT Colonography 11/01/2003 Colonoscopy 11/01/2003 FIT-DNA 11/01/2003 FIT 11/01/2003 FOBT 11/01/2003 Sigmoidoscopy 11/01/2003 [facility]-Colorectal Cancer Screening 11/01/2003 [facility]-Breast Cancer Screening 2008 [facility]-Lung Cancer Screening 2008 [facility]-Zoster Vaccines (1 of 2) 2008 [facility]-RSV Vaccine: 60+ Years or (1 - Risk 60-74 years 1-dose series) 2018 [id number] Vaccine (1 - 2023- season) 2024 [facility]-Influenza Vaccine (#1) 02/13/202504/04, 03/18/2010, 02/28/2009 [facility]- SDOH Screenings 05/27/2025 [facility]-Adult SDOH Screenings 05/27/2025 11/25/2024 [facility]-Depression Screening 10/12/2025 10/12/2024, 09/15 [facility]-Hepatitis A Vaccines Aged Out 05/17/2018 No longer eligible based on patient's age to complete this topic [facility]-Hepatitis C Screening Completed 11/21/2024 [facility]-Obesity Intervention Completed 025, 11/21/2024, 10/12/2024, Additional history exists HPV Vaccines Aged Out No longer eligi ble based on patient's age to complete this topic [facility]-HIB Vaccines Aged Out No longer e ligible based on patient's age to complete this topic [facility]-IPV Vaccines Aged Out No longer e ligible based on patient's age to complete this topic [facility]-Rotavirus Vaccines Aged Out No lo nger eligible based on patient's age to complete this topic Medical Devices Implanted Type Area Environmental Laboratory Technician Device Identifier Shelf Expiration Date Model / Serial / Lot Leg Stents Stent Leg Abdomen Stent Stent Abdomen Rx Acculink Carotid Stent Implanted:Qty : 1 on 10/13/2019 by Duglas Winn MD Stent Carotid Stent Vascular Drug-Eluting Vesna [id number] - [id number] Implanted:Qty : 1 on 03/19/2022 by Chad Rogers MD at [facility] Right: Arterial [id number] 04/26/2023 [id number] / / [id number] Vip Vascular Closure Device 6 Fr - [id number] Implanted:Qty : 1 on 03/19/2022 by Chad Rogers MD at [facility] [id number] 01/12/2023 [id number] / / [id number] Procedures Procedure Name Priority Date/Time Associated Diagnosis Comments VAS US ARTERIAL DUPLEX LOWER EXTREMITY BILATERAL Routine 12/09/2024 1:58 PM EDT PAD (peripheral artery disease) (CMS/HCC) VAS ANKLE BRACHIAL INDEX - SEGMENTAL Routine 12/09/2024 1:20 PM EDT PAD (peripheral artery disease) (CMS/HCC) CBC W/O DIFFERENTIAL Routine 11/24/2024 4:01 AM EDT CLOSTRIDIODES (CLOSTRIDIUM) DIFFICILE,PCR Routine 11/23/2024 12:40 PM EDT COMPREHENSIVE GI PANEL BY PCR Routine 11/23/2024 12:40 PM EDT EXTRA TUBE LAVENDER TOP Routine 11/24/19 5:12 AM EDT EXTRA TUBES Routine 11/23/2024 5:12 AM EDT BASIC METABOLIC PANEL, PLASMA Routine 11/23/2024 5:12 AM EDT HEMOGLOBIN AND HEMATOCRIT, BLOOD STAT 11/22/2024 9:01 PM EDT BASIC METABOLIC PANEL, PLASMA Routine 11/22/2024 9:21 AM EDT HEMOGLOBIN AND HEMATOCRIT, BLOOD Timed 11/22/2024 9:21 AM EDT ECG ADULT STAT 11/22/2024 4:15 AM EDT HEMOGLOBIN AND HEMATOCRIT, BLOOD Timed 11/22/2024 12:01 AM EDT C-REACTIVE PROTEIN, PLASMA Routine 11/21/2024 3:27 PM EDT SEDIMENTATION RATE, AUTOMATED Routine 11/21/2024 3:27 PM EDT CBC W/O DIFFERENTIAL Routine 11/21/2024 3:27 PM EDT URINALYSIS MICROSCOPIC FOR UA REFLEX STAT 11/21/2024 10:12 AM EDT URINE GEE PANEL STAT 11/21/2024 10:1 2 AM EDT URINALYSIS WITH REFLEX MICROSCOPIC STAT 11/21/2024 10:12 AM EDT URINALYSIS WITH REFLEX MICROSCOPIC AND CULTURE STAT 11/21/2024 10:12 AM EDT ED HIV 1/2 ANTIBODY/ANTIGEN SCREEN WITH REFLEX TO HIV I/II DIFFERENTIATION STAT 11/21/2024 8:32 AM EDT ED PROTOCOL HIV 1/2 ANTIBODY/ANTIGEN SCREEN W/REFLEX TO HIV 1/2 ANTIBODY DIFFERENTIATION STAT 11/21/2024 8:32 AM EDT HEPATITIS C ANTIBODY - ED W/REFLEX TO HCV QUANT PCR STAT 11/21/2024 8:32 AM EDT TYPE AND SCREEN STAT 11/21/2024 8:32 AM EDT LACTATE, VENOUS STAT 11/21/2024 8:32 AM EDT COMPREHENSIVE METABOLIC PANEL, PLASMA STAT 11/21/2024 8:32 AM EDT PROTHROMBIN TIME(PT) / INR STAT 11/21/2024 8:32 AM EDT CBC WITH AUTO DIFFERENTIAL STAT 11/21/2024 8:[address] ABDOMEN OUTSIDE IMAGES 11/21/2024 4:[address] ABDOMEN OUTSIDE IMAGES 11/21/2024 3:[address] NEURO OUTSIDE IMAGES 11/22/19 2:55 AM EDT XR THORACIC OUTSIDE IMAGES 11/21/2024 2:13 AM EDT from Last 3 Months Results * VAS US Arterial Duplex Lower [...] turbulent waveforms are detected at the bilateral MATERIAL LIAISON suggestive of inflow disease. Preliminary report signed [...] Right to left fem-fem bypass graft: Right MATERIAL LIAISON anastomosis: 231 cm/s Right of midline: 77 cm/s Midline: 72 cm/s Left of midline: 82 cm/s Left MATERIAL LIAISON anastomosis: 95 cm/s LEFT: Arterial duplex demonstrates [...] Right to left fem-fem bypass graft: Right MATERIAL LIAISON anastomosis: 231 cm/s Right of midline: 77 cm/s Midline: 72 cm/s Left of midline: 82 cm/s Left MATERIAL LIAISON anastomosis: 95 cm/s LEFT: Arterial duplex demonstrates [...] MD CV VASCULAR PROCEDURES Final Res ult * VAS Ankle Brachial Index - Segmental [...] are demonstrated at the levels of the MATERIAL LIAISON (Obtained on same day arterial duplex), DPA and UNDERCOATER. Segmental pressures are below normal limits with a UNDERCOATER RAMSEY of 0.67 (80 mmHg) DPA RAMSEY of 0.56 (67 mmHg). Digit pressures are 20 mmHg. Left: Monophasic waveforms are demonstrated at the levels of the MATERIAL LIAISON (Obtained on same day arterial duplex), DPA and UNDERCOATER. Segmental pressures are below normal limits with a UNDERCOATER RAMSEY of 0.59 (70 mmHg) DPA RAMSEY [...] are demonstrated at the levels of the MATERIAL LIAISON(Obtained on same day arterial duplex), DPA and UNDERCOATER. Segmental pressuresare below normal limits with a UNDERCOATER RAMSEY of 0.67 (80 mmHg) DPA RAMSEY of 0.56(67 mmHg). Digit pressures are 20 mmHg. Left: Monophasic waveforms are demonstrated at the levels of the MATERIAL LIAISON(Obtained on same day arterial duplex), DPA and UNDERCOATER. Segmental pressuresare below normal limits with a UNDERCOATER RAMSEY of 0.59 (70 mmHg) DPA RAMSEY [...] MD CV VASCULAR PROCEDURES Final Res ult * (ABNORMAL) CBC W/O Differential (11/24/2024 4:01 AM EDT) Only the most recent of2 resultswithin the time period is included. WBC Count 9.98 3.70 - 10.30 10*3/uL LAB HEMATOLOGY METHOD 11/24/2024 4:43 AM EDT [facility] RBC Count 3.59(L) 3.90 - 5.20 10*6/uL LAB HEMATOLOGY METHOD 11/24/2024 4:43 AM EDT [facility] HGB 11.3 11.2 - 15.7 g/dL LAB HEMATOLOGY METHOD 11/24/2024 4:43 AM EDT [facility] HCT 34.5 34.0 - 45.0 % LAB HEMATOLOGY METHOD 11/24/2024 4:43 AM EDT [facility] Platelet Count 186 155 - 369 10*3/uL LAB HEMATOLOGY METHOD 11/24/2024 4:43 AM EDT [facility] MCV 96 79 - 98 fL LAB HEMATOLOGY METHOD 11/24/2024 4:43 AM EDT [facility] MCH 31.5 26.0 - 32.0 pg LAB HEMATOLOGY METHOD 11/24/2024 4:43 AM EDT [facility] MCHC 32.8 30.7 - 35.5 g/dL LAB HEMATOLOGY METHOD 11/24/2024 4:43 AM EDT [facility] RDW 15.2(H) 11.5 - 14.5 % LAB HEMATOLOGY METHOD 11/24/2024 4:43 AM EDT [facility] MPV 10.3 8.8 - 12.5 fL LAB HEMATOLOGY METHOD 11/24/2024 4:43 AM EDT [facility] nRBC 0.0 <=0.0 per 100 WBCs LAB HEMATOLOGY METHOD 11/24/2024 4:43 AM EDT [facility] Blood Venous blood specimen / Unknown Venipuncture / Unknown 11/24/2024 4:01 AM EDT 11/24/2024 4:26 AM EDT us Rae Adames MD LAB BLOOD ORDERABLES Final Resu lt [facility] [address] [place] [address] * Comprehensive GI Panel by PCR (11/23/2024 12:40 PM EDT) Campylobacter PCR Result Not Detected Not Detected 11/23/2024 5:29 PM EDT [facility] Plesiomonas shigelloides PCR Result Not Detected Not Detected 11/23/2024 5:29 PM EDT [facility] Salmonella PCR Result Not Detected Not Detected 11/23/2024 5:29 PM EDT [facility] Vibrio species PCR Result Not Detected Not Detected 11/23/2024 5:29 PM EDT [facility] Vibrio cholerae PCR Result Not Detected Not Detected 11/23/2024 5:29 PM EDT [facility] Yersinia enterocolitica PCR Result Not Detected Not Detected 11/23/2024 5:29 PM EDT [facility] Enteroaggregative E. coli (EAEC) PCR Result Not Detected Not Detected 11/23/2024 5:29 PM EDT [facility] Enteropathogenic E. coli (EPEC) PCR Result Not Detected Not Detected 11/23/2024 5:29 PM EDT [facility] Enterotoxigenic E. coli (ETEC) lt/st PCR Result Not Detected Not Detected 11/23/2024 5:29 PM EDT [facility] Shiga-like Toxin-Producing E.coli (STEC) stx1/stx2 PCR Resu Not Detected Not Detected 11/23/2024 5:29 PM EDT [facility] E coli 0157 PCR Result Not Detected Not Detected 11/23/2024 5:29 PM EDT [facility] Shigella/Enteroinvas cecilia E. coli (EIEC) PCR Result Not Detected Not Detected 11/23/2024 5:29 PM EDT [facility] Cryptosporidium PCR Result Not Detected Not Detected 11/23/2024 5:29 PM EDT [facility] Cyclospora cayetanensis PCR Result Not Detected Not Detected 11/23/2024 5:29 PM EDT [facility] Entamoeba histolytica PCR Result Not Detected Not Detected 11/23/2024 5:29 PM EDT [facility] Giardia duodenalis (aka Giardia lamblia) PCR Result Not Detected Not Detected 11/23/2024 5:29 PM EDT [facility] Adenovirus F 40/41 PCR Result Not Detected Not Detected 11/23/2024 5:29 PM EDT [facility] Astrovirus PCR Result Not Detected Not Detected 11/23/2024 5:29 PM EDT [facility] Norovirus GI/GII PCR Result Not Detected Not Detected 11/23/2024 5:29 PM EDT [facility] Rotavirus A PCR Result Not Detected Not Detected 11/23/2024 5:29 PM EDT [facility] Sapovirus PCR Result Not Detected Not Detected 11/23/2024 5:[address] [facility] Stool Rectum structure / Unknown Non-blood Collection / Unknown 11/23/2024 12:40 PM EDT 11/23/2024 1:38 PM EDT Narrative [facility] - 11/23/2024 5:29 PM [...] difficile by PCR assay if clinically indicated. Rae Adames MD LAB MICROBIOLOGY - [facility] Final Result [facility] [address] [place] [address] * Clostridiodes (Clostridium) difficile PCR (11/23/2024 12:40 PM EDT) C difficile PCR toxin B gene DNA Result Not Detected Not Detected 11/23/2024 4:[address] [facility] Stool Rectum structure / Unknown Non-blood Collection / Unknown 11/23/2024 12:40 PM EDT 11/23/2024 1:38 PM EDT Narrative [facility] - 11/23/2024 4:28 PM [...] MICROBIOLOGY - GENERAL ORDE RABLES Final Result [facility] [address] [place] [address] * Lavender Top (11/23/2024 5:12 AM EDT) Extra Hold for add-ons 11/23/2024 8:02 AM EDT [facility] Comment:Auto resulted. Blood Venous blood specimen / Unknown 11/23/2024 5:12 AM EDT 11/23/2024 5:25 AM EDT us Rae Adames MD LAB BLOOD ORDERABLES Final Resu lt Performing Organization Address [facility] Co de Phone Number [facility] [address] [place] [address] * (ABNORMAL) Basic Metabolic Panel, Plasma (11/23/2024 5:12 AM EDT) Only the most recent of2 resultswithin the time period is included. Glucose, Plasma 93 74 - 99 mg/dL 11/23/2024 6:01 AM EDT [facility] BUN, Plasma 16 8 - 23 mg/dL 11/23/2024 6:01 AM EDT [facility] Creatinine, Plasma 1.91(H) 0.60 - 1.10 mg/dL 11/23/2024 6:01 AM EDT [facility] BUN/Creatinine Ratio 8 11/23/2024 6:01 AM EDT [facility] Sodium, Plasma 141 136 - 145 mmol/L 11/23/2024 6:01 AM EDT [facility] Potassium, Plasma 3.7 3.6 - 4.9 mmol/L 11/23/2024 6:01 AM EDT [facility] Chloride, Plasma 108(H) 97 - 107 mmol/L 11/23/2024 6:01 AM EDT [facility] CO2, Plasma 23 22 - 29 mmol/L 11/23/2024 6:01 AM EDT [facility] Anion Gap 10 6 - 16 mmol/L 11/23/2024 6:01 AM EDT [facility] Total Calcium, Plasma 8.8(L) 8.9 - 10.2 mg/dL 11/23/2024 6:01 AM EDT [facility] eGFRcr 28.6 mL/min/1.7 3m*2 11/23/2024 6:01 AM EDT [facility] Comment:Reported eGFRcr in m L/min/1.73m2 is based the CKD-EPI 2020 equation that does not use a race coefficient. Blood Venous blood specimen / Unknown Venipuncture / Unknown 11/23/2024 5:12 AM EDT 11/23/2024 5:34 AM EDT Rae Adames MD LAB BLOOD ORDERABLES Final Resu lt Performing Organization Address City/[facility] Co de Phone Number [facility] [address] [place] [address] * Hemoglobin and Hematocrit, Blood (11/22/2024 9:01 PM EDT) Only the most recent of3 resultswithin the time period is included. HGB 11.5 11.2 - 15.7 g/dL LAB HEMATOLOGY METHOD 11/22/2024 9:11 PM EDT [facility] HCT 34.5 34.0 - 45.0 % LAB HEMATOLOGY METHOD 11/22/2024 9:11 PM EDT [facility] Blood Venous blood specimen / Unknown Venipuncture / Unknown 11/22/2024 9:01 PM EDT 11/22/2024 9:09 PM EDT Rae Adames MD LAB BLOOD ORDERABLES Final Resu lt Performing Organization Address City/[facility]/ZIP Co de Phone Number [facility] [address] [place] [address] * ECG Adult (11/22/2024 4:15 AM EDT) EKG DIAGNOSIS CLASS Borderline Abnormal MUSE ECG Ventricular Rate 46 BPM MUSE ECG Atrial Rate 46 BPM MUSE ECG OR Interval 192 ms MUSE ECG QRSD Interval 76 ms MUSE ECG QT Interval 484 ms MUSE ECG QTC Interval 423 ms MUSE ECG P [place] 90 degrees MUSE ECG R [place] -11 degrees MUSE ECG T Wave [place] 39 degrees MUSE ECG Diagnosis Sinus bradycardia MUSE ECG Diagnosis Low voltage QRS MUSE ECG Diagnosis Borderline ECG MUSE ECG Diagnosis MUSE ECG Diagnosis Confirmed by Cristofer Hawkins ([id number]) on 11/22/2024 10:41:39 AM MUSE ECG 11/22/2024 4:15 AM EDT 11/22/2024 10:41 AM EDT us Rae Adames MD ECG ORDERABLES Final Result MUSE ECG * Sedimentation Rate, Automated (11/21/2024 3:27 PM EDT) Sedimentation Rate 21 <30 mm/hr 2024 3:57 PM EDT [facility] Blood Venous blood specimen / Unknown Venipuncture / Unknown 11/21/2024 3:27 PM EDT 11/21/2024 3:34 PM EDT us Rae Adames MD LAB BLOOD ORDERABLES Final Resu lt [facility] [address] [place] [address] * (ABNORMAL) C-reactive protein (11/21/2024 3:27 PM EDT) CRP, Plasma 38.4(H) <=8.0 mg/L 11/21/2024 4:26 PM EDT [facility] Blood Venous blood specimen / Unknown Venipuncture / Unknown 11/21/2024 3:27 PM EDT 11/21/2024 3:34 PM EDT Narrative [facility] - 11/21/2024 4:26 PM EDT This CRP test is appropriate for assessment of infection, systemic inflammation and/or tissue injury. To assess cardiovascular disease risk order high sensitivity CRP (CRPH). us Rae Adames MD LAB BLOOD ORDERABLES Final Resu lt Performing Organization Address [facility]/ZIP Co de Phone Number [facility] [address] [place] [address] * Urine Gee Panel (11/21/2024 10:12 AM EDT) Extra Reflex urine culture not indicated 11/21/2024 12:01 PM EDT [facility] Urine Urine specimen obtained by clean catch procedure / Unknown Non-blood Collection / Unknown 11/21/2024 10:12 AM EDT 11/21/2024 10:30 AM EDT Derek Deshpande MD LAB URINE ORDERABLES Final Result Performing Organization Address [facility] Co de Phone Number [facility] [address] [place] [address] * Urinalysis Microscopic Examination (11/21/2024 10:12 AM EDT) Urine Urine specimen obtained by clean catch procedure / Unknown Non-blood Collection / Unknown 11/21/2024 10:12 AM EDT 11/21/2024 10:19 AM EDT Derek Deshpande MD LAB URINE ORDERABLES Final Result Performing Organization [facility] Center/[facility] de Phone Number [facility] [address] [place] [address] * (ABNORMAL) Urinalysis with reflex microscopic (Culture NOT Included) (11/21/2024 10:12 AM EDT) Color, Urine Yellow LAB URINALYSIS - AUTOMATED METHOD 11/21/2024 10:49 AM EDT [facility] Clarity, Urine Clear LAB URINALYSIS - AUTOMATED METHOD 11/21/2024 10:49 AM EDT [facility] Spec [place], Urine >1.030(H) 1.005 - 1.030 LAB URINALYSIS - AUTOMATED METHOD 11/21/2024 10:49 AM EDT [facility] pH, Urine 5.5 5.0 - 8.0 LAB URINALYSIS - AUTOMATED METHOD 11/21/2024 10:49 AM EDT [facility] Protein, Urine 30(A) Negative mg/dL LAB URINALYSIS - AUTOMATED METHOD 11/21/2024 10:49 AM EDT [facility] Glucose, Urine Negative Negative mg/dL LAB URINALYSIS - AUTOMATED METHOD 11/21/2024 10:49 AM EDT [facility] Ketones, Urine Negative Negative mg/dL LAB URINALYSIS - AUTOMATED METHOD 11/21/2024 10:49 AM EDT [facility] Blood, Urine Large(A) Negative LAB URINALYSIS - AUTOMATED METHOD 11/21/2024 10:49 AM EDT [facility] Bilirubin, Urine Negative Negative LAB URINALYSIS - AUTOMATED METHOD 11/21/2024 10:49 AM EDT [facility] Urobilinogen, Urine 1.0 0.2 to 1.0 mg/dL LAB URINALYSIS - AUTOMATED METHOD 11/21/2024 10:49 AM EDT [facility] Leukocytes, Urine Negative Negative LAB URINALYSIS - AUTOMATED METHOD 11/21/2024 10:49 AM T [facility] Nitrite, Urine Negative Negative LAB URINALYSIS - AUTOMATED METHOD 11/21/2024 10:49 AM EDT [facility] RBC, Urine >50(A) 0 to 3 /HPF LAB URINALYSIS - AUTOMATED METHOD 11/21/2024 10:49 AM T [facility] Comment:This result was prev iously suppressed from the chart. WBC, Urine 0 - 5 0 to 5 /HPF LAB URINALYSIS - AUTOMATED METHOD 11/21/2024 10:49 AM T [facility] Comment:This result was prev iously suppressed from the chart. Squamous Epithelial Cells 0 - 2 0 to 5 /HPF LAB URINALYSIS - AUTOMATED METHOD 11/21/2024 10:49 AM EDT [facility] Comment:This result was prev iously suppressed from the chart. Hyaline Casts 0 - 2 0 to 5 /LPF LAB URINALYSIS - AUTOMATED METHOD 11/21/2024 10:49 AM T [facility] Comment:This result was prev iously suppressed from the chart. Bacteria, Urine Negative Negative LAB URINALYSIS - AUTOMATED METHOD 11/21/2024 10:49 AM EDT [facility] Comment:This result was prev iously suppressed from the chart. Urine Urine specimen obtained by clean catch procedure / Unknown Non-blood Collection / Unknown 11/21/2024 10:12 AM EDT 11/21/2024 10:19 AM EDT Derek Deshpande MD LAB URINE ORDERABLES Final Result Performing Organization Address [facility]/ZIP Co de Phone Number [facility] [address] [place] [address] * ED HIV 1/2 Antibody/Antigen Screen w/Reflex to HIV 1/2 Differentiation (11/21/2024 8:32 AM EDT) [facility] HIV 1 & 2 Antibody/Antigen Screen Non Reactive Non Reactive 11/21/2024 9:34 AM EDT [facility] Comment:Screening for HIV 1 & 2 antibodies, and P24 antigen is NONREACTIVE. No confirmatory testing is required. Blood Venous blood specimen / Unknown Venipuncture / Unknown 11/21/2024 8:32 AM EDT 11/21/2024 8:49 AM EDT Derek Deshpande MD LAB BLOOD ORDERABLES Final Result Performing Organization Address [facility]/ZIP Co de Phone Number [facility] [address] [place] [address] * Lactic acid, venous (11/21/2024 8:32 AM EDT) [facility] Lactate, Venous, Whole Blood 1.4 0.5 - 2.2 mmol/L LAB HEMATOLOGY METHOD 11/21/2024 8:52 AM EDT [facility] Blood Venous blood specimen / Unknown Venipuncture / Unknown 11/21/2024 8:32 AM EDT 11/21/2024 8:48 AM EDT Derek Deshpande MD LAB BLOOD ORDERABLES Final Result Performing Organization Address [facility]/ZIP Co de Phone Number [facility] [address] [place] [address] * Hepatitis C Antibody - ED (11/21/2024 8:32 AM EDT) [facility] Hepatitis C Antibody Negative Negative 11/21/2024 9:30 AM EDT [facility] Blood Venous blood specimen / Unknown Venipuncture / Unknown 11/21/2024 8:32 AM EDT 11/21/2024 8:50 AM EDT Derek Deshpande MD LAB BLOOD ORDERABLES Final Result Performing Organization Address [facility]/ZIP Co de Phone Number [facility] [address] [place] [address] * (ABNORMAL) PT-INR (11/21/2024 8:32 AM EDT) [facility] Prothrombin Time 15.3(H) 12.0 - 14.3 sec 11/21/2024 8:58 AM EDT [facility] INR 1.2(H) 0.9 - 1.1 11/21/2024 8:58 AM EDT [facility] Blood Venous blood specimen / Unknown Venipuncture / Unknown 11/21/2024 8:32 AM EDT 11/21/2024 8:44 AM EDT Narrative [facility] - 11/21/2024 8:58 AM EDT OPTIMAL INR RANGES FOR PATIENT ON ORAL ANTICOAGULANT THERAPY Prevention of venous thromboembolism INR 2.0 to 3.0 In patients with heart disease: Atrial fibrillation INR 2.0 to 3.0 Valvular heart disease INR 2.0 to 3.0 Tissue heart valves INR 2.0 to 3.0 Mechanical prosthetic valves INR 2.5 to 3.5 Prevention of recurrent UT INR 2.5 to 3.5 Derek Deshpande MD LAB BLOOD ORDERABLES Final Result [facility] [address] [place] [address] * (ABNORMAL) CBC w/diff (11/21/2024 8:32 AM EDT) Pathologist [facility] WBC Count 15.92(H) 3.70 - 10.30 10*3/uL LAB HEMATOLOGY METHOD 11/21/2024 8:[address] [facility] RBC Count 3.71(L) 3.90 - 5.20 10*6/uL LAB HEMATOLOGY METHOD 11/21/2024 8:46 AM EDT [facility] HGB 11.6 11.2 - 15.7 g/dL LAB HEMATOLOGY METHOD 11/21/2024 8:46 AM EDT [facility] HCT 34.9 34.0 - 45.0 % LAB HEMATOLOGY METHOD 11/21/2024 8:46 AM EDT [facility] Platelet Count 187 155 - 369 10*3/uL LAB HEMATOLOGY METHOD 11/21/2024 8:46 AM EDT [facility] MCV 94 79 - 98 fL LAB HEMATOLOGY METHOD 11/21/2024 8:46 AM EDT [facility] MCH 31.3 26.0 - 32.0 pg LAB HEMATOLOGY METHOD 11/21/2024 8:46 AM EDT [facility] MCHC 33.2 30.7 - 35.5 g/dL LAB HEMATOLOGY METHOD 11/21/2024 8:46 AM EDT [facility] RDW 15.2(H) 11.5 - 14.5 % LAB HEMATOLOGY METHOD 11/21/2024 8:46 AM EDT [facility] MPV 9.9 8.8 - 12.5 fL LAB HEMATOLOGY METHOD 11/21/2024 8:46 AM EDT [facility] nRBC 0.0 <=0.0 per 100 WBCs LAB HEMATOLOGY METHOD 11/21/2024 8:46 AM EDT [facility] Differential Type Automated LAB HEMATOLOGY METHOD 11/21/2024 8:46 AM EDT [facility] Neutrophils % 88 % LAB HEMATOLOGY METHOD 11/21/2024 8:46 AM EDT [facility] Lymphocytes % 7 % LAB HEMATOLOGY METHOD 11/21/2024 8:46 AM EDT [facility] Monocytes % 5 % LAB HEMATOLOGY METHOD 11/21/2024 8:46 AM EDT [facility] Eosinophils % 0 % LAB HEMATOLOGY METHOD 11/21/2024 8:46 AM EDT [facility] Basophils % 0 % LAB HEMATOLOGY METHOD 11/21/2024 8:46 AM EDT [facility] Immature Granulocytes % 0 % LAB HEMATOLOGY METHOD 11/21/2024 8:46 AM EDT [facility] Neutrophils Absolute 13.90(H) 1.60 - 6.10 10*3/uL LAB HEMATOLOGY METHOD 11/21/2024 8:46 AM EDT [facility] Lymphocytes Absolute 1.15(L) 1.20 - 3.90 10*3/uL LAB HEMATOLOGY METHOD 11/21/2024 8:46 AM EDT [facility] Monocytes Absolute 0.74 0.30 - 0.90 10*3/uL LAB HEMATOLOGY METHOD 11/21/2024 8:46 AM EDT [facility] Eosinophils Absolute 0.01 0.00 - 0.50 10*3/uL LAB HEMATOLOGY METHOD 11/21/2024 8:46 AM EDT [facility] Basophils Absolute 0.05 0.00 - 0.10 10*3/uL LAB HEMATOLOGY METHOD 11/21/2024 8:46 AM EDT [facility] Immature Granulocytes Absolute 0.07(H) 0.00 - 0.06 10*3/uL LAB HEMATOLOGY METHOD 11/21/2024 8:46 AM EDT [facility] Blood Venous blood specimen / Unknown Venipuncture / Unknown 11/21/2024 8:32 AM EDT 11/21/2024 8:44 AM EDT Narrative [facility] - 11/21/2024 8:46 AM EDT Therapeutic decision making should be based on absolute values, rather than percentages. us Derek Deshpande MD LAB BLOOD ORDERABLES Final Result [facility] [address] [place] [address] * Type and screen (11/21/2024 8:32 AM EDT) ABO/Rh B Positive 11/21/2024 8:25 AM EDT BLOOD BANK Antibody Screen Negative 11/21/2024 8:25 AM EDT BLOOD BANK Specimen Expiration 11/24/2024 23:59 11/21/2024 8:25 AM EDT BLOOD BANK Blood Venous blood specimen / Unknown Venipuncture / Unknown 11/21/2024 8:32 AM EDT 11/21/2024 8:36 AM EDT us Derek Deshpande MD LAB BLOOD BANK TEST ORDERA BLES Final Result BLOOD BANK [address] [place] [address], * (ABNORMAL) CMP (11/21/2024 8:32 AM EDT) Glucose, Plasma 122(H) 74 - 99 mg/dL 11/21/2024 9:18 AM EDT [facility] BUN, Plasma 17 8 - 23 mg/dL 11/21/2024 9:18 AM EDT [facility] Creatinine, Plasma 1.79(H) 0.60 - 1.10 mg/dL 11/21/2024 9:18 AM EDT [facility] BUN/Creatinine Ratio 9 11/21/2024 9:18 AM EDT [facility] Sodium, Plasma 140 136 - 145 mmol/L 11/21/2024 9:18 AM EDT [facility] Potassium, Plasma 4.3 3.6 - 4.9 mmol/L 11/21/2024 9:18 AM EDT [facility] Chloride, Plasma 110(H) 97 - 107 mmol/L 11/21/2024 9:18 AM EDT [facility] CO2, Plasma 22 22 - 29 mmol/L 11/21/2024 9:18 AM EDT [facility] Anion Gap 8 6 - 16 mmol/L 11/21/2024 9:18 AM EDT [facility] Total Calcium, Plasma 8.4(L) 8.9 - 10.2 mg/dL 11/21/2024 9:18 AM EDT [facility] Total Protein 6.0(L) 6.3 - 7.9 g/dL 11/21/2024 9:18 AM EDT [facility] Albumin, Plasma 3.5 3.5 - 5.2 g/dL 11/21/2024 9:18 AM EDT [facility] AST, Plasma 21 10 - 35 U/L 11/21/2024 9:18 AM EDT [facility] ALT, Plasma 19 10 - 35 U/L 11/21/2024 9:18 AM EDT [facility] Alkaline Phosphatase, Plasma 94 46 - 142 U/L 11/21/2024 9:18 AM EDT [facility] Total Bilirubin, Plasma 0.4 0.2 - 1.1 mg/dL 11/21/2024 9:18 AM EDT [facility] eGFRcr 31.0 mL/min/1.7 3m*2 11/21/2024 9:18 AM EDT [facility] Comment:Reported eGFRcr in m L/min/1.73m2 is based the CKD-EPI 2020 equation that does not use a race coefficient. Blood Venous blood specimen / Unknown Venipuncture / Unknown 11/21/2024 8:32 AM EDT 11/21/2024 8:49 AM EDT us Derek Deshpande MD LAB BLOOD ORDERABLES Final Result [facility] [address] [place] [address] * CT ABDOMEN OUTSIDE IMAGES (11/21/2024 4:35 AM EDT) Only the most recent of2 resultswithin the time period is included. Anatomical Region Laterality Modality Computed Tomogra phy 11/21/2024 4:35 AM EDT us External Provider IMG CT PROCEDURES Final Result * CT NEURO OUTSIDE IMAGES (11/21/2024 2:55 AM EDT) Anatomical Region Laterality Modality Computed Tomogra phy 11/21/2024 2:55 AM EDT us External Provider IMG CT PROCEDURES Final Result * XR THORACIC OUTSIDE IMAGES (11/21/2024 2:13 AM EDT) Anatomical Region Laterality Modality Radiographic Karina ging 11/21/2024 2:13 AM EDT us External Provider IMG XR PROCEDURES Final Result from Last 3 Months [place] [address] ANTHEM Advance Directives * Full Code (Latest Code Status on File) Date Activated Date Inactivated Comments 11/21/2024 2:35 PM 11/24/2024 3:36 PM Question Answer Comments I have reviewed the capacity from the link above and, if needed, have updated to appropriate status: Yes * Full Code Date Activated Date Inactivated Comments 08/11/2024 8:52 AM 08/12/2024 2:39 AM Question Answer Comments Patient has decision-making capacity? Yes Care Teams Institutional Custodian Relationship Specialty Start Date End Date Deondre Lui MD [address] [facility] [address] [place] [id number] PCP - General 10/26/20
--- OUTSIDE RECORDS SUMMARY | 2025-01-05 08:56 | XMS_ITS | Encounter Summary ---
Author Organization Healthcare Address [address] [place] [address] Care Team Providers Care Propulsion Motor And Generator Repairer Name Role Phone Deondre Lui MD Primary Care Provider Christal Murray LPN Unavailable Unavailable Encounter Details Date Type Department Care Team (Latest Contact Info) Description 12/09/2024 Travel Social History Tobacco Use Types Packs/Day [...] and Family Not on file 11/25/2024 Attends [employer] Services Not on file 11/25 Active Member [...] any time in the past 12 m [facility], were you homeless or living in a senior living (including now)? No 11/25/2024 Utilities Answer Date [...] Functional Status documented as of this encounter Plan of Treatment Upcoming Encounters Date Type Department Care Team (Late st Contact Info) Description 02/20/2025 10:45 AM EDT Office Visit [facility] Medicine Specialties [address] [place] [address] Elle Landaverde, REBEKAH, ANNE [address] [facility] [address] [place] [address] 03/29/2025 10:30 AM EDT Clinical Support [facility] Laboratory Services [address] [facility], 1st [place] [address] 04/05/2025 1:00 PM EDT Office Visit [facility] Nephrology, Bone & Mineral Metabolism [address] [facility], [address] [place] [address] Jude Arora PA [address] [facility] [address] [place] [address] 08/09/2025 10:00 AM EST Appointment [facility] [address] [facility] [address] [place] [phone] 08/09/2025 11:45 AM EST Office Visit [facility] [address] [place] [phone] Cristofer Yu MD [address] [facility] [address] [place] [address] 10/11/2025 9:15 AM EDT Office Visit [facility] [place] [address] [facility] [place] [address] James Tomas MD [address] [place] [phone] documented as of this encounter Visit Diagnoses [...] documented as of this encounter Care Teams Propulsion Motor And Generator Repairer Relationship Specialty Start Date End Date Deondre Lui MD [address] [place] [address] [address] [place] [address] PCP - General 10/26/20 Christal Murray LPN [employer] [place] [address] TCM Nurse 11/25/24 12/25/24 documented as of this encounter
--- OUTSIDE RECORDS SUMMARY | 2025-01-05 08:56 | XMS_ITS | Encounter Summary ---
Author Organization [employer] ([place], [place], [place], [place] Address [address] [place] [address] Care Team Providers Care Tile Helper Name Role Phone Unavailable Primary Care Provider Unavailabl e Encounter Details Date Type Department Care Team (Late st Contact Info) Description 06/03/2019 Transcribed Document [facility] [facility] [place] [address] Nelson Escoto MD [address] [place] [phone] Social History Tobacco Use Types Packs/Day Years Used Date Smoking Tobacco: Never Assessed Comments Unknown Sex and Gender Information Value Date Recorded Sex Assigned at Not on file Legal Sex Female 1:09 PM CDT Gender Identity Not on file Sexual Orientation Not on file documented as of this encounter Miscellaneous Notes * [employer]ner Conversion Note - Nelson Escoto MD - 06/03/2019 8:26 AM TECHNOLOGY PROJECT MANAGER DATE OF PROCEDURE: 05/31/2019 SURGEON: Conrado Cotto MD PREOPERATIVE DIAGNOSIS: Recurrent right leg claudication with suspected right common iliac in-stent restenosis. POSTOPERATIVE DIAGNOSIS: Recurrent right leg claudication with suspected right common iliac in-stent restenosis. PROCEDURES PERFORMED: 1. Right common femoral artery percutaneous ultrasound-guided access. 2. Aortogram with interpretation. 3. Right common iliac artery angioplasty (8 mm balloon). 4. Pressure transducing through the infrarenal aorta and the right iliac system. INDICATION FOR PROCEDURE: This is a 58-year-old female smoker, who presents for evaluation of recurrent claudication. The patient previously underwent a right to left femoral bypass graft by another physician and placement of right common iliac stent. The patient had a CTA that shows an in-stent restenosis in the right common iliac artery stent. Moreover, she has significant infrarenal aortic thrombus. The patient is offered to undergo an aortogram with pressure transducing to ensure that her bypass is not threatened. INTRAOPERATIVE FINDINGS: 1. Right common femoral artery was accessed utilizing ultrasound-guided percutaneous technique. This was done below the femoral-femoral bypass graft anastomosis. Ultimately, a 5-Yoruba sheath was placed into the vessel. [place] Advantage wire was advanced into the infrarenal aorta. An aortogram showed flow through the infrarenal aorta and through the common iliac artery stent. There was approximately 60% stenosis within the common iliac artery stent. This was angioplastied with an 8 mm balloon with a residual stenosis of about 10%. 2. Pressure transduction was performed throughout the entire infrarenal aorta and the right common iliac system. This did not show a drop of pressure of greater than 5 mmHg throughout the entire system, suggesting that the infrarenal aortic thrombus is not hemodynamically significant at this time and does not require treatment. OPERATIVE PROCEDURE IN DETAIL: The patient was brought to the operating room, laid on the operating table in a supine position. The patient's bilateral groins were prepped and draped in standard surgical fashion. Perioperative antibiotics were administered. Final time-out was performed. Right common femoral artery was identified with ultrasound guidance and accessed utilizing micropuncture technique after infiltrating skin with local anesthetic. This was performed below the anastomosis of the femoral-femoral bypass graft. A 5-Yoruba sheath was placed into the vessel. Heparin was administered. [place] Advantage wire was advanced into the infrarenal aorta and a flush catheter was positioned below the renal arteries. Aortogram was performed with findings as noted above. An 8 mm balloon was then advanced and used to angioplasty the in-stent restenosis of the right common iliac artery with successful result. At this point in time, a Quick-Cross catheter was advanced into the infrarenal aorta and hooked up to the arterial line. The Quick-Cross catheter was slowly pulled back and pressure measurements were taken throughout two segments of infrarenal aorta, common iliac and external iliac artery. This did not show a pressure drop of greater than 5 mmHg throughout the entire system. At this point in time, procedure was terminated. Heparin effect was reversed with protamine. A Mynx closure device was used to close the right common femoral arteriotomy. Sterile dressing was applied. There was no hematoma. The patient was awakened, transferred to [facility], and taken to Recovery in stable condition. All counts were correct. /[id number] Conrado Cotto MD IV/AQ / IV / MODL /[id number] Electronically signed by Julio [facility] Conversion Audit Specialist Cerner at 09/30/2022 3:16 PM CDT documented in this encounter Plan of Treatment Not on file documented as of this encounter Visit Diagnoses Not on filedocumented in this encounter
--- OUTSIDE RECORDS SUMMARY | 2025-01-05 08:56 | XMS_ITS | Encounter Summary ---
Author Organization [employer] ([place], [place], [place], [place]) Address [address] [place] [address] Care Team Providers Care Line Ordering Clinician Name Role Phone Unavailable Primary Care Provider Unavailabl e Encounter Details Date Type Department Care Team (Late st Contact Info) Description 05/31/2019 Transcribed Document [facility] [place] [facility] [place] [address] ProviderNelson MD [address], [place] [id number] Social History Tobacco Use Types Packs/Day Years Used Date Smoking Tobacco: Never Assessed Comments Unknown Sex and Gender Information Value Date Recorded Sex Assigned at Not on file Legal Sex Female 1:09 PM CDT Gender Identity Not on file Sexual Orientation Not on file documented as of this encounter Miscellaneous Notes * Cerner Conversion Note - Nelson Escoto MD - 05/31/2019 3:43 PM RADIOLOGY PRACTITIONER ASSISTANT Patient Education Materials Follows: Angiogram, Care After This sheet gives you information about how to care for yourself after your procedure. Your doctor may also give you more specific instructions. If you have problems or questions, contact your doctor. Follow these instructions at home: Insertion site care ??? Follow instructions from your doctor about how to take care of your long, thin tube (catheter) insertion area. Make sure you: ? Wash your hands with soap and water before you change your bandage (dressing). If you cannot use soap and water, use hand finisher merchant products. ? Change your bandage as told by your doctor. ? Leave stitches (sutures), skin glue, or skin tape (adhesive) strips in place. They may need to stay in place for 2 weeks or longer. If tape strips get loose and curl up, you may trim the loose edges. Do not remove tape strips completely unless your doctor says it is okay. ??? Do not take baths, swim, or use a hot tub until your doctor says it is okay. ??? You may shower 24?48 hours after the procedure or as told by your doctor. ? Gently wash the area with plain soap and water. ? Pat the area dry with a clean towel. ? Do not rub the area. This may cause bleeding. ??? Do not apply powder or lotion to the area. Keep the area clean and dry. ??? Check your insertion area every day for signs of infection. Check for: ? More redness, swelling, or pain. ? Fluid or blood. ? Warmth. ? Pus or a bad smell. Activity ??? Rest as told by your doctor, usually for 1?2 days. ??? Do not lift anything that is heavier than 10 lbs. (4.5 kg) or as told by your doctor. ??? Do not drive for 24 hours if you were given a medicine to help you relax (sedative). ??? Do not drive or use heavy machinery while taking prescription pain medicine. General instructions ??? Go back to your normal activities as told by your doctor, usually in about a week. Ask your doctor what activities are safe for you. ??? If the insertion area starts to bleed, lie flat and put pressure on the area. If the bleeding does not stop, get help right away. This is an emergency. ??? Drink enough fluid to keep your pee (urine) clear or pale yellow. ??? Take xbxf-bfu-[id number] and prescription medicines only as told by your doctor. ??? Keep all follow-up visits as told by your doctor. This is important. Contact a doctor if: ??? You have a fever. ??? You have chills. ??? You have more redness, swelling, or pain around your insertion area. ??? You have fluid or blood coming from your insertion area. ??? The insertion area feels warm to the touch. ??? You have pus or a bad smell coming from your insertion area. ??? You have more bruising around the insertion area. ??? Blood collects in the tissue around the insertion area (hematoma) that may be painful to the touch. Get help right away if: ??? You have a lot of pain in the insertion area. ??? The insertion area swells very fast. ??? The insertion area is bleeding, and the bleeding does not stop after holding steady pressure on the area. ??? The area near or just beyond the insertion area becomes pale, cool, tingly, or numb. These symptoms may be an emergency. Do not wait to see if the symptoms will go away. Get medical help right away. Call your local emergency services (911 in the [place] Do not drive yourself to the hospital. Summary ??? After the procedure, it is common to have bruising and tenderness at the long, thin tube insertion area. ??? After the procedure, it is important to rest and drink plenty of fluids. ??? Do not take baths, swim, or use a hot tub until your doctor says it is okay to do so. You may shower 24?48 hours after the procedure or as told by your doctor. ??? If the insertion area starts to bleed, lie flat and put pressure on the area. If the bleeding does not stop, get help right away. This is an emergency. This information is not intended to replace advice given to you by your health care provider. Make sure you discuss any questions you have with your health care provider. Document Released: 08/28/2009 Document Revised: 05/26/2017 Document Reviewed: 05/26/2017 [employer] Interactive Patient Education ? 2019 [employer] Endovascular Therapy for Peripheral Arterial Disease, Care After This sheet gives you information about how to care for yourself after your procedure. Your health care provider may also give you more specific instructions. If you have problems or questions, contact your health care provider. What can I expect after the procedure? After the procedure, it is common to have: ??? Pain. ??? Soreness and bruising around your puncture or incision (access site). ??? Fatigue. Follow these instructions at home: Access site care ??? Follow instructions from your health care provider about how to take care of your access site. Make sure you: ? Wash your hands with soap and water before you change your bandage (dressing). If soap and water are not available, use hand finisher merchant products. ? Change your dressing as told by your health care provider. ? Leave stitches (sutures), skin glue, or adhesive strips in place. If adhesive strip edges start to loosen and curl up, you may trim the loose edges. Do not remove adhesive strips or skin glue completely unless your health care provider tells you to do that. ??? Check your access site every day for signs of infection. Check for: ? Redness, swelling, or pain. ? A lump or bump. ? Fluid or blood. ? Warmth. ? Pus or a bad smell. Medicines ??? Take fwnf-ksg-jcmlosy and prescription medicines only as told by your health care provider. You may need to take medicines to prevent blood clots and to lower your cholesterol. ??? If you were prescribed antibiotic medicine, take it as told by your health care provider. Do not stop taking the antibiotic even if you start to feel better. Driving ??? Do not drive until your health care provider approves. You should: ? Not drive for 24 hours if you were given a medicine to help you relax (sedative) during your procedure. ? Not drive or use heavy machinery while taking prescription pain medicine. Activity ??? Do not lift anything that is heavier than 10 lb (4.5 kg) until your health care provider says that it is safe. You may have this lifting limit for several days. ??? Return to your normal activities as told by your health care provider. Ask your health care provider what activities are safe for you. ? Avoid activity that requires a lot of energy, such as exercise and sports, as told by your health care provider. ? Avoid sexual activity until your health care provider says it is safe. ??? Follow your exercise plan as told by your health care provider. Eating and drinking ??? Drink fluids as instructed to help wash (flush) dye used during the procedure out of your body. ??? Follow instructions from your health care provider about eating or drinking restrictions. You may need to eat a diet that is low in salt (sodium) and fat. ??? Avoid drinking alcohol. General instructions ??? Do not take baths, swim, or use a hot tub until your health care provider approves. You may take showers. ??? Do not use any products that contain nicotine or tobacco, such as cigarettes and e-cigarettes. If you need help quitting, ask your health care provider. ??? Keep all follow-up visits as told by your health care provider. This is important. Contact a health care provider if: ??? You have a fever. ??? You have severe pain that does not get better with medicine. ??? You have redness, swelling, or pain around your access site. ??? You have a fever. ??? You have a lump or bump at your access site. Get help right away if: ??? You have fluid or blood coming from your access site. If this happens, lie down on your back and apply pressure to the area. ??? You have chest pain. ??? You have problems breathing. ??? You have pain, numbness, or tingling in your legs. ??? You faint. ??? You have any symptoms of a stroke. ?BE FAST? is an easy way to remember the main warning signs of a stroke: ? B - Balance. Signs are dizziness, sudden trouble walking, or loss of balance. ? E - Eyes. Signs are trouble seeing or a sudden change in vision. ? F - Face. Signs are sudden weakness or numbness of the face, or the face or eyelid drooping on one side. ? A - Arms. Signs are weakness or numbness in an arm. This happens suddenly and usually on one side of the body. ? S - Speech. Signs are sudden trouble speaking, slurred speech, or trouble understanding what people say. ? T - Time. Time to call emergency services. Write down what time symptoms started. ??? You have other signs of a stroke, such as: ? A sudden, severe headache with no known cause. ? Nausea or vomiting. ? Seizure. These symptoms may represent a serious problem that is an emergency. Do not wait to see if the symptoms will go away. Get medical help right away. Call your local emergency services (911 in the [place] Do not drive yourself to the hospital. Summary ??? After the procedure, it is common to have pain and soreness near your puncture or incision (access site). ??? Check your access site every day for signs of infection, such as redness, swelling, or pain. ??? You may need to take medicines to prevent blood clots and to lower your cholesterol. ??? If you have any signs of a stroke, get help right away. This information is not intended to replace advice given to you by your health care provider. Make sure you discuss any questions you have with your health care provider. Document Released: 09/23/2017 Document Revised: 09/23/2017 Document Reviewed: 09/23/2017 [employer] Interactive Patient Education ? 2019 [employer] Groin Site Care Refer to this sheet in the next few weeks. These instructions provide you with information on caring for yourself after your procedure. Your caregiver may also give you more specific instructions. Your treatment has been planned according to current medical practices, but problems sometimes occur. Call your caregiver if you have any problems or questions after your procedure. HOME CARE INSTRUCTIONS ? You may shower 24 hours after the procedure. Remove the bandage (dressing ) and gently wash the site with plain soap and water. Gently pat the site dry. ? Do not apply powder or lotion to the site. ? Do not sit in a bathtub, swimming pool, or whirlpool for 5 to 7 days. ? No bending, squatting, or lifting anything over 10 pounds (4.5 kg) as directed by your caregiver. ? Inspect the site at least twice daily. ? Do not drive home if you are discharged the same day of the procedure. Have someone else drive you. ? You may drive 24 hours after the procedure unless otherwise instructed by your caregiver. What to expect: ? Any bruising will usually fade within 1 to 2 weeks. ? Blood that collects in the tissue (hematoma ) may be painful to the touch. It should usually decrease in size and tenderness within 1 to 2 weeks. SEEK IMMEDIATE MEDICAL CARE IF: ? You have unusual pain at the groin site or down the affected leg. ? You have redness, warmth, swelling, or pain at the groin site. ? You have drainage (other than a small amount of blood on the dressing). ? You have chills. ? You have a fever or persistent symptoms for more than 72 hours. ? You have a fever and your symptoms suddenly get worse. ? Your leg becomes pale, cool, tingly, or numb. ? You have heavy bleeding from the site. Hold pressure on the site. Document Released: 07/04/2011 Document Revised: 08/23/2012 Document Reviewed: 07/04/2011 ExitCare? Patient Information ?2013 [employer] Moderate Conscious Sedation, Adult, Care After These instructions provide you with information about caring for yourself after your procedure. Your health care provider may also give you more specific instructions. Your treatment has been planned according to current medical practices, but problems sometimes occur. Call your health care provider if you have any problems or questions after your procedure. What can I expect after the procedure? After your procedure, it is common: ??? To feel sleepy for several hours. ??? To feel clumsy and have poor balance for several hours. ??? To have poor judgment for several hours. ??? To vomit if you eat too soon. Follow these instructions at home: For at least 24 hours after the procedure: ??? Do not: ? Participate in activities where you could fall or become injured. ? Drive. ? Use heavy machinery. ? Drink alcohol. ? Take sleeping pills or medicines that cause drowsiness. ? Make important decisions or sign legal documents. ? Take care of children on your own. ??? Rest. Eating and drinking ??? Follow the diet recommended by your health care provider. ??? If you vomit: ? Drink water, juice, or soup when you can drink without vomiting. ? Make sure you have little or no nausea before eating solid foods. General instructions ??? Have a responsible adult stay with you until you are awake and alert. ??? Take ypds-gve-mwmyorg and prescription medicines only as told by your health care provider. ??? If you smoke, do not smoke without supervision. ??? Keep all follow-up visits as told by your health care provider. This is important. Contact a health care provider if: ??? You keep feeling nauseous or you keep vomiting. ??? You feel light-headed. ??? You develop a rash. ??? You have a fever. Get help right away if: ??? You have trouble breathing. This information is not intended to replace advice given to you by your health care provider. Make sure you discuss any questions you have with your health care provider. Document Released: 03/22/2014 Document Revised: 11/03/2016 Document Reviewed: 09/20/2016 [employer] Interactive Patient Education ? 2019 [employer] documented in this encounter Plan of Treatment Not on file documented as of this encounter Visit Diagnoses Not on filedocumented in this encounter
--- OUTSIDE RECORDS SUMMARY | 2025-01-05 08:56 | XMS_ITS | Encounter Summary ---
Author Organization Healthcare Address [address] [place] [address] Care Team Providers Care Candy Supervisor Name Role Phone Deondre Lui MD Primary Care Provider [phone] Christal Murray LPN Unavailable Unavailable Encounter Details Date Type Department Care Team (Late st Contact Info) Description 11/21/2024 Orders Only External Location [address] [place] [id number] Provider, External Social History Tobacco Use Types [...] and Family Not on file 11/25/2024 Attends [employer] Not on file 11/25 Active Member [...] any time in the past [address] [facility], were you homeless or living in a longterm (including now)? No 11/25/2024 Utilities Answer Date [...] 02/20/2025 10:45 AM EDT Office Visit [facility] Medicine Specialties [address] [place] [address] Elle Landaverde APRN, DNP [address] [facility] [address] [place] [address] 03/29/2025 10:30 AM EDT Clinical Support [facility] Laboratory Services [address] 1st [place] [address] 04/05/2025 1:00 PM EDT Office Visit [facility] Nephrology, Bone & Mineral Metabolism [address] , [address] [place] [address] Jude Arora, TAYLA [address] [place] [address] 08/09/2025 10:00 AM EST Appointment [facility] [address] [place] [address] 08/09/2025 11:45 AM EST Office Visit [facility] [address] [place] [address] Cristofer Yu MD [address] [place] [address] 10/11/2025 9:15 AM EDT Office Visit [facility] [place] [address] [place] [address] James Tomas MD [address] [place] [address] documented as of this encounter Procedures Procedure Name Priority Date/Time Associated Diagnosis Comments CT NEURO OUTSIDE IMAGES 11/21/2024 2:55 AM EDT documented in this encounter Results * CT NEURO OUTSIDE IMAGES (11/21/2024 2:55 AM EDT) Anatomical Region Laterality Modality Computed Tomogra phy 11/21/2024 2:55 AM EDT External Provider IMG CT PROCEDURES [...] documented as of this encounter Care Teams Candy Supervisor Relationship Specialty Start Date End Date Deondre Lui MD [address] [place] [address] PCP - General 10/26/20 Christal Murray LPN VALUE-BASED [place] [address] TCM Nurse 11/25/24 12/25/24 documented as of this encounter
--- OUTSIDE RECORDS SUMMARY | 2025-01-05 08:56 | XMS_ITS | Encounter Summary ---
Author Organization Healthcare Address [address] [place] [address] Care Team Providers Care Senior Firmware Engineer Name Role Phone Deondre Lui MD Primary Care Provider [phone] Christal Murray LPN Unavailable Unavailable Encounter Details Date Type Department Care Team (Late st Contact Info) Description 11/21/2024 Orders Only External Location [address] [place] [id number] Provider, External Social History Tobacco Use Types [...] and Family Not on file 11/25/2024 Attends [employer] Not on file 11/25 Active Member [...] any time in the past 12 m [facility], were you homeless or living in [...] Description 02/20/2025 10:45 AM EDT Office Visit [facility] Medicine Specialties [address] [place] [address] Elle Landaverde APRN, DNP [address] [facility] [address] [place] [address] 03/29/2025 10:30 AM EDT Clinical Support [facility] Laboratory Services [address] [facility] [place] [address] 04/05/2025 1:00 PM EDT Office Visit [facility] Nephrology, Bone & Mineral Metabolism [address] , [address] [place] [address] Jude Arora, TAYLA [address] [facility] [address] [place] [address] 08/09/2025 10:00 AM EST Appointment [facility] [address] [place] [address] 08/09/2025 11:45 AM EST Office Visit [facility] [address] [place] [address] Cristofer Yu MD [address] [place] [address] 10/11/2025 9:15 AM EDT Office Visit [facility] [place] [address] [place] [address] James Tomas MD [address] [place] [address] documented as of this encounter Procedures Procedure Name Priority Date/Time Associated Diagnosis Comments CT ABDOMEN OUTSIDE IMAGES 11/21/2024 3:06 AM EDT documented in this encounter Results * CT ABDOMEN OUTSIDE IMAGES (11/21/2024 3:06 AM EDT) Anatomical Region Laterality Modality Computed Tomogra phy 11/21/2024 3:06 AM EDT External Provider IMG CT PROCEDURES [...] documented as of this encounter Care Teams Senior Firmware Engineer Relationship Specialty Start Date End Date Deondre Lui MD [address] [facility] [address] [place] [address] PCP - General 10/26/20 Christal Murray LPN VAL[employer] [place] [address] TCM Nurse 11/25/24 12/25/24 documented as of this encounter
--- OUTSIDE RECORDS SUMMARY | 2025-01-05 08:56 | XMS_ITS | Encounter Summary ---
Author Organization [employer] ([place], [place], [place], [place]) Address [address] [place] [address] Care Team Providers Care Film Printer Name Role Phone Unavailable Primary Care Provider Unavailabl e Encounter Details Date Type Department Care Team (Late st Contact Info) Description 05/31/2019 Transcribed Document [facility] Family Medicine [address] [place] [address] ProviderNelson MD [address], [place] [id number] Social History Tobacco Use Types Packs/Day Years Used Date Smoking Tobacco: Never Assessed Comments Unknown Sex and Gender Information Value Date Recorded Sex Assigned at Not on file Legal Sex Female 1:09 PM CDT Gender Identity Not on file Sexual Orientation Not on file documented as of this encounter Miscellaneous Notes * Cerner Conversion Note - Historical ProviderMD - 05/31/2019 12:59 PM COMPARISON SHOPPER [facility] Main OR IntraOp Summary Primary Physician: DEREK CHEN MD Finalized Date/Time: 06/01/19 12:06:30 Pt. Name: LIZ MULLINS FERNANDO /Sex: 1960 Female Med Rec #: [id number] Physician: DEREK CHEN MD Financial #: [id number] Pt. Type: O Room/Bed: HIS/2 Admit/Disch: 05/31/19 09:12:00 - 05/31/19 16:48:00 Institution: [facility] IntraOp Case Attendance Entry 1 Entry 2 Entry 3 Case Attendee VOSKRESENSKY, DEREK, MD Liseth, Shawanda A, RN Blanton, Jackie, [employer] Role Performed Surgeon/Proceduralist, Climatology Professor, First Technical Applications Specialist First Time In 05/31/19 12:37:00 05/31/19 12:37:00 05/31/19 12:37:00 Time Out 05/31/19 13:35:00 05/31/19 13:35:00 05/31/19 13:35:00 Procedure Aortogram Abdominal Aortogram Abdominal Aortogram Abdominal with Runoff(Right), with Runoff(Right), with Runoff(Right), Angioplasty Angioplasty Angioplasty Percutaneous Percutaneous Percutaneous Transluminal(Right) Transluminal(Right) Transluminal(Right) Other Attendee Superficial Wound Closed By: Last Modified By: Shawanda Childers, Shawanda Ortiz, Shawanda Ortiz, RN 05/31/19 13:35:31 05/31/19 13:35:31 05/31/19 13:35:31 Entry 4 Entry 5 Entry 6 Case Attendee Ada Black SIMPSON, KRISTEN, REBEKAH, AMARI DAILEY, -ANS Cardiovascular JOURNEYMAN POWERHOUSE OPERATOR Technical Applications Specialist Role Performed Technical Applications Specialist JOURNEYMAN POWERHOUSE OPERATOR/Nurse Last Putter Away Anesthesiologist of Record Time In 05/31/19 12:37:00 05/31/19 12:37:00 05/31/19 12:37:00 Time Out 05/31/19 13:35:00 05/31/19 13:35:00 05/31/19 13:35:00 Procedure Aortogram Abdominal Aortogram Abdominal Aortogram Abdominal with Runoff(Right), with Runoff(Right), with Runoff(Right), Angioplasty Angioplasty Angioplasty Percutaneous Percutaneous Percutaneous Transluminal(Right) Transluminal(Right) Transluminal(Right) Other Attendee Superficial Wound Closed By: Last Modified By: Shawanda Childers, Shawanda Ortiz, RN Shawanda Childers, RN 05/31/19 13:35:31 05/31/19 13:35:31 05/31/19 13:35:31 Entry 7 Case Attendee Cinthia Carranza RN Role Performed Climatology Professor, Second Time In 05/31/19 12:37:00 Time Out 05/31/19 13:35:00 Procedure Aortogram Abdominal with Runoff(Right), Angioplasty Percutaneous Transluminal(Right) Other Attendee Superficial Wound Closed By: Last Modified By: Shawanda Childers RN 05/31/19 13:35:31 [facility] IntraOp Case Attendance Audit 05/31/19 13:35:31 Sugar Cane Planter Machine Operator: SONIA Modifier: EANAPIER 1 <*> Procedure Aortogram Abdominal with Runoff(Right), Arterial Stent Endovascular, Angioplasty Percutaneous Transluminal(Right) 2 <*> Procedure Aortogram Abdominal with Runoff(Right), Arterial Stent Endovascular, Angioplasty Percutaneous Transluminal(Right) 3 <*> Procedure Aortogram Abdominal with Runoff(Right), Arterial Stent Endovascular, Angioplasty Percutaneous Transluminal(Right) 4 <*> Procedure Aortogram Abdominal with Runoff(Right), Arterial Stent Endovascular, Angioplasty Percutaneous Transluminal(Right) 5 <*> Procedure Aortogram Abdominal with Runoff(Right), Arterial Stent Endovascular, Angioplasty Percutaneous Transluminal(Right) 6 <*> Procedure Aortogram Abdominal with Runoff(Right), Arterial Stent Endovascular, Angioplasty Percutaneous Transluminal(Right) 7 <*> Procedure Aortogram Abdominal with Runoff(Right), Arterial Stent Endovascular, Angioplasty Percutaneous Transluminal(Right) 05/31/19 13:34:31 Sugar Cane Planter Machine Operator: ALTAFNAPIEULOGIO Modifier: EANAPIER 1 <+> Time Out 1 <*> Procedure Aortogram Abdominal with Runoff(Right), Arterial Stent Endovascular, Angioplasty Percutaneous Transluminal(Right) 2 <+> Time Out 2 <*> Procedure Aortogram Abdominal with Runoff(Right), Arterial Stent Endovascular, Angioplasty Percutaneous Transluminal(Right) 3 <+> Time Out 3 <*> Procedure Aortogram Abdominal with Runoff(Right), Arterial Stent Endovascular, Angioplasty Percutaneous Transluminal(Right) 4 <+> Time Out 4 <*> Procedure Aortogram Abdominal with Runoff(Right), Arterial Stent Endovascular, Angioplasty Percutaneous Transluminal(Right) 5 <+> Time Out 5 <*> Procedure Aortogram Abdominal with Runoff(Right), Arterial Stent Endovascular, Angioplasty Percutaneous Transluminal(Right) 6 <+> Time Out 6 <*> Procedure Aortogram Abdominal with Runoff(Right), Arterial Stent Endovascular, Angioplasty Percutaneous Transluminal(Right) 7 <+> Time Out 7 <*> Procedure Aortogram Abdominal with Runoff(Right), Arterial Stent Endovascular, Angioplasty Percutaneous Transluminal(Right) 05/31/19 13:05:26 Sugar Cane Planter Machine Operator: LENINPIEULOGIO Modifier: EANAPIER 1 <*> Procedure Aortogram Abdominal with Runoff(Right), Arterial Stent Endovascular 2 <*> Procedure Aortogram Abdominal with Runoff(Right), Arterial Stent Endovascular 3 <*> Procedure Aortogram Abdominal with Runoff(Right), Arterial Stent Endovascular 4 <*> Procedure Aortogram Abdominal with Runoff(Right), Arterial Stent Endovascular 5 <*> Procedure Aortogram Abdominal with Runoff(Right), Arterial Stent Endovascular 6 <*> Procedure Aortogram Abdominal with Runoff(Right), Arterial Stent Endovascular 7 <+> Time In 7 <*> Procedure Aortogram Abdominal with Runoff(Right), Arterial Stent Endovascular 05/31/19 13:03:30 Sugar Cane Planter Machine Operator: EANAPIER Modifier: EANAPIER 1 <*> Procedure Aortogram Abdominal with Runoff(Right), Arterial Stent Endovascular 2 <*> Procedure Aortogram Abdominal with Runoff(Right), Arterial Stent Endovascular 3 <*> Procedure Aortogram Abdominal with Runoff(Right), Arterial Stent Endovascular 4 <*> Procedure Aortogram Abdominal with Runoff(Right), Arterial Stent Endovascular 5 <*> Procedure Aortogram Abdominal with Runoff(Right), Arterial Stent Endovascular 6 <+> Time In 6 <*> Procedure Aortogram Abdominal with Runoff(Right), Arterial Stent Endovascular <+> 7 Case Attendee <+> 7 Role Performed <+> 7 Procedure 05/31/19 13:02:19 Sugar Cane Planter Machine Operator: EANAPIER Modifier: EANAPIER <+> 6 Case Attendee <+> 6 Role Performed <+> 6 Procedure 05/31/19 12:47:39 Sugar Cane Planter Machine Operator: EANAPIER Modifier: EANAPIER 1 <*> Procedure Aortogram Abdominal with Runoff(Right), Arterial Stent Endovascular 2 <*> Procedure Aortogram Abdominal with Runoff(Right), Arterial Stent Endovascular 3 <+> Time In 3 <*> Procedure Aortogram Abdominal with Runoff(Right), Arterial Stent Endovascular 4 <+> Time In 4 <*> Procedure Aortogram Abdominal with Runoff(Right), Arterial Stent Endovascular 5 <+> Time In 5 <*> Procedure Aortogram Abdominal with Runoff(Right), Arterial Stent Endovascular 05/31/19 12:47:19 Sugar Cane Planter Machine Operator: EANAPIER Modifier: EANAPIER <+> 3 Case Attendee <+> 3 Role Performed <+> 3 Procedure <+> 4 Case Attendee <+> 4 Role Performed <+> 4 Procedure <+> 5 Case Attendee <+> 5 Role Performed <+> 5 Procedure 05/31/19 12:43:53 Sugar Cane Planter Machine Operator: EANAPIER Modifier: EANAPIER <+> 1 Procedure <+> 2 Procedure 05/31/19 12:43:43 Sugar Cane Planter Machine Operator: EANAPIER Modifier: EANAPIER <+> 1 Time In <+> 2 Time In [facility] IntraOp Case Times Entry 1 Patient In Room Time 05/31/19 12:37:00 Out Room Time 05/31/19 13:35:00 Anesthesia Start Time 05/31/19 12:37:00 Stop Time 05/31/19 13:35:00 Surgery / Procedure Times Start Time 05/31/19 12:59:00 Stop Time 05/31/19 13:29:00 Last Modified By: Shawanda Childers RN 05/31/19 13:34:09 [facility] IntraOp Case Times Audit 05/31/19 13:34:09 Sugar Cane Planter Machine Operator: EANAPIER Modifier: EANAPIER <+> 1 Out Room Time <+> 1 Stop Time 05/31/19 13:28:54 Sugar Cane Planter Machine Operator: EANAPIER Modifier: EANAPIER <+> 1 Stop Time 05/31/19 12:58:07 Sugar Cane Planter Machine Operator: EANAPIER Modifier: EANAPIER <+> 1 Start Time [facility] IntraOp Communication Entry 1 Entry 2 Communication To Family/Significant other Family/Significant other Comment START CLOSING Communication By Shawanda Childers, Shawanda Ortiz RN Date and Time 05/31/19 12:59:00 05/31/19 13:21:00 Last Modified By: Shawanda Childers RN Napier, Elizabeth A, RN 05/31/19 12:59:12 05/31/19 13:20:31 [facility] IntraOp Communication Audit 05/31/19 13:20:31 Sugar Cane Planter Machine Operator: EANAPIER Modifier: EANAPIER <+> 2 Communication By <+> 2 Date and Time <+> 2 Communication To <+> 2 Comment 05/31/19 12:59:12 Sugar Cane Planter Machine Operator: EANAPIER Modifier: EANAPIER <+> 1 Date and Time [facility] IntraOp Departure from OR Entry 1 Integumentary Assessment Integumentary WDL Assessment WDL Transfer/Handoff Transfer to Other Handoff Method Phone call Post-op Transport Stretcher/Gurney Via Patient Transport SHEFALI KAYE APRN, Accompanied by Liseth MUIR Elizabeth A, RN Transfer/Handoff PT TRANSPORTED TO RODRIGO Butcher Last Modified By: Shawanda Childers RN 05/31/19 12:48:02 [facility] IntraOp Dressing and Packing Entry 1 Type Dressing Location OPSITE Wound Dressing Item 4x4's Applied By DEREK CHEN MD Other Comments TEGADERM Last Modified By: Shawanda Childers RN 05/31/19 12:43:48 [facility] IntraOp Fire Risk Assessment Entry 1 Fire Info Surgical Site or 0- No Incision Above the Xyphoid Open O2 Source 1- Yes (Mask or Cannula) Available Ignition 0- No (ESU, Laser, Light Source) Fire Risk 1 Assessment Score Fire Score Fire Risk Yes Assessment Complete Fire Risk Shawanda Childers RN Assessment Verified By Fire Risk 05/31/19 12:44:00 Assessment Verified Date/Time Fire Risk Standard Fire Yes Safety Precautions Followed Last Modified By: Shawanda Childers RN 05/31/19 12:44:02 [facility] IntraOp General Case County Assessor 1 Case Information OR OR 20 [facility] Case Level 1 Room Verified Yes Wound Class I - Clean Specialty SN Endovascular Anesthesia Type MAC ASA Class 3 Diagnosis Preop Diagnosis PVD Postop Same As Preop No Postop Diagnosis SEE MD NOTE Last Modified By: Shawanda Childers RN 05/31/19 13:20:04 [facility] IntraOp General Case Data Audit 05/31/19 13:20:04 Sugar Cane Planter Machine Operator: SONIA Modifier: EANAPIER <+> 1 Preop Diagnosis [facility] IntraOp Implant Log Entry 1 Type Implant (Synthetic) Implant Log Implant DEVICE MYNX TOBACCO DRIER OPERATOR 6F/ 7F Identification [id number] Description Implant Quantity 1 Implant Site RIGHT Implant Access Closure Identification Swimming Pool Installer And Servicer Name: Implant [id number] Identification Catalog Number Implant Size 5F Implant Has an Yes Expiration Date Implant Expiration 10/12/20 Date Tissue Implant Last Modified By: Shawanda Childers RN 05/31/19 13:19:33 [facility] IntraOp Intraoperative Assessment Entry 1 Handoff Method Online nursing summary Valid History / Yes Physical in Chart Preoperative Yes Checklist Reviewed/Evaluated Allergies Reviewed Yes Patient is Latex No Sensitive Isolation Not applicable Precautions Noted Level of WDL Consciousness (WDL = Alert, Oriented to Person, Place, and Time) Skin Assessment No Verified Present Upon IVs Arrival to OR Last Modified By: Shawanda Childers RN 05/31/19 12:44:44 [facility] IntraOp Intraoperative Equipment Entry 1 Type Monitoring Equipment Intraop Monitoring Electrocardiogram Three lead placement (ECG) Electrode Placement Blood Pressure Non-Invasive BP Device Source Blood Pressure Arm, right upper Location Pulse Oximeter Hand, left Probe Site Antiembolic Devices Scopes Photo/Video Documentation Last Modified By: Shawanda Childers RN 05/31/19 12:45:01 [facility] IntraOp Medication Admin Entry 1 Entry 2 Entry 3 Medication/Irrigant PAULA VISIPAQUE 320MG 150 lidocaine 1% 50ml vial PAULA NACL 0.9PCT HPRN 200ML --[id number] - [id number] 1000U .5L --[id number] Combo Med List 1 - Combo Med Time Administered Route of CONTRAST LOCAL IRRIGATION/FLUSH Administration Dose Dose 10 2000 Unit of Measure ml ml units Volume Administered By DEREK CHEN MD VOSKRESENSKY, IGOR, MD VOSKRESENSKY, IGOR, MD Procedure Irrigation Irrigant Volume In Irrigant Volume Out Last Modified By: Shawanda Childers RN Napier, Elizabeth A, RN Napier, Elizabeth A, RN 05/31/19 12:45:33 05/31/19 12:45:33 05/31/19 12:45:33 Entry 4 Medication/Irrigant PAULA VISIPAQUE 320MG 150 200ML --[id number] Combo Med List Time Administered Route of CONTRAST Administration Dose Dose 60 Unit of Measure ml Volume Administered By DEREK CHEN MD Procedure Irrigation Irrigant Volume In Irrigant Volume Out Last Modified By: Shawanda Childers RN 05/31/19 13:20:52 [facility] IntraOp Medication Admin Audit 05/31/19 13:20:52 Sugar Cane Planter Machine Operator: SONIA Modifier: EANAPIER <+> 4 Medication/Irrigant <+> 4 Route of Administration <+> 4 Administered By <+> 4 Dose <+> 4 Unit of Measure [facility] IntraOp Patient Positioning Entry 1 Procedure Aortogram Abdominal with Runoff(Right), Angioplasty Percutaneous Transluminal(Right) Body Position Supine Left Arm Position Tucked and padded at side Right Arm Position Tucked and padded at side Left Leg Position Uncrossed, parallel Right Leg Position Uncrossed, parallel Feet Uncrossed Yes Pressure Points Yes Checked Positioning Devices Head Rest, Safety Strap, Thighs, Sled Arm Rest, Pad, Arm, Pad, Heel Device Position UNP'S Positioned By Shawanda Childers RN Position Verified Positioning Yes Verified by Anesthesia Positioning Yes Verified by Surgeon Last Modified By: Shawanda Childers RN 05/31/19 13:35:31 [facility] IntraOp Patient Positioning Audit 05/31/19 13:35:31 Sugar Cane Planter Machine Operator: EANAPIER Modifier: EANAPIER 1 <*> Procedure Aortogram Abdominal with Runoff(Right), Angioplasty Percutaneous Transluminal(Right) 05/31/19 13:05:28 Sugar Cane Planter Machine Operator: EANAPIER Modifier: EANAPIER 1 <*> Procedure Aortogram Abdominal with Runoff(Right) [facility] IntraOp Sign In Entry 1 Patient, Site, Yes Procedure Identified Surgical Consent Yes Confirmed Relevant Surgical Yes Documents Available Surgical Site N/A Marked by person performing procedure Anesthesia Machine Yes Check Completed Medication Checks Yes Completed Allergies Yes Airway Difficult No Airway/Aspiration Risk Difficult Yes Airway/Aspiration Intervention Equipment Available Blood Loss Risk No Blood Loss Yes Intervention Equipment Prepared and Ready Blood Identifiers Not applicable Verified Per Policy Hypothermia Risk Yes Warming Measures Yes Taken Last Modified By: Shawanda Childers RN 05/31/19 12:47:38 [facility] IntraOp Sign Out Entry 1 RN Confirmation Surgical Yes Procedure(s) Identified Instrument, Sponge N/A and Sharps Counts Correct/Documented Equipment Problems N/A Documented Specimen Labeled N/A Correctly Urinary Catheter N/A Documented in IView Steinberg Patient Yes Recovery Concerns Reviewed with Anesthesia Provider, Surgeon and RN Steinberg Patient Yes Management Concerns Reviewed with Anesthesia Provider, Surgeon and RN Safety Checklist Yes Elements Complete? RN Sign Out Shawanda Childers RN Signature RN Sign Out 05/31/19 13:35:00 Signature Date/Time Plan of Care Outcome - Fire Risk OUTCOME STATEMENT: Goal met Patient is free from injury related to surgical fire Plan of Care Outcome - Pt Positioning OUTCOME STATEMENT: Goal met Absence of signs and symptoms of positioning injury. Plan of Care Outcome - Skin Prep OUTCOME STATEMENT: Goal met Intraoperative care is consistent with measures to prevent infection Plan of Care Outcome - Xray/Images OUTCOME STATEMENT: Goal met Absence of observable signs or symptoms of radiation injury Plan of Care Outcome - Counts OUTCOME STATEMENT: Goal met Absence of signs and symptoms of injury related to extraneous objects Last Modified By: Shawanda Childers RN 05/31/19 13:34:18 [facility] IntraOp Sign Out Audit 05/31/19 13:34:18 Sugar Cane Planter Machine Operator: SONIA Modifier: EANAPIER <+> 1 RN Sign Out Signature Date/Time [facility] IntraOp Skin Prep Entry 1 Procedure Aortogram Abdominal with Runoff(Right), Angioplasty Percutaneous Transluminal(Right) Prescribed N/A Pre-Surgical Prep Completed Prep Area BILATERAL GROINS Intraop Prep Integumentary WDL Assessment WDL Prep Agents Chloraprep Prep by Shawanda Childers RN Hair Removal Methods No hair removal performed Last Modified By: Shawanda Childers RN 05/31/19 13:35:32 [facility] IntraOp Skin Prep Audit 05/31/19 13:35:32 Sugar Cane Planter Machine Operator: ALTAFNAPIER Modifier: EANAPIER 1 <*> Procedure Aortogram Abdominal with Runoff(Right), Angioplasty Percutaneous Transluminal(Right) 05/31/19 13:05:28 Sugar Cane Planter Machine Operator: ALTAFNAPIER Modifier: EANAPIER 1 <*> Procedure Aortogram Abdominal with Runoff(Right) [facility] Intra Surgical Procedures Entry 1 Entry 2 Procedure Aortogram Abdominal Angioplasty with Runoff Percutaneous Transluminal Modifiers Right Right Additional (AORTOGRAM WITH Procedure ANGIOPLASTY RIGHT Description COMMON ILIAC ARTERY. Primary Procedure Yes No Primary Surgeon DEREK CHEN MD VOSKRESENSKY, IGOR, MD Start 05/31/19 12:59:00 05/31/19 12:59:00 Stop 05/31/19 13:29:00 05/31/19 13:29:00 Physician States Cecum Reached Anesthesia Type MAC MAC Specialty SN Endovascular SN Endovascular Wound Class I - Clean I - Clean Last Modified By: Shawanda Childers RN Napier, Elizabeth A, RN 05/31/19 13:35:45 05/31/19 13:35:45 [facility] IntraOp Surgical Procedures Audit 05/31/19 13:35:45 Sugar Cane Planter Machine Operator: EANAPIER Modifier: EANAPIER 1 <*> Procedure Aortogram Abdominal with Runoff 1 <*> Primary Procedure Yes 1 <*> Modifiers Right 1 <*> Primary Surgeon DEREK CHEN MD 1 <*> Specialty 1 <*> Start 05/31/19 12:59:00 1 <*> Stop 05/31/19 13:29:00 1 <*> Wound Class I - Clean 1 <*> Anesthesia Type MAC 1 <*> Additional Procedure Description (AORTOGRAM WITH ANGIOPLASTY RIGHT COMMON ILIAC ARTERY. Entry 2 was deleted. Higher numbered entries shifted one position to fill the gap. <-> 2 Procedure Arterial Stent Endovascular <-> 2 Primary Procedure No <-> 2 Modifiers <-> 2 Primary Surgeon DEREK CHEN MD <-> 2 Specialty <-> 2 Start 05/31/19 12:59:00 <-> 2 Stop 05/31/19 13:29:00 <-> 2 Wound Class I - Clean <-> 2 Anesthesia Type MAC 05/31/19 13:35:10 Sugar Cane Planter Machine Operator: EANAPIER Modifier: EANAPIER 3 <*> Procedure Angioplasty Percutaneous Transluminal 05/31/19 13:34:03 Sugar Cane Planter Machine Operator: EANAPIER Modifier: EANAPIER <+> 1 Stop <+> 2 Stop <+> 3 Stop 05/31/19 13:21:44 Sugar Cane Planter Machine Operator: EANAPIER Modifier: EANAPIER 1 <*> Procedure Aortogram Abdominal with Runoff 05/31/19 13:17:03 Sugar Cane Planter Machine Operator: EANAPIER Modifier: EANAPIER 1 <*> Procedure Aortogram Abdominal with Runoff 1 <*> Additional Procedure Description (AORTOGRAM WITH IVUS, RT ILIAC ARTERY/POSS AORTIC STENT POSS RT COMMON ILIAC STENT) 05/31/19 13:05:22 Sugar Cane Planter Machine Operator: EANAPIER Modifier: EANAPIER <+> 3 Procedure <+> 3 Primary Procedure <+> 3 Modifiers <+> 3 Primary Surgeon <+> 3 Specialty <+> 3 Start <+> 3 Wound Class <+> 3 Anesthesia Type 05/31/19 13:02:32 Sugar Cane Planter Machine Operator: EANAPIER Modifier: EANAPIER <+> 1 Start <+> 2 Start 05/31/19 12:48:22 Sugar Cane Planter Machine Operator: EANAPIER Modifier: EANAPIER 1 <*> Procedure Aortogram Abdominal with Runoff 1 <+> Specialty [facility] IntraOP Time Out Entry 1 Procedure to be Aortogram Abdominal Performed with Runoff(Right), Angioplasty Percutaneous Transluminal(Right) Time Out Time Out Pause Time 05/31/19 12:58:00 All activity Yes suspended (unless life threatening emergency) Team Verbally Correct patient Confirms Information identity, Correct side and site are marked, Consent form is present and accurate, Agreement on the procedure to be done, Correct patient position, Relevant images/results properly labeled/appropriately displayed, Confirm antibiotics have been administered, Confirm the skin prep has dried, Confirm prosthesis/implant/devic e is present, Performed in location of procedure after prepped/draped Antibiotic Yes Prophylaxis Administered Or In Progress Within the Last 60 Minutes Beta Dante N/A Administered Venous N/A Thromboembolism Prophylaxis Required Anticipated Critical Events Surgeon None expected Anesthesia Provider None expected Nursing Assures Sterility of instruments, Equipment concerns or issues, Implant Availability Essential Imaging Yes Labeled and Displayed Last Modified By: Shawanda Childers RN 05/31/19 13:35:32 [facility] IntraOP Time Out Audit 05/31/19 13:35:32 Sugar Cane Planter Machine Operator: SONIA Modifier: EANAPIER 1 <*> Procedure to be Performed Aortogram Abdominal with Runoff(Right), Arterial Stent Endovascular, Angioplasty Percutaneous Transluminal(Right) 05/31/19 13:05:29 Sugar Cane Planter Machine Operator: LENINPIER Modifier: EANAPIER 1 <*> Procedure to be Performed Aortogram Abdominal with Runoff(Right), Arterial Stent Endovascular [facility] IntraOp X-Ray and Images Entry 1 X-Ray/Imaging Type Fluoroscopy Fluoroscopy Type Fixed Kier Hand Name Jackie Blanton [employer] Protective Devices Yes Used Exposure Time 3.6 MINUTES Last Modified By: Shawanda Childers RN 05/31/19 13:19:56 Case Comments <None> Finalized By: CALEB AN Document Signatures Signed By: Shawanda Childers RN 05/31/19 13:35 CALEB AN 06/01/19 12:06 Unfinalized History Date/Time Username Reason for Unfinalizing Freetext Reason for Unfinalizing 06/01/19 12:04 [email or web address] Correct Billing Electronically signed by [facility] Conversion Medicare Specialist Cerner at 09/30/2022 3:28 PM CDT documented in this encounter Plan of Treatment Not on file documented as of this encounter Visit Diagnoses Not on filedocumented in this encounter
--- OUTSIDE RECORDS SUMMARY | 2025-01-05 08:56 | XMS_ITS | Encounter Summary ---
Author Organization Healthcare Address [address] [place] [address] Care Team Providers Care Stiff Straw Hat Washer Name Role Phone Deondre Lui MD Primary Care Provider [phone] Christal Murray LPN Unavailable Unavailable Reason for Visit * Reason Comments TCM Call Encounter Details Date Type Department Care Team (Late st Contact Info) Description 12/20/2024 Patient Outreach [facility] [address], [address] [place] [id number] Christal Murray LPN VALUE-[place]ED [place] [address] TCM Call Social History Tobacco Use Types [...] Progress Notes - Christal Murray LPN - 12/20/2024 2:34 PM EDT Admit Date: 11/21/24 Discharge Date: 11/24/24 Hospital Service: Internal Medicine Discharge Diagnosis: Lower GI Bleed 12/20/2024 TCM Follow-up Call Patient reached: No Outcome: Unable to reach this patient for a follow up nurses call. Patient was left a voice mail for her to return the call. Action: N/A documented in this encounter Plan of Treatment Upcoming Encounters Date Type Department Care Team (Late st Contact Info) Description 02/20/2025 10:45 AM EDT Office Visit [facility] Medicine Specialties [address], [address] [place] [address] Elle Landaverde, REBEKAH, [facility] [address] [facility] [address] [place] [address] 03/29/2025 10:30 AM EDT Clinical Support [facility] Laboratory Services [address] [facility], 1st [place] [address] 04/05/2025 1:00 PM EDT Office Visit [facility] Nephrology, Bone & Mineral Metabolism [address], [address] [place] [address] Jude Arora PA [address] [place] [address] 08/09/2025 10:00 AM EST Appointment [facility] [address] [place] [address] 08/09/2025 11:45 AM EST Office [facility] [address], 1[address] [place] [address] Cristofer Yu MD [address] [place] [address] 10/11/2025 9:15 AM EDT Office Visit [facility] [place] [address] [place] [address] James Tomas MD [address] [place] [address] documented as of this encounter [...] documented as of this encounter Care Teams Stiff Straw Hat Washer Relationship Specialty Start Date End Date Deondre Lui MD [address] [facility] [address] [place] [address] PCP - General 10/26/20 Christal Murray LPN VALUE[employer] [place] [address] TCM Nurse 11/25/24 12/25/24 documented as of this encounter
--- OUTSIDE RECORDS SUMMARY | 2025-01-05 08:56 | XMS_ITS | Encounter Summary ---
Author Organization [employer] ([place], [place], [place], [place]) Address [address] [place] [address] Care Team Providers Care Injury Prevention Coordinator Name Role Phone Unavailable Primary Care Provider Unavailabl e Encounter Details Date Type Department Care Team (Late st Contact Info) Description 05/31/2019 Transcribed Document [facility] Family Medicine [address] [place] [address] ProviderNelson MD [address] [id number] Social History Tobacco Use Types Packs/Day Years Used Date Smoking Tobacco: Never Assessed Comments Unknown Sex and Gender Information Value Date Recorded Sex Assigned at Not on file Legal Sex Female 1:09 PM CDT Gender Identity Not on file Sexual Orientation Not on file documented as of this encounter Miscellaneous Notes * Cerner Conversion Note - Historical ProviderMD - 05/31/2019 3:56 PM ST[employer]DOWNS [employer]E FORMER Event Note Entered On: 05/31/2019 15:57 EST Performed On: 05/31/2019 15:56 EST by Bonny Ayala RN Event Note Description of Event : Reported hypertension to physician, rec'd order for hydralazine 10 mg IVP with repeat of second dose if needed. Bonny Ayala RN - 05/31/2019 15:56 EST Electronically signed by Julio [facility] Conversion Flask Carrier Cerner at 09/30/2022 3:23 PM CDT documented in this encounter Plan of Treatment Not on file documented as of this encounter Visit Diagnoses Not on filedocumented in this encounter
--- OUTSIDE RECORDS SUMMARY | 2025-01-05 08:56 | XMS_ITS | Encounter Summary ---
Author Organization Healthcare Address [address] [place] [address] Care Team Providers Care Ios Architect Name Role Phone Deondre Lui MD Primary Care Provider [phone] Christal Murray LPN Unavailable Unavailable Encounter Details Date Type Department Care Team (Late st Contact Info) Description 11/21/2024 Orders Only External Location [address] [place] [id number] Provider, External Social History Tobacco Use Types [...] were you homeless or living in a detention (including now)? No 11/25/2024 Utilities Answer Date [...] Description 02/20/2025 10:45 AM EDT Office Visit [facility] Medicine Specialties [address], 2nd [place] [address] Elle Landaverde APRN, DNP [address] [facility] [address] [place] [address] 03/29/2025 10:30 AM EDT Clinical Support [facility] Laboratory Services [address] [facility], 1st [place] [address] 04/05/2025 1:00 PM EDT Office Visit [facility] Nephrology, Bone & Mineral Metabolism [address] [place] [address] Jude Arora, TAYLA [address] [facility] [address] [place] [address] 08/09/2025 10:00 AM EST Appointment [facility] [address] [place] [address] 08/09/2025 11:45 AM EST Office Visit [facility] [address], 1st [place] [address] Cristofer Yu MD [address] [place] [address] 10/11/2025 9:15 AM EDT Office Visit [facility] [place] [address] [place] [address] James Tomas MD [address] [place] [address] documented as of this encounter Procedures Procedure Name Priority Date/Time Associated Diagnosis Comments XR THORACIC OUTSIDE IMAGES 11/21/2024 2:13 AM EDT documented in this encounter Results * XR THORACIC OUTSIDE IMAGES (11/21/2024 2:13 AM EDT) Anatomical Region Laterality Modality Radiographic Karina ging 11/21/2024 2:13 AM EDT External Provider IMG XR PROCEDURES Final Result documented in this encounter [...] documented as of this encounter Care Teams Ios Architect Relationship Specialty Start Date End Date Deondre Lui MD [facility] [facility] [address] [place] [address] PCP - General 10/26/20 Christal Murray LPN VALUE-BASED [place] [address] TCM Nurse 11/25/24 12/25/24 documented as of this encounter
--- OUTSIDE RECORDS SUMMARY | 2025-01-05 08:56 | XMS_ITS | Clinical Summary ---
Author Organization [employer] ([place], [place], [place], [place]) Address [address] [place] [address] Care Team Providers Care Irrigation Service Technician Name Role Phone Unavailable Primary Care Provider Unavailabl e Social History Tobacco Use Types Packs/Day Years Used Date Smoking Tobacco: Never Assessed Comments Unknown Sex and Gender Information Value Date Recorded Sex Assigned at Not on file Legal Sex Female 1:09 PM CDT Gender Identity Not on file Sexual Orientation Not on file Plan of Treatment Not on file
--- OUTSIDE RECORDS SUMMARY | 2025-01-05 08:56 | XMS_ITS | Encounter Summary ---
Author Organization [employer] ([place], [place], [place], [place]) Address [address] [place] [address] Care Team Providers Care Blood And Plasma Laboratory Assistant Name Role Phone Unavailable Primary Care Provider Unavailabl e Encounter Details Date Type Department Care Team (Late st Contact Info) Description 05/31/2019 Transcribed Document [facility] [place] [address] [place] [address] ProviderNelson MD [address] [place] [address] Social History Tobacco Use Types Packs/Day Years Used Date Smoking Tobacco: Never Assessed Comments Unknown Sex and Gender Information Value Date Recorded Sex Assigned at Not on file Legal Sex Female 1:09 PM CDT Gender Identity Not on file Sexual Orientation Not on file documented as of this encounter Miscellaneous Notes * Cerner Conversion Note - Nelson ProviderMD - 05/31/2019 4:19 PM SHREDDED FILLER CIGAR MAKER MACHINE [facility] [place] [address] FARHAN MULLINS :1960 Visit Time:05/31/2019 Your Visit Summary Your Care Team Admitting Physician - DEREK CHEN MD Attending Physician - DEREK CHEN MD Primary Care Physician - JOHAN PINON (REF), -SHAISTA Referring Physician - JOHAN PINON (REF), -INT DEREK CHEN MD Your Diagnosis Peripheral vascular disease, unspecified, Peripheral vascular disease, unspecified Discharge Vitals Heart Rate (Monitored) 62 Respiratory Rate 19 Blood Pressure 146/70 What to do next Instructions From Your Care Team Diet after Discharge: Resume usual diet as tolerated, Do not drink any alcoholic beverages Activity after Discharge: Rest and relax today, No strenuous activity for 1 week Lifting Restrictions: No heavy lifting over 10 pounds for 1 week Driving after Discharge: Do not drive for 24 hours May Return to Work/School: Showering/Bathing: May shower after 24 hours, No tub bathing, soaking or swimming until site is healed Notify Provider of: Any signs of infection Wound/Incision Care after Discharge: Keep operative site/wound site clean and dry, May remove dressing after 24 hours; If observing bleeding or hematoma, apply manual pressure and call 911. Follow-Up Appointments Follow Up with DEREK CHEN MD When 06/16/2019 11:00 AM EST Comments Will have RAMSEY also Where: [address] [place] [address]- Medications What How Much When Instructions Next Dose aspirin (aspirin 81 mg oral delayed release tablet) 1 Tablet(s) Oral Every Day Tomorrow lisinopril 10 Milligram(s) Oral Every Day Today rosuvastatin 20 Milligram(s) Oral At Bedtime Resume normal schedule Take your medications faithfully. Do NOT skip medication. Do NOT stop taking medications without the direction of a physician. Carry a list of your medications with you at all times, and take this medication list with you to your first follow up visit. Report any side effects. Avoid herbal remedies unless discussed with your physician. As part of your treatment plan, your physician may have prescribed a limited course of a controlled substance. This medication may be given to help people with moderate or severe pain or for other medical conditions, but there are risks involved with treatment. Common side effects may include nausea, constipation, drowsiness, sweating, itching, dry mouth, and rash. More serious side effects may include cognitive and motor impairment, like problems with thinking, concentrating, alertness, and movement (e.g. slowed reflexes), and driving and operating heavy machinery can be dangerous. It is important for you to talk to your physician if you have these side effects or questions. These controlled substances can produce physical dependence and be habit-forming if taken for an extended period of time, which means that the body has gotten used to them and may experience withdrawal symptoms if they are abruptly stopped. Withdrawal symptoms can include runny nose, sweating, goose bumps, diarrhea, abdominal cramping, rapid heartbeat, difficulty sleeping, and nervousness. Please dispose of unused and medications per your retail pharmacy guidance. Allergies acetaminophen-oxyCODONE (Itching) busPIRone (itching, itching) Immunizations This Visit No Immunizations Found Stroke/TIA Instructions Individualized Stroke Risk Factors Individualized Stroke Risk Factors *Q: Peripheral vascular disease Stroke/TIA Signs/Symptoms to Report Immediately: Sudden onset difficulty speaking, Sudden onset difficulty understanding speech, Sudden onset change in vision, Sudden onset weakness particulary on one side of the body, Sudden onset numbness/tingling, Sudden severe headache, Sudden dizziness or trouble with gait, Call : EMS activation is crucial Mutually Agreed Upon Goals My LDL Level: My LDL Level: Education Materials Angiogram, Care After This sheet gives you [...] cannot use soap and water, use hand staff radiation therapist. ? Change your bandage as told by [...] it is okay. ??? You may shower 24???48 hours after the procedure or as told [...] as told by your doctor, usually for 1???2 days. ??? Do not lift anything that [...] (urine) clear or pale yellow. ??? Take hmca-snk-dyrcpro and prescription medicines only as told by [...] okay to do so. You may shower 24???48 hours after the procedure or as told [...] 08/28/2009 Document Revised: 05/26/2017 Document Reviewed: 05/26/2017 [employer] Patient Education ?? 2019 [employer] Endovascular Therapy for Peripheral Arterial Disease, [...] and water are not available, use hand staff radiation therapist. ? Change your dressing as told by [...] or a bad smell. Medicines ??? Take rjam-efj-wsufdos and prescription medicines only as told by [...] You have any symptoms of a stroke. ???BE FAST?? is an easy way to remember the [...] 09/23/2017 Document Revised: 09/23/2017 Document Reviewed: 09/23/2017 [employer] Patient Education ?? 2019 [employer] Groin Site Care Refer to this [...] questions after your procedure. HOME CARE INSTRUCTIONS ??? You may shower 24 hours after the procedure. Remove the bandage (dressing ) and gently wash the site with plain soap and water. Gently pat the site dry. ??? Do not apply powder or lotion to the site. ??? Do not sit in a bathtub, swimming pool, or whirlpool for 5 to 7 days. ??? No bending, squatting, or lifting anything over 10 pounds (4.5 kg) as directed by your caregiver. ??? Inspect the site at least twice daily. ??? Do not drive home if you are discharged the same day of the procedure. Have someone else drive you. ??? You may drive 24 hours after the procedure unless otherwise instructed by your caregiver. What to expect: ??? Any bruising will usually fade within 1 to 2 weeks. ??? Blood that collects in the tissue (hematoma ) may be painful to the touch. It should usually decrease in size and tenderness within 1 to 2 weeks. SEEK IMMEDIATE MEDICAL CARE IF: ??? You have unusual pain at the groin site or down the affected leg. ??? You have redness, warmth, swelling, or pain at the groin site. ??? You have drainage (other than a small amount of blood on the dressing). ??? You have chills. ??? You have a fever or persistent symptoms for more than 72 hours. ??? You have a fever and your symptoms suddenly get worse. ??? Your leg becomes pale, cool, tingly, or numb. ??? You have heavy bleeding from the site. Hold pressure on the site. Document Released: 07/04/2011 Document Revised: 08/23/2012 Document Reviewed: 07/04/2011 ExitCare?? Patient Information ??2013 ExitCare, [employer]. Moderate Conscious Sedation, Adult, Care After These [...] you are awake and alert. ??? Take vlqo-qoa-gcfiyil and prescription medicines only as told by [...] 03/22/2014 Document Revised: 11/03/2016 Document Reviewed: 09/20/2016 [employer] Patient Education ?? 2019 [employer] Emergency Awareness and Preventative Care STROKE is an EMERGENCY Every Minute Counts Act FAST and Check for these signs: FACE Does the face look uneven? ARM Does one arm drift down? SPEECH Does their speech sound strange? TIME Call at any sign of stroke Stroke Risk Factors Atrial Fibrillation (irregular heartbeat) Diabetes Family history of stroke Heart Disease Heavy alcohol use High Blood Pressure High Cholesterol Physical inactivity and obesity Smoking Cigarette Smoking The facts are clear, cigarette smoking will shorten your life. Smoking can cause many illnesses along the way. As a healthcare provider, we recommend that you stop smoking. Assistance with quitting is available by contacting 8-920-TOSTNOW. This is a free resource providing counseling, support, and referral. Or you may contact your personal physician. National Suicide Prevention Lifeline: The National Suicide Prevention Lifeline is a national network of local crisis centers that provides free and confidential emotional support to people in suicidal crisis or emotional distress 24 hours a day, 7 days a week. Don't Wait! Stop a Heart Attack Before it Starts What is a heart attack? A heart attack is damage or to a part of the heart from severely decreased or lack of blood flow to the heart. Over time, arteries can become narrow from the buildup of fat and cholesterol, which is called plaque. The plaque can rupture causing a blood clot to form. When the blood clot forms, the artery can become severely narrowed or completely blocked, causing a heart attack. Heart attack is the leading cause of in the [place]. 85% of muscle damage occurs within the first 2 hours. Delay in the recognition of heart attack symptoms increases the chances of . Know the early symptoms of a heart attack: Nausea Feeling of fullness in chest Jaw Pain Pain that travels down one or both arms Fatigue/being tired Anxiety Back Pain Chest pressure, squeezing, or discomfort Shortness of breath Sweating, or a cold sweat Feeling of impending doom There are unusual signs of a heart attack, too! Women, the elderly, and diabetics may present with atypical symptoms: Fainting/dizziness Weakness Confusion Risk Factors for a Heart Attack Some heart disease risk factors, such as age and family history, cannot be changed. Others, like smoking and lack of exercise, can be changed. Smoking High Cholesterol High Blood Pressure Family History Obesity Age Gender (Males are at higher risk) Lack of Exercise Diabetes Diet Stress Excessive Alcohol Intake If you or someone you know is experiencing the signs and symptoms of a heart attack, DON???T DELAY. Call immediately and seek help. If someone collapses, perform CPR! Do not attempt to drive if you are having symptoms of heart attack. Hands-Only CPR Why Hands-Only CPR? Hands-Only CPR has been shown to be as effective as conventional CPR for cardiac arrests that occur outside of a hospital. Survival depends on immediately receiving CPR from someone nearby. How do you perform Hands-Only CPR? There are two easy steps: Call 9-1-1 if you see a teen or adult collapse Push hard and fast in the center of the chest at a beat of 100 beats per minute. Save a life! 4 WAYS TO GET AHEAD OF SEPSIS SEPSIS is a MEDICAL EMERGENCY. Time matters! Infections put you and your family at risk for a life-threatening condition called sepsis. Sepsis is the body's extreme response to an infection. It is life-threatening, and without timely treatment, sepsis can rapidly lead to tissue damage, organ failure, and . Sepsis happens when an infection you already have-in your skin, lungs, urinary tract or somewhere else-triggers a chain reaction throughout your body. 1 PREVENT INFECTIONS Take good care of chronic conditions. Talk to your doctor about getting the recommended vaccines. 2 PRACTICE GOOD HYGIENE Wash your hands frequently. Keep cuts or open sores clean and covered until they are healed. 3 KNOW THE SYMPTOMS Confusion or disorientation Shortness of breath High heart rate Fever, shivering, or feeling very cold Extreme pain or discomfort Clammy or sweaty skin 4 ACT FAST Get medical care IMMEDIATELY if you suspect sepsis or if you have an infection that is not getting better or is getting worse. To learn more about sepsis and how to prevent infections, visit www.cdc.gov/sepsis. Test Results Laboratory or Other Results This Visit (last charted value for your 05/31/2019 visit) Hematology 05/31/2019 10:24 AM Hemoglobin POC: 14.6 Gram/dL -- Normal range between ( 12.0 and 17.0 ) Hematocrit POC: 43.0 % -- Normal range between ( 38.0 and 51.0 ) General Chemistry 05/31/2019 10:24 AM eGFR : 77 mL/min/1.73m2 eGFR NonAfrican: 64 mL/min/1.73m2 Potassium POC: 4.1 mmol/L -- Normal range between ( 3.5 and 4.9 ) Creatinine POC: 0.9 mg/dL -- Normal range between ( 0.6 and 1.3 ) Patient Name:FARHAN MULLINS I have received and understand this information and was given the opportunity to ask questions. Patient/Supervisor [employer] Name: Patient/Supervisor [employer] Signature: Relationship to Patient: Clinician/Hospital Supervisor [employer] Signature: Date: documented in this encounter Plan of Treatment Not on file documented as of this encounter Visit Diagnoses Not on filedocumented in this encounter
--- OUTSIDE RECORDS SUMMARY | 2025-01-05 08:56 | XMS_ITS ---
Author Organization [facility] Address [address] [place] [address] Care Team Providers Care Private Investigator Surveillance Name Role Phone Deondre Lui MD Primary Care Provider [phone] Transitional Care Management Status:Closed (Closed) Start date:11/25/2024 Enrollment date:11/25/2024 Enrollment reason:Identified using hospital discharge data End date:12/25/2024 Close reason:Patient graduated Overview This episode type is for outpatient care managers enrolling patients in the [facility] Transitional Care Management program. Continued Care and Services Coordination
--- OUTSIDE RECORDS SUMMARY | 2025-01-05 08:56 | XMS_ITS | Referral Summary ---
Author Organization [employer] ([place], [place], [place], [place]) Address [address] [place] [address] Care Team Providers Care Nutrition Consultant Name Role Phone Unavailable Primary Care Provider [...]
== END 2025-01-05 23:59 | disposition home or self-care (01) ==
LOC: RAD 08:47
PROVIDERS: PCP Internal Medicine; Visit Provider Internal Medicine
DX: A09 Infectious gastroenteritis and colitis, unspecified (principal)
CPT/HCPCS: 74176

== ENCOUNTER 2025-02-27 15:18 | Outpatient (CLI) | payer MEDICARE, BC, SELFPAY ==
--- OUTSIDE RECORDS SUMMARY | 2025-02-23 09:20 | XMS_ITS | Encounter Summary ---
Author Organization Healthcare Address [address] [place] [address] Care Team Providers Care Special Warfare Operator Name Role Phone Deondre Lui MD Primary Care Provider [phone] Reason for Referral * Consultation (Routine) - Authorized Specialty Diagnoses / Procedures Referred By Alvaro myles Referred To Contact Diagnoses Hematochezia Selma Gonzalez MD [address] [address] Phone: tel: fax: Referral ID Status Reason Start Date Expiration Date V isits Requested Visits Authorized [id number] Authorized 02/23/2025 08/25/2026 1 1 * Imaging (Routine) - Pending Review Specialty Diagnoses / Procedures Referred By Alvaro myles Referred To Contact Gastroenterology Diagnoses Hematochezia Procedures Colonoscopy Selma Gonzalez MD [address] [address] Phone: tel: fax: Referral ID Status Reason Start Date Expiration Date Visits Requested Visits Authorized [id number] Pending Review Specialty Services Required 02/23/2025 08/25/2026 1 1 Reason for Visit * Reason Comments Lower abdominal pain Lower GI bleed * Consultation (Routine) - Closed Specialty Diagnoses / Procedures Referred By Alvaro myles Referred To Contact Gastroenterology Diagnoses Lower abdominal pain Lower GI bleed Rae Adames MD [address] [place] [address] Phone: tel: fax: Referral ID Status Reason Start Date Expiration Date V isits Requested Visits Authorized [id number] Closed Specialty Services Required 11/24/2024 05/26/2026 1 1 Encounter Details Date Type Department Care Team (Late st Contact Info) Description 02/23/2025 9:20 AM EDT Office Visit [facility] [address] [place] [address] Pepito Patel MD [address] [place] [address] Hematochezia (Primary Dx) Social History [...] and Family Not on file 11/25/2024 Attends Spiritism Services Not on file 11/25 Active Member [...] [facility] in the [facility] were you homeless or living in a penitentiary (including now)? No 11/25/2024 Utilities Answer Date [...] 4 02/23/2025 9:23 AM EDT Eliana Moncada ia * If you checked off any problems on this questionnaire so far, Question Answer Date of Assessment Author How difficult have these problems made it for you to do your work, take care of things at home, or get along with other people? Not difficult at all 02/23/2025 9:23 AM EDT Dina Moncada * How difficult have these problems made it for you to do your work, take care of things at home, or get along with other people? Answer Date of Assessment Author Not difficult at all 02/23/2025 9:23 AM EDT Bridgette Junior documented as of this encounter Plan of Treatment Upcoming Encounters Date Type Department Care Team (Late st Contact Info) Description 03/29/2025 10:30 AM EDT Clinical Support [facility] Laboratory Services [address], [address] [place] [address] 04/05/2025 1:00 PM EDT Office Visit [facility] Nephrology, Bone & Mineral Metabolism [address], [address] [place] [address] Jude Arora PA [address] [place] [address] 04/18/2025 2:00 PM EST Appointment [facility] [address] [place] [address] 08/09/2025 10:00 AM EST Appointment [facility] [address] [place] [address] 08/09/2025 11:45 AM EST [facility] [address] [place] [address] Cristofer Yu MD [address] [place] [address] 08/23/2025 10:40 AM EDT Office Visit [facility] Specialties [address] [place] [address] Pepito Patel MD [address] [place] [address] 10/11/2025 9:15 AM EDT Office Visit [facility] [place] [address] [place] [address] James Tomas MD [address] [place] [address] Scheduled Orders Name Type Priority [...] documented as of this encounter Care Teams Special Warfare Operator Relationship Specialty Start Date End Date Deondre Lui MD [address] [place] [address] PCP - General 10/26/20 documented as of this encounter
--- NOTE | 2025-02-27 15:21 | XR_ITS ---
FINAL REPORT CLINICAL HISTORY: Metatarsal foot pain COMPARISON: 08/19/2022 FINDINGS: RIGHT FOOT 3 views of the right foot were obtained. There is no acute fracture or dislocation. Visualized joint spaces are normally aligned. There is a moderate plantar calcaneal spur. Soft tissues are unremarkable. IMPRESSION: No acute bony abnormality. Reviewed, Interpreted and Dictated by Guadalupe Gaffney MD Transcribed by Stephanie Sung Authenticated and [facility]
--- OUTSIDE RECORDS SUMMARY | 2025-02-27 15:21 | XMS_ITS | Clinical Summary ---
Author Organization [facility] Address [address] [place] [address] Care Team Providers Care Haul Cane Brakeman Name Role Phone Deondre Lui MD Primary Care Provider [phone] Allergies Active Allergy Reactions Criticality Noted Date [...] Encounters Date Type Department Care Team Description 02/23/2025 9:20 AM EDT Office Visit [facility] [address], 2nd [place] [address] Pepito Patel MD Hematochezia (Primary Dx) 02/23/2025 Travel 12/20/2024 Patient Outreach [facility] [address] [place] [address], [address] [place] [address] Christal Murray LPN [facility] 12/09/2024 3:20 PM EDT Office Visit [facility] [address] [facility] 5th Floor [address], [address] [place] [address] Tyron Mosquera MD Claudication of both lower extremities (Primary Dx); Aortoiliac stenosis (CMS/HCC) 12/09/2024 12:31 PM EDT - 12/09/2024 11:59 PM EDT Hospital Encounter [facility] [address] [facility] 5th Floor [address], [address] [place] [address] PAD (peripheral artery disease) (CMS/HCC) Discharge Disposition: Home or Self Care 12/09/2024 12:30 PM EDT Hospital Encounter [facility] [address] [facility] 5th Floor [address], [address] [place] [address] PAD (peripheral artery disease) ([facility]) Discharge Disposition: Home or Self Care 12/09/2024 Travel 12/08/2024 Travel 12/08/2024 Telephone [facility] [address] [facility] 5th Floor [address], [address] [place] [address] Ngoc Flores RN 12/07/2024 Travel from Last 3 Months Immunizations Immunization [...] and Family Not on file 11/25/2024 Attends [facility] Not on file 11/25 Active Member [...] any time in the past 12 m [facility], were you homeless or living in a halfway (including now)? No 11/25/2024 Utilities Answer Date Recorded In the past 12 months has e electric, gas, oil, or water company [...] Mass Index 36.83 02/23/2025 9:21 AM EDT Plan of Treatment Upcoming Encounters Date Type Department Care Team (Late st Contact Info) Description 03/29/2025 10:30 AM EDT Clinical Support [facility] Laboratory Services [address] [facility], 1st [place] [address] 04/05/2025 1:00 PM EDT Office Visit [facility] Nephrology, Bone & Mineral Metabolism [address], [address] [place] [address] Jude Arora PA [address] [place] [address] 04/18/2025 2:00 PM EST Appointment [facility] [address] [place] [address] 08/09/2025 10:00 AM EST Appointment [facility] [address] [place] [address] 08/09/2025 11:45 AM EST [facility] [address], 1st [place] [address] Cristofer Yu MD [address] [place] [address] 08/23/2025 10:40 AM EDT [facility] [address], 2nd [place] [address] Pepito Patel MD [address] [place] [address] 10/11/2025 9:15 AM EDT Office Visit [facility] [place] [address] [place] [address] James Tomas MD [address] [place] [address] Health Maintenance Due Date Last Done Comments [facility]-Bone Density Scan 1960 [facility]-Medicare Annual Wellness (AWV) 1960 [facility]-Infant/Child/Adol SDOH Screenings 1960 [facility]-Pneumococcal Vaccine: 50+ Years [...] - Risk 60-74 years 1-dose series) 2018 [id number] Vaccine ( - season) 2025 [facility]-Influenza Vaccine (#1) 02/13/202504/04, 03/18/2010, 02/28/2009 [facility]- SDOH Screenings 05/27/2025 [facility]-Adult SDOH Screenings 05/27/2025 11/25/2024 [facility]-Depression Screening 02/23/2026 02/23/2025, 02/13 [facility]-Hepatitis A Vaccines Aged Out 05/17/2018 No longer eligible based on patient's age to complete this topic [facility]-Hepatitis C Screening Completed 11/21/2024 [facility]-Obesity Intervention Completed 025, 12/09/2024, 11/21/2024, Additional history exists HPV Vaccines Aged Out [...] this topic Medical Devices Implanted Type Area Water Project Engineer Device Identifier Shelf Expiration Date Model / Serial / Lot Leg Stents Stent Leg Abdomen Stent Stent Abdomen Rx Acculink Carotid Stent Implanted:Qty : 1 on 10/13/2019 by Duglas Winn MD Stent Carotid Stent Vascular Drug-Eluting Vesna [id number] - [id number] Implanted:Qty : 1 on 03/19/2022 by Chad Rogers MD at [facility] Right: Arterial [id number] 04/26/2023 [id number] / / [id number] Vip Vascular Closure Device 6 Fr - [id number] Implanted:Qty : 1 on 03/19/2022 by Chad Rogers MD at [facility] [id number] 01/12/2023 [id number] / / [id number] Procedures Procedure Name Priority Date/Time Associated Diagnosis Comments VAS US ARTERIAL DUPLEX LOWER EXTREMITY BILATERAL Routine 12/09/2024 1:58 PM EDT PAD (peripheral artery disease) (CMS/HCC) VAS ANKLE BRACHIAL INDEX - SEGMENTAL Routine 12/09/2024 1:20 PM EDT PAD (peripheral artery disease) (CMS/HCC) HEPATITIS C ANTIBODY - ED W/REFLEX TO HCV QUANT PCR STAT 11/21/2024 8:32 AM EDT from Last 3 Months or Most Recently Relevant to Health Maintenance Results * VAS US Arterial Duplex Lower [...] turbulent waveforms are detected at the bilateral FINISHING FRAME RUNNER suggestive of inflow disease. Preliminary report signed [...] Right to left fem-fem bypass graft: Right FINISHING FRAME RUNNER anastomosis: 231 cm/s Right of midline: 77 cm/s Midline: 72 cm/s Left of midline: 82 cm/s Left FINISHING FRAME RUNNER anastomosis: 95 cm/s LEFT: Arterial duplex demonstrates [...] Right to left fem-fem bypass graft: Right FINISHING FRAME RUNNER anastomosis: 231 cm/s Right of midline: 77 cm/s Midline: 72 cm/s Left of midline: 82 cm/s Left FINISHING FRAME RUNNER anastomosis: 95 cm/s LEFT: Arterial duplex demonstrates [...] are demonstrated at the levels of the FINISHING FRAME RUNNER (Obtained on same day arterial duplex), DPA and REHABILITATION MEDICINE PHYSICIAN. Segmental pressures are below normal limits with a REHABILITATION MEDICINE PHYSICIAN RAMSEY of 0.67 (80 mmHg) DPA RAMSEY of 0.56 (67 mmHg). Digit pressures are 20 mmHg. Left: Monophasic waveforms are demonstrated at the levels of the FINISHING FRAME RUNNER (Obtained on same day arterial duplex), DPA and REHABILITATION MEDICINE PHYSICIAN. Segmental pressures are below normal limits with a REHABILITATION MEDICINE PHYSICIAN RAMSEY of 0.59 (70 mmHg) DPA RAMSEY [...] are demonstrated at the levels of the FINISHING FRAME RUNNER(Obtained on same day arterial duplex), DPA and REHABILITATION MEDICINE PHYSICIAN. Segmental pressuresare below normal limits with a REHABILITATION MEDICINE PHYSICIAN RAMSEY of 0.67 (80 mmHg) DPA RAMSEY of 0.56(67 mmHg). Digit pressures are 20 mmHg. Left: Monophasic waveforms are demonstrated at the levels of the FINISHING FRAME RUNNER(Obtained on same day arterial duplex), DPA and REHABILITATION MEDICINE PHYSICIAN. Segmental pressuresare below normal limits with a REHABILITATION MEDICINE PHYSICIAN RAMSEY of 0.59 (70 mmHg) DPA RAMSEY [...] CV VASCULAR PROCEDURES Final Res ult * Hepatitis C Antibody - ED (11/21/2024 8:32 AM EDT) Hepatitis C Antibody Negative Negative 11/21/2024 9:30 AM EDT [facility] Blood Venous blood specimen / Unknown Venipuncture / Unknown 11/21/2024 8:32 AM EDT 11/21/2024 8:50 AM EDT us Derek Deshpande MD LAB BLOOD ORDERABLES Final Result [facility] [address] [place] [address] from Last 3 Months or Most Recently Relevant to Health Maintenance Insurance MEDICARE [facility] Advance Directives * Full Code (Latest Code [...] Patient has decision-making capacity? Yes Care Teams Haul Cane Brakeman Relationship Specialty Start Date End Date Deondre Lui MD [address] [place] [address] [address] [place] [facility] PCP - General 10/26/20
--- OUTSIDE RECORDS SUMMARY | 2025-02-27 15:21 | XMS_ITS | Clinical Summary ---
Author Organization [facility] Address [address] [place] [address] Care Team Providers Care Owner/Operator Name Role Phone Deondre Lui MD Primary Care Provider [phone] Social History Tobacco Use Types Packs/Day Years [...] PHYSICAL 02/18/2023 COVID-19 Vaccine ( - season) 2025 INFLUENZA VACCINE 03/15/2025 HEPATITIS C SCREENING Completed 11/21/2024 Insurance MEDICARE A & B Member Subscriber Plan / Payer (Ef fective 2015-Present) Name:Liz Mullins Member ID:[id number] Relation to Subscriber:Self Name:Liz Mullins Subscriber ID:[id number] Payer ID:[id number] Group ID:Not on file Type:Not on file Address: [facility] [id number] Care Teams Owner/Operator Relationship Specialty Start Date End Date Deondre Lui MD [address] [facility] [address] [place] [address] PCP - General Internal Medicine 02/18/23
--- OUTSIDE RECORDS SUMMARY | 2025-02-27 15:21 | XMS_ITS | Encounter Summary ---
Author Organization [facility] Address [address] [place] [address] Care Team Providers Care Steam Shovel Operating Engineer Name Role Phone Deondre Lui MD Primary Care Provider [phone] Christal Murray LPN Unavailable Unavailable Encounter Details Date Type Department Care Team (Late Contact Info) Description 08/18/2023 Orders Only External Location [address] [place] [address] Provider, External Social History Tobacco Use Types [...] Department Care Team (Late Contact Info) Description 03/29/2025 10:30 AM EDT Clinical Support [facility] Laboratory Services [address] [facility], 1st [place] [address] 04/05/2025 1:00 PM EDT Office Visit [facility] Nephrology, Bone & Mineral Metabolism [address] [facility], [address] [place] [address] Jude Arora PA [address] [place] [address] 04/18/2025 2:00 PM EST Appointment [facility] [address] [place] [address] 08/09/2025 10:00 AM EST Appointment [facility] [address] [place] [address] 08/09/2025 11:45 AM EST [facility] [address], 1st [place] [address] Cristofer Yu MD [address] [facility] [address] [place] [address] 08/23/2025 10:40 AM EDT Office Visit [facility] Medicine Specialties [address], 2nd [place] [address] Pepito Patel MD [address] [place] [address] 10/11/2025 9:15 AM EDT Office Visit [facility] [place] [address] [place] [address] James Tomas MD [address] [place] [address] documented as of this encounter [...] documented as of this encounter Care Teams Steam Shovel Operating Engineer Relationship Specialty Start Date End Date Deondre Lui MD [address] [place], [place] [address] [address] [place] [address] PCP - General 10/26/20 Christal Murray LPN VALUE-[employer]ED [place] [address] TCM Nurse 11/25/24 12/25/24 documented as of this encounter
--- OUTSIDE RECORDS SUMMARY | 2025-02-27 15:21 | XMS_ITS | Encounter Summary ---
Author Organization [facility] Address [address] [place] [address] Care Team Providers Care Document Restorer Name Role Phone Deondre Lui MD Primary Care Provider [phone] Encounter Details Date Type Department Care Team (Latest Contact Info) Description 02/23/2025 Travel Social History Tobacco Use Types Packs/Day [...] any time in the past 12 m [facility], were you homeless or living [...] as of this encounter Functional Status * Over the [...] 02/23/2025 9:23 AM EDT Eliana Moncada * If you checked off any problems [...] Description 03/29/2025 10:30 AM EDT Clinical Support [facility] Laboratory Services [address] [facility], 1st [place] [address] 04/05/2025 1:00 PM EDT Office Visit [facility] Nephrology, Bone & Mineral Metabolism [address] [facility], [address] [place] [address] Jude Arora PA [address] [facility] [address] [place] [address] 04/18/2025 2:00 PM EST Appointment [facility] [address] [place] [address] 08/09/2025 10:00 AM EST Appointment [facility] [address] [place] [address] 08/09/2025 11:45 AM EST Office Visit [facility] [address], 1st [place] [address] Cristofer Yu MD [address] [facility] [address] [place] [address] 08/23/2025 10:40 AM EDT Office Visit [facility] Medicine Specialties [address], 2nd [place] [address] Pepito Patel MD [address] [place] [address] 10/11/2025 9:15 AM EDT Office Visit [facility] [place] [address] [place] [address] James Tomas MD [address] [place] [address] documented as of this encounter [...] documented as of this encounter Care Teams Document Restorer Relationship Specialty Start Date End Date Deondre Lui MD [address] [facility] [address] [place] [address] PCP - General 10/26/20 documented as of this encounter
--- OUTSIDE RECORDS SUMMARY | 2025-02-27 15:21 | XMS_ITS | Clinical Summary ---
Author Organization [facility] Address [address] [place] [address] Phone Care Team Providers Care Middle School Sports Coach Name Role Phone Juan CHA, Priyank Rivera Unavailable [ ] Conditions or Problems No information available. Medications No information available. Medications Administered No information available. Allergies, Adverse Reactions, Alerts No information available. Results No information available. Plan of Care No information available. Procedures No information available. Vital Signs No information available. Immunizations No information available. Advance Directives No information available.
== END 2025-02-27 23:59 | disposition home or self-care (01) ==
LOC: RAD 15:19
PROVIDERS: PCP Internal Medicine; Visit Provider Internal Medicine
DX: M77.41 Metatarsalgia, right foot (principal)
CPT/HCPCS: 73630

== ENCOUNTER → 2025-03-08 20:23 | Outpatient (CLI) | payer MEDICARE, BC, SELFPAY ==
--- OUTSIDE RECORDS SUMMARY | 2025-02-23 09:20 | XMS_ITS | Encounter Summary ---
Author Organization Healthcare Address [address] [place] [address] Care Team Providers Care Churn Drill Operator Name Role Phone Deondre Lui MD Primary Care Provider [phone] Reason for Referral * Consultation (Routine) - Authorized Specialty Diagnoses / Procedures Referred By Alvaro myles Referred To Contact Diagnoses Hematochezia Selma Gonzalez MD [address] [address] Phone: tel: fax: Referral ID Status Reason Start Date Expiration Date V isits Requested Visits Authorized [id number] Authorized 02/23/2025 08/25/2026 1 1 * Imaging (Routine) - Pending Review Specialty Diagnoses / Procedures Referred By Alvaro myles Referred To Contact Gastroenterology Diagnoses Hematochezia Procedures Colonoscopy Selma Gonzalez MD [address] [address] Phone: tel: fax: Referral ID Status Reason Start Date Expiration Date Visits Requested Visits Authorized [id number] Pending Review Specialty Services Required 02/23/2025 08/25/2026 1 1 Reason for Visit * Reason Comments Lower abdominal pain Lower GI bleed * Consultation (Routine) - Closed Specialty Diagnoses / Procedures Referred By Alvaro myles Referred To Contact Gastroenterology Diagnoses Lower abdominal pain Lower GI bleed Rae Adames MD [address] [place] [address] Phone: tel: fax: Referral ID Status Reason Start Date Expiration Date V isits Requested Visits Authorized [id number] Closed Specialty Services Required 11/24/2024 05/26/2026 1 1 Encounter Details Date Type Department Care Team (Late st Contact Info) Description 02/23/2025 9:20 AM EDT [facility] [address] [place] [address] Pepito Patel MD [address] [place] [address] Hematochezia (Primary Dx) Social History Tobacco Use Types Packs/Day Years Used Date Smoking Tobacco: Former Cigarettes 1 40 0 08/14/1983 - 08/2023 Passive Smoke Exposure: Past Smokeless Tobacco: Never Alcohol Use Standard Drinks/Week Comments Not Currently 0 (1 standard drink = 0.6 oz pur e alcohol) PHQ-2 Answer Date Recorded Patient Health Questionnaire-2 Score 0 02/23/2025 PHQ-9 Answer Date Recorded Patient Health Questionnaire-9 Score 4 02/23/2025 Humiliation, Afraid, Rape, and Kick questionnair e [...] and Family Not on file 11/25/2024 Attends [employer] Services Not on file 11/25 Active Member [...] any time in the past 12 m [facility], were you homeless or living in a intermediate (including now)? No 11/25/2024 Utilities Answer Date [...] Sign Reading Time Taken Comments Blood Pressure 125/79 02/23/2025 9:21 AM EDT Pulse 67 02/23/2025 9:21 AM EDT Temperature 36.6 C (97.8 F) 02/23/2025 9:21 AM EDT Respiratory Rate 18 02/23/2025 9:21 AM EDT Oxygen Saturation 95% 02/23/2025 9:21 AM EDT Inhaled Oxygen Concentration - - Weight 100 kg (221 lb 5.5 oz) 02/23/2025 9:21 AM EDT Height 165.1 cm (5' 5 ) 02/23/2025 9:21 AM EDT Body Mass Index 36.83 02/23/2025 9:21 AM EDT documented in this encounter Functional Status * Over the past 2 weeks, how often have you been bothered by any of the following problems? Question Answer Date of Assessment Author Little interest or pleasure in doing things Not at all 02/23/2025 9:23 AM EDT Bridgette Moncada Feeling down, depressed, or hopeless Not at all 02/23/2025 9:23 AM EDT Bridgette Moncada Patient Health Questionnaire -2 Score 0 02/23/2025 9:23 AM EDT Bridgette Moncada * Question Answer Date of Assessment Author Trouble falling or staying asleep, or sleeping too much Nearly every day 02/23/2025 9:23 AM EDT Bridgette Moncada Feeling tired or having little energy Not at all 02/23/2025 9:23 AM EDT Bridgette Moncada Poor appetite or overeating Several days 02/23/2025 9: 23 AM EDT Bridgette Moncada Feeling bad about yourself - or that you are a failure or have let yourself or your family down Not at all 02/23/2025 9:23 AM EDT Bridgette Moncada Trouble concentrating on things, such as reading the newspaper or watching television Not at all 02/23/2025 9:23 AM EDT Bridgette Moncada Moving or speaking so slowly that other people could have noticed? Or the opposite - being so fidgety or restless that you have been moving around a lot more than usual. Not at all 02/23/2025 9:23 AM EDT Bridgette Moncada Thoughts that you would be better off or hurting yourself in some way Not at all 02/23/2025 9:23 AM EDT Dina Moncada Patient Health Questionnaire-9 Score 4 02/23/2025 9:23 AM EDT Eliana Moncada * How difficult have these problems made it for you to do your work, take care of things at home, or get along with other people? Answer Date of Assessment Author Not difficult at all 02/23/2025 9:23 AM EDT Bridgette Junior * How difficult have these problems made it for you to do your work, take care of things at home, or get along with other people? Answer Date of Assessment Author Not difficult at all 02/23/2025 9:23 AM EDT Bridgette Junior documented as of this encounter Miscellaneous Notes * Progress Notes - Pepito Patel MD - 02/23/2025 9:20 AM EDT Gastroenterology Clinic Note Reason for Consult: # Hematochezia HPI Liz Mullins is a 64 y.o. female with a PMH of PVD w/ carotid ENTERPRISE MANAGER and bilateral iliac stents, NSTEMI s/p CASSIE to mLAD, CVA, CKD3b, COPD, HTN, peripheral artery disease status post right to leftfemoral-femoral bypass and right iliac stents , and HLD who presented to clinic for initial evaluation for hematochezia. She was admitted last November and GI were consulted for hematochezia, and concernwas for possible ischemic colitis. She denied any significant Nausea, vomiting, hematemesis, bloating, abdominal pain, hematochezia, diarrhea, constipation, chills or fever. She denied any family history of GI malignancy or unintentional weight loss. She is on ASA and per last vascular surgery note, they wanted to start her back on Effient. Hgb WNL during last hospitalization. Last November: CTA at OSH reportedly with narrowing of BRIAN with changes c/w ischemic colitis (descending/sigmoid colon). Images reviewed by vascular who note BRIAN disease to be stable compared to previousscans. ROS 14 point ROS completed and negative except as above. Past Medical History[1] Surgical History[2] Family History[3] Social History[4] Objective Vitals: 02/23/25 0921 BP: 125/79 Pulse: 67 Resp: 18 Temp: 36.6 ??C (97.8 ??F) TempSrc: Oral SpO2: 95% Weight: 100 kg (221 lb 5.5 oz) Height: 1.651 m (5' 5 ) BMI: Body mass index is 36.83 kg/m??. Physical Exam: GEN: awake, alert HEENT: non-interic sclera, atraumatic, nose patent EYES: EOMI CV: well perfused RESP: no increased WOB, symmetric chest rise GI: soft, non-tender, non-distended MSK: moves limbs spontaneously NEURO: alert and orientated SKIN: non-jaundice, warm PSYCH: appropriate mood and affect I/O: No intake/output data recorded. No intake/output data recorded. Labs: CBC: CMP: No lab exists for component: ALB Blood Product Administration History None Imaging: Medications (scheduled): Current Scheduled Medications[5] Medications (continous): Current Continuous Medications[6] Medications (PRN): Current PRN Medications[7] Assessment and Plan Liz Mullins is a 64 y.o. female with a PMH of PVD w/ carotid ENTERPRISE MANAGER and bilateral iliac stents, NSTEMI s/p CASSIE to mLAD, CVA, CKD3b, COPD, HTN, peripheral artery disease status post right to leftfemoral-femoral bypass and right iliac stents , andHLD who presented to clinic for initial evaluation for hematochezia. She was admitted last November and GI were consulted for hematochezia. # Hematochezia Patient was admitted last November and concern was for possible ischemic colitis. - She is on ASA and per last vascular surgery note, they wanted to start her back on Effient. - Hgb WNL during last hospitalization. - Last November: CTA at OSH reportedly with narrowing of BRIAN with changes c/w ischemic colitis (descending/sigmoid colon). Images reviewed by vascular who note BRIAN disease to be stable compared to previous scans. Recommendations: - We will plan for Colonoscopy for evaluation of hematochezia. - She was advised to report to ER if developed significant GI bleeding. I spent 40 minutes for patient interview, physical exam, reviewing the patient chart, counseling about patient's medical conditions, and answering questions. Return to clinic in [address] Carlos Patel MD Gastroenterology fellow, PGY-6 [facility] [1] Past Medical History: Diagnosis Date CHF (congestive heart failure) ([facility]/HCC) August 2023 History of shoulder surgery Hypertension 10 years Myocardial infarction ([facility]/HCC) Pain in right shoulder Right shoulder pain Personal history of other diseases of the circulatory system History of hypertension Personal history of other diseases of the circulatory system History of peripheral vascular disease Personal history of other endocrine, nutritional and metabolic disease History of high cholesterol PVD (peripheral vascular disease) ([facility]) [2] Past Surgical History: Procedure Laterality Date ARTERIAL STENT PLACEMENT N/A Arterial stent placement from [facility] CAROTID ARTERY ANGIOPLASTY N/A Carotid artery angioplasty and stenting from [facility] CARPAL TUNNEL RELEASE N/A carpal tunnel surgery from [facility] CATARACT EXTRACTION CERVICAL FUSION CERVIX SURGERY N/A cervical surgery from [facility] COLONOSCOPY HYSTERECTOMY N/A Hysterectomy from [facility] SHOULDER ARTHROSCOPY Bilateral TUBAL LIGATION N/A tubal ligation from [facility] [3] Family History Problem Relation Name Age of Onset Conversions - Other Mother Fidekatiuska Grey Back problem Hypertension Mother Fide Grey Other cancer Mother Fide Grey Cancer Mother Fide Grey Diabetes Mother Fide Grey Conversions - Other Father Kvng alvarengae Back problem Hypertension Father Kvngchristian alvarengae Heart attack Father Kvng grey Stroke Son Hypertension Brother Tomi grey Hypertension Sister Bridget parker Anesthesia problems Neg Hx Malig Hyperthermia Neg Hx [4] Social History Tobacco Use Smoking status: Former Current packs/day: 0.00 Average packs/day: 1 pack/day for 40.0 years (40.0 ttl pk-yrs) Types: Cigarettes Start date: 08/14/1983 Quit date: 08/2023 Years since quittin.5 Passive exposure: Past Smokeless tobacco: Never Vaping Use Vaping status: Never Used Substance Use Topics Alcohol use: Not Currently Drug use: Never [5] [6] [7] Cosigned by Selma Gonzalez MD at 03/01/2025 7:47 PM EDT Associated attestation - Selma Gonzalez MD - 03/01/2025 7:47 PM EDT I saw and evaluated the patient with the resident/fellow. I discussed the case with the resident/fellow and agree with the findings and plan as documented. Request anesthesia pre op eval before the colonoscopy. documented in this encounter Plan of Treatment Upcoming Encounters Date Type Department Care Team ([facility] st Contact Info) Description 03/29/2025 10:30 AM EDT Clinical Support [facility] Laboratory Services [address], [address] [place] [address] 04/05/2025 1:00 PM EDT Office Visit [facility] Nephrology, Bone & Mineral Metabolism [address], [address] [place] [address] Jude Arora PA [address] [place] [address] 04/18/2025 2:00 PM EST Appointment [facility] [address] [place] [id number] Jamar Garcia MD [address] [place] [address] 08/09/2025 10:00 AM EST Appointment [facility] [address] [place] [address] 08/09/2025 11:45 AM EST Office Visit [place] [facility] [address], [address] [place] [address] Cristofer Yu MD [address] [place] [address] 08/23/2025 10:40 AM EDT [facility] [address], [address] [place] [address] Pepito Patel MD [address] [place], [place] [id number] 10/11/2025 9:15 AM EDT Office Visit [facility] [place] [address] [place] [address] James Tomas MD [address] [place] [address] Scheduled Orders Name Type Priority Associated Diagnoses Orde r Schedule Colonoscopy Endoscopy Routine Hematochezia Expected: 02/23/2025, Expires: 02/23/2026 Scheduled Referrals Name Type Priority Associated Diagnoses Orde r Schedule Follow Up GI Outpatient Referral Routine Hematochezia Expected: 08/23/2025, Expires: 03/25/2026 documented as of this encounter Visit Diagnoses Diagnosis Hematochezia- Primary Blood in stool documented in this encounter Additional Health Concerns Assessment Noted Time PHQ-9 Depression Total Score: 4 02/24/20 25 9:23 AM EDT A fall risk assessment has been complete d for the patient 02/23/2025 9:23 AM EDT A Body Mass Index follow-up plan has been documented for the patient 02/23/2025 1:30 PM EDT documented as of this encounter Care Teams Churn Drill Operator Relationship Specialty Start Date End Date Deondre Lui MD [address] [place] [address] PCP - General 10/26/20 documented as of this encounter
--- OUTSIDE RECORDS SUMMARY | 2025-03-08 20:28 | XMS_ITS | Clinical Summary ---
Author Organization [facility] Address [address] [place] [address] Phone Care Team Providers Care Welding Machine Operator Gas Metal Arc Name Role Phone Juan CHA, Priyank Rivera [...]
--- OUTSIDE RECORDS SUMMARY | 2025-03-08 20:28 | XMS_ITS | Encounter Summary ---
Author Organization [facility] Address [address] [place] [address] Care Team Providers Care Physician Non Invasive Cardiologist Name Role Phone Deondre Lui MD Primary Care Provider [phone] Encounter Details Date Type Department Care Team [...] and Family Not on file 11/25/2024 Attends [employer] Not on file 11/25 Active Member [...] any time in the past 12 m [facility], were you homeless or living in a [...] much Nearly every day 02/23/2025 9:23 AM KRIST Bridgette Moncada Feeling tired or having little energy Not at all 02/23/2025 9:23 AM EDT Bridgette Moncada Poor appetite or overeating Several days 02/23/2025 9: 23 AM EDT Bridgette Moncada Feeling bad about yourself - or that you are a failure or have let yourself or your family down Not at all 02/23/2025 9:23 AM KRIST Bridgette Moncada Trouble concentrating on things, such as reading the newspaper or watching television Not at all 02/23/2025 9:23 AM EDT Bridgette Moncada Moving or speaking so slowly that other people could have noticed? Or the opposite - being so fidgety or restless that you have been moving around a lot more than usual. Not at all 02/23/2025 9:23 AM Bridgette Cummins Thoughts that you would be better off or hurting yourself in some way Not at all 02/23/2025 9:23 AM KRIST Dina Moncada Patient Health Questionnaire-9 Score 4 [...] Description 03/29/2025 10:30 AM EDT Clinical Support [facility] [place] Laboratory Services [address] [facility], 1st Floor [place] [phone] 04/05/2025 1:00 PM EDT Office Visit [facility] [place] Nephrology, Bone & Mineral Metabolism [address] [place] [address] Jude Arora PA [address] [facility] [address] [place] [address] 04/18/2025 2:00 PM EST Appointment [facility] [address] [place] [address] Jamar Garcia MD [address] [facility] [address] [place] [address] 08/09/2025 10:00 AM EST Appointment [facility] [address] [place] [address] 08/09/2025 11:45 AM EST Office Visit [facility] [address], 1st [place] [address] Cristofer Yu MD [address] [place] [address] 08/23/2025 10:40 AM EDT Office Visit [facility] Medicine Specialties [address], 2nd [place] [address] Pepito Patel MD [address] [place] [address] 10/11/2025 9:15 AM EDT Office Visit [facility] [place] [address] [facility] [place] [address] James Tomas MD [address] [place] [address] documented as of this encounter [...] documented as of this encounter Care Teams Physician Non Invasive Cardiologist Relationship Specialty Start Date End Date Deondre Lui MD [address] [facility] [address] [place] [address] PCP - General 10/26/20 documented as of this encounter
--- OUTSIDE RECORDS SUMMARY | 2025-03-08 20:28 | XMS_ITS | Clinical Summary ---
[facility] Address [address] [place] [address] Care Team Providers Care Machinist Wood Name Role Phone Deondre Lui MD Primary Care Provider [phone] Social History Tobacco Use Types Packs/Day Years [...] (1 of 2) 2008 ANNUAL PHYSICAL 02/18/2023 INFLUENZA VACCINE 01/13/2025 COVID-19 Vaccine ( season) 2025 HEPATITIS C SCREENING Completed 11/21/2024 Insurance MEDICARE A & B Member Subscriber Plan / Payer (Ef fective 2015-Present) Name:Liz Mullins Member ID:[id number] Relation to Subscriber:Self Name:Liz Mullins Subscriber ID:[id number] Payer ID:[id number] Group ID:Not on file Type:Not on file Address: [facility] [id number] [address] Care Teams Machinist Wood Relationship Specialty Start Date End Date Deondre Lui MD [address] [facility] [address] [place] [address] PCP - General Internal Medicine 02/18/23
--- OUTSIDE RECORDS SUMMARY | 2025-03-08 20:28 | XMS_ITS | Clinical Summary ---
Author Organization [facility] Address [address] [place] [address] Care Team Providers Care Ham Curer Name Role Phone Deondre Lui MD Primary Care Provider [phone] Allergies Active Allergy Reactions Criticality Noted Date [...] Description 02/23/2025 9:20 AM EDT Office Visit [facility] Medicine Specialties [address], [address]nd [place] [phone] Pepito Patel MD Hematochezia (Primary Dx) 02/23/2025 Travel 12/20/2024 Patient Outreach [facility] [address] [place] [address], [address] [place] [address] Christal Murray LPN [facility] 12/09/2024 3:20 PM EDT Office Visit [facility] Comprehensive Vascular Clinic [address] [facility] 5th Floor Wing [address], [address] [place] [phone] Tyron Mosquera MD Claudication of both lower extremities (Primary Dx); Aortoiliac stenosis (CMS/HCC) 12/09/2024 12:31 PM EDT - 12/09/2024 11:59 PM EDT Hospital Encounter [facility] Vascular Lab [address] [facility] 5th Floor Wing [address], [address] [place] [address] PAD (peripheral artery disease) (CMS/HCC) Discharge Disposition: Home or Self Care 12/09/2024 12:30 PM EDT Hospital Encounter [facility] Vascular Lab [address] [facility] 5th Floor Wing [address], [address] [place] [address] PAD (peripheral artery disease) ([facility]) Discharge Disposition: Home or Self Care 12/09/2024 Travel 12/08/2024 Travel 12/08/2024 Telephone [facility] [address] [facility] 5th Floor Wing [address] [place] [address] Ngoc Flores RN 12/07/2024 Travel [...] and Family Not on file 11/25/2024 Attends [employer] Not on file 11/25 Active Member [...] any time in the past 12 m [facility], were you homeless or living in a [...] Description 03/29/2025 10:30 AM EDT Clinical Support [facility] Laboratory Services [address] [facility], 1st [place] [address] 04/05/2025 1:00 PM EDT Office Visit [facility] Nephrology, Bone & Mineral Metabolism [address] , [address] [place] [address] Jude Arora PA [address] [place] [address] 04/18/2025 2:00 PM EST Appointment [facility] [address] [place] [address] Jamar Garcia MD [address] [place] [address] 08/09/2025 10:00 AM EST Appointment [facility] [address] [place] [address] 08/09/2025 11:45 AM EST Office Visit [facility] [address], [address]st [place] [address] Cristofer Yu MD [address] [place] [address] 08/23/2025 10:40 AM EDT Office Visit [facility] Medicine Specialties [address], 2nd [place] [address] Pepito Patel MD [address] [place], [place] [id number] 10/11/2025 9:15 AM EDT Office Visit [facility] [place] [address] [place] [phone] James Tomas MD [address] [place] [address] Health Maintenance Due Date Last [...] - Risk 60-74 years 1-dose series) 2018 [id number] Vaccine ( - season) 2025 UKY-Influenza Vaccine [...] this topic Medical Devices Implanted Type Area Company Tanker Truck Driver Device Identifier Shelf Expiration Date Model / Serial / Lot Leg Stents Stent Leg Abdomen Stent Stent Abdomen Rx Acculink Carotid Stent Implanted:Qty : 1 on 10/13/2019 by Duglas Winn MD Stent Carotid Stent Vascular Drug-[employer] Vesna [id number] - [id number] Implanted:Qty : 1 on 03/19/2022 by Chad Rogers MD at [facility] Right: Arterial [id number] 04/26/2023 [id number] / / [id number] Vip Vascular Closure Device 6 Fr - [id number] Implanted:Qty : 1 on 03/19/2022 by Chad Rogers MD at [facility] [id number] 01/12/2023 [id number] / / [id number] Procedures Procedure Name Priority Date/Time Associated Diagnosis [...] turbulent waveforms are detected at the bilateral CONTACT CENTER PROFESSIONAL suggestive of inflow disease. Preliminary report signed [...] Right to left fem-fem bypass graft: Right CONTACT CENTER PROFESSIONAL anastomosis: 231 cm/s Right of midline: 77 cm/s Midline: 72 cm/s Left of midline: 82 cm/s Left CONTA[employer] CENTER PROFESSIONAL anastomosis: 95 cm/s LEFT: Arterial duplex demonstrates [...] Right to left fem-fem bypass graft: Right CONTA[employer] CENTER PROFESSIONAL anastomosis: 231 cm/s Right of midline: 77 cm/s Midline: 72 cm/s Left of midline: 82 cm/s Left CONTACT CENTER PROFESSIONAL anastomosis: 95 cm/s LEFT: Arterial duplex demonstrates [...] are demonstrated at the levels of the CONTACT CENTER PROFESSIONAL (Obtained on same day arterial duplex), DPA and CLINICAL PROJECT LEADER. Segmental pressures are below normal limits with a CLINICAL PROJECT LEADER RAMSEY of 0.67 (80 mmHg) DPA RAMSEY of 0.56 (67 mmHg). Digit pressures are 20 mmHg. Left: Monophasic waveforms are demonstrated at the levels of the CONTACT CENTER PROFESSIONAL (Obtained on same day arterial duplex), DPA and CLINICAL PROJECT LEADER. Segmental pressures are below normal limits with a CLINICAL PROJECT LEADER RAMSEY of 0.59 (70 mmHg) DPA RAMSEY [...] are demonstrated at the levels of the CONTACT CENTER PROFESSIONAL(Obtained on same day arterial duplex), DPA and CLINICAL PROJECT LEADER. Segmental pressuresare below normal limits with a CLINICAL PROJECT LEADER RAMSEY of 0.67 (80 mmHg) DPA RAMSEY of 0.56(67 mmHg). Digit pressures are 20 mmHg. Left: Monophasic waveforms are demonstrated at the levels of the CONTACT CENTER PROFESSIONAL(Obtained on same day arterial duplex), DPA and CLINICAL PROJECT LEADER. Segmental pressuresare below normal limits with a CLINICAL PROJECT LEADER RAMSEY of 0.59 (70 mmHg) DPA RAMSEY [...] Antibody Negative Negative 11/21/2024 9:30 AM EDT [facility] Blood Venous blood specimen / Unknown Venipuncture / Unknown 11/21/2024 8:32 AM EDT 11/21/2024 8:50 AM EDT us Derek Deshpande MD LAB BLOOD ORDERABLES Final Result [facility] [address] [place] [address] from Last 3 Months or Most Recently Relevant to Health [place] [address] ANTHEM Advance Directives * Full Code (Latest [...] Patient has decision-making capacity? Yes Care Teams Ham Curer Relationship Specialty Start Date End Date Deondre Lui MD [address] [id number] [place] [address] PCP - General 10/26/20
--- OUTSIDE RECORDS SUMMARY | 2025-03-08 20:28 | XMS_ITS | Encounter Summary ---
Author Organization [facility] Address [address] [place] [address] Care Team Providers Care Regional Tanker Truck Driver Name Role Phone Deondre Lui MD Primary Care Provider [phone] Christal Murray LPN Unavailable Unavailable Encounter Details Date Type Department Care Team (Late Contact Info) Description 08/18/2023 Orders Only External Location [address] [place] [address] Provider, External Social History Tobacco Use Types [...] Description 03/29/2025 10:30 AM EDT Clinical Support [facility] Laboratory Services [address] [facility], 1st [place] [address] 04/05/2025 1:00 PM EDT Office Visit [facility] Nephrology, Bone & Mineral Metabolism [address] [facility], [address] [place] [address] Jude Arora PA [address] [place] [address] 04/18/2025 2:00 PM EST Appointment [facility] [address] [place] [address] Jamar Garcia MD [address] [place] [address] 08/09/2025 10:00 AM EST Appointment [facility] [address] [facility] [address] [place] [address] 08/09/2025 11:45 AM EST Office Visit [facility] [address], [address] [place] [address] Cristofer Yu MD [address] [facility] [address] [place] [address] 08/23/2025 10:40 AM EDT Office Visit [facility] Medicine Specialties [address], [address] [place] [address] Pepito Patel MD [address] [place], [place] [id number] 10/11/2025 9:15 AM EDT Office Visit [facility] [place] [address] [place] [phone] James Tomas MD [address] [place] [address] documented as of this encounter [...] documented as of this encounter Care Teams Regional Tanker Truck Driver Relationship Specialty Start Date End Date Deondre Lui MD [address] [place] [address] [address] [place] [address] PCP - General 10/26/20 Christal Murray LPN [employer] [place] [address] TCM Nurse 11/25/24 12/25/24 documented as of this encounter
== END ==
LOC: SL 20:27
PROVIDERS: PCP Internal Medicine; Visit Provider Internal Medicine
DX: G47.33 Obstructive sleep apnea (adult) (pediatric) (principal)
CPT/HCPCS: 95810

== ENCOUNTER 2025-06-05 09:45 | Outpatient (CLI) | payer MEDICARE, BC, SELFPAY ==
--- OUTSIDE RECORDS SUMMARY | 2025-04-18 13:11 | XMS_ITS | Encounter Summary ---
Author Organization Healthcare Address [address] [place] [address] Care Team Providers Care Sales Associate Fishing Name Role Phone Deondre Lui MD Primary Care Provider [phone] Reason for Referral * Imaging (Routine) - Closed Specialty Diagnoses / Procedures Referred By Alvaro myles Referred To Contact Gastroenterology Diagnoses Hematochezia Procedures Colonoscopy Selma Gonzalez MD [address] [address] Phone: tel: fax: Referral ID Status Reason Start Date Expiration Date V isits Requested Visits Authorized [id number] Closed Specialty Services Required 02/23/2025 08/25/2026 1 1 Reason for Visit * Imaging (Routine) - Closed Specialty Diagnoses / Procedures Referred By Alvaro myles Referred To Contact Gastroenterology Diagnoses Hematochezia Procedures Colonoscopy Selma Gonzalez MD [address] [address] Phone: tel: fax: Referral ID Status Reason Start Date Expiration Date V isits Requested Visits Authorized [id number] Closed Specialty Services Required 02/23/2025 08/25/2026 1 1 Encounter Details Date Type Department Care Team (Latest Contact Info) Description 04/18/2025 1:11 PM EST - 04/18/2025 11:59 PM EST Hospital Encounter [facility] Endoscopy [address] [place] [address] Casey Clark MD [address] [place] [address] Sherman Lacy CRNA [address] [place] [address] Veto Alejo MD [address] [place] [address] Hematochezia Discharge Disposition: Home or Self Care Social History Tobacco Use Types Packs/Day Years Used Date Smoking Tobacco: Some Days Cigarettes 1 40 Started: 08/14/1983; Last attempted to quit: 08/2023 Passive Smoke Exposure: Past Smokeless Tobacco: Never Alcohol Use Standard Drinks/Week Comments Not Currently 0 (1 standard drink = 0.6 oz pur e alcohol) PHQ-2 Answer Date Recorded Patient Health Questionnaire-2 Score 0 04/05/2025 PHQ-9 Answer Date Recorded Patient Health Questionnaire-9 [...] and Family Not on file 11/25/2024 Attends [employer] Services Not on file 11/25 Active Member [...] any time in the past 12 m [facility], were you homeless or living in a [...] Sign Reading Time Taken Comments Blood Pressure 152/61 04/18/2025 2:50 PM EST Pulse 67 04/18/2025 2:50 PM EST Temperature 36.2 C (97.2 F) 04/18/2025 2:30 PM EST Respiratory Rate 17 04/18/2025 2:50 PM EST Oxygen Saturation 97% 04/18/2025 2:50 PM EST Inhaled Oxygen Concentration - - Weight 95.2 kg (209 lb 14.1 oz) 04/18/2025 1:25 PM EST Height 165.1 cm (5' 5 ) 04/18/2025 1:25 PM EST Body Mass Index 34.93 04/18/2025 1:25 PM EST documented in this encounter Medications at Time of Discharge aspirin 81 MG EC tablet Take 1 tablet by mouth every morning. atorvastatin (Lipitor) 80 MG tablet Take 1 tablet by mouth every morning. 90 tablet 3 5 baclofen (Lioresal) 10 MG tablet Take 1 tablet by mouth at night as needed. 4 bisacodyl (Dulcolax) 5 MG EC tablet Take all 4 tablets at 4 PM on day before colonoscopy . Do not crush, chew, or split. 4 tablet 5 gabapentin (Neurontin) 400 MG capsule Take 1 capsule by mouth 3 times a day. 4 lisinopril-hydroCHL OROthiazide 20-12.5 MG tablet Take 1 tablet by mouth every morning. 90 tablet 3 5 multivitamin (Theragran-M) tablet Take 1 tablet by mouth every morning. ondansetron ODT (Zofran-ODT) 4 MG disintegrating tablet Dissolve 1 tablet on the tongue every 8 hours as needed for nausea or vomiting. polyethylene glycol (Golytely) 236 g solution SEE PHARMACY NOTE FOR PT INSTRUCTIONS 4000 mL 5 documented as of this encounter Miscellaneous Notes * Wong Aguillon RN - 04/18/2025 2:35 PM EST Images from the original note were not included. [id number] Recovery After Procedural Sedation (Adult) You have been given medicine by vein to make you sleep during your procedure. This may have included both a pain medicine and sleeping medicine. You may have side effects, such as nausea, fatigue, orunsteadiness for up to 24 hours. You may also feel lightheaded. Some medical conditions, such as seizure disorders, spinal cord injuries, and some metabolic conditions, may change what your care needs are. If you have a medical condition, talk with your doctor about whether your care after the procedure might change. Home care Follow these guidelines when you get home: ? For the next 8 or more hours, ask a trusted adult to watch over you. This person should make sureyour condition is not getting worse, watch for problems, and keep you safe. ? Don't drink any alcohol for the next 24 hours. ? Don't drive, operate dangerous machinery, or make important business or personal decisions duringthe next 24 hours. ? Take extra care when walking and moving, You may be at a higher risk of falling. ? Follow any instructions you were given for eating and drinking. ? Be sure to follow all after-care directions. Note: Your doctor may tell you not to take any medicine by mouth for pain or sleep in the next 4 hours. These medicines may react with the medicines you were given in the hospital. This could cause amuch stronger response than usual. Follow-up care Follow up with your doctor as advised. When to contact your doctor Have someone contact your doctor or seek medical care right away if: ? Your drowsiness gets worse. ? Your weakness or dizziness gets worse. ? You have repeated vomiting. ? Your speech is slurred, and others can't understand you. ? You have severe or ongoing pain from the procedure that's not eased by the pain medicine (if prescribed). ? You have a fever. ? You have a new rash. Call 911 Have someone call 911 if: ? You have trouble breathing. ? You have trouble swallowing. ? You have chest pain. ? You lose consciousness or you can't be awakened. Last Reviewed Date: 2023 00:00:00 ?? [id number] [employer] ([employer]). All rights reserved. This information is not intended as a substitute for professional medical care. Always follow your healthcare professional's instructions. * H&P - Casey Clark MD - 04/18/2025 1:40 PM EST Patient: Liz Mullins Date of : 1960 Attending: No att. providers found Date of Visit: April 18, 2025 Pre Procedure H and P Procedure: Colonoscopy Indication: hematochezia Brief H and P: Liz Mullins is a 64 y.o. female with a PMH of PVD w/ carotid BABY SITTER and bilateral iliac stents, NSTEMI s/p CASSIE to mLAD, CVA, CKD3b, COPD, HTN, peripheral artery disease status post right to left femoral-femoral bypass and right iliac stents , andHLD - presumed ischemic colitis event. Referral from GI clinic for direct mucosal evaluation. PMHx:se HPI 14 point ROS normal except:Pertinent items are noted in HPI Medications reviewed by the physicians and reconciled in the chart. Anticoagulation/ASA: none Last dose: not applicable Allergies: Reviewed, see allergy history Social history: Reviewed and non contributory Family history: Reviewed and non contributory Physical Exam: General Appearance: Patient in no distress. Alert, awake and oriented x 3 Eyes: Anicteric, EOMI Neck: Neck supple Lungs: Lungs clear to auscultation, no wheezing, rales, rhonchi Heart: Regular rate and rhythm Abdomen: Abdomen soft, non-tender. Bowel sounds normal. No rebound or guarding. Labs: Inpression/indication for procedure: Proceed with colonoscopy to follow up on hematochezia. Casey Clark MD * Luci Merlos RN - 04/18/2025 1:12 PM EST Images from the original note were not included. [id number] Endoscopy Unit: Caring for Yourself after a Colonoscopy What precautions do I need to take after my procedure? You will get a medicine that makes you sleep during treatment. It may affect you for the next 24 hours. ? Do not drive or go home alone. Someone must be with you until you get home. ? For 24 hours, do not make legal decisions, drive, or use dangerous equipment. ? You may continue taking your home medicines, unless your doctor tells you otherwise. When can I eat or drink? You may eat as you normally would. Start with a small amount of bland foods. Add other foods as tolerated. Spicy or greasy foods may cause nausea. How active can I be? You should move around as you are able. Do your normal activities if you feel you can. Sexual activity is fine, unless your doctor tells you otherwise. How do I find out my biopsy results? If you had a biopsy, it may take 7-10 days for results. These results will be available in the patient portal, [facility]. Or you can call the doctor who ordered your procedure. What should I watch out for? ? Gas: You may get air in your belly during treatment. This could cause gas or a feeling of fullness. This is normal. If you have hemorrhoids, you may have some rectal discomfort. ? Blood: Please call if you have a polyp removed during your procedure and see 1 tablespoon or moreof blood on your stool. Keep checking this for 1 month after your procedure. When should I call the doctor? Call 911 right away or go to the nearest emergency department if you have any of these: ? Difficulty breathing ? Severe pain in the throat ? Severe pain in the chest or belly ? Vomiting that does not go away ? Fever of 101??F or higher ? More than 1 tablespoon of rectal bleeding ? Redness or tenderness of the IV site that lasts longer than 48 hours ? Any other symptoms that concern you These may be related to a complication and need medical attention. If you do not tell your doctor, the problem may get worse. Our contact information: For the Endoscopy Provider, call and ask for the Endoscopy Fellow on-call. documented in this encounter Plan of Treatment Upcoming Encounters Date Type Department Care Team (Late st Contact Info) Description 07/12/2025 8:15 AM EST Consult [facility] General Surgery [address] [place] [address] Bola Jordan MD [address] [place] [address] 07/21/2025 12:30 PM EST Appointment [facility] Vascular Lab [address] [place] [address] 07/21/2025 1:00 PM EST Appointment [facility] Vascular Lab [address] [place] [address] 07/21/2025 2:00 PM EST Office Visit [facility] Comprehensive Vascular Clinic [address] [facility] 5th Floor [address] [place] [id number] Tyron Mosquera MD [address] [facility] [address] [place] [address] 08/09/2025 10:00 AM EST Appointment [facility] Vascular Lab [address] [place] [address] 08/09/2025 11:45 AM EST Office Visit [facility] [address] [place] [address] Cristofer Yu MD [address] [facility] [address] [place] [address] 08/23/2025 10:40 AM EDT Office Visit [facility] Medicine Specialties [address] [place] [address] Pepito Patel MD [address] [place] [address] 09/27/2025 12:00 PM EDT Clinical Support [facility] [place] [address] [facility] 1st [place] [address] 10/04/2025 1:20 PM EDT Office Visit [facility] [place] [address], [address] [place] [address] Jude Arora, TAYLA [address] [facility] [address] [place] [address] 10/11/2025 9:15 AM EDT Office Visit [facility] Ray[place]undo [address] [place] [address] James Tomas MD [address] [place] [address] documented as of this encounter Procedures Procedure Name Priority Date/Time Associated Diagnosis Comments COLONOSCOPY Routine 04/18/2025 2:29 PM EST Hematochezia documented in this encounter Results * Colonoscopy (04/18/2025 2:29 PM EST) Anatomical Region Laterality Modality Endoscopy Narrative 04/18/2025 2:35 PM EST Table formatting from the original result was not included. Impression: One 18 mm sessile polyp in the cecum. Due to quality of bowel preparation and respiratory motion, no polypectomy attempted. Fixed and stenotic rectosigmoid that could not be traversed with 190 colonoscope. Able to be negotiated with super slim colonoscope. Post Procedure Diagnosis None Recommendations Other The patient will be observed post-procedure, until all discharge criteria met. Resume previous diet. Given technical difficulty of procedure and possible need for intubation (to decreased respiratory motion / coughing), recommend referral to advanced endoscopy service to attempt EMR with extended procedure time. Repeat colonoscopy in the next 3-6 months with maximal bowel preparation Follow up with referring provider. Findings and recommendations discussed with Ms. Mullins and her sister. Findings and recommendations to be conveyed to referring provider. Indication Hematochezia - presumed secondary to ischemic colitis event. Medications See anesthesia record for anesthesia administered medications. Staff Staff Role Casey Clark MD Proceduralist Sherman Lacy, Liz Livingston CRNA, RN Endo Nurse Veto Alejo MD Anesthesiologist Wong Venegas Endo Recreation Counselor Preprocedure A history and physical has been performed, and patient medication allergies have been reviewed. The patient's tolerance of previous anesthesia has been reviewed. The risks and benefits of the procedure and the sedation options and risks were discussed with the patient. All questions were answered and informed consent obtained. Details of the Procedure The patient underwent monitored anesthesia care, which was administered by an anesthesia professional. The patient's blood pressure, heart rate, level of consciousness, respirations and oxygen saturation were monitored throughout the procedure. A digital rectal exam was performed. A perianal exam was performed. The scope was introduced through the anus and advanced to the terminal ileum. Retroflexion was performed in the rectum. The quality of bowel preparation was evaluated using the [place] Bowel Preparation Scale with scores of: right colon = 1, transverse colon = 1, left colon = 1. The total BBPS score was 3. Bowel prep was not adequate. The patient experienced no blood loss. The procedure was difficult due to fixed rectosigmoid colon. In response to procedure difficulty, the observation site was lavaged, the instrument was changed to a super slim colonoscope and water immersion technique was employed. The patient tolerated the procedure well. There were no apparent adverse events. Attestation I personally performed the entire procedure Events Procedure Events Event Event Time ENDO SCOPE IN TIME 04/18/2025 1:59 PM ENDO CECUM REACHED 04/18/2025 2:21 PM ENDO SCOPE OUT TIME 04/18/2025 2:27 PM Specimens No specimens were documented in this log. Findings One 18 mm sessile polyp in the cecum. Due to quality of bowel preparation and respiratory motion, no polypectomy attempted. Fixed and stenotic rectosigmoid that could not be traversed with 190 colonoscope. Able to be negotiated with super slim colonoscope. Selma Gonzalez MD GI PROCEDURE ORDERABLES Final Result documented in this encounter Visit Diagnoses Diagnosis Hematochezia Blood in stool documented in this encounter Additional Health Concerns Assessment Noted Time PHQ-9 Depression Total Score: 4 02/24/20 25 9:23 AM EDT A fall risk assessment has been complete d for the patient 04/05/2025 12:49 PM EDT A Body Mass Index follow-up plan has been documented for the patient 04/05/2025 1:42 PM EDT documented as of this encounter Care Teams Sales Associate Fishing Relationship Specialty Start Date End Date Deondre Lui MD [address] [place] [address] PCP - General 10/26/20 documented as of this encounter
--- OUTSIDE RECORDS SUMMARY | 2025-04-18 13:54 | XMS_ITS | Encounter Summary ---
Author Organization Healthcare Address [address] [place] [address] Care Team Providers Care Clinical Rn Liaison Name Role Phone Deondre Lui MD Primary Care Provider [phone] Encounter Details Date Type Department Care Team ([facility] st Contact Info) Description 04/18/2025 1:54 PM EST Anesthesia Event [facility] Endoscopy [address] [place] [address] Veto Alejo MD [address] [place] [phone] Anesthesia Record Procedure Summary Procedure Name Responsible Anesthesiologist Anesthesia Start Time Anesthesia Stop Time COLONOSCOPY Veto Alejo MD 04/18/25 1354 10/07 1433 Events Date Time Event Comment 04/18/2025 1339 1354 An Start The patient was reevaluated immediately before sedation and remains eligible for anesthesia plan. 1354 An Start Data 1354 In Room 1357 An Induction The patient was reevaluated immediately before moderate or deep sedation use and before anesthesia induction. 1357 Anesthesia Ready 1358 Proc Start 1427 Proc Fin 1429 an stop data 1429 Out of Room 1433 Handoff to Receiving I compl eted my handoff to the receiving clinician during which we: 1. Identified the patient 2. Identified the responsible provider 3. Reviewed the pertinent medical history 4. Discussed the surgical course 5. Reviewed intra-op anesthesia management and issues during anesthesia 6. Set expectations for post-procedure period 7. Allowed opportunity for questions and acknowledgement of understanding. 1433 An Stop Meds Name Total propofol (Diprivan) injection 10 mg/mL 2 00 mg lidocaine PF (Xylocaine-MPF) 2% 100 mg propofol (Diprivan) infusion 10 mg/mL 47 1.24 mg lactated Ringer's infusion 500 mL * Agents Name O2 * Blood No blood administrations on file. Lines, Drains, and Airways No LDAs on file. documented in this encounter Social History Tobacco Use Types Packs/Day Years [...] and Family Not on file 11/25/2024 Attends Church Services Not on file 11/25 Active Member [...] any time in the past 12 m [facility], were you homeless or living in [...] as of this encounter Miscellaneous Notes * Anesthesia Postprocedure Evaluation - Sherman Lacy, WOOD - 04/18/2025 2:33 PM EST Patient: Liz Mullins Anesthesia Type: general Vitals Value Taken Time BP 123/76 04/18/25 14:33 Temp 97.5 04/18/25 14:33 Pulse 78 04/18/25 14:33 Resp 24 04/18/25 14:33 SpO2 99 % 04/18/25 14:32 Vitals shown include unfiled device data. Anesthesia Post Evaluation Patient location during evaluation: PACU Patient participation: complete - patient participated Level of consciousness: awake Pain management: adequate (pain score 0-3) Airway patency: natural airway Cardiovascular status: acceptable and hemodynamically stable Respiratory status: acceptable, nonlabored ventilation and nasal cannula Hydration status: acceptable Nausea/Vomiting: No No notable events documented. * Anesthesia Preprocedure Evaluation - Veto Alejo MD - 04/18/2025 1:21 PM EST Images from the original note were not included. HPI Liz Mullins is a 64 y.o. female who presents with Hematochezia. Now scheduled for Colonoscoy. Past Medical History[1] Family History[2] Social History[3] SURGICAL HISTORY: Surgical History[4] Allergies[5] MEDICATIONS: Current Medications[6] 04/05/2025 12:49 PM Vitals Systolic 109 Diastolic 54 Heart Rate 76 Height (cm) 165.1 cm Weight (kg) 97.6 kg BMI 35.81 kg/m2 BSA (m2) 2.12 m2 Visit Report Report Lab Results Component Value Date WBC 10.26 03/29/2025 HGB 13.2 03/29/2025 HCT 41.3 03/29/2025 MCV 96 03/29/2025 PLT 247 03/29/2025 Lab Results Component Value Date GLUCOSE 122 (H) 03/29/2025 CALCIUM 10.2 03/29/2025 NA 140 03/29/2025 K 4.7 03/29/2025 CO2 25 03/29/2025 CL 105 03/29/2025 BUN 18 03/29/2025 CREATININE 1.77 (H) 03/29/2025 ROS Anesthesia: Date of last anesthetic: 03/19/22 - GA with REVASCULARIZATION,LOWER EXTREMITY (Right). No problems with GA. Successful airway: ETT Cuffed: yes Successful intubation technique: direct laryngoscopy Facilitating devices/methods: cricoid pressure Endotracheal tube insertion site: oral Blade: Omayra Blade size: #3 ETT size (mm): 7.0 Cormack-Lehane Classification: grade I - full view of glottis Placement verified by: chest auscultation and capnometry Measured from: lips ETT to lips (cm): 21 Number of attempts at approach: 1 history of previous anesthesia. Does not have a history of anesthetic complications, malignant hyperthermia, motion sickness, obstructive sleep apnea and PONV. Anesthesia ROS additional comments: Can lay flat on back or side with 2 pillows for comfort for neck and back. Able to move head/neck without trouble, and able to open mouth wide, per pt. In clinic. Cardiovascular: Patient's ECG reviewed. CAD (NSTEMI s/p CASSIE to mLAD (2021).), carotid artery disease (Bilat. carotid artery stenosis.), CHF (HFpEF.), hyperlipidemia, past CT (NSTEMI (2021).) and PVD (Hx PVD w/ carotid PROPAGATION WORKER and bilateral iliac stents; s/p right to left femoral-femoral bypass and right iliac stents.). Does not have angina, atrial fibrillation, dyspnea, dysrhythmias, murmur or syncope. hypertension:is well controlled. Exercise tolerance is 2 flights of stairs. Patient has chest pain (atypical nonexertional chest pain occurs very random once every couple months,, occurs during sitting or laying down, lasting seconds to minutes, goes away on its own. denies any SOA, n/v. .). Cardio additional comments: 10/12/24 - Cards - Currently on prasugrel and ASA. From cardiac standpoint acceptable to change DAPT to single antiplatelet therapy -- will defer further recommendations tovascular (considering PAD and history of carotid stents). PVD stable, per Kiesha Rodriguez, IRRIGATION LABORER. 07/06/24 - Carotids - Right: ICA velocities are elevated with an ICA/CCA ratio of 4.72, suggestive of a hemodynamically significant in-stent restenosis (50-79%). ICA/CCA ratio has increased as compared to the previous exam. ECA stenosis is identified (>50%). Left: ICA/CCA ratio has increased as compared to the previous exam. ECA stenosis is identified (>50%). Vertebral artery flow is antegrade, bilaterally. Subclavian artery flow is multiphasic, bilaterally. 08/2023 - Cardiac cath - luminal irregs pLAD, mLAD 80-90% stenosis s/p CASSIE x 1, OM1 50% stenosis, dRCA 30-40%. Infrarenal abdominal aorta with critical narrowing & stenosis up to 80%. Occluded left common iliac stent extending to left common femoral artery. Patent right common iliac stent. 08/2023 - TTE - EF >55%. 08/2023 - Carotid duplex - MADHAV 50-69%, LICA >70%. 11/15/21 - TTE - EF 55%, mild LVH, grade ll DD, LAE, mild MR/TR. . Respiratory: Does not have home oxygen. Patient has no dyspnea.no asthma: COPD (no use of inhalers. follows up with PCP.): breathing at baseline.Has not had an upper respiratory infection in last 30 days. Has nothad COVID in the last 30 days. HEENT: missing teeth (wears lower dentures, upper dentures.).Does not have difficulty swallowing, chipped teeth or loose teeth.Does not have temporomandibular joint syndrome. decreased vision (wears glasses.). Neurological: no seizures: a cerebrovascular accident (2019 - had weakness on Left arm. had therapy. returned back to normal baseline in 6 weeks. no problems since.) with no residual symptoms.Does not have TIA. Musculoskeletal: arthritis. Does not have multiple sclerosis. Autoimmune: Does not have lupus. Integumentary: Negative skin ROS. Gastrointestinal: Does not have GERD.Does not have end stage liver disease or hepatitis. obese. GI/ additional comments: Hematochezia. Genitourinary: chronic renal disease (CKD 3b. 03/29/25 - Creat. 1.77/ BUN 18.): CRI Hematological/Lymphatic: History of no DVT. History of no pulmonary embolism. no history of chemotherapy no history of radiation Does not have AIDS, HIV, MRSA or tuberculosis. Hem/Lymph ROS additional comments: Takes EC aspirin 81 mg daily for heart and carotids, and PVD. Endocrine/Metabolic: Negative endocrine ROS. does not have diabetes mellitus. Does not have thyroid disorder. Does not have gout. Lab Results Component Value Date WBC 10.26 03/29/2025 HGB 13.2 03/29/2025 HCT 41.3 03/29/2025 MCV 96 03/29/2025 PLT 247 03/29/2025 Lab Results Component Value Date GLUCOSE 122 (H) 03/29/2025 BUN 18 03/29/2025 CREATININE 1.77 (H) 03/29/2025 BCR 10 03/29/2025 NA 140 03/29/2025 K 4.7 03/29/2025 CL 105 03/29/2025 CO2 25 03/29/2025 CA 9.2 10/14/2019 ALBUMIN 4.1 03/29/2025 ALKPHOS 94 11/21/2024 BILITOT 0.4 11/21/2024 Lab Results Component Value Date HGBA1C 5.4 10/08/2019 Lab Results Component Value Date INR 1.2 (H) 11/21/2024 INR 1.0 08/11/2024 INR 1.0 07/06/2024 Visit Vitals OB Status Hysterectomy Smoking Status Some Days Physical Exam Airway Mallampati: III Mouth opening: normal TM distance: >3 FB Neck ROM: full Cardiovascular Rhythm: regular Rate: normal Dental (+) upper dentures, lower dentures Pulmonary Breath sounds clear to auscultation Neurological Oriented: normal to person, normal to time and normal to place Skin Musculoskeletal Extremities Anesthesia Plan ASA 3 Plan was reviewed with: SUPERVISOR GRAPHITE Anesthesia technique(s) discussed with the patient/family: general Anesthesia plan agreed upon was: general Anesthetic plan and risks discussed with patient. Veto Alejo MD [1] Past Medical History: Diagnosis Date CHF (congestive heart failure) August 2023 Chronic kidney disease 2023 Kidney function or lower History of shoulder surgery Hyperlipidemia 20 years ago Hypertension 10 years Myocardial infarction September 2024 Pain in right shoulder Right shoulder pain Personal history of other diseases of the circulatory system History of hypertension Personal history of other diseases of the circulatory system History of peripheral vascular disease Personal history of other endocrine, nutritional and metabolic disease History of high cholesterol PVD (peripheral vascular disease) Renal disorder [2] Family History Problem Relation Name Age of Onset Conversions - Other Mother Fide Jett Back problem Hypertension Mother Fidekatiuska Mirzae Other cancer Mother Fidekatiuska WilsonJett Cancer Mother Fide Jett Diabetes Mother Fide Jett Hearing loss Mother Fide Jett 60 - 69 Heart disease Mother Fide Jett 60 - 69 Conversions - Other Father Weedchristian wilsonythe Back problem Hypertension Father Kvng jett Heart attack Father Weed jett Heart disease Father Weed jett 60 - 69 Stroke Son Ronny Min Hearing loss Son Ronny Min 40 - 49 Hypertension Brother Tomi grey Hypertension Sister Bridget parker Anesthesia problems Neg Hx Malig Hyperthermia Neg Hx [3] Social History Tobacco Use Smoking status: Some Days Current packs/day: 0.00 Average packs/day: 1 pack/day for 40.0 years (40.0 ttl pk-yrs) Types: Cigarettes Start date: 08/14/1983 Last attempt to quit: 08/2023 Years since quittin.6 Passive exposure: Past Smokeless tobacco: Never Vaping Use Vaping status: Never Used Substance Use Topics Alcohol use: Not Currently Drug use: Never [4] Past Surgical History: Procedure Laterality Date ARTERIAL STENT PLACEMENT Bilateral groin CARDIOTHORACIC PROCEDURE 4 yesrs ago CAROTID ARTERY ANGIOPLASTY N/A Carotid artery angioplasty and stenting from [facility] CARPAL TUNNEL RELEASE Right carpal tunnel surgery from [facility] CATARACT EXTRACTION CERVICAL FUSION COLONOSCOPY HYSTERECTOMY N/A 2010 Hysterectomy from [facility] SHOULDER ARTHROSCOPY Bilateral TUBAL LIGATION N/A 1981 tubal ligation from [facility] [5] Allergies Allergen Reactions Buspirone Itching Methylprednisolone Itching [6] Current Outpatient Medications: aspirin, Take 1 tablet by mouth every morning. atorvastatin, Take 1 tablet by mouth every morning. baclofen, Take 1 tablet by mouth at night as needed. bisacodyl, Take all 4 tablets at 4 PM on day before colonoscopy . Do not crush, chew, or split. gabapentin, Take 1 capsule by mouth 3 times a day. lisinopril-hydroCHLOROthiazide, Take 1 tablet by mouth every morning. multivitamin, Take 1 tablet by mouth every morning. ondansetron ODT, Dissolve 1 tablet on the tongue every 8 hours as needed for nausea or vomiting. Patel, SEE PHARMACY NOTE FOR PT INSTRUCTIONS Current Facility-Administered Medications: lactated Ringer's ondansetron documented in this encounter Plan of Treatment Upcoming Encounters Date Type Department Care Team (Late st Contact Info) Description 07/12/2025 8:[address] [facility] General Surgery [address], [address] [place] [address] Bola Jordan MD [address] [place] [address] 07/21/2025 12:[address] [facility] Vascular Lab [address] [facility] [address] [place] [address] 07/21/2025 1:[address] [facility] Vascular Lab [address] [facility] 5[address] [place] [address] 07/21/2025 2:00 PM EST Office Visit [facility] Comprehensive Vascular Clinic [address] [facility] 5th [address] [place] [address] Tyron Mosquera MD [address] [facility] [address] [place] [address] 08/09/2025 10:00 AM EST Appointment [facility] V[facility] Lab [address] [place] [address] 08/09/2025 11:45 AM EST Office Visit [facility] [address], [address] [place] [address] Cristofer Yu MD [address] [facility] [address] [place] [address] 08/23/2025 10:40 AM EDT Office Visit [facility] Medicine Specialties [address] [place] [address] Pepito Patel MD [address] [place] [address] 09/27/2025 12:00 PM EDT Clinical Support [facility] Laboratory Services [address] [facility] [place] [address] 10/04/2025 1:20 PM EDT Office Visit [facility] Nephrology, Bone & Mineral Metabolism [address], [address] [place] [address] Jude Arora PA [address] [facility] [address] [place] [address] 10/11/2025 9:15 AM EDT Office Visit [facility] [place] Raymundo [address] [facility] [place] [address] James Tomas MD [address] [place] [address] documented as of this encounter Visit Diagnoses Not on filedocumented in this encounter Administered Medications Inactive Administered Medications - up to 3 most recent administrations Medication Order MAR Action Action Date Dose Rate Site lactated Ringer's infusion Intravenous, Continuous PRN, Starting on 04/18/25 at 1354, Until 04/18/25 at 1433, Routine New Bag 04/18/2025 1:54 PM EST lidocaine PF (Xylocaine) 2 % injection Epidural Infusion, As needed, Starting on 04/18/25 at 1357, Until 04/18/25 at 1433, Routine, Anesthesia Intraprocedure Given 04/18/2025 1:57 PM EST 100 mg propofol (Diprivan) infusion 10 mg/mL Intravenous, Continuous PRN, Starting on 04/18/25 at 1357, Until 04/18/25 at 1433, Routine Rate/Dose Change 04/18/2025 2:24 PM EST 200 mcg/kg/min 114.24 mL/hr Rate/Dose Change 04/18/2025 2:14 PM EST 150 mcg/kg/min 85. 68 mL/hr Rate/Dose Change 04/18/2025 2:08 PM EST 200 mcg/kg/min 114 .24 mL/hr propofol (Diprivan) injection Intravenous, As needed, Starting on 04/18/25 at 1357, Until 04/18/25 at 1433, Routine, Anesthesia Intraprocedure Given 04/18/2025 2:24 PM EST 20 mg Given 04/18/2025 2:21 PM EST 20 mg Given 04/18/2025 2:11 PM EST 30 mg documented in this encounter Additional Health Concerns Assessment Noted Time PHQ-9 Depression Total Score: 4 02/24/20 25 9:23 AM EDT A fall risk assessment has been complete d for the patient 04/05/2025 12:49 PM EDT A Body Mass Index follow-up plan has been documented for the patient 04/05/2025 1:42 PM EDT documented as of this encounter Care Teams Clinical Rn Liaison Relationship Specialty Start Date End Date Deondre Lui MD [address] [place] [address] [address] [place] [address] PCP - General 10/26/20 documented as of this encounter
[2025-06-05 16:06] LABS: Hematocrit 41.7 % (37.0-47.0); Hemoglobin 12.9 g/dL (12.2-16.2); Immature Granulocytes % 0.2 %; Mean Corpuscular HGB Conc 30.9 g/dL (31.8-35.4); Mean Corpuscular Hemoglobin 30.7 pg (27.0-31.2); Mean Corpuscular Volume 99.3 fl (81-99); Nucleated Red Blood Cells % 0 %; Platelet Count 251 K/mm3 (142-424); Red Blood Count 4.20 M/mm3 (4.20-5.40); Red Cell Distribution Width-SD 56.1 fL; White Blood Count 8.6 K/mm3 (4.8-10.8)
[2025-06-05 16:34] LABS: Albumin Level 4.5 g/dl (3.5-5.0); Chloride 106 mmol/L (98-107); Potassium 4.8 mmoL/L (3.5-5.1); Sodium 141 mmol/L (136-145)
[2025-06-05 16:37] LABS: Alanine Aminotransferase 27 U/L (12-78); Albumin/Globulin Ratio 1.6 (1.1-1.8); Alkaline Phosphatase 95 U/L (38-126); Anion Gap 14.8 mEq/L (5-15); Aspartate Amino Transferase 45 U/L (14-36); Bilirubin,Total 0.5 mg/dl (0.2-1.3); Blood Urea Nitrogen 19 mg/dl (7-17); Carbon Dioxide 25 mmol/L (22.0-30.0); Cholesterol 175 mg/dl (140-200); Creatinine,Serum 1.70 mg/dl (0.52-1.04); Estimated Glomerular Filt Rate 30 ml/min (>60); GFR (African American) 36 ML/MIN (>60); Globulin 2.8 g/dL (1.3-3.2); Total Protein,Serum 7.3 g/dl (6.3-8.2); Triglycerides 255 mg/dl (30-150)
[2025-06-05 16:38] LABS: Calcium 9.9 mg/dl (8.4-10.2); Glucose 97 mg/dl (74-100); HDL Cholesterol 36 mg/dl (40-60)
[2025-06-05 20:18] LABS: Hemoglobin A1C 5.7 % (4.0-6.0)
--- OUTSIDE RECORDS SUMMARY | 2025-06-06 12:48 | XMS_ITS | Encounter Summary ---
Author Organization [employer] ([place], [place], [place], [place], [place]) Address [address] [place] [address] Care Team Providers Care Floor Mechanic Name Role Phone Unavailable Primary Care Provider Unavailabl e Encounter Details Date Type Department Care Team (Late st Contact Info) Description 05/30/2019 Transcribed Document [facility] [place] [facility] [place] [address] ProviderNelson MD [address], [place] [id number] Social History Tobacco Use Types Packs/Day Years Used Date Smoking Tobacco: Never Assessed Comments Unknown Sex and Gender Information Value Date Recorded Sex Assigned at Not on file Legal Sex Female 1:09 PM CDT Gender Identity Not on file Sexual Orientation Not on file documented as of this encounter Miscellaneous Notes * Cerner Conversion Note - Historical ProviderMD - 05/30/2019 7:37 PM SERVICE OBSERVER CHIEF PAT Adult Entered On: 05/30/2019 19:42 EST Performed On: 05/30/2019 19:37 EST by TAY CHAVIRA RN Height and Weight, Clinical Dosing Height, Feet : 0 ft(Converted to: 0 cm, 0 Inch) Height, Inches : 65 Inch(Converted to: 5 ft 5 Inch, 165.10 cm) Clinical Height : 165.1 cm Weight Source : Standing scale Weight Entry Format : [place] Clinical Dosing Weight : 86.73 kg Weight, Pounds : 190.8 lb Body Surface Area (BSA) : 1.94 m2 Body Mass Index : 31.8 kg/m2 (HI) [place] Body Weight : 57 kg Tamara Camar[place] [...] TAY CHAVIRA RN - 05/30/2019 19:37 EST [place] Suicide Severity Rating Scale (C-SSRS) CSSRS Past [...] Name : don sotomayor, Primary Language : Kinyarwanda Communication Barrier : None TAY CHAVIRA RN [...] Apnea Risk Level Score : 4 TAY CHAVIAR RN - 05/30/2019 19:37 EST Electronically signed by [facility], [facility] Conversion Sales Engineering Manager Cerner at 09/30/2022 3:09 PM CDT documented in this encounter Plan of Treatment Not on file documented as of this encounter Visit Diagnoses Not on filedocumented in this encounter
--- OUTSIDE RECORDS SUMMARY | 2025-06-06 12:48 | XMS_ITS ---
Laboratory report Created on: May 16, 2025 FARHAN MARTINEZ : 1960 Sex: Female Author Organization Unknown PROBLEMS Problems List Code Description RESULTS Laboratory Orders Date Order Code Test 2023-08-18 [id number] LIPOPROTEIN (A) Laboratory Results Date LOINC Test Value Unit Reference Range Interpre tation 2023-08-18 [id number] LIPOPROTEIN (A) 23.2 NMOL/L <75.0
--- OUTSIDE RECORDS SUMMARY | 2025-06-06 12:48 | XMS_ITS | Encounter Summary ---
Author Organization [employer] ([place], [place], [place], [place], [place]) Address [address] [place] [address] Care Team Providers Care Rubber Mill Tender Name Role Phone Unavailable Primary Care Provider Unavailabl e Encounter Details Date Type Department Care Team (Late st Contact Info) Description 05/31/2019 Transcribed Document [facility] [place] [facility] [place] [address] ProviderNelson MD [address], [place] [id number] Social History Tobacco Use Types Packs/Day Years Used Date Smoking Tobacco: Never Assessed Comments Unknown Sex and Gender Information Value Date Recorded Sex Assigned at Not on file Legal Sex Female 1:09 PM CDT Gender Identity Not on file Sexual Orientation Not on file documented as of this encounter Miscellaneous Notes * Cerner Conversion Note - Historical ProviderMD - 05/31/2019 3:45 PM SIDEWALK REPAIRER Stroke/Warfarin Instructions Entered On: 05/31/2019 15:46 EST [...]
--- OUTSIDE RECORDS SUMMARY | 2025-06-06 12:48 | XMS_ITS | Encounter Summary ---
Author Organization [employer] ([place], [place], [place], [place], [place]) Address [address] [place] [address] Care Team Providers Care Electric Vehicle Electrician Name Role Phone Unavailable Primary Care Provider Unavailabl e Encounter Details Date Type Department Care Team (Late st Contact Info) Description 05/31/2019 Transcribed Document [facility] [place] [facility] [place] [address] ProviderNelson MD [address] [place] [phone] Social History Tobacco Use Types Packs/Day Years Used Date Smoking Tobacco: Never Assessed Comments Unknown Sex and Gender Information Value Date Recorded Sex Assigned at Not on file Legal Sex Female 1:09 PM CDT Gender Identity Not on file Sexual Orientation Not on file documented as of this encounter Miscellaneous Notes * Cerner Conversion Note - Historical ProviderMD - 05/31/2019 1:31 PM LEAD GENERATOR Patient: FARHAN MULLINS Age: 58 Years Sex: Female : 1960 *Operation 1. R AGRICULTURAL ENGINEERING TECHNICIAN access 2. Ao, R GRACE angioplasty 3. Pressure gradient measurement Indication for Surgery 1. RLE claudication *Preoperative Diagnosis 1. RLE claudication *Postoperative Diagnosis 1. RLE claudication *Surgeon(s) Primary Surgeon DEREK CHEN MD (Surgeon/Proceduralist, First) *Estimated Blood Loss min *Findings good flow post procedure *Specimen(s) none Complications none Date of Service Date/Time of Service SN - Proc - Start Time: 05/31/19 12:59:00 (05/31/19 13:05:22) documented in this encounter Plan of Treatment Not on file documented as of this encounter Visit Diagnoses Not on filedocumented in this encounter
--- OUTSIDE RECORDS SUMMARY | 2025-06-06 12:48 | XMS_ITS | Encounter Summary ---
Author Organization Healthcare Address [address] [place] [address] Care Team Providers Care Acid Changer Name Role Phone Deondre Lui MD Primary Care Provider [phone] Christal Murray Unavailable Unavailable Encounter Details Date Type Department Care Team (Late st Contact Info) Description 08/18/2023 Orders Only External Location [address] [place] [address] Provider, External Social History Tobacco Use Types [...] Info) Description 07/12/2025 8:15 AM EST Consult [facility] General Surgery [address], [address] [place] [address] Bola Jordan MD [address] [place] [address] 07/21/2025 12:30 PM EST Appointment [facility] Vascular Lab [address] [place] [address] 07/21/2025 1:00 PM EST Appointment [facility] Vascular Lab [address] [place] [address] 07/21/2025 2:00 PM EST Office Visit [facility] Comprehensive Vascular Clinic [address] [facility] 5th Floor [address] [place] [address] Tyron Mosquera MD [address] [facility] [address] [place] [address] 08/09/2025 10:00 AM EST Appointment [facility] Vascular Lab [address] [place] [address] 08/09/2025 11:45 AM EST Office Visit [facility] [address] [place] [address] Cristofer Yu MD [address] [facility] [address] [place] [address] 08/23/2025 10:40 AM EDT Office Visit [facility] Medicine Specialties [address] [place] [address] Pepito Patel MD [address] [place] [address] 09/27/2025 12:00 PM EDT Clinical Support [facility] Laboratory Services [address] [facility], 1st [place] [address] 10/04/2025 1:20 PM EDT Office Visit [facility] Nephrology, Bone & Mineral Metabolism [address] [facility], [address] [place] [address] Jude Arora PA [address] [facility] [address] [place] [address] 10/11/2025 9:15 AM EDT Office Visit [facility] [place] Raymundo [address] [place] [address] James Tomas MD [address] [place] [address] documented as of this encounter [...] documented as of this encounter Care Teams Acid Changer Relationship Specialty Start Date End Date Deondre Lui MD [address] [facility] [address] [place] [address] PCP - General 10/26/20 [place] [address] TCM Nurse 11/25/24 12/25/24 documented as of this encounter
--- OUTSIDE RECORDS SUMMARY | 2025-06-06 12:48 | XMS_ITS | Encounter Summary ---
Author Organization Healthcare Address [address] [place] [address] Care Team Providers Care Market Research Specialist Name Role Phone Deondre Lui MD Primary Care Provider [phone] Encounter Details Date Type Department Care Team (Latest Contact Info) Description 04/18/2025 Travel Social History Tobacco Use Types Packs/Day [...] and Family Not on file 11/25/2024 Attends Congregational Services Not on file 11/25 Active Member [...] any time in the past 12 m [facility], were you homeless or living in a usp (including now)? No 11/25/2024 Utilities Answer Date [...] Info) Description 07/12/2025 8:15 AM EST Consult [facility] General Surgery [address], [address] [place] [address] Bola Jordan MD [address] [facility] [address] [place] [address] 07/21/2025 12:30 PM EST Appointment [facility] V[facility] [address] 5th Floor [address], [address] [place] [address] 07/21/2025 1:00 PM EST Appointment [facility] [address] 5th Floor [address], [address] [place] [address] 07/21/2025 2:00 PM EST Office Visit [facility] [address] 5th Floor [address], [address] [place] [address] Tyron Mosquera MD [facility] [address] [facility] [address] [place] [address] 08/09/2025 10:00 AM EST Appointment [facility] [address] [place] [address] 08/09/2025 11:45 AM EST Office Visit [facility] [address], [address] [place] [address] Cristofer Yu MD [facility] [address] [facility] [address] [place] [address] 08/23/2025 10:40 AM EDT Office Visit [facility] Medicine Specialties [address], [address]nd [place] [address] Peptio Patel MD [address] [place] [address] 09/27/2025 12:00 PM EDT Clinical Support [facility] Laboratory Services [address] [facility], 1st [place] [address] 10/04/2025 1:20 PM EDT Office Visit [facility] Nephrology, Bone & Mineral Metabolism [address], [address] [place] [address] Jude Arora PA [address] [place] [address] 10/11/2025 9:15 AM EDT Office Visit [facility] [place] [address] [facility]. [address] [place] [address] James Tomas MD [address] [place] [address] documented as of this encounter [...] documented as of this encounter Care Teams Market Research Specialist Relationship Specialty Start Date End Date Deondre Lui MD [address] [facility] [address] [place] [address] PCP - General 10/26/20 documented as of this encounter
--- OUTSIDE RECORDS SUMMARY | 2025-06-06 12:48 | XMS_ITS | Encounter Summary ---
Author Organization [employer] ([place], [place], [place], [place], [place]) Address [address] [place] [address] Care Team Providers Care Payloader Operator Name Role Phone Unavailable Primary Care Provider Unavailabl e Encounter Details Date Type Department Care Team (Late st Contact Info) Description 05/31/2019 Transcribed Document [facility] [place] [facility] [place] [address] ProviderNelson MD [address] [place] [id number] Social History Tobacco Use Types Packs/Day Years Used Date Smoking Tobacco: Never Assessed Comments Unknown Sex and Gender Information Value Date Recorded Sex Assigned at Not on file Legal Sex Female 1:09 PM CDT Gender Identity Not on file Sexual Orientation Not on file documented as of this encounter Miscellaneous Notes * Cerner Conversion Note - Historical ProviderMD - 05/31/2019 12:59 PM ASSOCIATE SOFTWARE DEVELOPMENT ENGINEER [facility] Main OR Preop Summary Primary Physician: DEREK CHEN MD Finalized Date/Time: 05/31/19 14:54:12 Pt. Name: FARHAN MULLINS FERNANDO /Sex: 1960 Female Med Rec #: [id number] Physician: DEREK CHEN MD Financial #: [id number] Pt. Type: O Room/Bed: HIS/2 Admit/Disch: 05/31/19 09:12:00 - Institution: [facility] PreOp Case Times Entry 1 In Preop 05/31/19 09:20:00 Ready for Holding n/a Room Patient Ready for 05/31/19 10:29:00 Surgery Patient Out of Preop 05/31/19 12:34:00 Patient Out of n/a Holding Room Last Modified By: Tamara Camarillo RN 05/31/19 14:54:11 [facility] PreOp Case Times Audit 05/31/19 14:54:11 News Production Assistant: [email or web address] Modifier: [email or web address] <+> 1 Patient Out of Preop 05/31/19 10:35:50 News Production Assistant: [email or web address] Modifier: [email or web address] <+> 1 Patient Ready for Surgery Finalized By: Tamara Camarillo RN Document Signatures Signed By: Tamara Camarillo RN 05/31/19 14:54 Electronically signed by Julio [facility] Conversion Agricultural Engineering Technicians Cerner at 09/30/2022 3:09 PM CDT documented in this encounter Plan of Treatment Not on file documented as of this encounter Visit Diagnoses Not on filedocumented in this encounter
--- OUTSIDE RECORDS SUMMARY | 2025-06-06 12:48 | XMS_ITS | Clinical Summary ---
Author Organization [facility] Address [address] [place] [address] Phone Care Team Providers Care Room Service Waiter Name Role Phone Juan CHA, Priyank Rivera Unavailable [phone] [ ] Conditions or Problems No information available. Medications No information available. Medications Administered No information available. Allergies, Adverse Reactions, Alerts No information available. Results No information available. Plan of Care No information available. Procedures No information available. Vital Signs No information available. Immunizations No information available. Advance Directives No information available.
--- OUTSIDE RECORDS SUMMARY | 2025-06-06 12:48 | XMS_ITS | Encounter Summary ---
Author Organization Healthcare Address [address] [place] [address] Care Team Providers Care Car Unloader Helper Name Role Phone Deondre Lui MD Primary Care Provider [phone] Reason for Referral * Consultation (Routine) - Authorized Specialty Diagnoses / Procedures Referred By Alvaro myles Referred To Contact Colon and Rectal Surgery Diagnoses Polyp of cecum Paige Hansen MD [address] [facility] [address] [place] [address] Phone: tel: fax: Colorectal Surgery [address] [place] [address] Phone: tel: Referral ID Status Reason Start Date Expiration Date Visits Requested Visits Authorized [id number] Authorized Specialty Services Required 10/25/2026 1 1 Encounter Details Date Type Department Care Team (Late st Contact Info) Description 04/25/2025 Orders Only [facility] Medicine Special[facility] [address], [address]nd [place] [address] Pepito Patel MD [address] [place] [address] Polyp of cecum (Primary Dx) Social History Tobacco Use Types [...] and Family Not on file 11/25/2024 Attends Jewish Services Not on file 11/25 Active Member [...] any time in the past 12 m [facility], were you homeless or [...] Info) Description 07/12/2025 8:15 AM EST Consult [facility] General Surgery [address], [address]st [place] [address] Bola Jordan MD [address] [facility] [address] [place] [address] 07/21/2025 12:30 PM EST Appointment [facility] Vascular Lab [address] [facility] 5th Floor [address], [address] [place] [address] 07/21/2025 1:00 PM EST Appointment [facility] Vascular Lab [address] [facility] 5th Floor [address], [address] [place] [address] 07/21/2025 2:00 PM EST Office Visit [facility] Comprehensive Vascular Clinic [address] [facility] 5th Floor [address], [address] [place] [address] Tyron Mosquera MD [address] [facility] [address] [place] [address] 08/09/2025 10:00 AM EST Appointment [facility] [address] [facility] [address] [place] [address] 08/09/2025 11:45 AM EST Office Visit [facility] [address], [address]st [place] [address] Cristofer Yu MD [address] [facility] [address] [place] [address] 08/23/2025 10:40 AM EDT Office Visit [facility] Medicine Specialties [address], 2nd [place] [address] Pepito Patel MD [address] [place] [address] 09/27/2025 12:00 PM EDT Clinical Support [facility] Laboratory Services [address] [facility], 1st [place] [address] 10/04/2025 1:20 PM EDT Office Visit [facility] Nephrology, Bone & Mineral Metabolism [address], [address] [place] [address] Jude Arora PA [address] [facility] [address] [place] [address] 10/11/2025 9:15 AM EDT Office Visit [facility] [place] [address] [facility] [place] [address] James Tomas MD [address] [place] [address] Scheduled Referrals Name Type Priority Associated Diagnoses Order Schedule Ambulatory referral to Colorectal Surgery Outpatient Referral Routine Polyp of cecum Expected: 04/25/2025 (Approximate), Expires: 10/27/2026 documented as of this encounter Goals Goal Patient Goal Type Associated Problems Recent Progress Patient-Stated? Author Bisacodyl Prep Care Plan Bisacodyl Prep Selma Nichols MD documented as of this encounter Visit Diagnoses Diagnosis Polyp of cecum- Primary documented in this encounter Additional Health Concerns Active Problems Noted Date Diagnosed Date Bisacodyl Prep 04/22/2025 Assessment Noted Time PHQ-9 Depression Total Score: 4 02/24/20 25 9:23 AM EDT A fall risk assessment has been complete d for the patient 04/05/2025 12:49 PM EDT A Body Mass Index follow-up plan has been documented for the patient 04/05/2025 1:42 PM EDT documented as of this encounter Care Teams Car Unloader Helper Relationship Specialty Start Date End Date Deondre Lui MD [address] [place] [address] [address] [place] [address] PCP - General 10/26/20 documented as of this encounter
--- OUTSIDE RECORDS SUMMARY | 2025-06-06 12:48 | XMS_ITS | Encounter Summary ---
Author Organization [employer] ([place], [place], [place], [place], [place]) Address [address] [place] [address] Care Team Providers Care Still Tender Name Role Phone Unavailable Primary Care Provider Unavailabl e Encounter Details Date Type Department Care Team (Late st Contact Info) Description 05/31/2019 Transcribed Document [facility] Family Medicine [facility] [place] [address] ProviderNelson MD [address] [place] [phone] Social History Tobacco Use Types Packs/Day Years Used Date Smoking Tobacco: Never Assessed Comments Unknown Sex and Gender Information Value Date Recorded Sex Assigned at Not on file Legal Sex Female 1:09 PM CDT Gender Identity Not on file Sexual Orientation Not on file documented as of this encounter Miscellaneous Notes * Cerner Conversion Note - Historical ProviderMD - 05/31/2019 4:48 PM MANAGER DOCUMENTATION Event Note Entered On: 05/31/2019 17:09 EST [...]
--- OUTSIDE RECORDS SUMMARY | 2025-06-06 12:48 | XMS_ITS | Encounter Summary ---
Author Organization [employer] ([place], [place], [place], [place]) Address [address] [place] [address] Care Team Providers Care Computer Systems Engineer Name Role Phone Unavailable Primary Care Provider Unavailabl e Encounter Details Date Type Department Care Team (Late st Contact Info) Description 05/31/2019 Transcribed Document [facility] Family Medicine [facility] [place] [address] ProviderNelson MD [address] [place] [id number] Social History Tobacco Use Types Packs/Day Years Used Date Smoking Tobacco: Never Assessed Comments Unknown Sex and Gender Information Value Date Recorded Sex Assigned at Not on file Legal Sex Female 1:09 PM CDT Gender Identity Not on file Sexual Orientation Not on file documented as of this encounter Miscellaneous Notes * Cerner Conversion Note - Historical ProviderMD - 05/31/2019 10:48 AM INSTRUCTOR PAINTING Patient: FARHAN MULLINS Age: 58 years Sex: [...] All Problems Wears glasses / SNOMED CT 824457739 / Confirmed Numbness and tingling///left hand / SNOMED CT 3447944858 / Confirmed Neck pain///left shoulder / SNOMED CT 275130862 / Confirmed Hyperlipidemia / SNOMED CT 45572421 / Confirmed History of difficult intubation / IMO 0271203 / Confirmed High blood pressure / SNOMED CT 94808636 / Confirmed Depression / SNOMED CT 41063477 / Confirmed Back pain / SNOMED CT 900844749 / Confirmed Anxiety / SNOMED CT 75653963 / Confirmed Anginal pain///anxiety related/2013 / SNOMED CT 220824842 / Confirmed, Active Problems (10) Anginal pain///anxiety [...] EST Height Source Stated Height Entry Format [place] Height/Length, HAITIAN (ft) 0 ft Height/Length HAITIAN 65 Inch CLINICALHEIGHT 165.1 cm [place] Body Weight 57 kg Weight Source Standing scale Weight Entry Format [place] Weight [place] lb 190.8 lb CLINICALWEIGHT 86.73 kg Body [...] motion, lulú LE weakness. Integumentary: Warm, Dry, [place]. Neurologic: Alert, Oriented. Psychiatric: Cooperative, Appropriate mood [...]
--- OUTSIDE RECORDS SUMMARY | 2025-06-06 12:48 | XMS_ITS | Encounter Summary ---
Author Organization Healthcare Address [address] [place] [address] Care Team Providers Care Rubber Goods Inspector Tester Name Role Phone Deondre Lui MD Primary Care Provider [phone] Reason for Referral * Imaging (Routine) - Pending Review Specialty Diagnoses / Procedures Referred By Alvaro myles Referred To Contact Gastroenterology Diagnoses Cecal polyp Procedures Colonoscopy w EMR Selma Gonzalez MD [address] [address] Phone: tel: fax: Referral ID Status Reason Start Date Expiration Date Visits Requested Visits Authorized [id number] Pending Review Specialty Services Required 04/22/2025 10/22/2026 1 1 Encounter Details Date Type Department Care Team (Late st Contact Info) Description 04/22/2025 Orders Only [place] [facility] Medicine Specialties [address]nd [place] [address] Selma Gonzalez MD [address] [place] [address] Cecal polyp (Primary Dx) Social History Tobacco Use Types [...] and Family Not on file 11/25/2024 Attends Alevism Services Not on file 11/25 Active Member [...] any time in the past 12 m [place], were you homeless or living in a [...] Info) Description 07/12/2025 8:15 AM EST Consult [facility] General Surgery [address], [address]st [place] [address] Bola Jordan MD [address] [place] [address] 07/21/2025 12:30 PM EST Appointment [facility] Vascular Lab [address] 5[address] Floor [address], [address] [place] [address] 07/21/2025 1:00 PM EST Appointment [facility] Vascular Lab [address] 5[address] Floor [address], [address] [place] [address] 07/21/2025 2:00 PM EST Office Visit [facility] Clinic [address] 5[address] Floor [address], [address] [place] [address] Tyron Mosquera MD [address] [facility] [address] [place] [address] 08/09/2025 10:00 AM EST Appointment [facility] [address] [facility] [address] [place] [address] 08/09/2025 11:45 AM EST Office Visit [facility] [address] [place] [address] Cristofer Yu MD [address] [facility] [address] [place] [address] 08/23/2025 10:40 AM EDT Office Visit [facility] Medicine Specialties [address], [address] [place] [address] Pepito Patel MD [address] [place] [address] 09/27/2025 12:00 PM EDT Clinical Support [facility] Laboratory Services [address] [facility], 1st [place] [address] 10/04/2025 1:20 PM EDT Office Visit [facility] Nephrology, Bone & Mineral Metabolism [address] [facility], [address] [place] [address] Jude Arora PA [address] [facility] [address] [place] [address] 10/11/2025 9:15 AM EDT Office Visit [facility] [place] [address] [facility] [place] [address] James Tomas MD [address] [place] [address] Scheduled Orders Name Type Priority Associated Diagnoses Orde r Schedule Colonoscopy w EMR Endoscopy Routine Cecal polyp Expected: 04/22/2025, Expires: 10/24/2026 documented as of this encounter Goals Goal Patient Goal Type Associated Problems Recent Progress Patient-Stated? Author Bisacodyl Prep Care Plan Bisacodyl Prep Selma Nichols MD documented as of this encounter Visit Diagnoses Diagnosis Cecal polyp- Primary documented in this encounter Additional Health [...] documented as of this encounter Care Teams Rubber Goods Inspector Tester Relationship Specialty Start Date End Date Deondre Lui MD [address] [place] [address] [address] [place] [address] PCP - General 10/26/20 documented as of this encounter
--- OUTSIDE RECORDS SUMMARY | 2025-06-06 12:49 | XMS_ITS | Clinical Summary ---
Author Organization [employer] ([place], [place], [place], [place], [place]) Address [address] [place] [address] Care Team Providers Care Engineering Intern Name Role Phone Unavailable Primary Care [...]
--- OUTSIDE RECORDS SUMMARY | 2025-06-06 12:49 | XMS_ITS | Encounter Summary ---
Author Organization [employer] ([place], [place], [place], [place]) Address [address] [place] [address] Care Team Providers Care Electronic Gluer Name Role Phone Unavailable Primary Care Provider Unavailabl e Encounter Details Date Type Department Care Team (Late st Contact Info) Description 06/03/2019 Transcribed Document [facility] [place] [facility] [place] [address] ProviderNelson MD [address] [place] [phone] Social History Tobacco Use Types Packs/Day Years Used Date Smoking Tobacco: Never Assessed Comments Unknown Sex and Gender Information Value Date Recorded Sex Assigned at Not on file Legal Sex Female 1:09 PM CDT Gender Identity Not on file Sexual Orientation Not on file documented as of this encounter Miscellaneous Notes * Cerner Conversion Note - Nelson Escoto MD - 06/03/2019 8:26 AM SOLAR DEVELOPMENT ENGINEER DATE OF PROCEDURE: 05/31/2019 SURGEON: Conrado Cotto [...] the femoral-femoral bypass graft anastomosis. Ultimately, a 5[place] sheath was placed into the vessel. [place] Advantage wire was advanced into the infrarenal [...] anastomosis of the femoral-femoral bypass graft. A 5-[place] sheath was placed into the vessel. Heparin was administered. [place] Advantage wire was advanced into the infrarenal [...] hematoma. The patient was awakened, transferred to [facility], and taken to Recovery in stable condition. All counts were correct. /[id number] Conrado Cotto MD IV/AQ / IV / MODL /[id number] Electronically signed by Julio, [facility] Conversion Development Educator Cerner at 09/30/2022 3:16 PM CDT documented in this encounter Plan of Treatment Not on file documented as of this encounter Visit Diagnoses Not on filedocumented in this encounter
--- OUTSIDE RECORDS SUMMARY | 2025-06-06 12:49 | XMS_ITS | Clinical Summary ---
Author Organization [facility] Address [address] [place] [address] Care Team Providers Care Electrician Sound Name Role Phone Deondre Lui MD Primary Care Provider [phone] Social History Tobacco Use Types Packs/Day Years [...] Date Last Done Comments DXA SCAN 1960 TDAP/TD VACCINES (1 - Tdap) 08/20/1996 08/19/1996 MAMMOGRAM 1998 COLOGUARD 11/01/2003 COLON CANCER SCREENING 5 YEAR SIGMOIDOSCOPY 11/01/2003 CT COLONOGRAPHY 11/01/2003 FECAL OCCULT BLOOD TEST 11/01/2003 FIT Testing (1 year) 11/01/2003 Pneumococcal Vaccine 50+ (1 of 1 - PCV) 2008 ZOSTER VACCINE (1 of 2) 2008 ANNUAL PHYSICAL 02/18/2023 INFLUENZA VACCINE 01/13/2025 COVID-19 Vaccine (1 - season) 2025 COLONOSCOPY 04/18/2035 04/18/2025 COLORECTAL CANCER SCREENING 04/18/2035 HEPATITIS C SCREENING Completed 11/21/2024 Insurance MEDICARE A & B Member Subscriber Plan / Payer (Ef fective 2015-Present) Name:Liz Mullins Member ID:[id number] Relation to Subscriber:Self Name:Liz Mullins Subscriber ID:[id number] Payer ID:[id number] Group ID:Not on file Type:Not on file Address: [facility] [id number] Care Teams Electrician Sound Relationship Specialty Start Date End Date Deondre Lui MD [address] [facility] [address] [place] [address] PCP - General Internal Medicine 02/18/23
--- OUTSIDE RECORDS SUMMARY | 2025-06-06 12:49 | XMS_ITS | Encounter Summary ---
Author Organization [employer] ([place], [place], [place], [place], [place]) Address [address] [place] [address] Care Team Providers Care Cereal Maker Name Role Phone Unavailable Primary Care Provider Unavailabl e Encounter Details Date Type Department Care Team (Late st Contact Info) Description 05/31/2019 Transcribed Document [facility] Family Medicine [facility] [place] [address] ProviderNelson MD [address] [place], [place] [phone] Social History Tobacco Use Types Packs/Day Years Used Date Smoking Tobacco: Never Assessed Comments Unknown Sex and Gender Information Value Date Recorded Sex Assigned at Not on file Legal Sex Female 1:09 PM CDT Gender Identity Not on file Sexual Orientation Not on file documented as of this encounter Miscellaneous Notes * Cerner Conversion Note - Nelson Escoto MD - 05/31/2019 3:43 PM SALES REPRESENTATIVE [employer] Patient Education Materials Follows: Angiogram, Care After [...] cannot use soap and water, use hand client solutions specialist. ? Change your bandage as told [...] (urine) clear or pale yellow. ??? Take ewzh-fuq-rzjcjbu and prescription medicines only as told by [...] 08/28/2009 Document Revised: 05/26/2017 Document Reviewed: 05/26/2017 [employer] Interactive Patient Education ? 2019 [employer] Endovascular Therapy for Peripheral Arterial Disease, [...] and water are not available, use hand client solutions specialist. ? Change your dressing as told [...] or a bad smell. Medicines ??? Take joed-cvb-vgmeanz and prescription medicines only as told by [...] 09/23/2017 Document Revised: 09/23/2017 Document Reviewed: 09/23/2017 [employer] Interactive Patient Education ? 2019 [employer] Groin Site Care Refer to this [...] Document Reviewed: 07/04/2011 ExitCare? Patient Information ?2013 [employer]. Moderate Conscious Sedation, Adult, Care After [...] you are awake and alert. ??? Take ebvg-ptz-dgghxwi and prescription medicines only as told by [...] 03/22/2014 Document Revised: 11/03/2016 Document Reviewed: 09/20/2016 [employer] Interactive Patient Education ? 2019 [employer] documented in this encounter Plan of Treatment Not on file documented as of this encounter Visit Diagnoses Not on filedocumented in this encounter
--- OUTSIDE RECORDS SUMMARY | 2025-06-06 12:49 | XMS_ITS | Encounter Summary ---
Author Organization [employer] ([place], [place], [place], [place], [place]) Address [address] [place] [address] Care Team Providers Care Legal Contracts Specialist Name Role Phone Unavailable Primary Care Provider Unavailabl e Encounter Details Date Type Department Care Team (Late st Contact Info) Description 05/31/2019 Transcribed Document [facility] Family [place] [address] ProviderNelson MD [address] [place] [address] Social History Tobacco Use Types [...] - Nelson ProviderMD - 05/31/2019 4:19 PM CONCRETE CRAFTSMAN [facility] [place] [address] FARHAN MULLINS :1960 Visit Time:05/31/2019 Your Visit Summary Your Care Team Admitting Physician - DEREK CHEN MD Attending Physician - DEREK CHEN MD Primary Care Physician - JOHAN PINON (REF), -INT Referring Physician - JOHAN PINON (REF), -INT [...] also Where: [address] [place] [address]- Medications What How Much When Instructions Next [...] cannot use soap and water, use hand aitchbone breaker. ? Change your bandage as told by [...] (urine) clear or pale yellow. ??? Take qahx-ptc-oscpgvl and prescription medicines only as told by [...] 08/28/2009 Document Revised: 05/26/2017 Document Reviewed: 05/26/2017 [employer] Patient Education ?? 2019 [employer] Endovascular Therapy for Peripheral Arterial Disease, [...] and water are not available, use hand aitchbone breaker. ? Change your dressing as told by [...] or a bad smell. Medicines ??? Take ijvh-jxa-pzizmpa and prescription medicines only as told by [...] 09/23/2017 Document Revised: 09/23/2017 Document Reviewed: 09/23/2017 [employer] Interactive Patient Education ?? 2019 [employer] Groin Site Care Refer to this [...] Reviewed: 07/04/2011 ExitCare?? Patient Information ??2013 ExitCare, [employer]. Moderate Conscious Sedation, Adult, Care After These [...] you are awake and alert. ??? Take iuds-hof-irvtrkp and prescription medicines only as told by [...] 03/22/2014 Document Revised: 11/03/2016 Document Reviewed: 09/20/2016 [employer] Patient Education ?? 2019 [employer] Emergency Awareness and Preventative Care STROKE [...] Assistance with quitting is available by contacting 0-087-HQUQNOW. This is a free resource providing counseling, [...] was given the opportunity to ask questions. Patient/Manager Action Name: Patient/Manager Action Signature: Relationship to Patient: Clinician/Hospital Manager Action Signature: Date: documented in this encounter Plan of Treatment Not on file documented as of this encounter Visit Diagnoses Not on filedocumented in this encounter
--- OUTSIDE RECORDS SUMMARY | 2025-06-06 12:49 | XMS_ITS | Encounter Summary ---
Author Organization [employer] ([place], [place], [place], [place], [place]) Address [address] [place] [address] Care Team Providers Care Monument Setter Helper Name Role Phone Unavailable Primary Care Provider Unavailabl e Encounter Details Date Type Department Care Team (Late st Contact Info) Description 05/31/2019 Transcribed Document [facility] Family Medicine [facility] [place] [address] ProviderNelson MD [address] [place] [id number] Social History Tobacco Use Types Packs/Day Years Used Date Smoking Tobacco: Never Assessed Comments Unknown Sex and Gender Information Value Date Recorded Sex Assigned at Not on file Legal Sex Female 1:09 PM CDT Gender Identity Not on file Sexual Orientation Not on file documented as of this encounter Miscellaneous Notes * Cerner Conversion Note - Historical ProviderMD - 05/31/2019 12:59 PM 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 Name: LIZ MULLINS FERNANDO /Sex: 1960 Female Med Rec #: [id number] Physician: DEREK CHEN MD Financial #: [id number] Pt. Type: O Room/Bed: HIS/2 Admit/Disch: 05/31/19 09:12:00 - 05/31/19 16:48:00 Institution: [facility] IntraOp Case Attendance Entry 1 Entry 2 Entry 3 Case Attendee DEREK CHEN MD Napier, Elizabeth A, RN Murphy, Whitney, [employer] Role Performed Surgeon/Proceduralist, Lab Assistant, First Hotbed Operator First Time In 05/31/19 12:37:00 05/31/19 12:37:00 05/31/19 12:37:00 Time Out 05/31/19 13:35:00 05/31/19 13:35:00 05/31/19 13:35:00 Procedure Aortogram Abdominal Aortogram Abdominal Aortogram Abdominal with Runoff(Right), with Runoff(Right), with Runoff(Right), Angioplasty Angioplasty Angioplasty Percutaneous Percutaneous Percutaneous Transluminal(Right) Transluminal(Right) Transluminal(Right) Other Attendee Superficial Wound Closed By: Last Modified By: Shawanda Childers RN Napier, Elizabeth A, Shawanda Ortiz, JR 05/31/19 13:35:31 05/31/19 13:35:31 05/31/19 13:35:31 Entry 4 Entry 5 Entry 6 Case Attendee Ada Black SIMPSON, KRISTEN, REBEKAH, AMARI DAILEY MD-ANS Cardiovascular FRONT DESK PERSON Hotbed Operator Role Performed Hotbed Operator FRONT DESK PERSON/Nurse Supervisor [employer] Fabrication Anesthesiologist of Record Time In 05/31/19 12:37:00 05/31/19 12:37:00 05/31/19 12:37:00 Time Out 05/31/19 13:35:00 05/31/19 13:35:00 05/31/19 13:35:00 Procedure Aortogram Abdominal Aortogram Abdominal Aortogram Abdominal with Runoff(Right), with Runoff(Right), with Runoff(Right), Angioplasty Angioplasty Angioplasty Percutaneous Percutaneous Percutaneous Transluminal(Right) Transluminal(Right) Transluminal(Right) Other Attendee Superficial Wound Closed By: Last Modified By: Shawanda Childers RN Napier, Elizabeth A, RN Shawanda Childers, JR 05/31/19 13:35:31 05/31/19 13:35:31 05/31/19 13:35:31 Entry 7 Case Attendee Cinthia Carranza RN Role Performed Lab Assistant, Second Time In 05/31/19 12:37:00 Time Out 05/31/19 13:35:00 Procedure Aortogram Abdominal with Runoff(Right), Angioplasty Percutaneous Transluminal(Right) Other Attendee Superficial Wound Closed By: Last Modified By: Shawanda Childers RN 05/31/19 13:35:31 [facility] IntraOp Case Attendance Audit 05/31/19 13:35:31 It Operations Specialist: LENINPIEULOGIO Modifier: EANAPIER 1 <*> Procedure Aortogram [...] Stent Endovascular, Angioplasty Percutaneous Transluminal(Right) 05/31/19 13:34:31 It Operations Specialist: EANAPIER Modifier: EANAPIER 1 <+> Time Out 1 [...] Stent Endovascular, Angioplasty Percutaneous Transluminal(Right) 05/31/19 13:05:26 It Operations Specialist: EANAPIER Modifier: EANAPIER 1 <*> Procedure Aortogram [...] with Runoff(Right), Arterial Stent Endovascular 05/31/19 13:03:30 It Operations Specialist: EANAPIER Modifier: EANAPIER 1 <*> Procedure Aortogram [...] Role Performed <+> 7 Procedure 05/31/19 13:02:19 It Operations Specialist: ALTAFNAPIER Modifier: EANAPIER <+> 6 Case Attendee <+> 6 Role Performed <+> 6 Procedure 05/31/19 12:47:39 It Operations Specialist: EANAPIER Modifier: EANAPIER 1 <*> Procedure Aortogram [...] with Runoff(Right), Arterial Stent Endovascular 05/31/19 12:47:19 It Operations Specialist: EANAPIER Modifier: EANAPIER <+> 3 Case Attendee <+> 3 Role Performed <+> 3 Procedure <+> 4 Case Attendee <+> 4 Role Performed <+> 4 Procedure <+> 5 Case Attendee <+> 5 Role Performed <+> 5 Procedure 05/31/19 12:43:53 It Operations Specialist: EANAPIER Modifier: EANAPIER <+> 1 Procedure <+> 2 Procedure 05/31/19 12:43:43 It Operations Specialist: EANAPIER Modifier: EANAPIER <+> 1 Time In <+> 2 Time In [facility] IntraOp Case Times Entry 1 Patient In Room Time 05/31/19 12:37:00 Out Room Time 05/31/19 13:35:00 Anesthesia Start Time 05/31/19 12:37:00 Stop Time 05/31/19 13:35:00 Surgery / Procedure Times Start Time 05/31/19 12:59:00 Stop Time 05/31/19 13:29:00 Last Modified By: Shawanda Childers RN 05/31/19 13:34:09 [facility] IntraOp Case Times Audit 05/31/19 13:34:09 It Operations Specialist: EANAPIER Modifier: EANAPIER <+> 1 Out Room Time <+> 1 Stop Time 05/31/19 13:28:54 It Operations Specialist: EANAPIER Modifier: EANAPIER <+> 1 Stop Time 05/31/19 12:58:07 It Operations Specialist: EANAPIER Modifier: EANAPIER <+> 1 Start Time [facility] IntraOp Communication Entry 1 Entry 2 Communication To Family/Significant other Family/Significant other Comment START CLOSING Communication By Shawanda Childers, Shawanda Ortiz RN Date and Time 05/31/19 12:59:00 05/31/19 13:21:00 Last Modified By: Shawanda Childers RN Napier, Elizabeth A, RN 05/31/19 12:59:12 05/31/19 13:20:31 [facility] IntraOp Communication Audit 05/31/19 13:20:31 It Operations Specialist: EANAPIER Modifier: EANAPIER <+> 2 Communication By <+> 2 Date and Time <+> 2 Communication To <+> 2 Comment 05/31/19 12:59:12 It Operations Specialist: EANAPIER Modifier: EANAPIER <+> 1 Date and Time [facility] IntraOp Departure from OR Entry 1 Integumentary Assessment Integumentary WDL Assessment WDL Transfer/Handoff Transfer to Other Handoff Method Phone call Post-op Transport Stretcher/Gurney Via Patient Transport SHEFALI KAYE APRN, Accompanied by Liseth MUIR Elizabeth A, RN [facility] Last Modified By: Shawanda Childers RN 05/31/19 12:48:02 [facility] IntraOp Dressing and Packing Entry 1 Type Dressing Location OPSITE Wound Dressing Item 4x4's Applied By DEREK CHEN MD Other Comments TEGADERM Last Modified By: Shawanda Childers RN 05/31/19 12:43:48 [facility] IntraOp Fire Risk Assessment Entry 1 [...] Modified By: Shawanda Childers RN 05/31/19 12:44:02 [facility] IntraOp General Case Loader Helper Sorting Yard 1 Case Information OR OR 20 [facility] Case Level 1 Room Verified Yes Wound Class I - Clean Specialty SN Endovascular Anesthesia Type MAC ASA Class 3 Diagnosis Preop Diagnosis PVD Postop Same As Preop No Postop Diagnosis SEE MD NOTE Last Modified By: Shawanda Childers RN 05/31/19 13:20:04 [facility] IntraOp General Case Data Audit 05/31/19 13:20:04 It Operations Specialist: SONIA Modifier: EANAPIER <+> 1 Preop Diagnosis [facility] IntraOp Implant Log Entry 1 Type Implant (Synthetic) Implant Log Implant DEVICE MYNX NET SOFTWARE ARCHITECT 6F/ 7F Identification [id number] Description Implant Quantity 1 Implant Site RIGHT Implant Access Closure Identification Concrete Block Molder Name: Implant [id number] Identification Catalog Number Implant Size 5F Implant Has an Yes Expiration Date Implant Expiration 10/12/20 Date Tissue Implant Last Modified By: Shawanda Childers RN 05/31/19 13:19:33 [facility] IntraOp Intraoperative Assessment Entry 1 Handoff [...] Modified By: Shawanda Childers RN 05/31/19 12:44:44 [facility] IntraOp Intraoperative Equipment Entry 1 Type Monitoring Equipment Intraop Monitoring Electrocardiogram Three lead placement (ECG) Electrode Placement Blood Pressure Non-Invasive BP Device Source Blood Pressure Arm, right upper Location Pulse Oximeter Hand, left Probe Site Antiembolic Devices Scopes Photo/Video Documentation Last Modified By: Shawanda Childers RN 05/31/19 12:45:01 [facility] IntraOp Medication Admin Entry 1 Entry 2 Entry 3 Medication/Irrigant PAULA VISIPAQUE 320MG 150 lidocaine 1% 50ml vial PAULA NACL 0.9PCT HPRN 200ML --[id number] - [id number] 1000U .5L --[id number] Combo Med List 1 - Combo Med [...] Modified By: Shawanda Childers RN 05/31/19 13:20:52 [facility] IntraOp Medication Admin Audit 05/31/19 13:20:52 It Operations Specialist: SONIA Modifier: EANAPIER <+> 4 Medication/Irrigant <+> 4 Route of Administration <+> 4 Administered By <+> 4 Dose <+> 4 Unit of Measure [facility] IntraOp Patient Positioning Entry 1 Procedure [...] Modified By: Shawanda Childers RN 05/31/19 13:35:31 [facility] IntraOp Patient Positioning Audit 05/31/19 13:35:31 It Operations Specialist: EANAPIER Modifier: EANAPIER 1 <*> Procedure Aortogram Abdominal with Runoff(Right), Angioplasty Percutaneous Transluminal(Right) 05/31/19 13:05:28 It Operations Specialist: EANAPIER Modifier: EANAPIER 1 <*> Procedure Aortogram Abdominal with Runoff(Right) [facility] IntraOp Sign In Entry 1 Patient, [...] Modified By: Shawanda Childers RN 05/31/19 12:47:38 [facility] IntraOp Sign Out Entry 1 RN [...] Modified By: Shawanda Childers RN 05/31/19 13:34:18 [facility] IntraOp Sign Out Audit 05/31/19 13:34:18 It Operations Specialist: SONIA Modifier: EANAPIER <+> 1 RN Sign Out Signature Date/Time [facility] IntraOp Skin Prep Entry 1 Procedure Aortogram Abdominal with Runoff(Right), Angioplasty Percutaneous Transluminal(Right) Prescribed N/A Pre-Surgical Prep Completed Prep Area BILATERAL GROINS Intraop Prep Integumentary WDL Assessment WDL Prep Agents Chloraprep Prep by Shawanda Childers RN Hair Removal Methods No hair removal performed Last Modified By: Shawanda Childers RN 05/31/19 13:35:32 [facility] IntraOp Skin Prep Audit 05/31/19 13:35:32 It Operations Specialist: SONIA Modifier: EANAPIER 1 <*> Procedure Aortogram Abdominal with Runoff(Right), Angioplasty Percutaneous Transluminal(Right) 05/31/19 13:05:28 It Operations Specialist: SONIA Modifier: EANAPIER 1 <*> Procedure Aortogram Abdominal with Runoff(Right) [facility] IntraOp Surgical Procedures Entry 1 Entry 2 Procedure [...] Elizabeth A, RN 05/31/19 13:35:45 05/31/19 13:35:45 [facility] IntraOp Surgical Procedures Audit 05/31/19 13:35:45 It Operations Specialist: EANAPIER Modifier: EANAPIER 1 <*> Procedure Aortogram [...] <-> 2 Anesthesia Type MAC 05/31/19 13:35:10 It Operations Specialist: EANAPIER Modifier: EANAPIER 3 <*> Procedure Angioplasty Percutaneous Transluminal 05/31/19 13:34:03 It Operations Specialist: EANAPIER Modifier: EANAPIER <+> 1 Stop <+> 2 Stop <+> 3 Stop 05/31/19 13:21:44 It Operations Specialist: EANAPIER Modifier: EANAPIER 1 <*> Procedure Aortogram Abdominal with Runoff 05/31/19 13:17:03 It Operations Specialist: EANAPIER Modifier: EANAPIER 1 <*> Procedure Aortogram Abdominal with Runoff 1 <*> Additional Procedure Description (AORTOGRAM WITH IVUS, RT ILIAC ARTERY/POSS AORTIC STENT POSS RT COMMON ILIAC STENT) 05/31/19 13:05:22 It Operations Specialist: EANAPIER Modifier: EANAPIER <+> 3 Procedure <+> 3 Primary Procedure <+> 3 Modifiers <+> 3 Primary Surgeon <+> 3 Specialty <+> 3 Start <+> 3 Wound Class <+> 3 Anesthesia Type 05/31/19 13:02:32 It Operations Specialist: EANAPIER Modifier: EANAPIER <+> 1 Start <+> 2 Start 05/31/19 12:48:22 It Operations Specialist: EANAPIER Modifier: EANAPIER 1 <*> Procedure Aortogram Abdominal with Runoff 1 <+> Specialty [facility] IntraOP Time Out Entry 1 Procedure [...] Modified By: Shawanda Childers RN 05/31/19 13:35:32 [facility] IntraOP Time Out Audit 05/31/19 13:35:32 It Operations Specialist: SONIA Modifier: EANAPIER 1 <*> Procedure to be Performed Aortogram Abdominal with Runoff(Right), Arterial Stent Endovascular, Angioplasty Percutaneous Transluminal(Right) 05/31/19 13:05:29 It Operations Specialist: SONIA Modifier: EANAPIER 1 <*> Procedure to be Performed Aortogram Abdominal with Runoff(Right), Arterial Stent Endovascular [facility] IntraOp X-Ray and Images Entry 1 X-Ray/Imaging Type Fluoroscopy Fluoroscopy Type Fixed Aircraft Communicator Name Jackie Blanton [employer] Protective Devices Yes Used Exposure Time 3.6 MINUTES Last Modified By: Shawanda Childers RN 05/31/19 13:19:56 Case Comments <None> Finalized By: CALEB AN Document Signatures Signed By: Shawanda Childers RN 05/31/19 13:35 CALEB AN 06/01/19 12:06 Unfinalized History Date/Time Username Reason for Unfinalizing Freetext Reason for Unfinalizing 06/01/19 12:04 WATEL[place]IA Correct Billing Electronically signed by Julio [facility] Conversion Senior Developer Cerner at 09/30/2022 3:28 PM CDT documented in this encounter Plan of Treatment Not on file documented as of this encounter Visit Diagnoses Not on filedocumented in this encounter
--- OUTSIDE RECORDS SUMMARY | 2025-06-06 12:49 | XMS_ITS | Encounter Summary ---
Author Organization Healthcare Address [address] [place] [address] Care Team Providers Care Sonography Technologist Name Role Phone Deondre Lui MD Primary Care Provider [phone] Encounter Details Date Type Department Care Team (Late st Contact Info) Description 04/25/2025 Results Follow-Up [facility] Medicine Specialties [address] [place] [id number] Pepito Patel MD [address] [place] [address] Social History Tobacco Use Types Packs/Day Years [...] [facility] in the [facility] were you [facility] or living in [...] Info) Description 07/12/2025 8:15 AM EST Consult [facility] General Surgery [address] [place] [address] Bola Jordan MD [address] [facility] [address] [place] [address] 07/21/2025 12:30 PM EST Appointment [facility] Vascular Lab [address] [place] [address] 07/21/2025 1:00 PM EST Appointment [facility] Vascular Lab [address] 5[address] [place] [address] 07/21/2025 2:00 PM EST Office Visit [facility] Comprehensive Vascular Clinic [address] [facility] 5th Floor [address], [address] [place] [address] Tyron Mosquera MD [address] [facility] [address] [place] [address] 08/09/2025 10:00 AM EST Appointment [facility] [address] [place] [address] 08/09/2025 11:45 AM EST Office Visit [facility] [address] [place] [address] Cristofer Yu MD [address] [place] [address] 08/23/2025 10:40 AM EDT Office Visit [facility] Medicine Specialties [address] [place] [address] Pepito Patel MD [address] [place], [place] [id number] 09/27/2025 12:00 PM EDT Clinical Support [facility] Laboratory Services [address] 1[address] [place] [address] 10/04/2025 1:20 PM EDT Office Visit [facility] Nephrology, Bone & Mineral Metabolism [address], [address] [place] [address] Jude Arora PA [address] [place] [address] 10/11/2025 9:15 AM EDT Office Visit [facility] [place] [address] [facility] [place] [address] James Tomas MD [address] [place] [address] documented as of this encounter Goals Goal Patient Goal Type Associated Problems Recent Progress Patient-Stated? Author Bisacodyl Prep Care Plan Bisacodyl Prep Selma Nichols MD documented as of this encounter Visit Diagnoses Not on filedocumented in this encounter Additional Health Concerns Active [...] documented as of this encounter Care Teams Sonography Technologist Relationship Specialty Start Date End Date Deondre Lui MD [address] [place] [facility] [address] [place] [id number] PCP - General 10/26/20 documented as of this encounter
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
--- OUTSIDE RECORDS SUMMARY | 2025-06-06 12:49 | XMS_ITS | Encounter Summary ---
Author Organization [employer] [facility] ([place], [place], [place], [place], [place]) Address [address] [place] [address] Care Team Providers Care Pocket Setter Lockstitch Name Role Phone Unavailable Primary Care Provider Unavailabl e Encounter Details Date Type Department Care Team (Late st Contact Info) Description 05/31/2019 Transcribed Document [facility] Family [place] [address] ProviderNelson MD [address], [place] [id number] Social History Tobacco Use Types Packs/Day Years Used Date Smoking Tobacco: Never Assessed Comments Unknown Sex and Gender Information Value Date Recorded Sex Assigned at Not on file Legal Sex Female 1:09 PM CDT Gender Identity Not on file Sexual Orientation Not on file documented as of this encounter Miscellaneous Notes * Cerner Conversion Note - Historical ProviderMD - 05/31/2019 5:06 PM GENERATOR ASSEMBLER Nursing Discharge Summary Entered On: 05/31/2019 17:07 EST Performed On: 05/31/2019 17:06 EST by Bonny Ayala water softener servicer and installer Documentation Discharge Date/Time : 05/31/2019 16:48 EST Patient Disposition, General : Discharge Discharge To : Home with ambulatory/outpatient follow-up Mode Of Departure, General Discharge : Private vehicle Accompanied By, Discharge : Son IV Discontinued : Yes Personal Belongings With Patient : Yes Bonny Ayala RN - 05/31/2019 17:06 EST documented in this encounter Plan of Treatment Not on file documented as of this encounter Visit Diagnoses Not on filedocumented in this encounter
--- OUTSIDE RECORDS SUMMARY | 2025-06-06 12:49 | XMS_ITS | Encounter Summary ---
Author Organization [employer] ([place], [place], [place], [place], [place]) Address [address] [place] [address] Care Team Providers Care Gas Distribution Plant Operator Name Role Phone Unavailable Primary Care Provider Unavailabl e Encounter Details Date Type Department Care Team (Late st Contact Info) Description 05/31/2019 Transcribed Document [facility] [place] [facility] [place] [address] ProviderNelson MD [address] [phone] Social History Tobacco Use Types Packs/Day Years Used Date Smoking Tobacco: Never Assessed Comments Unknown Sex and Gender Information Value Date Recorded Sex Assigned at Not on file Legal Sex Female 1:09 PM CDT Gender Identity Not on file Sexual Orientation Not on file documented as of this encounter Miscellaneous Notes * Cerner Conversion Note - Historical ProviderMD - 05/31/2019 3:56 PM TELEVISION PRODUCTION TECHNICIAN Event Note Entered On: 05/31/2019 15:57 EST Performed On: 05/31/2019 15:56 EST by Bonny Ayala RN Event Note Description of Event : Reported hypertension to physician, rec'd order for hydralazine 10 mg IVP with repeat of second dose if needed. Bonny Ayala RN - 05/31/2019 15:56 EST documented in this encounter Plan of Treatment Not on file documented as of this encounter Visit Diagnoses Not on filedocumented in this encounter
--- OUTSIDE RECORDS SUMMARY | 2025-06-06 12:49 | XMS_ITS | Referral Summary ---
Author Organization [employer] ([place], [place], [place], [place], [place]) Address [address] [place] [address] Care Team Providers Care Blanching Machine Operator Name Role Phone Unavailable Primary Care [...]
--- OUTSIDE RECORDS SUMMARY | 2025-06-06 12:49 | XMS_ITS | Clinical Summary ---
Author Organization Healthcare Address [address] [place] [address] Care Team Providers Care Workers Compensation Claims Examiner Name Role Phone Deondre Lui MD Primary Care Provider [phone] Allergies Active Allergy Reactions Criticality Noted Date Comments Buspirone Itching Medium 05/25/2012 Methylprednisolone Itching Medium 10/14/2023 Medications aspirin 81 MG EC tablet Take 1 tablet by mouth every morning. Active baclofen (Lioresal) 10 MG tablet Take 1 tablet by mouth at night as needed. 01/05/20 24 Active gabapentin (Neurontin) 400 MG capsule Take 1 capsule by mouth 3 times a day. 01/05/20 24 Active multivitamin (Theragran-M) tablet Take 1 tablet by mouth every morning. Active ondansetron ODT (Zofran-ODT) 4 MG disintegrating tablet Dissolve 1 tablet on the tongue every 8 hours as needed for nausea or vomiting. Active atorvastatin (Lipitor) 80 MG tablet Take 1 tablet by mouth every morning. 90 tablet 3 11/25/19 25 Active lisinopril-hydroCH LOROthiazide 20-12.5 MG tablet Take 1 tablet by mouth every morning. 90 tablet 3 11/25/19 25 Active bisacodyl (Dulcolax) 5 MG EC tablet Take all 4 tablets at 4 PM on day before colonoscopy . Do not crush, chew, or split. 4 tablet 04/10/20 25 Active polyethylene glycol (Golytely) 236 g solution SEE PHARMACY NOTE FOR PT INSTRUCTIONS 4000 mL 04/10/20 25 Active Active Problems Problem Noted Date Diagnosed [...] Encounters Date Type Department Care Team Description 04/25/2025 Results [facility] Medicine Specialties [address] [place] [address] Pepito Patel MD 04/25/2025 Orders Only [facility] Medicine Specialties [address], [address] [place] [address] Pepito Patel MD Polyp of cecum (Primary Dx) 04/22/2025 Orders Only [facility] Medicine Specialties [address] [place] [address] Selma Gonzalez MD Cecal polyp (Primary Dx) 04/18/2025 1:54 PM EST Anesthesia Event [facility] [address] [place] [phone] Veto Alejo MD Tesar, Stephanie P, APRN 04/18/2025 1:11 PM EST - 04/18/2025 11:59 PM EST Hospital Encounter [facility] [address] [place] [phone] Casey Clark MD Bilan, James J, CRNA Wainscott, Justin K, MD Hematochezia Discharge Disposition: Home or Self Care 04/18/2025 Travel 04/05/2025 1:00 PM EDT Office Visit [facility] Nephrology, Bone & Mineral Metabolism [address], [address] [place] [address] Jude Arora PA Stage 3b chronic kidney disease (CMS/HCC) (Primary Dx); Essential hypertension; Hypercalcemia; Chronic kidney disease-mineral and bone disorder 04/05/2025 Travel 03/29/2025 9:30 AM EDT Pre-Admission Testing [facility] [address] [place] [address] Hematochezia (Primary Dx) 03/29/2025 Travel 03/28/2025 Travel 03/21/2025 Telephone [facility] [address] [place] [address] James Hutson MD from Last 3 Months Immunizations Immunization Administration Dates Next Due Hep A, Adult 05/17/2018 Influenza, High-dose, Split Virus, Trivalent, Injectable, preservative free 04/04/2024 Influenza, Unspecified 03/18/2010,02/28/2009 TD (adult), 2 Lf tetanus tox oid, preservative free, adsorbed 08/19/1996 Family History Medical History Relation Name Comments Hypertension Brother Tomi frausto Conversions - Other Father Kvng frausto Back problem Heart attack Father Murtaughchristian frausto Heart disease Father Kvng frausto Hypertension Father Kvng frausto Cancer Mother Fide Mirzae Conversions - Other Mother Fide Frausto Back pr oblem Diabetes Mother Fide Jett Hearing loss Mother Fide Jett Heart disease Mother Fide Jett Hypertension Mother Fidekatiuska AnguloJett Other cancer Mother Fide Jett Hypertension Sister Bridget parker Hearing loss Son Ronny Min Stroke Son Ronny Min Anesthesia problems Neg Hx Malig Hyperthermia Neg Hx Relation Name Status Comments Brother Tomi frausto Father Kvng frausto Mother Fide Anguloythe Sister Bridegt parker Son Ronny Min Social History Tobacco Use Types Packs/Day Years [...] and Family Not on file 11/25/2024 Attends [employer] Services Not on file 11/25 Active Member [...] Mass Index 34.93 04/18/2025 1:25 PM EST Plan of Treatment Upcoming Encounters Date Type Department Care Team (Late st Contact Info) Description 07/12/2025 8:15 AM EST Consult [facility] General Surgery [address], [address] [place] [phone] Bola Jordan MD [address] [facility] [address] [place] [address] 07/21/2025 12:30 PM EST Appointment [facility] Vascular Lab [address] Floor [address] [place] [address] 07/21/2025 1:00 PM EST Appointment [facility] Vascular Lab [address] [facility] 5th Floor [address], [address] [place] [address] 07/21/2025 2:00 PM EST Office Visit [facility] Comprehensive Vascular Clinic [address] [facility] 5th Floor [address], [address] [place] [phone] Tyron Mosquera MD [address] [facility] [address] [place] [address] 08/09/2025 10:00 AM EST Appointment [facility] [address] [place] [address] 08/09/2025 11:45 AM EST Office Visit [facility] [address], 1st [place] [address] Cristofer Yu MD [address] [facility] [address] [place] [address] 08/23/2025 10:40 AM EDT Office Visit [facility] Medicine Specialties [address] [place] [address] Pepito Patel MD [address] [place] [address] 09/27/2025 12:00 PM EDT Clinical Support [facility] Laboratory Services [address] [facility], 1st [place] [address] 10/04/2025 1:20 PM EDT Office Visit [facility] Nephrology, Bone & Mineral Metabolism [address], [address] [place] [address] Jude Arora PA [address] [place] [address] 10/11/2025 9:15 AM EDT Office Visit [facility] [place] Raymundo [address] [place] [phone] James Tomas MD [address] [place] [address] Health Maintenance Due Date Last Done Comments [facility]-Bone Density Scan 1960 [facility]-Medicare Annual Wellness (AWV) 1960 [facility]-Infant/Child/Adol SDOH Screenings 1960 [facility]-Pneumococcal Vaccine: 50+ Years (1 of 2 - PCV) 1977 [facility]-DTaP,Tdap,and Td Vaccines (1 - Tdap) 08/20/1996 08/19/1996 CT Colonography 11/01/2003 FIT-DNA 11/01/2003 FIT 11/01/2003 FOBT 11/01/2003 Sigmoidoscopy 11/01/2003 Lung Cancer Screening Shared Decision Making 2008 [facility]-Breast Cancer Screening 2008 [facility]-Lung Cancer Screening 2008 [facility]-RSV Vaccine: 60+ Years or (1 - Risk 50-74 years 1-dose series) 2008 [facility]-Zoster Vaccines (1 of 2) 2008 UAT-NIDLD-91 Vaccine (1 - 2024- season) 2025 [facility]-Influenza Vaccine (#1) 02/13/202504/04, 03/18/2010, 02/28/2009 [facility]- SDOH Screenings 05/27/2025 [facility]-Adult SDOH Screenings 05/27/2025 11/25/2024 [facility]-Depression Screening 04/05/2026 04/05/2025, 02/13 Colonoscopy 04/18/2035 04/18/2025 [facility]-Colorectal Cancer Screening 04/18/2035 [facility]-Hepatitis A Vaccines Aged Out 05/17/2018 No longer eligible based on patient's age to complete this topic [facility]-Hepatitis C Screening Completed 11/21/2024 [facility]-Obesity Intervention Completed 025, 02/23/2025, 12/09/2024, Additional history exists HPV Vaccines (No Doses Required) Completed [facility]-HIB Vaccines Aged Out No longer e ligible based on patient's age to complete this topic [facility]-IPV Vaccines Aged Out No longer e ligible based on patient's age to complete this topic [facility]-Rotavirus Vaccines Aged Out No lo nger eligible based on patient's age to complete this topic Goals Goal Patient Goal Type Associated Problems Recent Progress Patient-Stated? Author Bisacodyl Prep Care Plan Bisacodyl Prep No Selma Gonzalez MD Medical Devices Implanted Type Area Salon/Spa Manager Device Identifier Shelf Expiration Date Model / Serial / Lot Leg Stents Stent Leg Abdomen Stent Stent Abdomen Rx Acculink Carotid Stent Implanted:Qty : 1 on 10/13/2019 by Duglas Winn MD Stent Carotid Stent Vascular Drug-Eluting Vesna [id number] - [id number] Implanted:Qty : 1 on 03/19/2022 by Chad Rogers MD at [facility] Right: Arterial [id number] 04/26/2023 [id number] / / [id number] Vip Vascular Closure Device 6 Fr - [id number] Implanted:Qty : 1 on 03/19/2022 by Chad Rogers MD at [facility] [id number] 01/12/2023 [id number] / / [id number] Procedures Procedure Name Priority Date/Time Associated Diagnosis Comments COLONOSCOPY Routine 04/18/2025 2:29 PM EST Hematochezia URINALYSIS MICROSCOPIC FOR UA REFLEX Routine 03/29/2025 10:17 AM EDT Stage 3b chronic kidney disease (CMS/HCC) PROTEIN, URINE, RANDOM WITH CREATININE Routine 03/29/2025 10:17 AM EDT Stage 3b chronic kidney disease (CMS/HCC) URINALYSIS WITH REFLEX MICROSCOPIC Routine 03/29/2025 10:17 AM EDT Stage 3b chronic kidney disease (CMS/HCC) CBC W/O DIFFERENTIAL Routine 03/29/2025 10:11 AM EDT Stage 3b chronic kidney disease (CMS/HCC) PTH INTACT TOTAL Routine 03/29/2025 10:1 1 AM EDT Stage 3b chronic kidney disease (CMS/HCC) Hypercalcemia VITAMIN D 25 HYDROXY Routine 03/29/2025 10:11 AM EDT Stage 3b chronic kidney disease (CMS/HCC) Hypercalcemia RENAL FUNCTION PANEL, PLASMA Routine 03/29/2025 10:11 AM EDT Stage 3b chronic kidney disease (CMS/HCC) HEPATITIS C ANTIBODY - ED W/REFLEX TO HCV QUANT PCR STAT 11/21/2024 8:32 AM EDT from Last 3 Months or Most Recently Relevant to Health Maintenance Results * Colonoscopy (04/18/2025 2:29 PM EST) [...] Role Casey Clark MD Proceduralist Sherman Lacy, OFFSET PLATE PREPARATION SUPERVISOR OFFSET PLATE PREPARATION SUPERVISOR Liz Shaw RN Endo Nurse Veto Alejo MD Anesthesiologist Wong Venegas Endo Client Associate Preprocedure A history and physical has been [...] of bowel preparation was evaluated using the [place] Bowel Preparation Scale with scores of: right [...] Gonzalez MD GI PROCEDURE ORDERABLES Final Result * Urinalysis Microscopic Examination (03/29/2025 10:17 AM EDT) Urine Urine specimen obtained by clean catch procedure / Unknown Non-blood Collection / Unknown 03/29/2025 10:17 AM EDT 03/29/2025 10:17 AM EDT [facility] LAB URINE ORDERABLES Final Result Performing Organization Address [facility] Co de Phone Number [facility] [address] [place] [address] * Protein, Random, Urine with Creatinine (03/29/2025 10:17 AM EDT) Protein, Urine 8 mg/dL 03/29/2025 12:11 PM EDT [facility] Creatinine, Urine 149 mg/dL 03/29/2025 12:11 PM EDT [facility] Protein/Creati nine Ratio 0.1 mg/mg Creat 03/29/2025 12:11 PM EDT [facility] Urine Urine specimen obtained by clean catch procedure / Unknown Non-blood Collection / Unknown 03/29/2025 10:17 AM EDT 03/29/2025 10:17 AM EDT [facility] LAB URINE ORDERABLES Final Result Performing Organization Address [facility] Phone Number [facility] [address] [place] [address] * (ABNORMAL) Urinalysis with reflex microscopic (Culture NOT Included) (03/29/2025 10:17 AM EDT) Color, Urine Yellow LAB URINALYSIS - AUTOMATED METHOD 03/29/2025 2:32 PM EDT [facility] Clarity, Urine Clear LAB URINALYSIS - AUTOMATED METHOD 03/29/2025 2:32 PM EDT [facility] Spec [place], Urine 1.017 1.005 - 1.030 LAB URINALYSIS - AUTOMATED METHOD 03/29/2025 2:32 PM EDT [facility] pH, Urine 5.5 5.0 - 8.0 LAB URINALYSIS - AUTOMATED METHOD 03/29/2025 2:32 PM EDT [facility] Protein, Urine Negative Negative mg/dL LAB URINALYSIS - AUTOMATED METHOD 03/29/2025 2:32 PM EDT [facility] Glucose, Urine Negative Negative mg/dL LAB URINALYSIS - AUTOMATED METHOD 03/29/2025 2:32 PM EDT [facility] Ketones, Urine Negative Negative mg/dL LAB URINALYSIS - AUTOMATED METHOD 03/29/2025 2:32 PM EDT [facility] Blood, Urine Negative Negative LAB URINALYSIS - AUTOMATED METHOD 03/29/2025 2:32 PM EDT [facility] Bilirubin, Urine Negative Negative LAB URINALYSIS - AUTOMATED METHOD 03/29/2025 2:32 PM EDT [facility] Urobilinogen, Urine 0.2 0.2 to 1.0 mg/dL LAB URINALYSIS - AUTOMATED METHOD 03/29/2025 2:32 PM EDT [facility] Leukocytes, Urine Small(A) Negative LAB URINALYSIS - AUTOMATED METHOD 03/29/2025 2:32 PM EDT [facility] Nitrite, Urine Negative Negative LAB URINALYSIS - AUTOMATED METHOD 03/29/2025 2:32 PM EDT [facility] RBC, Urine <1 0 to 3 /HPF 03/29/2025 2:32 PM EDT [facility] Comment:This result was prev iously suppressed from the chart. WBC, Urine 0 - 5 0 to 5 /HPF 03/29/2025 2:32 PM EDT [facility] Comment:This result was prev iously suppressed from the chart. Squamous Epithelial Cells 3 - 5 0 to 5 /HPF 03/29/2025 2:32 PM EDT [facility] Comment:This result was prev iously suppressed from the chart. Hyaline Casts 0 - 2 0 to 5 /LPF 03/29/2025 2:32 PM EDT [facility] Comment:This result was prev iously suppressed from the chart. Bacteria, Urine Negative Negative 03/29/2025 2:32 PM EDT [facility] Comment:This result was prev iously suppressed from the chart. Urine Urine specimen obtained by clean catch procedure / Unknown Non-blood Collection / Unknown 03/29/2025 10:17 AM EDT 03/29/2025 10:17 AM EDT [facility] - 03/29/2025 2:32 PM EDT Performed by manual method us Jude BOURNE LAB URINE ORDERABLES Final Result [facility] [address] [place], [place] [id number] * Vitamin D 25 Hydroxy (03/29/2025 10:11 AM EDT) Vitamin D 25 Hydroxy 24.1 20.0 - 80.0 ng/mL 03/29/2025 2:28 PM EDT [facility] Blood Venous blood specimen / Unknown Venipuncture / Unknown 03/29/2025 10:11 AM EDT 03/29/2025 10:12 AM EDT Narrative [facility] - 03/29/2025 2:28 PM EDT Testing performed on [employer], standardized against NIST SRM 2972. When testing samples from patients whose predominant form of vitamin D is vitamin D2, such as patients receiving vitamin D2 supplementation, results that are subtherapeutic should be confirmed with another method, such as LC-MS/MS, before being used for patient management. Vitamin D, 25-Hydroxy reference range, age 18 years and up: Deficiency: <12 ng/mL Insufficiency: 12 to 19 ng/mL Sufficiency: 20 to 80 ng/mL Possible toxicity: >100 ng/mL Jude Arora [place] LAB BLOOD ORDERABLES Final Result [facility] [address] [place] [address] * (ABNORMAL) CBC W/O Differential (03/29/2025 10:11 AM EDT) WBC Count 10.26 3.70 - 10.30 10*3/uL LAB HEMATOLOGY METHOD 03/29/2025 11:59 AM EDT [facility] RBC Count 4.32 3.90 - 5.20 10*6/uL LAB HEMATOLOGY METHOD 03/29/2025 11:59 AM EDT [facility] HGB 13.2 11.2 - 15.7 g/dL LAB HEMATOLOGY METHOD 03/29/2025 11:59 AM EDT [facility] HCT 41.3 34.0 - 45.0 % LAB HEMATOLOGY METHOD 03/29/2025 11:59 AM EDT [facility] Platelet Count 247 155 - 369 10*3/uL LAB HEMATOLOGY METHOD 03/29/2025 11:59 AM EDT [facility] MCV 96 79 - 98 fL LAB HEMATOLOGY METHOD 03/29/2025 11:59 AM EDT HEALTHCARE LAB MCH 30.6 26.0 - 32.0 pg LAB HEMATOLOGY METHOD 03/29/2025 11:59 AM EDT [facility] MCHC 32.0 30.7 - 35.5 g/dL LAB HEMATOLOGY METHOD 03/29/2025 11:59 AM EDT [facility] RDW 15.3(H) 11.5 - 14.5 % LAB HEMATOLOGY METHOD 03/29/2025 11:59 AM EDT [facility] MPV 10.4 8.8 - 12.5 fL LAB HEMATOLOGY METHOD 03/29/2025 11:59 AM EDT [facility] nRBC 0.0 <=0.0 per 100 WBCs LAB HEMATOLOGY METHOD 03/29/2025 11:59 AM EDT [facility] Blood Venous blood specimen / Unknown Venipuncture / Unknown 03/29/2025 10:11 AM EDT 03/29/2025 10:12 AM EDT Jude [facility] LAB BLOOD ORDERABLES Final Result [facility] [address] [place] [id number] * (ABNORMAL) PTH Intact Total (03/29/2025 10:11 AM EDT) Pathologist [facility] PTH Intact Total 84(H) 9 - 77 pg/mL 03/29/2025 2:03 PM EDT [facility] Blood Venous blood specimen / Unknown Venipuncture / Unknown 03/29/2025 10:11 AM EDT 03/29/2025 10:12 AM EDT Narrative [facility] - 03/29/2025 2:03 PM EDT Assay performed by immunoassay at the [facility]. Performed on [employer] chemiluminescent immunoassay, tractable to the World Health Organization's first international standard for PTH from the NIBS, Code 79/500. Results obtained from different test methods or kits cannot be used interchangeably. Jude Maite PA LAB BLOOD ORDERABLES Final Result [facility] [address] [place] [address] * (ABNORMAL) Renal Function Panel, Plasma (03/29/2025 10:11 AM EDT) Glucose, Plasma 122(H) 74 - 99 mg/dL 03/29/2025 12:25 PM EDT [facility] BUN, Plasma 18 8 - 23 mg/dL 03/29/2025 12:25 PM EDT [facility] Creatinine, Plasma 1.77(H) 0.60 - 1.10 mg/dL 03/29/2025 12:25 PM EDT [facility] BUN/Creatinine Ratio 10 03/29/2025 12:25 PM EDT [facility] Sodium, Plasma 140 136 - 145 mmol/L 03/29/2025 12:25 PM EDT [facility] Potassium, Plasma 4.7 3.6 - 4.9 mmol/L 03/29/2025 12:25 PM EDT [facility] Chloride, Plasma 105 97 - 107 mmol/L 03/29/2025 12:25 PM EDT [facility] CO2, Plasma 25 22 - 29 mmol/L 03/29/2025 12:25 PM EDT [facility] Anion Gap 10 6 - 16 mmol/L 03/29/2025 12:25 PM EDT [facility] Total Calcium, Plasma 10.2 8.9 - 10.2 mg/dL 03/29/2025 12:25 PM EDT [facility] Phosphorus, Plasma 2.9 2.5 - 4.5 mg/dL 03/29/2025 12:25 PM EDT [facility] Albumin, Plasma 4.1 3.5 - 5.2 g/dL 03/29/2025 12:25 PM EDT [facility] eGFRcr 31.4 mL/min/1.7 3m*2 03/29/2025 12:25 PM EDT [facility] Comment:Reported eGFRcr in m L/min/1.73m2 is based the CKD-EPI 2020 equation that does not use a race coefficient. Blood Venous blood specimen / Unknown Venipuncture / Unknown 03/29/2025 10:11 AM EDT 03/29/2025 10:12 AM EDT us Jude BOURNE LAB BLOOD ORDERABLES Final Result [facility] [address] [place] [address] * Hepatitis C Antibody - ED (11/21/2024 8:32 AM EDT) Hepatitis C Antibody Negative Negative 11/21/2024 9:30 AM EDT [facility] Blood Venous blood specimen / Unknown Venipuncture / Unknown 11/21/2024 8:32 AM EDT 11/21/2024 8:50 AM EDT Derek Deshpande MD LAB BLOOD ORDERABLES Final Result Performing Organization Address [place]/[facility] Co de Phone Number [facility] [address] [place] [address] from Last 3 Months or Most Recently Relevant to Health Maintenance Additional Health Concerns Active Problems Noted Date Diagnosed Date Bisacodyl Prep 04/22/2025 [place] [address] [facility] Advance Directives * Full Code (Latest Code [...] Patient has decision-making capacity? Yes Care Teams Workers Compensation Claims Examiner Relationship Specialty Start Date End Date Deondre Lui MD [address] [place] [address] [address] [place] [address] PCP - General 10/26/20
--- OUTSIDE RECORDS SUMMARY | 2025-06-06 12:49 | XMS_ITS ---
Laboratory report Created on: May 16, 2025 FARHAN MARTINEZ : 1960 Sex: Female Author Organization Unknown PROBLEMS Problems List Code Description RESULTS Laboratory Orders Date Order Code Test 2024-03-25 [id number] ALBUMIN/CREATINI NE RATIO,URINE Laboratory Results Date LOINC Test Value Unit Reference Range Interpre tation 2024-03-25 [id number] CREATININE, URINE 88.6 MG/DL 2024-03-25 [id number] ALBUMIN, URINE 3.1 UG/ML 2024-03-25 9318-7 ALB/CREAT RATIO 3 MG/G CREAT 0-29
== END 2025-06-05 23:59 | disposition home or self-care (01) ==
LOC: LAB.DROPOF 06-06 12:46
PROVIDERS: PCP Internal Medicine; Visit Provider Internal Medicine
DX: I12.9 Hypertensive chronic kidney disease with stage 1 through stage 4 chronic kidney disease, or unspecified chronic kidney disease (principal); E78.5 Hyperlipidemia, unspecified; N18.30 Chronic kidney disease, stage 3 unspecified; E11.22 Type 2 diabetes mellitus with diabetic chronic kidney disease; E11.59 Type 2 diabetes mellitus with other circulatory complications
CPT/HCPCS: 80053; 80061; 82043; 82570; 83036; 85025